=== PATIENT | female | born 1950 | race Caucasian/White ===

== ENCOUNTER → 2017-12-21 | Outpatient (CLI) | payer MEDICARE ==
[2017-12-21 08:34] LABS: Basophils % (A) 1 %; Eosinophils # (A) 0.1 k/uL (0-0.7); Eosinophils % (A) 2 %; HCT 47.1 % (34.0-46.0); HGB 15.1 gm/dL (11.4-16.0); Lymphocytes # (A) 1.7 k/uL (1.0-4.8); Lymphocytes % (A) 29 %; MCH 30.7 pg (25.0-35.0); MCHC 32.1 g/dL (31.0-37.0); MCV 95.8 fL (80.0-100.0); Monocytes # (A) 0.5 k/uL (0-1.0); Monocytes % (A) 8 %; Neutrophils # (A) 3.3 k/uL (1.3-7.7); Neutrophils % (A) 58 %; Platelet Count 245 k/uL (150-450); RBC 4.91 m/uL (3.80-5.40); RDW 12.8 % (11.5-15.5); WBC 5.7 k/uL (3.8-10.6)
[2017-12-21 08:53] LABS: ALT 50 U/L (9-52); AST 36 U/L (14-36); Albumin 4.6 g/dL (3.5-5.0); Alkaline Phosphatase 64 U/L (38-126); Anion Gap 11 mmol/L; Blood Urea Nitrogen 15 mg/dL (7-17); Calcium 10.5 mg/dL (8.4-10.2); Carbon Dioxide 29 mmol/L (22-30); Chloride 100 mmol/L (98-107); Cholesterol 174 mg/dL (<200); Glucose 126 mg/dL (74-99); HDL Cholesterol 58 mg/dL (40-60); LDL Cholesterol,Calculated 78 mg/dL (0-99); Potassium 5.3 mmol/L (3.5-5.1); Sodium 140 mmol/L (137-145); Total Bilirubin 0.6 mg/dL (0.2-1.3); Total Protein 7.1 g/dL (6.3-8.2); Triglycerides 192 mg/dL (<150)
[2017-12-21 17:41] LABS: Hepatitis A Antibody IgM Non-Reactive (Non-Reactive); Hepatitis B Core IgM Non-Reactive (Non-Reactive)
--- NOTE | 2017-12-24 09:11 | MM ---
Reason for exam: screening (asymptomatic). Last mammogram was performed 1 year and 3 months ago. History: Patient is postmenopausal. Physical Findings: A clinical breast exam by your physician is recommended on an annual basis and results should be correlated with mammographic findings. MG 3D Screening Mammo W/Cad Bilateral CC and MLO view(s) were taken. Prior study comparison: September 09, 2016, mammogram, performed at [facility]. February 20, 2015, mammogram, performed at [facility]. There are scattered fibroglandular densities. There is chronic nodularity in the right breast. There is no discrete abnormality. ASSESSMENT: Benign, BI-RAD 2 RECOMMENDATION: Routine screening mammogram of both breasts in 1 year.
== END | disposition home or self-care (01) ==
LOC: RADMAMWWP 07:43
PROVIDERS: ATTEND Family Medicine
DX: Z12.31 Encounter for screening mammogram for malignant neoplasm of breast (principal); Z11.59 Encounter for screening for other viral diseases; Z00.00 Encounter for general adult medical examination without abnormal findings
CPT/HCPCS: 36415; 77063; 77067; 80053; 80061; 80074; 84443; 85025

== ENCOUNTER → 2018-08-11 | Outpatient (CLI) | payer MEDICARE ==
--- NOTE | 2018-08-11 09:42 | CT ---
EXAMINATION TYPE: CT chest wo con DATE OF EXAM: 08/11/2018 COMPARISON: NONE HISTORY: Multiple nodules of lung CT DLP: 250.6 mGycm. Automated Exposure Control for Dose Reduction was Utilized. TECHNIQUE: CT scan of the thorax is performed without IV contrast. FINDINGS: LUNGS: Incidental note is made of an azygos fissure and azygos lobe. Mild centrilobular and parasepta l emphysematous changes are seen. There is a masslike consolidation in the right lower lobe appearing soft tissue density measuring 7.8 x 7.1 x 5.3 cm. There is right hemithorax volume loss with elevation of the right hemidiaphragm. The re is an adjacent small right pleural effusion and diffuse groundglass opacity with interseptal lobul ar thickening involving the right lower lobe and inferior aspect of the right upper lobe as well as t he right middle lobe. There is a 3 mm groundglass left upper lobe pulmonary nodule on series 4 image 23. Lingular atelectas is is incidentally noted. 2 mm subpleural posterior superior segment left lower lobe pulmonary nodule is present on image 27. MEDIASTINUM: Lack of IV contrast is noted to limit evaluation for mediastinal and especially hilar ad enopathy. However there is a mildly enlarged 1.1 cm short axis left paratracheal lymph node and 1.0 c m right paratracheal lymph node approaching the viktoriya. Subcarinal lymph node measures 1.2 cm. Peribr onchial cuffing surrounding the right hilum is appreciated such as series 3 image 32. No cardiomega ly or pericardial effusion is seen. OTHER: Solitary hepatic cyst measures 1.6 cm. Very small hiatal hernia is incidentally noted. IMPRESSION: Masslike consolidation in the right lower lobe measuring up to 7.8 cm with adjacent right pleural effusion, interstitial pneumonitis involving the right lower lobe, right upper lobe and righ t middle lobe, abnormal peribronchial cuffing, and mediastinal adenopathy with volume loss of the rig ht lung. Findings are suspicious for neoplasm although infectious etiology remains a less likely cons ideration. Further evaluation with PET CT or bronchoscopy could be performed. Additional 2 and 3 mm l eft pulmonary nodules are of low suspicion for malignancy.
== END | disposition home or self-care (01) ==
LOC: RADCTMAIN 07:18
PROVIDERS: ATTEND Family Medicine
DX: J90 Pleural effusion, not elsewhere classified (principal); J84.89 Other specified interstitial pulmonary diseases; R59.0 Localized enlarged lymph nodes
CPT/HCPCS: 71250

== ENCOUNTER 2018-08-25 08:28 | Day surgery (SDC) | payer MEDICARE ==
[2018-08-24 08:31] VITALS: BMI 25.1
[~2018-08-25 08:28] MED LIST: LACTATED RINGERS 1,000 ML IV SCH; LIDOCAINE 1% 20 ML VIAL (10MG/ML) FOR IV START INTRADERMA PRN
[2018-08-25 09:16] VITALS: TEMP 97.6
[2018-08-25 09:24] LABS: Glucose,Whole Blood 109 mg/dL (75-99)
[2018-08-25] MEDS ORDERED: LIDOCAINE VISCOUS 300 MG/15 ML CUP MUCOUS MEM ONE (09:49)
[2018-08-25] MEDS ORDERED: PROPOFOL 10 MG/ML 20 ML VIAL IV ONE (10:10)
[2018-08-25] MEDS ORDERED: LIDOCAINE 1% INJ 10MG/ML (20 ML MDV) ONE (10:10)
[2018-08-25] MEDS ORDERED: LIDOCAINE 2% (PF) 20 MG/ML 10 ML AMP INHALATION ONE ×2 (10:15)
[2018-08-25] MEDS ORDERED: ALBUTEROL NEBULIZED 2.5 MG/3 ML INHALATION ONE (10:15)
[2018-08-25 11:01] VITALS: BP 103/58; PULSE 103; RESP 18
--- NOTE | 2018-08-25 11:08 | PCN ---
PROCEDURE NOTE PROCEDURE: Bronchoscopy, transbronchial biopsy of the right lower lobe, endobronchial biopsies of the right lower lobe, brushings of the right lower lobe bronchus, washings, and lavage of the right lower lobe. PREOPERATIVE DIAGNOSIS: right lower lobe mass-like consolidation. POSTOPERATIVE DIAGNOSIS: Right lung mass and subtotal occlusion of the right lower lobe and right middle lobe. ANESTHESIA USED: This patient was given IV conscious sedation. PROCEDURE DESCRIPTION: Patient was prepared according to the bronchoscopy protocol. O2 was applied via nasal cannula. Patient was placed in the supine position, we monitored her O2 saturation continuously, blood pressure was intermittently monitored, cardiac rhythm was continuously monitored. After adequate IV conscious sedation, a few mL of lidocaine were instilled into the left naris, and the bronchoscope was advanced through the left naris down to the area of the vocal cords, which were noted to be patent. More lidocaine was applied over the vocal cords, and the bronchoscope was advanced through the vocal cords down to the trachea. A thorough examination was done of the trachea, viktoriya, right upper lobe, right middle lobe, right lower lobe, left upper lobe, lingula, and left lower lobe. There was significant findings involving the right middle lobe and the right lower lobe. The right lower lobe was noted to be narrowed, multiple thickened area of the mucosa noted in the right lower lobe bronchus, and was almost subtotally occluded with extrinsic compression noted in the right middle lobe bronchus. Multiple pictures were taken of the right middle lobe and right lower lobe, and multiple brushings, transbronchial biopsies, and bronchial biopsies were done from the right lower lobe, washings were also done, and the biopsies were done under fluoroscopy guidance. There was also some slight extrinsic compression even on the right upper lobe, but no endobronchial tumors noted in the right upper lobe, and no endobronchial tumors noted in the right middle lobe. The significant findings were noted to be in the right lower lobe, strongly suspicious for malignancy. The procedure was well tolerated, no evidence of any immediate complications. The specimen removed from the right lower lobe, including brushings, washings, cultures, and biopsies were all sent for different diagnostic studies. MMODL / IJN: [id number] /
--- NOTE | 2018-08-25 11:11 | FL ---
EXAMINATION TYPE: FL bronchoscopy DATE OF EXAM: 08/25/2018 CLINICAL HISTORY: Abnormal chest x-ray and CT. TECHNIQUE: Fluoroscopy. COMPARISON: None. FINDINGS: Fluoroscopic guidance was provided during bronchoscopy procedure performed by Dr. Meier. A total of 46 seconds of fluoroscopic time was utilized during the procedure and 0 spot images are s aved. IMPRESSION: As Above.
--- NOTE | 2018-08-25 13:12 | XR ---
EXAMINATION TYPE: XR chest 1V DATE OF EXAM: 08/25/2018 COMPARISON: None INDICATION: Right lower lobe bronchoscopy TECHNIQUE: Single frontal view of the chest is obtained. FINDINGS: The heart size is normal. The pulmonary vasculature is normal. There is a right lower lobe infiltrate. Note is made of an azygos fissure. No pneumothorax is evident . IMPRESSION: 1. Right lower lobe infiltrate. 2. No pneumothorax post bronchoscopy.
== END 2018-08-25 11:39 | disposition home or self-care (01) ==
LOC: ORWHC2ENDO 08:28
PROVIDERS: ATTEND Internal Medicine
DX: C34.31 Malignant neoplasm of lower lobe, right bronchus or lung (principal); E78.00 Pure hypercholesterolemia, unspecified; K21.9 Gastro-esophageal reflux disease without esophagitis; J44.9 Chronic obstructive pulmonary disease, unspecified; Z79.84 Long term (current) use of oral hypoglycemic drugs; Z79.51 Long term (current) use of inhaled steroids; Z79.899 Other long term (current) drug therapy; Z87.891 Personal history of nicotine dependence; E11.9 Type 2 diabetes mellitus without complications
CPT/HCPCS: 88104; 88108; 88305; 88342; 88341; 71045; 31628; 31623; 31624; J2001 ×2; J2704

== ENCOUNTER → 2018-08-25 | Outpatient (CLI) | payer MEDICARE ==
--- NOTE | 2018-08-25 09:10 | US ---
EXAMINATION TYPE: US chest DATE OF EXAM: 08/25/2018 COMPARISON: CXR from 1 week. CLINICAL HISTORY: J90 PLEURAL EFFUSION. TECHNIQUE: Targeted ultrasound of the posterior lower EXAM MEASUREMENTS: Right Pleural Effusion pocket size: 8.0 cm Right skin surface to fluid distance: 3.5 cm mid fluid Right side marked for possible thoracentesis outside the dept. Pulmonologists are able to review the images in the patient?s EMR. IMPRESSIONS: Small right pleural effusion is seen which correlates with CXR.
== END | disposition home or self-care (01) ==
LOC: RADUSWWP 08:36
PROVIDERS: ATTEND Internal Medicine
DX: J90 Pleural effusion, not elsewhere classified (principal)
CPT/HCPCS: 76604; 87070; 87102; 87116; 87205; 87206

== ENCOUNTER → 2018-09-03 | Outpatient (CLI) | payer MEDICARE ==
--- NOTE | 2018-09-04 08:10 | PE ---
EXAMINATION TYPE: PET CT fusion skull to thigh DATE OF EXAM: 09/03/2018 CLINICAL HISTORY: Lung cancer diagnosed on bronchoscopy August 25, 2018 TECHNIQUE: Following the intravenous administration of 12.5 to mCi of F-18 FDG, whole body images a re performed from the skull base to the midthigh. Images are reviewed on the computer in the coronal , axial, and sagittal planes. Reconstructed rotating images are created on independent workstation a nd reviewed on the computer. A non-contrast CT is performed in conjunction with the PET scan. COMPARISON: Chest CT August 11, 2018 Initial scan FINDINGS: SKULL BASE AND NECK: No suspicious hypermetabolic uptake is seen. CHEST, MEDIASTINUM, AND HILAR REGION: Mild underlying emphysematous change is redemonstrated. There i s redemonstration of azygos lobe/fissure. There is small to moderate-sized right pleural effusion inc reased in size from prior CT. There is persistent right lower lobe mass that is hypermetabolic measur ing approximately 7.2 x 6.5 cm axial image 84 with surrounding groundglass opacity extending superior ly. Mass abuts the mediastinum near level of the left atrium. Max SUV is 7.74. There is right hilar adenopathy near axial image 69 through 72, max SUV at this level is 3.2. There i s suspicious subcarinal lymph node measuring 1.4 x 0.8 cm axial image 73, max SUV is 3.07. There are nonspecific lymph nodes in the anterior superior mediastinum including paratracheal region near axial image 58, max SUV is 2.07. There is suspicious right supraclavicular hypermetabolic lymph node measuring 1.2 x 1.1 cm on axial i mage 37, max SUV is 2.99. ABDOMEN AND PELVIS: No adrenal masses are seen. No suspicious hypermetabolic uptake is present. Eliana l excretion is seen. Slightly more prominent bowel uptake incidentally noted without significant wall thickening. Diverticula throughout the colon identified most prominent in the sigmoid colon. OSSEOUS STRUCTURES: No suspicious hypermetabolic uptake is present. OTHER CT: There is moderate calcified plaque of the thoracic aorta. There is coronary artery calcific ation which is noted marker for coronary artery disease. Liver is diffusely low dense consistent with fatty infiltration. There is 1.3 cm low dense lesion altaf trally axial image 98 consistent with thin-walled cyst. Dependent density in gallbladder could reflec t all bladder sludge and/or small stones. Moderate to severe calcified plaque of the infrarenal abdominal aorta extends into iliac branch vesse ls. Uterus is surgically absent or markedly atrophic. There is facet arthropathy in the lower lumbar spine. IMPRESSION: Right lower lobe mass or neoplasm redemonstrated. There is adenopathy right hilar and sub carinal region as well as in the supraclavicular region noted. Small to moderate-sized right pleural effusion is increased from prior without definitive hypermetabolic uptake. No distant metastatic dise ase is seen. TNM STAGING T4, N3, M0 AJCC STAGING IIIC
== END ==
LOC: RADPETMAIN 09:55
PROVIDERS: ATTEND Internal Medicine
DX: C34.90 Malignant neoplasm of unspecified part of unspecified bronchus or lung (principal); C34.31 Malignant neoplasm of lower lobe, right bronchus or lung; J90 Pleural effusion, not elsewhere classified
CPT/HCPCS: 78815; A9552

== ENCOUNTER → 2018-09-07 | Outpatient (CLI) | payer MEDICARE ==
--- NOTE | 2018-09-07 22:42 | MR ---
EXAMINATION TYPE: MR brain wo/w con DATE OF EXAM: 09/07/2018 COMPARISON: NONE HISTORY: HX of newly diagnosed lung cancer TECHNIQUE: Multiplanar, multisequence images of the brain and brainstem is performed without and with IV contras t, utilizing 7.5 mL intravenous Gadavist . FINDINGS: Diffusion weighted images demonstrate no evidence of a recent infarct or other diffusion ab normality. There is no worrisome extra-axial fluid collection. There is ventricular and sulcal promi nence consistent with diffuse cerebral atrophy. Ventricular size is out of proportion to degree of lawrence lcal effacement in the normal pressure hydrocephalus is not excluded. Fourth ventricle is noted promi nent. There are focal confluent areas of T2 hyperintensity seen throughout the superficial, deep, per iventricular white matter. Lesions are nonspecific in appearance and distribution. Midline structures demonstrate normal morphology. The craniocervical junction appears within normal limits. Post contrast images demonstrate no abnormal enhancement. The dural venous sinuses appear pa tent. The visualized sinuses are clear and the globes are intact. IMPRESSION: 1. No suspicious enhancing intraparenchymal masses to suggest metastatic disease. 2. Mild to moderate diffuse cerebral atrophy with moderate to advanced chronic small vessel ischemic change. Cannot exclude a underlying normal pressure hydrocephalus, correlate clinically. Comparison w ith old outside CT or MRI would be beneficial.
== END | disposition home or self-care (01) ==
LOC: RADMRIMAIN 13:57
PROVIDERS: ATTEND Internal Medicine Hematology & Oncology
DX: G31.9 Degenerative disease of nervous system, unspecified (principal); I67.82 Cerebral ischemia; C34.31 Malignant neoplasm of lower lobe, right bronchus or lung
CPT/HCPCS: 82565; 70553; 36415; A9585

== ENCOUNTER 2018-09-26 10:23 | Inpatient (IN) | payer MEDICARE ==
--- NOTE | 2018-09-26 10:56 | ED ---
General Adult HPI - General Chief complaint: Shortness of Breath Stated complaint: Dyspnea Time Seen by Provider: 09/26/18 10:35 Source: patient, family, RN notes reviewed Mode of arrival: ambulatory Limitations: no limitations - History of Present Illness Initial comments: Patient is a pleasant 59-year-old female presenting to the emergency department with dyspnea. Patient has known recent diagnosis of lung cancer, adenocarcinoma. Patient has been increasingly short of breath over the past 4 days. Patient has rare cough. Cough is nonproductive. No hemoptysis. Dyspnea increases with exertion. Patient is able to walk up to 20 feet before becoming extremely short of breath. Patient did have previous bronchoscopy done for diagnosis. Patient did see a surgeon who stated cancer was nonoperative. Patient has scheduled appointment to see also follow-up with oncology. No leg pain or leg swelling. Patient did see her primary care physician Dr. Ricks today. He did call me requesting further workup. He stated patient did have an effusion, moderate to large on the right side and will likely need drainage with pulmonary. - Related Data Home Medications Medication Instructions Recorded Confirmed Atorvastatin [Lipitor] 10 mg PO DAILY 08/24/18 09/26/18 Budesonide/Formoterol Fumarate 1 puff INHALATION RT-BID 08/24/18 09/26/18 [Symbicort 80-4.5 Mcg Inhaler] Cholecalciferol [Vitamin D3] 1,000 unit PO DAILY 08/24/18 09/26/18 Omeprazole 20 mg PO QAM 08/24/18 09/26/18 Potassium 99 mg PO DAILY 08/24/18 09/26/18 Tiotropium 18 Mcg/Puff [Spiriva] 1 puff INHALATION RT-DAILY 08/24/18 09/26/18 metFORMIN HCL [Glucophage] 1,000 mg PO BID 08/24/18 09/26/18 Albuterol Nebulized [Ventolin 2.5 mg INHALATION RT-Q6H PRN 09/26/18 09/26/18 Nebulized] HYDROcodone/APAP 7.5-325MG [Ellery 1 tab PO Q6H PRN 09/26/18 09/26/18 7.5-325] Allergies Allergy/AdvReac Type Severity Reaction Status Date / Time No Known Allergies Allergy Verified 09/26/18 10:54 Review of Systems ROS Statement: Those systems with pertinent positive or pertinent negative responses have been documented in the HPI. ROS Other: All systems not noted in ROS Statement are negative. Constitutional: Denies: fever, chills Eyes: Denies: eye pain ENT: Denies: ear pain Respiratory: Reports: dyspnea Cardiovascular: Denies: chest pain Endocrine: Reports: fatigue Gastrointestinal: Denies: abdominal pain Genitourinary: Denies: dysuria, frequency Musculoskeletal: Denies: back pain Skin: Denies: rash Neurological: Denies: headache Past Medical History Past Medical History: Diabetes Mellitus, GERD/Reflux, Hyperlipidemia Additional Past Medical History / Comment(s): pt states "fluid rt lower lung per CT scan",cough,"borderline diabetes", steroids Jul 2018 History of Any Multi-Drug Resistant Organisms: None Reported Past Surgical History: Appendectomy, Hysterectomy Past Anesthesia/Blood Transfusion Reactions: No Reported Reaction Additional Past Anesthesia/Blood Transfusion Reaction / Comment(s): no hx blood transfusion Past Psychological History: No Psychological Hx Reported Smoking Status: Former smoker - Past Family History Mother Family Medical History: No Reported History General Exam Limitations: no limitations General appearance: alert, in no apparent distress Head exam: Present: atraumatic Eye exam: Present: normal appearance, PERRL ENT exam: Present: normal oropharynx Neck exam: Present: normal inspection Respiratory exam: Present: decreased breath sounds (Right mid and lower lung lopez) Cardiovascular Exam: Present: tachycardia GI/Abdominal exam: Present: soft. Absent: tenderness Extremities exam: Present: normal inspection. Absent: pedal edema, calf tenderness Back exam: Present: normal inspection Neurological exam: Present: alert Psychiatric exam: Present: normal affect, normal mood Skin exam: Present: normal color Course Vital Signs 09/26/18 10:24 Temperature 97.9 F Pulse Rate 107 H Respiratory 25 H Rate Blood Pressure 130/81 O2 Sat by Pulse 92 L Oximetry EKG Findings - EKG Comments: EKG Findings:: Sinus tachycardia 102. AL 134. QRS 82. QT 338. QTC 440. Normal axis. Normal QRS. No acute ST change. Medical Decision Making - Medical Decision Making Patient reevaluated and does feel better with oxygen. Patient and family updated. Case discussed in detail with Dr. logan, who will admit covering for Dr. Ricks. Patient does have evidence of urinary tract infection and will be covered with antibiotics. Tachycardia and tachypnea are felt to be related to large effusion and therefore patient does not meet sepsis criteria. - Lab Data Result diagrams: 09/26/18 11:16 09/26/18 11:16 Lab Results 09/26/18 09/26/18 09/26/18 Range/Units 11:16 11:16 11:16 WBC 8.4 (3.8-10.6) k/uL RBC 4.05 (3.80-5.40) m/uL Hgb 11.2 L (11.4-16.0) gm/dL Hct 35.8 (34.0-46.0) % MCV 88.3 (80.0-100.0) fL MCH 27.7 (25.0-35.0) pg MCHC 31.4 (31.0-37.0) g/dL RDW 13.5 (11.5-15.5) % Plt Count 602 H (150-450) k/uL PT 12.4 H (9.0-12.0) sec INR 1.2 H (<1.2) APTT 25.6 (22.0-30.0) sec Sodium 133 L (137-145) mmol/L Potassium 4.6 (3.5-5.1) mmol/L Chloride 95 L (98-107) mmol/L Carbon Dioxide 27 (22-30) mmol/L Anion Gap 11 mmol/L BUN 12 (7-17) mg/dL Creatinine 0.49 L (0.52-1.04) mg/dL Est GFR (CKD-EPI)AfAm >90 (>60 ml/min/1.73 sqM) Est GFR (CKD-EPI)NonAf >90 (>60 ml/min/1.73 sqM) Glucose 123 H (74-99) mg/dL Calcium 9.2 (8.4-10.2) mg/dL Total Bilirubin 0.5 (0.2-1.3) mg/dL AST 71 H (14-36) U/L ALT 52 (9-52) U/L Alkaline Phosphatase 87 (38-126) U/L Total Protein 5.8 L (6.3-8.2) g/dL Albumin 2.7 L (3.5-5.0) g/dL Urine Color Urine Appearance (Clear) Urine pH (5.0-8.0) Ur Specific [place] (1.001-1.035) Urine Protein (Negative) Urine Glucose (UA) (Negative) Urine Ketones (Negative) Urine Blood (Negative) Urine Nitrite (Negative) Urine Bilirubin (Negative) Urine Urobilinogen (<2.0) mg/dL Ur Leukocyte Esterase (Negative) Urine WBC (0-5) /hpf Urine WBC Clumps (None) /hpf Urine Bacteria (None) /hpf 09/26/18 Range/Units 11:35 WBC (3.8-10.6) k/uL RBC (3.80-5.40) m/uL Hgb (11.4-16.0) gm/dL Hct (34.0-46.0) % MCV (80.0-100.0) fL MCH (25.0-35.0) pg MCHC (31.0-37.0) g/dL RDW (11.5-15.5) % Plt Count (150-450) k/uL PT (9.0-12.0) sec INR (<1.2) APTT (22.0-30.0) sec Sodium (137-145) mmol/L Potassium (3.5-5.1) mmol/L Chloride (98-107) mmol/L Carbon Dioxide (22-30) mmol/L Anion Gap mmol/L BUN (7-17) mg/dL Creatinine (0.52-1.04) mg/dL Est GFR (CKD-EPI)AfAm (>60 ml/min/1.73 sqM) Est GFR (CKD-EPI)NonAf (>60 ml/min/1.73 sqM) Glucose (74-99) mg/dL Calcium (8.4-10.2) mg/dL Total Bilirubin (0.2-1.3) mg/dL AST (14-36) U/L ALT (9-52) U/L Alkaline Phosphatase (38-126) U/L Total Protein (6.3-8.2) g/dL Albumin (3.5-5.0) g/dL Urine Color Yellow Urine Appearance Cloudy H (Clear) Urine pH 6.0 (5.0-8.0) Ur Specific [place] 1.018 (1.001-1.035) Urine Protein 1+ H (Negative) Urine Glucose (UA) Negative (Negative) Urine Ketones Trace H (Negative) Urine Blood Negative (Negative) Urine Nitrite Positive H (Negative) Urine Bilirubin Negative (Negative) Urine Urobilinogen 2.0 (<2.0) mg/dL Ur Leukocyte Esterase Moderate H (Negative) Urine WBC 30 H (0-5) /hpf Urine WBC Clumps Occasional H (None) /hpf Urine Bacteria Many H (None) /hpf - Radiology Data Interpreted by me: Outpatient chest x-ray shows large right pleural effusion. There is also appearance of air-fluid level in the right upper lung. Disposition Clinical Impression: Pleural effusion, Urinary tract infection Disposition: ADMITTED IP TO THIS HOSP Condition: Serious Is patient prescribed a controlled substance at d/c from ED?: No Referrals: Mitch Ricks MD [Primary Care Provider] - 1-2 days Decision Time: 12:30
[2018-09-26 11:57] LABS: HCT 35.8 % (34.0-46.0); HGB 11.2 gm/dL (11.4-16.0); INR 1.2 (<1.2); MCH 27.7 pg (25.0-35.0); MCHC 31.4 g/dL (31.0-37.0); MCV 88.3 fL (80.0-100.0); Mean Platelet Volume 6.2; Partial Thromboplastin Time 25.6 sec (22.0-30.0); Platelet Count 602 k/uL (150-450); Prothrombin Time 12.4 sec (9.0-12.0); RBC 4.05 m/uL (3.80-5.40); RDW 13.5 % (11.5-15.5); WBC 8.4 k/uL (3.8-10.6)
[2018-09-26 12:03] LABS: ALT 52 U/L (9-52); AST 71 U/L (14-36); Albumin 2.7 g/dL (3.5-5.0); Alkaline Phosphatase 87 U/L (38-126); Anion Gap 11 mmol/L; Blood Urea Nitrogen 12 mg/dL (7-17); Calcium 9.2 mg/dL (8.4-10.2); Carbon Dioxide 27 mmol/L (22-30); Chloride 95 mmol/L (98-107); Glucose 123 mg/dL (74-99); Potassium 4.6 mmol/L (3.5-5.1); Sodium 133 mmol/L (137-145); Total Bilirubin 0.5 mg/dL (0.2-1.3); Total Protein 5.8 g/dL (6.3-8.2)
[2018-09-26 12:16] LABS: Appearance,Urine Cloudy (Clear); Bacteria,Urine Many /hpf; Bilirubin,Urine Negative (Negative); Blood,Urine Negative (Negative); Color,Urine Yellow; Glucose,Urine (UA) Negative (Negative); Ketones,Urine Trace (Negative); Leukocyte Esterase,Urine Moderate (Negative); Nitrite,Urine Positive (Negative); Protein,Urine 1+ (Negative); Specific Gravity,Urine 1.018 (1.001-1.035); WBC,Urine 30 /hpf (0-5)
[2018-09-26] MEDS ORDERED: NALOXONE 0.4 MG/ML 1 ML VIAL IV PRN (12:31)
[2018-09-26 12:44] LABS: Band Neutrophils % 8 %; Lymphocytes # (M) 1.18 k/uL (1.0-4.8); Monocytes # (M) 1.51 k/uL (0-1.0); Myelocytes # (M) 0.08 k/uL (0); Myelocytes % 1 %; Neutrophils % (M) 60 %; Nucleated Red Blood Cells 0 /100 WBC (0-0); Total Cells Counted 200
[2018-09-26] MEDS: SODIUM CHLORIDE 0.9% 1,000 ML IV SCH (13:10)
[2018-09-26] MEDS ORDERED: RX INFO: IV CONTRAST WAS GIVEN 1 EACH MISC MISCELLANE PRN (15:33)
--- NOTE | 2018-09-26 16:55 | CT ---
EXAMINATION TYPE: CT chest w con DATE OF EXAM: 09/26/2018 COMPARISON: 08/11/2018 HISTORY: SOB, hx of lung ca CT DLP: 548 mGycm Automated exposure control for dose reduction was used. CONTRAST: CT scan of the chest is performed with IV Contrast, patient injected with 100 mL of Isovue 300. FINDINGS: There is significant opacification of the right hemithorax. There is a large right pleural effusion. There is mass at the right pulmonary hilum. There is a cavity at the anterior aspect of the right pul monary hilum that measures 4 cm with fluid level. There is very little aeration of the right upper lo be. There is almost complete occlusion of the right mainstem bronchus. The left lung shows some minim al atelectasis at the lingula left upper lobe. There is small pericardial effusion. Thoracic aorta is atheromatous. I see no bony destructive process. IMPRESSION: There is progression of disease with increased pleural fluid and opacification right hem ithorax. There is almost complete occlusion right mainstem bronchus. There is development of a 4 cm c avity at the anterior aspect right pulmonary hilum with fluid level. There is some new lingula reticu lar nodular infiltrate compared to old exam. There is some degree of tension with shift of the heart and mediastinum slightly to the left side.
[2018-09-26] MEDS ORDERED: ALBUTEROL NEBULIZED 2.5 MG/3 ML INHALATION PRN (17:17)
[2018-09-26] MEDS ORDERED: VANCOMYCIN IV PER PHARMACY 1 EACH MISC MISCELLANE PRN (17:39)
--- NOTE | 2018-09-26 17:45 | P.CNPUL ---
History of Present Illness Consult date: 09/26/18 Reason for consult: dyspnea History of present illness: This is a 67-year-old female patient was referred to us from the primary care physician's office because of worsening shortness of breath and worsening of the x-ray findings based on and off his chest x-ray that was done for shortness of breath. This patient has a recent diagnosis of a non-small cell lung cancer of the lung. The patient was diagnosed having adenocarcinoma, T4 N3 M0 lesion, based on the PET scan findings. Her diagnosis established by a bronchoscopy that was done here in the hospital on 08/25/2018 and it showed thickening of the right lower lobe bronchus and it was found to be subtotally occluded with extrinsic compression and similar findings were also seen in the right middle lobe bronchus. In the bronchial biopsies from the right lower lobe confirmed the diagnosis. The patient had a PET scan that showed a mass in the right lower lobe consistent with a nail present. There was also adenopathy in the right hilar and subcarinal region as well as the supraclavicular area. There was a small to moderate-sized right-sided pleural effusion and a staging that was given was T4 and 3 M0, stage IIIc. Patient was referred to [facility] and since then the patient has not received any treatment. I've asked that she is not a surgical candidate. Today while being seen at the primary care physician's office was having increased shortness of breath and a chest x- ray shows further volume loss and significant opacification of the right lung in his lower two thirds and there may be an air-fluid level in the top one third of the right lung. Left lung remains clear. She was sent over as a direct admit. She is afebrile. She is hemodynamically stable. She is slightly tachycardic with a heart rate in the low 100s rate. She is on 2 L of oxygen nasal cannula and his saturations around 91-92%. She is been having increased shortness of breath over the past 4 days. She has a rather cough. The cough is nonproductive. No hemoptysis. She is unable to walk more than 20 feet because of worsening shortness of breath. MRI of the brain did not show any metastatic involvement of the [employer]. Review of Systems Constitutional: Reports fatigue Eyes: denies as per HPI, denies blurred vision, denies bulging eye, denies decreased vision, denies diplopia, denies discharge, denies dry eye, denies irritation, denies itching, denies pain, denies photophobia, denies loss of peripheral vision, denies loss of vision, denies tunnel vision/blind spots Ears: deny: decreased hearing, ear discharge, earache, tinnitus Ears, nose, mouth and throat: Denies headache, Denies sore throat Cardiovascular: Reports decreased exercise tolerance, Reports dyspnea on exertion Respiratory: Reports dyspnea Gastrointestinal: Denies abdominal pain, Denies diarrhea, Denies nausea, Denies vomiting Genitourinary: Reports as per HPI Menstruation: Reports as per HPI Musculoskeletal: Reports as per HPI Musculoskeletal: absent: ankle pain, ankle stiffness, ankle swelling Integumentary: Reports as per HPI Neurological: Reports as per HPI Psychiatric: Reports as per HPI Endocrine: Reports as per HPI Hematologic/Lymphatic: Reports as per HPI Allergic/Immunologic: Reports as per HPI Past Medical History Past Medical History: COPD, Diabetes Mellitus, GERD/Reflux, Hyperlipidemia, Pneumonia Additional Past Medical History / Comment(s): Adenocarcinoma of the lung, stage IIIc, COPD, [id number] diabetes mellitus, previous history of fall with subsequent left orbital, facial and wrist fracture in addition to a pelvic fracture. She also has hyperlipidemia, acid reflux and COPD History of Any Multi-Drug Resistant Organisms: None Reported Past Surgical History: Appendectomy, Hysterectomy Additional Past Surgical History / Comment(s): 08/25/18 bronchoscopy with bx, BAL/brushings, colonoscopies, L wrist fracture with 3 pins and 1 pin has been removed. Past Anesthesia/Blood Transfusion Reactions: No Reported Reaction Additional Past Anesthesia/Blood Transfusion Reaction / Comment(s): no hx blood transfusion Smoking Status: Former smoker - Past Family History Mother Family Medical History: Myocardial Infarction ([place]) Father Family Medical History: Asthma, Cancer, COPD Additional Family Medical History / Comment(s): Father had lung cancer. Medications and Allergies Home Medications Medication Instructions Recorded Confirmed Type Atorvastatin [Lipitor] 10 mg PO DAILY 08/24/18 09/26/18 History Budesonide/Formoterol Fumarate 1 puff INHALATION RT-BID 08/24/18 09/26/18 History [Symbicort 80-4.5 Mcg Inhaler] Cholecalciferol [Vitamin D3] 1,000 unit PO DAILY 08/24/18 09/26/18 History Omeprazole 20 mg PO QAM 08/24/18 09/26/18 History Potassium 99 mg PO DAILY 08/24/18 09/26/18 History Tiotropium 18 Mcg/Puff [Spiriva] 1 puff INHALATION RT-DAILY 08/24/18 09/26/18 History metFORMIN HCL [Glucophage] 1,000 mg PO BID 08/24/18 09/26/18 History Albuterol Nebulized [Ventolin 2.5 mg INHALATION RT-Q6H PRN 09/26/18 09/26/18 History Nebulized] HYDROcodone/APAP 7.5-325MG [[place] 1 tab PO Q6H PRN 09/26/18 09/26/18 History 7.5-325] Allergies Allergy/AdvReac Type Severity Reaction Status Date / Time No Known Allergies Allergy Verified 09/26/18 10:54 Physical Exam Vitals: Vital Signs Temp Pulse Pulse Resp BP BP Pulse Ox 09/26/18 13:55 97.7 F 111 H 22 138/80 91 L 09/26/18 13:28 106 H 22 133/66 99 09/26/18 10:24 97.9 F 107 H 25 H 130/81 92 L Intake and Output 09/26/18 09/26/18 09/26/18 06:59 14:59 22:59 Other: Weight 61.235 kg Gen. appearance the patient is a mild degree of respiratory distress. She is not using excessive muscle breathing. Head exam was generally normal. There was no scleral icterus or corneal arcus. Mucous membranes were moist. Neck was supple and without jugular venous distension, thyromegaly, or carotid bruits. Carotids were easily palpable bilaterally. There was no adenopathy. Lungs sounds are markedly diminished on the right compared to left. No wheezes or rhonchi.Cardiac exam revealed the PMI to be normally situated and sized. The rhythm was regular and no extrasystoles were noted during several minutes of auscultation. The first and second heart sounds were normal and physiologic splitting of the second heart sound was noted. There were no murmurs, rubs, clicks, or gallops. Abdominal exam revealed normal bowel sounds. The abdomen was soft, non-tender, and without masses, organomegaly, or appreciable enlargement of the abdominal aorta. Examination of the extremities revealed easily palpable radial, femoral and pedal pulses. There was no cyanosis, clubbing or edema. Examination of the skin revealed no evidence of significant rashes, suspicious appearing nevi or other concerning lesions. Neurologically the patient is awake and alert and there is no focal neurological deficit. Results - Laboratory Findings CBC and BMP: 09/26/18 11:16 09/26/18 11:16 PT/INR, D-dimer PT 12.4 sec (9.0-12.0) H 09/26/18 11:16 INR 1.2 (<1.2) H 09/26/18 11:16 Abnormal lab findings: Abnormal Labs 09/26/18 09/26/18 09/26/18 11:16 11:16 11:16 Hgb 11.2 L Plt Count 602 H Monocytes # (Manual) 1.51 H Myelocytes # (Manual) 0.08 H PT 12.4 H INR 1.2 H Sodium 133 L Chloride 95 L Creatinine 0.49 L Glucose 123 H AST 71 H Total Protein 5.8 L Albumin 2.7 L Urine Appearance Urine Protein Urine Ketones Urine Nitrite Ur Leukocyte Esterase Urine WBC Urine WBC Clumps Urine Bacteria 09/26/18 11:35 Hgb Plt Count Monocytes # (Manual) Myelocytes # (Manual) PT INR Sodium Chloride Creatinine Glucose AST Total Protein Albumin Urine Appearance Cloudy H Urine Protein 1+ H Urine Ketones Trace H Urine Nitrite Positive H Ur Leukocyte Esterase Moderate H Urine WBC 30 H Urine WBC Clumps Occasional H Urine Bacteria Many H - Diagnostic Findings Chest x-ray: image reviewed Assessment and Plan Plan: Assessment 1 locally advanced non-small cell lung cancer. The patient was found to have adenocarcinoma of the right lung with a large right lower lobe mass causing mass effect on the right lower lobe bronchus and the right upper lobe bronchus. The patient also developed a right-sided pleural effusion. PET scan was done on outpatient basis and the patient was clinically given stage IIIc disease , T4 N3 M0 lesion. Patient obviously is not a surgical candidate. She has not received any treatment regarding her non-small cell lung cancer 2 acute shortness of breath and acute hypoxic respiratory failure related addition to significant opacification of the right lung and the chest exit was provided from the primary care physician's office shows significant opacification of the lower two thirds of the right lung in addition to a air- fluid level and volume loss. This is obviously a combination of atelectasis, volume loss, tumor in addition to enlarging right-sided pleural effusion. Not sure she would benefit from thoracentesis. Would like to obtain a follow-up CAT scan of the chest prior to committing for any procedure that may give this patient some symptomatic relief. In any rate, the pleural fluid needs to be sampled to make sure it's not a malignant pleural effusion which she will obviously changes patient's staging. 3 COPD 4 hyperlipidemia 5 acid reflux 6 borderline diabetes mellitus PLAN We'll obtain a CAT scan of the chest with contrast to further characterize the right lung abnormality further above-mentioned reasons. Based on the findings will make further recommendations regarding thoracentesis or the exact drainage procedure placed to be done on this patient. For now there is significant volume loss and development of further opacification of the right lung addition to an air-fluid level on the chest x-ray which raises the suspicion for hydropneumothorax. We'll review the CAT scan was completed and will make further recommendations. Prognosis is poor baseline above-mentioned comorbidities. Consult oncology.
--- NOTE | 2018-09-26 17:48 | XR ---
EXAMINATION TYPE: XR chest 1V portable DATE OF EXAM: 09/26/2018 COMPARISON: Today HISTORY: Short of breath TECHNIQUE: Single frontal view of the chest is obtained. FINDINGS: There is large right pleural effusion. There is mild pulmonary vascular congestion. Heart is probably enlarged. There are chest leads. IMPRESSION: Large right pleural effusion is improved compared to the exam earlier today at 9:30 AM. No pneumothorax.
[2018-09-26 17:53] LABS: Glucose,Whole Blood 122 mg/dL (75-99)
[2018-09-26] MEDS: ALPRAZolam 0.5 MG TAB PO PRN (17:55)
[2018-09-26] MEDS ORDERED: MELATONIN 5 MG TABLET PO PRN (18:03)
--- NOTE | 2018-09-26 18:49 | PCN ---
PROCEDURE NOTE Indication Pleural effusion. PREOP DIAGNOSES: Right lung opacity/effusion/empyema. POSTOP DIAGNOSIS: Right lung empyema. A time-out was completed verifying correct patient, procedure, site, positioning , and implant (s) or special equipment if applicable. Ultrasound guidance was/was not used and appropriate fluid pocket was identified and marked. Patient was positioned, prepped and draped in usual sterile fashion. Lidocaine was used to anesthetize the area. A Thoracentesis catheter was introduced into the pleural space and fluid was removed. Blood loss was none. A chest x-ray was ordered to evaluate for pneumothorax. Total Fluid Removed: 1.6 L Color of Fluid @@ Fluid @@was/was not sent for appropriate laboratory tests. Patient tolerated the procedure well and there were no complications. This was done on the right side. The fluid that was aspirated was consistent with empyema and total amount of fluid aspirated was 1.6 L. No bedside complications. No pneumothorax post procedure. MMODL / IJN: [id number] /
[2018-09-26] MEDS: VANCOMYCIN 1,250 MG in SODIUM CHLORIDE 0.9% 250 ML IVPB SCH (19:42)
[2018-09-26 20:24] LABS: Glucose,Whole Blood 250 mg/dL (75-99)
[2018-09-26 21:23] LABS: Color,BF Brown
[2018-09-26 21:24] LABS: Appearance,BF Cloudy; Nucleated Cells, Body Fluid 1966000 /uL; RBC, Body Fluid 461000 /uL
[2018-09-26] MEDS: SYMBICORT 80-4.5 MCG INHALER INHALATION SCH (21:41)
[2018-09-26] MEDS: PIPERACILLIN-TAZOBACTAM 3.375 GM in SODIUM CHLORIDE 0.9% 100 ML IVPB SCH (21:56)
[2018-09-26] MEDS: INSULIN ASPART 100 UNIT/ML 1 ML 10 ML VIAL SQ SCH (21:56)
[2018-09-26] MEDS: HEPARIN SODIUM,PORCINE 5,000 UNIT/ML 1 ML VIAL SQ SCH (21:57)
[2018-09-26] MEDS: metFORMIN 500 MG TAB PO SCH (21:57)
--- NOTE | 2018-09-26 22:59 | HP ---
HISTORY AND PHYSICAL DATE OF ADMISSION: 09/26/2018 DATE OF SERVICE: 09/26/2018 PRESENTING COMPLAINT: Short of breath. HISTORY OF PRESENTING COMPLAINT: This is a pleasant 67-year-old patient of Dr. Ricks. The patient about 5 weeks ago was diagnosed with adenocarcinoma stage IIIC. Being followed by Dr. Fish. The patient just had an opinion at [facility] to see if she was a surgical candidate. It was not felt for the same. The patient for last few days becoming increasingly short of breath, tired, delirious, confused, decreased oral intake. Just prior to that, she was being treated for UTI. The patient was sent in today to get further admitted. The patient has adenocarcinoma stage IIIC. The patient's others stable medical conditions include diabetes, GERD, hyperlipidemia. Several family members are present in the room including patient's who provided most of the history. The patient does feel rather weak, tired, run down. She did eat a small amount of food today. Earlier Dr. Dunbar saw the patient and did carry out right thoracentesis and 1.6 cm of what he describes with empyema was obtained. There was no obvious reported fever and chills. The patient has been sleeping on 5 pillows at home. Feels a little bit better after the fluid has been tapped. REVIEW OF SYSTEMS: CONSTITUTIONAL: Weak, tired, rundown, loss of weight and loss of appetite. HEENT None. RESPIRATORY as above. CARDIOVASCULAR: None. GASTROINTESTINAL : Heartburn. GENITOURINARY: None. MUSCULOSKELETAL: None. DERMATOLOGICAL: None. LYMPHATIC: None. PSYCHIATRY: Had been confused at home. NEUROLOGICAL: Generalized weakness. PAST MEDICAL HISTORY: COPD, diabetes, GERD, hyperlipidemia, adenocarcinoma of the lung, stage IIIC, COPD. PAST SURGICAL HISTORY: Appendectomy, hysterectomy, bronchoscopy in August, left wrist fracture 3 pins, also injury to the left orbit, facial wrist fracture in a fall. SOCIAL HISTORY: . Smoked a pack a day for about 33 years. Stopped in 2002. 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 FAMILY HISTORY: Myocardial infarction. Father had lung cancer. HOME MEDICATIONS: 1. Spiriva 1 puff daily. 2. Symbicort 1 puff b.i.d. 3. Ventolin 2.5 q.6 p.r.n. 4. Glucophage 1000 mg p.o. b.i.d. 5. Potassium 99 mg p.o. daily. 6. Omeprazole 20 mg p.o. daily. 7. [place] 7.5 one tab p.o. q.6h p.r.n. 8. Vitamin D3 1000 units p.o. daily. 9. Lipitor 10 mg p.o. daily. ALLERGIES: None. PHYSICAL EXAMINATION: VITAL SIGNS: Vital signs on presentation, temperature 97.9. Pulse 107. Respiration 25. Blood pressure 130/81, pulse ox 92 percent on room air. GENERAL APPEARANCE: Average build, sitting up. Rather tired-appearing. EYES: Pupils equal. Conjunctivae pale. HEENT: External appearance of nose and ears normal. Oral cavity normal. NECK: JVD not raised. Mass not palpable. RESPIRATORY: Effort increased. LUNGS: Diminished breath sounds on the right side. CARDIOVASCULAR: First and second sounds normal. No edema. ABDOMEN: Soft, nontender. Liver and spleen not palpable. LYMPHATIC: No lymph nodes palpable in the axilla. PSYCHIATRY: Patient is able to answer simple questions though rather tired appearing. NEUROLOGICAL: Pupils equal. No facial asymmetry. Power and sensation grossly intact. INVESTIGATIONS: White count 8.4, hemoglobin 11.2, platelets 602, potassium 4.6, BUN 12, creatinine 0.49, albumin 2.7. UA positive for leukocyte esterase. WBC. EKG tracing personally reviewed by me shows sinus tachycardia. CT scan of the chest done earlier today shows progression of disease with increased pleural fluid and opacification of the right hemithorax, almost complete occlusion of the right mainstem bronchus, a 4 cm cavity at the anterior aspect of the right hilum with fluid level. Chest x-ray film personally reviewed by me shows large right pleural effusion. ASSESSMENT: 1. Large right pleural effusion, likely malignant in nature and could be secondarily infected. 2. Chronic obstructive pulmonary disease in an ex-smoker. 3. Diabetes mellitus type 2 on oral hypoglycemic. 4. Gastroesophageal reflux disease. 5. Hyperlipidemia. 6. Adenocarcinoma of the lung, stage IIIC. 7. Possible empyema of the right side 1.6 L thoracentesis. 8. Acute metabolic encephalopathy from underlying infection/malignancy. 9. Mild protein calorie malnutrition with decreased albumin, decreased oral intake from underlying malignancy. 10.Reactive thrombocytosis. PLAN: Patient was earlier seen by Dr. Dunbar who did thoracentesis. The patient now on antibiotics to include IV Zosyn and vancomycin. Other home medications are resumed. Overall prognosis is guarded. Consultation also made to Dr. Fish. Copy to Dr. Ricks. MMODL / IJN: [id number] /
[2018-09-26] MEDS: BENZOCAINE/MENTHOL LOZENG 1 EACH LOZENGE MUCOUS MEM PRN (23:50)
[2018-09-27] MEDS: ALPRAZolam 0.5 MG TAB PO PRN ×3 (02:48→18:04)
[2018-09-27] MEDS: VANCOMYCIN 1,250 MG in SODIUM CHLORIDE 0.9% 250 ML IVPB SCH ×3 (02:48→18:01)
[2018-09-27 04:58] LABS: Total Protein, Body Fluid 429 mg/dL
[2018-09-27] MEDS: PIPERACILLIN-TAZOBACTAM 3.375 GM in SODIUM CHLORIDE 0.9% 100 ML IVPB SCH ×3 (05:22→20:23)
[2018-09-27] MEDS: BENZOCAINE/MENTHOL LOZENG 1 EACH LOZENGE MUCOUS MEM PRN ×2 (05:34→17:33)
[2018-09-27 06:14] LABS: Hemoglobin A1C 7.3 % (4.0-6.0)
[2018-09-27 07:03] LABS: Glucose,Whole Blood 154 mg/dL (75-99)
[2018-09-27] MEDS: IPRATROPIUM 0.5 MG/2.5 ML NEBU INHALATION SCH ×4 (07:15→21:40)
[2018-09-27] MEDS: SYMBICORT 80-4.5 MCG INHALER INHALATION SCH ×2 (07:15→21:40)
[2018-09-27 08:13] LABS: Anion Gap 7 mmol/L; Blood Urea Nitrogen 8 mg/dL (7-17); Calcium 8.7 mg/dL (8.4-10.2); Carbon Dioxide 29 mmol/L (22-30); Chloride 99 mmol/L (98-107); Glucose 134 mg/dL (74-99); Potassium 4.4 mmol/L (3.5-5.1); Sodium 135 mmol/L (137-145)
[2018-09-27 08:14] LABS: Basophils % (A) 0 %; Eosinophils # (A) 0.1 k/uL (0-0.7); Eosinophils % (A) 1 %; HCT 32.4 % (34.0-46.0); HGB 10.8 gm/dL (11.4-16.0); Lymphocytes % (A) 15 %; MCH 29.6 pg (25.0-35.0); MCHC 33.2 g/dL (31.0-37.0); Mean Platelet Volume 6.6; Monocytes # (A) 0.6 k/uL (0-1.0); Monocytes % (A) 9 %; Neutrophils # (A) 5.2 k/uL (1.3-7.7); Neutrophils % (A) 74 %; Platelet Count 462 k/uL (150-450); RBC 3.64 m/uL (3.80-5.40); RDW 13.7 % (11.5-15.5); WBC 7.1 k/uL (3.8-10.6)
[2018-09-27] MEDS: PANTOPRAZOLE 40 MG TABLET PO SCH (08:49)
[2018-09-27] MEDS: metFORMIN 500 MG TAB PO SCH ×2 (08:49→20:25)
[2018-09-27] MEDS: HEPARIN SODIUM,PORCINE 5,000 UNIT/ML 1 ML VIAL SQ SCH ×2 (08:49→20:24)
[2018-09-27] MEDS: POTASSIUM CHLORIDE ER 10 MEQ TAB.ER.PRT PO SCH (08:49)
[2018-09-27] MEDS: ATORVASTATIN 10 MG TAB PO SCH (08:49)
[2018-09-27] MEDS: CHOLECALCIFEROL 1,000 UNIT TAB PO SCH (08:49)
[2018-09-27] MEDS: INSULIN ASPART 100 UNIT/ML 1 ML 10 ML VIAL SQ SCH ×4 (08:50→20:50)
[2018-09-27] MEDS ORDERED: NON-FORMULARY DRUG (Potassium [Potassium] 99 MG) PO SCH (09:00)
--- NOTE | 2018-09-27 11:16 | XR ---
EXAMINATION TYPE: XR chest 1V portable DATE OF EXAM: 09/27/2018 CLINICAL HISTORY: Right-sided chest tube placement.. TECHNIQUE: Single AP portable upright view of the chest is obtained. COMPARISON: Chest x-ray and CT chest from one day earlier. FINDINGS: There is new pigtail catheter overlying right lung base. There is persistent moderate to l arge size right-sided pleural fluid collection with associated compressive atelectasis. There is rede monstration of right-sided azygos lobe/fissure There is background chronic emphysematous change. Impr ovement in mediastinal shift is seen. Left lung remains clear. Cardiac silhouette size is stable and within normal limits without reflect thoracic aorta. Osseous structures are intact. IMPRESSION: New pigtail catheter overlying right lung base likely within pleural space. Persistent mo derate to large size right pleural fluid collection with associated compressive atelectasis. Improvem ent in mediastinal shift to the right noted after pigtail catheter placement. No pneumothorax is evid ent.
[2018-09-27 11:31] LABS: Glucose,Whole Blood 133 mg/dL (75-99)
[2018-09-27] MEDS: SODIUM CHLORIDE 0.9% 1,000 ML IV SCH (11:46)
--- NOTE | 2018-09-27 11:50 | P.PN ---
Subjective Progress Note Date: 09/27/18 On today's evaluation of 09/27/2018 I'm seeing this patient for a follow-up. She is still anxious. She did not have a good night sleep yesterday. She is having issues with insomnia. Her shortness of breath is still present although less compared to yesterday. Note that I performed a thoracentesis on him yesterday and evacuated approximately 1.6 L of purulent material that was felt to be empyema. The white cell count in the fluid is considerably elevated. Cultures still pending for now. The patient on a combination of Zosyn and vancomycin. The plan for today was to insert the pigtail catheter through interventional radiology. For that reason the patient was taken downstairs for the same procedure. The WBC count is at 7.1. No other new complaints otherwise for now. The patient on 4l to oxygen nasal cannula and the pulse ox is around 99%. No pleurisy. No hemoptysis. Objective - Vital Signs Vital signs: Vital Signs Temp 97.8 F 09/26/18 21:00 Pulse 93 09/27/18 10:52 Resp 14 09/27/18 10:52 BP 115/57 09/27/18 10:52 Pulse Ox 99 09/27/18 10:52 Intake & Output 09/26/18 09/27/18 09/27/18 18:59 06:59 18:59 Intake Total 1405 Balance 1405 Weight 61.235 kg 61.235 kg Intake: Intake, IV Titration 565 Amount Piperacillin-Tazobactam 3 200 .375 gm In Sodium Chloride 0.9% 100 ml @ 25 mls/hr IVPB Q8H [facility] Rx#: [id number] Sodium Chloride 0.9% 1, 240 000 ml @ 20 mls/hr IV . Q24H [facility] Rx#:[id number] Vancomycin 1,250 mg In 125 Sodium Chloride 0.9% 250 ml @ 125 mls/hr IVPB Q8H [facility] Rx#:[id number] Oral 840 Other: Voiding Method Bedside Commode Bedside Commode # Voids 1 - Exam Gen. appearance the patient is a mild degree of respiratory distress. She is not using excessive muscle breathing. Head exam was generally normal. There was no scleral icterus or corneal arcus. Mucous membranes were moist. Neck was supple and without jugular venous distension, thyromegaly, or carotid bruits. Carotids were easily palpable bilaterally. There was no adenopathy. Lungs sounds are markedly diminished on the right compared to left. No wheezes or rhonchi.Cardiac exam revealed the PMI to be normally situated and sized. The rhythm was regular and no extrasystoles were noted during several minutes of auscultation. The first and second heart sounds were normal and physiologic splitting of the second heart sound was noted. There were no murmurs, rubs, clicks, or gallops. Abdominal exam revealed normal bowel sounds. The abdomen was soft, non-tender, and without masses, organomegaly, or appreciable enlargement of the abdominal aorta. Examination of the extremities revealed easily palpable radial, femoral and pedal pulses. There was no cyanosis, clubbing or edema. Examination of the skin revealed no evidence of significant rashes, suspicious appearing nevi or other concerning lesions. Neurologically the patient is awake and alert and there is no focal neurological deficit. - Labs CBC & Chem 7: 09/27/18 07:09 09/27/18 07:09 Labs: Abnormal Lab Results - Last 24 Hours (Table) 09/26/18 09/26/18 09/26/18 Range/Units 11:16 11:16 11:16 RBC (3.80-5.40) m/uL Hgb 11.2 L (11.4-16.0) gm/dL Hct (34.0-46.0) % Plt Count 602 H (150-450) k/uL Monocytes # (Manual) 1.51 H (0-1.0) k/uL Myelocytes # (Manual) 0.08 H (0) k/uL PT 12.4 H (9.0-12.0) sec INR 1.2 H (<1.2) Sodium 133 L (137-145) mmol/L Chloride 95 L (98-107) mmol/L Creatinine 0.49 L (0.52-1.04) mg/dL Glucose 123 H (74-99) mg/dL POC Glucose (mg/dL) (75-99) mg/dL Hemoglobin A1c (4.0-6.0) % AST 71 H (14-36) U/L Total Protein 5.8 L (6.3-8.2) g/dL Albumin 2.7 L (3.5-5.0) g/dL Urine Appearance (Clear) Urine Protein (Negative) Urine Ketones (Negative) Urine Nitrite (Negative) Ur Leukocyte Esterase (Negative) Urine WBC (0-5) /hpf Urine WBC Clumps (None) /hpf Urine Bacteria (None) /hpf 09/26/18 09/26/18 09/26/18 Range/Units 11:16 11:35 17:51 RBC (3.80-5.40) m/uL Hgb (11.4-16.0) gm/dL Hct (34.0-46.0) % Plt Count (150-450) k/uL Monocytes # (Manual) (0-1.0) k/uL Myelocytes # (Manual) (0) k/uL PT (9.0-12.0) sec INR (<1.2) Sodium (137-145) mmol/L Chloride (98-107) mmol/L Creatinine (0.52-1.04) mg/dL Glucose (74-99) mg/dL POC Glucose (mg/dL) 122 H (75-99) mg/dL Hemoglobin A1c 7.3 H (4.0-6.0) % AST (14-36) U/L Total Protein (6.3-8.2) g/dL Albumin (3.5-5.0) g/dL Urine Appearance Cloudy H (Clear) Urine Protein 1+ H (Negative) Urine Ketones Trace H (Negative) Urine Nitrite Positive H (Negative) Ur Leukocyte Esterase Moderate H (Negative) Urine WBC 30 H (0-5) /hpf Urine WBC Clumps Occasional H (None) /hpf Urine Bacteria Many H (None) /hpf 09/26/18 09/27/18 09/27/18 Range/Units 20:03 07:02 07:09 RBC 3.64 L (3.80-5.40) m/uL Hgb 10.8 L (11.4-16.0) gm/dL Hct 32.4 L (34.0-46.0) % Plt Count 462 H (150-450) k/uL Monocytes # (Manual) (0-1.0) k/uL Myelocytes # (Manual) (0) k/uL PT (9.0-12.0) sec INR (<1.2) Sodium (137-145) mmol/L Chloride (98-107) mmol/L Creatinine (0.52-1.04) mg/dL Glucose (74-99) mg/dL POC Glucose (mg/dL) 250 H 154 H (75-99) mg/dL Hemoglobin A1c (4.0-6.0) % AST (14-36) U/L Total Protein (6.3-8.2) g/dL Albumin (3.5-5.0) g/dL Urine Appearance (Clear) Urine Protein (Negative) Urine Ketones (Negative) Urine Nitrite (Negative) Ur Leukocyte Esterase (Negative) Urine WBC (0-5) /hpf Urine WBC Clumps (None) /hpf Urine Bacteria (None) /hpf 09/27/18 09/27/18 Range/Units 07:09 11:30 RBC (3.80-5.40) m/uL Hgb (11.4-16.0) gm/dL Hct (34.0-46.0) % Plt Count (150-450) k/uL Monocytes # (Manual) (0-1.0) k/uL Myelocytes # (Manual) (0) k/uL PT (9.0-12.0) sec INR (<1.2) Sodium 135 L (137-145) mmol/L Chloride (98-107) mmol/L Creatinine (0.52-1.04) mg/dL Glucose 134 H (74-99) mg/dL POC Glucose (mg/dL) 133 H (75-99) mg/dL Hemoglobin A1c (4.0-6.0) % AST (14-36) U/L Total Protein (6.3-8.2) g/dL Albumin (3.5-5.0) g/dL Urine Appearance (Clear) Urine Protein (Negative) Urine Ketones (Negative) Urine Nitrite (Negative) Ur Leukocyte Esterase (Negative) Urine WBC (0-5) /hpf Urine WBC Clumps (None) /hpf Urine Bacteria (None) /hpf Microbiology - Last 24 Hours (Table) 09/26/18 17:20 Gram Stain - Preliminary Pleural Fluid Body Fluid Culture - Preliminary 09/26/18 17:20 Acid Fast Bacilli Culture - Preliminary Pleural Fluid 09/26/18 17:20 Anaerobic Culture - Preliminary Pleural Fluid 09/26/18 17:20 Fungal Culture - Preliminary Pleural Fluid 09/26/18 11:35 Urine Culture - Preliminary Urine,Voided Assessment and Plan Plan: Assessment 1 locally advanced non-small cell lung cancer. The patient was found to have adenocarcinoma of the right lung with a large right lower lobe mass causing mass effect on the right lower lobe bronchus and the right upper lobe bronchus. The patient also developed a right-sided pleural effusion. PET scan was done on outpatient basis and the patient was clinically given stage IIIc disease , T4 N3 M0 lesion. Patient obviously is not a surgical candidate. She has not received any treatment regarding her non-small cell lung cancer 2 acute shortness of breath 3 COPD 4 empyema involving the right lung. This is post likely related to a postobstructive pneumonia. Thoracentesis was done. 1.6 L of purulent material was aspirated. The patient will be undergoing a pigtail catheter insertion today. 5 acid reflux 6 borderline diabetes mellitus 7 insomnia/anxiety PLAN Proceed with insertion of a pigtail catheter via interventional radiology. Awaiting the fluid Gram stain and culture. Keep the same antibiotic coverage. Consult with infectious disease. Consult with oncology. We'll continue to follow. Prognosis poor based on the above-mentioned complications and comorbidities.
[2018-09-27 13:08] VITALS: BMI 23.9
--- NOTE | 2018-09-27 13:24 | US ---
EXAMINATION TYPE: US guided chest tube insertion DATE OF EXAM: 09/27/2018 COMPARISON: Chest x-ray same date HISTORY: Pleural effusion. FINDINGS: Maximal barrier technique was utilized. The skin overlying a suitable pocket of fluid was localized and the overlying skin prepped and draped in the posterior right chest. Lidocaine was used for local anesthesia. Ultrasound was used with sterile technique. A 21-gauge needle was advanced in to the pleural fluid collection using ultrasound guidance and the 0.018 inch wire advanced, needle re moved, the access site was upsized with a transitional dilator and the wire was upsized, access site was dilated, 8.5 Vietnamese catheter advanced into the collection and fixed in place. A sterile dressing was placed. Patient remained in stable condition. There is no immediate complication. The patient di scharged in stable condition without complication back to her room. IMPRESSION: STATUS POST ULTRASOUND GUIDED PLEURAL DRAINAGE CATHETER PLACEMENT, POST PROCEDURE CHEST X -RAY PENDING. THIS PROCEDURE WAS PERFORMED BY THE UNDERSIGNED.
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
[2018-09-27] MEDS: HYDROcodone/APAP 7.5-325MG 1 EACH TAB PO PRN ×2 (15:48→22:41)
[2018-09-27 17:26] LABS: Glucose,Whole Blood 140 mg/dL (75-99)
[2018-09-27] MEDS: ZOLPIDEM 5 MG TAB PO PRN (20:23)
[2018-09-27 20:35] LABS: Glucose,Whole Blood 158 mg/dL (75-99)
--- NOTE | 2018-09-27 23:06 | PN ---
PROGRESS NOTE DATE OF SERVICE: 09/27/2018 PRESENTING COMPLAINT: Short of breath. INTERVAL HISTORY: This is a patient who presented with a probably malignant effusion with possible infection, had thoracentesis carried out yesterday of 1.6 liters. Today has a chest tube placed. Post chest tube, patient is lethargic, sleepy. Family is at the bedside. Tired. REVIEW OF SYSTEMS: Attempted for constitutional, cardiovascular, GI, pulmonary; relevant findings as above. CURRENT MEDICATIONS: Reviewed. They include IV Zosyn, vancomycin. PHYSICAL EXAMINATION: Temperature 97.5, pulse 92, respiration 16, blood pressure 113/62, pulse ox 97% on 3 L. GENERAL APPEARANCE: Lying in bed, lethargic, tired. EYES: Unable to assess. NECK: JVD unable to assess. Mass not palpable. RESPIRATORY: Effort increased. LUNGS: Decreased breath sounds, especially on the right side. CHEST WALL: Right-sided chest tube. CARDIOVASCULAR: First and second sounds normal. No edema. ABDOMEN: Soft, non-tender. Liver and spleen not palpable. PSYCHIATRY: Unable to assess, as patient is rather lethargic. INVESTIGATIONS: White count 7.1, hemoglobin 10.8, potassium 4.4. BUN and creatinine are normal. ASSESSMENT: 1. Right pleural effusion, likely malignant; could be infected; status post right thoracentesis with 1.6 liters removed and a chest tube now in place. 2. Chronic obstructive pulmonary disease in an ex-smoker. 3. Diabetes mellitus, type 2, on oral hypoglycemic. 4. Gastroesophageal reflux disease. 5. Hyperlipidemia. 6. Adenocarcinoma of the lung, stage IIIC. 7. Possible empyema of the right side. 8. Acute metabolic encephalopathy from underlying infection and malignancy. 9. Mild protein-calorie malnutrition from decreased oral intake. 10.Reactive thrombocytosis. PLAN: Continue with antibiotics. Continue medication and treatment plan. Will await the workup on the pleural fluid. Follow closely. Prognosis guarded. MMODL / IJN: [id number] /
--- NOTE | 2018-09-27 23:44 | P.CONS ---
History of Present Illness - Reason for Consult Consult date: 09/27/18 - Chief Complaint Altered mental status - History of Present Illness 67-year-old woman who has a very significant recent history associated with her progressive shortness of breath. She recently has had changes of her status with increasing shortness of breath and underwent evaluations both at [facility] and [facility]. Endoscopy biopsies and PET scan confirmed her stage IIIB lung carcinoma. She has now presenting to Hospital from the physician's office with significant worsening of her shortness of breath, dyspnea on exertion with very little activity and some orthopnea. Further imaging revealed evidence of extensive effusion to the right chest and consequently a thoracentesis was performed which allowed some improvement of her shortness of breath. There was also concern because she had rapid decline of her mental status issue became more short of breath. Since the thoracentesis she's been having some improvement. At the time of thoracentesis fluid was purposely left in the pleural space and now the interventional radiologist has placed the pigtail catheter and it's been attached to suction. The patient's mental status is improving further per the family. Sitting upright in the chair, has eaten some of her dinner, pain is under good control and she has conversational with some clarity. She has pain at the tube insertion site but denies other acute discomfort at this time. The having high-grade fevers, chills or rigors but again had a significant rapid change of her status before admission. Review of Systems 67-year-old woman sitting upright seems mostly comfortable HEENT:Denies headache or acute visual change. Denies sinus or mouth discomforts. Denies neck stiffness or pain. Denies significant oral cavity pain. Denies difficulty on swallowing. Lungs: Significant shortness of breath now improving minimal cough no hemoptysis Cardiovascular: Had severe shortness of breath, dyspnea on exertion, orthopnea discomfort to her chest at this point in time is related to the thoracentesis in tube was not having much pain before admission. Gastrointestinal:Denies nausea, vomiting, diarrhea, constipation, hematemesis, melena, hematochezia. No no significant change of bowel habit noticed. Musculoskeletal: denies significant myalgias or arthralgias. No new joint swelling. Denies new back pain. Skin: Denies new rash or lesions. No new ulcers or wounds are related.. Neuro: Mentation is been poor over the last several days and is starting to improve status post procedures and antibiotic therapy Psychiatric: Patient has been having a very poor mood Endocrine: Fatigue and some weight loss of started to occur Past Medical History Past Medical History: COPD, Diabetes Mellitus, GERD/Reflux, Hyperlipidemia, Pneumonia Additional Past Medical History / Comment(s): Adenocarcinoma of the lung, stage IIIc, COPD, [id number] diabetes mellitus, previous history of fall with subsequent left orbital, facial and wrist fracture in addition to a pelvic fracture. She also has hyperlipidemia, acid reflux and COPD History of Any Multi-Drug Resistant Organisms: None Reported Past Surgical History: Appendectomy, Hysterectomy Additional Past Surgical History / Comment(s): 08/25/18 bronchoscopy with bx, BAL/brushings, colonoscopies, L wrist fracture with 3 pins and 1 pin has been removed. Past Anesthesia/Blood Transfusion Reactions: No Reported Reaction Additional Past Anesthesia/Blood Transfusion Reaction / Comm: no hx blood transfusion Additional Psychological History / Comment(s): and lives with the and the family home. Has multiple caring family members. Performed smoker. No alcohol use. 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 No experience. No animals in the home Smoking Status: Former smoker - Past Family History Mother Family Medical History: Myocardial Infarction ([place]) Father Family Medical History: Asthma, Cancer, COPD Additional Family Medical History / Comment(s): Father had lung cancer. Medications and Allergies Home Medications and Allergies Comment(s): Current Medications Hydrocodone Bitart/Acetaminophen (Whitney 7.5-325) 1 each PO Q6H PRN PRN Reason: Pain Last Admin: 09/27/18 22:41 Dose: 1 each Albuterol Sulfate (Ventolin Nebulized) 2.5 mg INHALATION RT-Q6H PRN PRN Reason: Shortness Of Breath Alprazolam (Xanax) 0.5 mg PO TID PRN PRN Reason: Anxiety Last Admin: 09/27/18 18:04 Dose: 0.5 mg Atorvastatin Calcium (Lipitor) 10 mg PO DAILY [facility] Last Admin: 09/27/18 08:49 Dose: 10 mg Benzocaine/Menthol (Cepacol Lozenge) 1 each MUCOUS MEM Q4HR PRN PRN Reason: Cough Last Admin: 09/27/18 17:33 Dose: 1 each Budesonide/Formoterol Fumarate (Symbicort 80-4.5 Mcg Inhaler) 1 puff INHALATION RT-BID [facility] Last Admin: 09/27/18 21:40 Dose: Not Given Cholecalciferol (Vitamin D3) 1,000 unit PO DAILY [facility] Last Admin: 09/27/18 08:49 Dose: 1,000 unit Heparin Sodium (Porcine) (Heparin) 5,000 unit SQ Q12HR [facility] Last Admin: 09/27/18 20:24 Dose: Not Given Sodium Chloride (Saline 0.9%) 1,000 mls @ 20 mls/hr IV .Q24H [facility] Last Admin: 09/27/18 11:46 Dose: Not Given Piperacillin Sod/Tazobactam (Sod 3.375 gm/ Sodium Chloride) 100 mls @ 25 mls/ hr IVPB Q8H [facility] Last Admin: 09/27/18 20:23 Dose: 25 mls/hr Vancomycin HCl 1,250 mg/ (Sodium Chloride) 250 mls @ 125 mls/hr IVPB Q8H [facility] Last Admin: 09/27/18 18:01 Dose: 125 mls/hr Insulin Aspart (Novolog) 0 unit SQ ACHS [facility]; Protocol Last Admin: 09/27/18 20:50 Dose: Not Given Ipratropium [place] (Atrovent Nebulized) 0.5 mg INHALATION RT-QID [facility] Last Admin: 09/27/18 21:40 Dose: Not Given Melatonin (Melatonin) 10 mg PO HS PRN PRN Reason: Insomnia Last Admin: 09/26/18 22:08 Dose: 10 mg Metformin HCl (Glucophage) 1,000 mg PO BID [facility] Last Admin: 09/27/18 20:25 Dose: 1,000 mg Miscellaneous Information (Rx Info: Iv Contrast Was Given) 1 each MISCELLANE DAILY PRN PRN Reason: Per Protocol Stop: 09/28/18 15:34 Miscellaneous Information (Vancomycin Trough Due) 0 each MISCELLANE DIRECTED ONE Stop: 09/28/18 10:01 Naloxone HCl (Narcan) 0.2 mg IV Q2M PRN PRN Reason: Opioid Reversal Pantoprazole Sodium (Protonix) 40 mg PO QAM [facility] Last Admin: 09/27/18 08:49 Dose: 40 mg Potassium Chloride (K-Dur 10) 10 meq PO DAILY [facility] Last Admin: 09/27/18 08:49 Dose: 10 meq Zolpidem Tartrate (Ambien) 2.5 mg PO HS PRN PRN Reason: Drowsiness Last Admin: 09/27/18 20:23 Dose: 2.5 mg Home Medications Medication Instructions Recorded Confirmed Type Atorvastatin [Lipitor] 10 mg PO DAILY 08/24/18 09/26/18 History Budesonide/Formoterol Fumarate 1 puff INHALATION RT-BID 08/24/18 09/26/18 History [Symbicort 80-4.5 Mcg Inhaler] Cholecalciferol [Vitamin D3] 1,000 unit PO DAILY 08/24/18 09/26/18 History Omeprazole 20 mg PO QAM 08/24/18 09/26/18 History Potassium 99 mg PO DAILY 08/24/18 09/26/18 History Tiotropium 18 Mcg/Puff [Spiriva] 1 puff INHALATION RT-DAILY 08/24/18 09/26/18 History metFORMIN HCL [Glucophage] 1,000 mg PO BID 08/24/18 09/26/18 History Albuterol Nebulized [Ventolin 2.5 mg INHALATION RT-Q6H PRN 09/26/18 09/26/18 History Nebulized] HYDROcodone/APAP 7.5-325MG [Whitney 1 tab PO Q6H PRN 09/26/18 09/26/18 History 7.5-325] Allergies Allergy/AdvReac Type Severity Reaction Status Date / Time No Known Allergies Allergy Verified 09/26/18 10:54 Physical Exam Vitals: Vital Signs Temp Pulse Resp BP Pulse Ox 09/27/18 21:00 97.4 F L 105 H 16 131/54 98 09/27/18 16:37 97 09/27/18 14:43 97.5 F L 92 16 113/62 97 09/27/18 13:37 88 22 105/64 95 09/27/18 12:37 88 20 105/63 97 09/27/18 12:07 87 20 103/65 96 09/27/18 11:37 89 24 101/64 97 09/27/18 11:22 90 101/64 97 09/27/18 11:07 88 24 106/66 97 09/27/18 10:52 93 14 115/57 99 09/27/18 10:50 98 12 112/56 99 09/27/18 10:40 100 12 108/56 100 09/27/18 10:31 90 14 140/64 100 09/27/18 09:44 89 16 119/72 98 09/27/18 08:00 124 H 09/27/18 00:00 124 H 19 Intake and Output 09/27/18 09/27/18 09/28/18 14:59 22:59 06:59 Intake Total 420 Balance 420 Intake: Intake, IV Titration 420 Amount Piperacillin-Tazobactam 3 50 .375 gm In Sodium Chloride 0.9% 100 ml @ 25 mls/hr IVPB Q8H [facility] Rx#: [id number] Sodium Chloride 0.9% 1, 120 000 ml @ 20 mls/hr IV . Q24H [facility] Rx#:[id number] Vancomycin 1,250 mg In 250 Sodium Chloride 0.9% 250 ml @ 125 mls/hr IVPB Q8H [facility] Rx#:[id number] Other: Weight 61.235 kg 67-year-old female, sitting up in the chair, mostly comfortable HEENT: Anicteric conjunctiva are pink and moist nasal mucosa grossly intact without significant lesions, there is no thrush. Neck: The neck is supple without significant lymphadenopathy or thyromegaly. Lungs: There is symmetrical air entry there is still markedly diminished breath sounds at the right base but there is induration at least through the upper two thirds of the chest, dullness to the base tenderness to the catheter insertion site no drainage at the site itself Heart: Regular rate and rhythm with an audible S1-S2, no S3 no S4. There is no significant murmur click or rub, PMI was nondisplaced. Abdomen: Positive bowel sounds soft and nontender without palpable masses or organomegaly. There was no guarding or rebound. Extremities: The upper extremities have excellent pulses they are symmetric, no significant petechiae or telangiectasia. No splinter hemorrhages were noted. The lower extremities are free from significant edema. The peripheral pulses were 2+ and symmetric. Neuro: Patient apparently is much more awake alert and interactive. She is conversational but there is still significant vagueness to content Results CBC & Chem 7: 09/27/18 07:09 09/27/18 07:09 Labs: Abnormal Lab Results - Last 24 Hours (Table) 09/26/18 09/27/18 09/27/18 Range/Units 11:16 07:02 07:09 RBC 3.64 L (3.80-5.40) m/uL Hgb 10.8 L (11.4-16.0) gm/dL Hct 32.4 L (34.0-46.0) % Plt Count 462 H (150-450) k/uL Sodium (137-145) mmol/L Glucose (74-99) mg/dL POC Glucose (mg/dL) 154 H (75-99) mg/dL Hemoglobin A1c 7.3 H (4.0-6.0) % 09/27/18 09/27/18 09/27/18 Range/Units 07:09 11:30 17:25 RBC (3.80-5.40) m/uL Hgb (11.4-16.0) gm/dL Hct (34.0-46.0) % Plt Count (150-450) k/uL Sodium 135 L (137-145) mmol/L Glucose 134 H (74-99) mg/dL POC Glucose (mg/dL) 133 H 140 H (75-99) mg/dL Hemoglobin A1c (4.0-6.0) % 09/27/18 Range/Units 20:35 RBC (3.80-5.40) m/uL Hgb (11.4-16.0) gm/dL Hct (34.0-46.0) % Plt Count (150-450) k/uL Sodium (137-145) mmol/L Glucose (74-99) mg/dL POC Glucose (mg/dL) 158 H (75-99) mg/dL Hemoglobin A1c (4.0-6.0) % Microbiology - Last 24 Hours (Table) 09/26/18 17:20 Acid Fast Bacilli Smear - Final Pleural Fluid Acid Fast Bacilli Culture - Preliminary 09/26/18 17:20 Gram Stain - Preliminary Pleural Fluid Body Fluid Culture - Preliminary 09/26/18 11:35 Urine Culture - Preliminary Urine,Voided Gram Neg Bacilli 09/26/18 17:20 Anaerobic Culture - Preliminary Pleural Fluid 09/26/18 17:20 Fungal Culture - Preliminary Pleural Fluid Laboratory Results WBC 7.1 k/uL (3.8-10.6) 09/27/18 07:09 RBC 3.64 m/uL (3.80-5.40) L 09/27/18 07:09 Hgb 10.8 gm/dL (11.4-16.0) L 09/27/18 07:09 Hct 32.4 % (34.0-46.0) L 09/27/18 07:09 MCV 89.0 fL (80.0-100.0) 09/27/18 07:09 MCH 29.6 pg (25.0-35.0) 09/27/18 07:09 MCHC 33.2 g/dL (31.0-37.0) 09/27/18 07:09 RDW 13.7 % (11.5-15.5) 09/27/18 07:09 Plt Count 462 k/uL (150-450) H 09/27/18 07:09 Neutrophils % 74 % 09/27/18 07:09 Neutrophils % (Manual) 60 % 09/26/18 11:16 Band Neutrophils % 8 % 09/26/18 11:16 Lymphocytes % 15 % 09/27/18 07:09 Lymphocytes % (Manual) 14 % 09/26/18 11:16 Monocytes % 9 % 09/27/18 07:09 Monocytes % (Manual) 18 % 09/26/18 11:16 Eosinophils % 1 % 09/27/18 07:09 Basophils % 0 % 09/27/18 07:09 Myelocytes % 1 % 09/26/18 11:16 Neutrophils # 5.2 k/uL (1.3-7.7) 09/27/18 07:09 Neutrophils # (Manual) 5.70 k/uL (1.3-7.7) 09/26/18 11:16 Lymphocytes # 1.0 k/uL (1.0-4.8) 09/27/18 07:09 Lymphocytes # (Manual) 1.18 k/uL (1.0-4.8) 09/26/18 11:16 Monocytes # 0.6 k/uL (0-1.0) 09/27/18 07:09 Monocytes # (Manual) 1.51 k/uL (0-1.0) H 09/26/18 11:16 Eosinophils # 0.1 k/uL (0-0.7) 09/27/18 07:09 Basophils # 0.0 k/uL (0-0.2) 09/27/18 07:09 Myelocytes # (Manual) 0.08 k/uL (0) H 09/26/18 11:16 Nucleated RBCs 0 /100 WBC (0-0) 09/26/18 11:16 Manual Slide Review Performed 09/26/18 11:16 PT 12.4 sec (9.0-12.0) H 09/26/18 11:16 INR 1.2 (<1.2) H 09/26/18 11:16 APTT 25.6 sec (22.0-30.0) 09/26/18 11:16 Sodium 135 mmol/L (137-145) L 09/27/18 07:09 Potassium 4.4 mmol/L (3.5-5.1) 09/27/18 07:09 Chloride 99 mmol/L (98-107) 09/27/18 07:09 Carbon Dioxide 29 mmol/L (22-30) 09/27/18 07:09 Anion Gap 7 mmol/L 09/27/18 07:09 BUN 8 mg/dL (7-17) 09/27/18 07:09 Creatinine 0.55 mg/dL (0.52-1.04) 09/27/18 07:09 Est GFR (CKD-EPI)AfAm >90 (>60 ml/min/1.73 sqM) 09/27/18 07:09 Est GFR (CKD-EPI)NonAf >90 (>60 ml/min/1.73 sqM) 09/27/18 07:09 Glucose 134 mg/dL (74-99) H 09/27/18 07:09 POC Glucose (mg/dL) 158 mg/dL (75-99) H 09/27/18 20:35 POC Glu Np KRISTOFER Karmen Agustin 09/27/18 20:[address] Glu mg/dL 163 09/26/18 11:16 Hemoglobin A1c 7.3 % (4.0-6.0) H 09/26/18 11:16 Calcium 8.7 mg/dL (8.4-10.2) 09/27/18 07:09 Total Bilirubin 0.5 mg/dL (0.2-1.3) 09/26/18 11:16 AST 71 U/L (14-36) H 09/26/18 11:16 ALT 52 U/L (9-52) 09/26/18 11:16 Alkaline Phosphatase 87 U/L (38-126) 09/26/18 11:16 Total Protein 5.8 g/dL (6.3-8.2) L 09/26/18 11:16 Albumin 2.7 g/dL (3.5-5.0) L 09/26/18 11:16 Urine Color Yellow 09/26/18 11:35 Urine Appearance Cloudy (Clear) H 09/26/18 11:35 Urine pH 6.0 (5.0-8.0) 09/26/18 11:35 Ur Specific [place] 1.018 (1.001-1.035) 09/26/18 11:35 Urine Protein 1+ (Negative) H 09/26/18 11:35 Urine Glucose (UA) Negative (Negative) 09/26/18 11:35 Urine Ketones Trace (Negative) H 09/26/18 11:35 Urine Blood Negative (Negative) 09/26/18 11:35 Urine Nitrite Positive (Negative) H 09/26/18 11:35 Urine Bilirubin Negative (Negative) 09/26/18 11:35 Urine Urobilinogen 2.0 mg/dL (<2.0) 09/26/18 11:35 Ur Leukocyte Esterase Moderate (Negative) H 09/26/18 11:35 Urine WBC 30 /hpf (0-5) H 09/26/18 11:35 Urine WBC Clumps Occasional /hpf (None) H 09/26/18 11:35 Urine Bacteria Many /hpf (None) H 09/26/18 11:35 Fluid Source Pleural 09/26/18 17:20 Fluid Color Brown 09/26/18 17:20 Fluid Appearance Cloudy 09/26/18 17:20 Fluid RBC [id number] /[id number] 09/26/18 17:20 Fluid Nucleated Cells [id number] /uL 09/26/18 17:20 Body Fluid Glucose Source Pleural Fluid 09/26/18 17:20 Fluid Glucose 25 mg/dL 09/26/18 17:20 Body Fluid Protein Source Pleural Fluid 09/26/18 17:20 Fluid Total Protein 429 mg/dL 09/26/18 17:20 Body Fluid LDH Source Pleural Fluid 09/26/18 17:20 Fluid LDH 480 U/L 09/26/18 17:20 Fluid Comment 01/14/19 17:20 Microbiology 09/26/18 17:20 Pleural Fluid Acid Fast Bacilli Smear - Final 09/26/18 17:20 Pleural Fluid Acid Fast Bacilli Culture - Preliminary 09/26/18 17:20 Pleural Fluid Gram Stain - Preliminary 09/26/18 17:20 Pleural Fluid Body Fluid Culture - Preliminary 09/26/18 11:35 Urine,Voided Urine Culture - Preliminary Gram Neg Bacilli 09/26/18 17:20 Pleural Fluid Anaerobic Culture - Preliminary 09/26/18 17:20 Pleural Fluid Fungal Culture - Preliminary Assessment and Plan (1) Urinary tract infection Current Visit: Yes Status: Acute Code(s): N39.0 - URINARY TRACT INFECTION, SITE NOT SPECIFIED SNOMED Code(s): 01065385 (2) Empyema lung Narrative/Plan: 67-year-old woman presents to hospital with her family with the worsening mental status increasing shortness of breath decreasing exercise tolerance and no history of recent diagnosis of stage IIIB lung carcinoma. Imaging studies reveal evidence of the progressive effusion to the right chest and consequently thoracentesis was performed. A thick bloody material was originally obtained and the more purulent looking material by the end of the thoracentesis of yesterday. Similar thick material at the time of the pigtail catheter placement today. Concerns to empyema and ask the laboratory to also check for chylothorax given the underlying malignancy. Cytology is pending to determine if it is a malignant pleural effusion. If the effusion is malignant. We'll change her status to stage IV. If this time await further oncology input as to their next set of plans. There is some difficulties with some obstruction of the bronchitis noted by the endoscopy, she was seen at [facility] but bronchial stents were not placed. Unclear if she'll be a candidate for radiation therapy or other interventions in the near future. The original Gram stains are available and piperacillin tazobactam and vancomycin are being utilized for now until we have further data available. Of note the statue carver did not believe that the material was putrid, consequently staphylococcal or malignant effusion become more likely. Her septic encephalopathy appears to be improving with the drainage of the empyema and the antibiotic therapy. There is also evidence the gram-negative urinary tract infection await the final culture. Family relates that she's had UTI in the past. Of concern is a lack of high- grade fevers chills or leukocytosis, which are all usually present with an extensive empyema. The details are discussed with pulmonology. Current Visit: Yes Status: Acute Code(s): J86.9 - PYOTHORAX WITHOUT FISTULA SNOMED Code(s): 996124119 (3) Altered mental status Current Visit: Yes Status: Acute Code(s): R41.82 - ALTERED MENTAL STATUS, UNSPECIFIED SNOMED Code(s): 221858181
[2018-09-28] MEDS: VANCOMYCIN 1,250 MG in SODIUM CHLORIDE 0.9% 250 ML IVPB SCH ×2 (02:32→18:02)
[2018-09-28] MEDS: PIPERACILLIN-TAZOBACTAM 3.375 GM in SODIUM CHLORIDE 0.9% 100 ML IVPB SCH ×3 (04:18→20:39)
[2018-09-28] MEDS: BENZOCAINE/MENTHOL LOZENG 1 EACH LOZENGE MUCOUS MEM PRN (04:52)
[2018-09-28] MEDS: ALPRAZolam 0.5 MG TAB PO PRN ×2 (04:52→19:10)
[2018-09-28] MEDS: HYDROcodone/APAP 7.5-325MG 1 EACH TAB PO PRN (04:55)
[2018-09-28 07:08] LABS: Glucose,Whole Blood 127 mg/dL (75-99)
[2018-09-28] MEDS: SYMBICORT 80-4.5 MCG INHALER INHALATION SCH ×2 (07:16→20:11)
[2018-09-28] MEDS: IPRATROPIUM 0.5 MG/2.5 ML NEBU INHALATION SCH ×4 (07:16→20:11)
[2018-09-28] MEDS: INSULIN ASPART 100 UNIT/ML 1 ML 10 ML VIAL SQ SCH ×4 (07:19→21:54)
[2018-09-28] MEDS: metFORMIN 500 MG TAB PO SCH ×2 (08:00→21:52)
[2018-09-28] MEDS: ATORVASTATIN 10 MG TAB PO SCH (08:00)
[2018-09-28] MEDS: CHOLECALCIFEROL 1,000 UNIT TAB PO SCH (08:00)
[2018-09-28] MEDS: POTASSIUM CHLORIDE ER 10 MEQ TAB.ER.PRT PO SCH (08:00)
[2018-09-28] MEDS: PANTOPRAZOLE 40 MG TABLET PO SCH (08:00)
[2018-09-28] MEDS: HEPARIN SODIUM,PORCINE 5,000 UNIT/ML 1 ML VIAL SQ SCH ×2 (08:01→21:56)
[2018-09-28] MEDS ORDERED: VANCOMYCIN TROUGH DUE 1 EACH MISC MISCELLANE ONE (10:00)
[2018-09-28] MEDS ORDERED: HYDROcodone/APAP 5-325MG 1 EACH TAB PO PRN (11:18)
[2018-09-28 11:35] LABS: Glucose,Whole Blood 193 mg/dL (75-99)
[2018-09-28] MEDS: HYDROcodone/APAP 5-325MG 1 EACH TAB PO PRN (12:47)
[2018-09-28] MEDS: SODIUM CHLORIDE 0.9% 1,000 ML IV SCH (12:48)
--- NOTE | 2018-09-28 14:16 | XR ---
EXAMINATION TYPE: XR chest 1V portable DATE OF EXAM: 09/28/2018 COMPARISON: 09/27/2018 INDICATION: Pleural effusion TECHNIQUE: Single frontal view of the chest is obtained. FINDINGS: The heart size is normal. The pulmonary vasculature is at the upper limits of normal. There is a moderate right pleural effusion. Some fluid is within the azygos fissure. Minimal left bas ilar infiltrate is present. Pleural drainage catheter is present on the right base. IMPRESSION: 1. Moderate right pleural effusion.
--- NOTE | 2018-09-28 16:20 | P.PN ---
Subjective Progress Note Date: 09/28/18 Principal diagnosis: Locally advanced non-small cell lung cancer, adenocarcinoma of the right lung, right-sided empyema On today's evaluation of 09/27/2018 I'm seeing this patient for a follow-up. She is still anxious. She did not have a good night sleep yesterday. She is having issues with insomnia. Her shortness of breath is still present although less compared to yesterday. Note that I performed a thoracentesis on him yesterday and evacuated approximately 1.6 L of purulent material that was felt to be empyema. The white cell count in the fluid is considerably elevated. Cultures still pending for now. The patient on a combination of Zosyn and vancomycin. The plan for today was to insert the pigtail catheter through interventional radiology. For that reason the patient was taken downstairs for the same procedure. The WBC count is at 7.1. No other new complaints otherwise for now. The patient on 4l to oxygen nasal cannula and the pulse ox is around 99%. No pleurisy. No hemoptysis. On 09/28/2017 patient seen in follow-up. She is resting comfortably in bed, currently on room air, with a pulse ox of 97%, hemodynamically stable, afebrile , respirations are even and nonlabored, lung sounds reveal diminished breath sounds over right lower lobe, some basilar crackles. Patient has a right posterior pigtail catheter in place, connected to a Pleur-evac, and there has been a total of 400 mL of purulent material in the Pleur-evac since the insertion of the pigtail catheter on 09/27/2018. There has been 60 mL of purulent drainage in the last 24 hours, the Pleur-evac is just to water seal, continues to freely drained, we'll connected to wall suction. Today's chest x- ray has been reviewed with Dr. Dunbar, shows moderate right pleural effusion. No new labs, microbiology results showed E. coli in the urine culture, pleural fluid Gram stain showed many gram-positive cocci in pairs and chains, final cultures pending. AFB culture was negative, fungal culture is in progress. She remains on Zosyn and vancomycin, ID service is following, clinically patient is breathing easier, no fever or chills. Objective - Vital Signs Vital signs: Vital Signs Temp 97.9 F 09/28/18 12:27 Pulse 113 H 09/28/18 12:27 Resp 22 09/28/18 12:27 BP 115/70 09/28/18 12:27 Pulse Ox 97 09/28/18 12:27 Intake & Output 09/27/18 09/28/18 09/28/18 18:59 06:59 18:59 Intake Total 420 840 Output Total 60 Balance 420 780 Weight 61.235 kg 61.235 kg Intake: Intake, IV Titration 420 360 Amount Piperacillin-Tazobactam 3 50 200 .375 gm In Sodium Chloride 0.9% 100 ml @ 25 mls/hr IVPB Q8H [facility] Rx#: [id number] Sodium Chloride 0.9% 1, 120 160 000 ml @ 20 mls/hr IV . Q24H [facility] Rx#:[id number] Vancomycin 1,250 mg In 250 Sodium Chloride 0.9% 250 ml @ 125 mls/hr IVPB Q8H [facility] Rx#:[id number] Oral 480 Output: Chest Tube Drainage 60 right posterior chest 60 Other: Voiding Method Bedside Commode Toilet Bedside Commode # Voids 2 3 # Bowel Movements 1 - Exam GENERAL EXAM: Alert, pleasant, 67-year-old white female currently on 3 L per nasal cannula, comfortable in no apparent distress. HEAD: Normocephalic/atraumatic. EYES: Normal reaction of pupils, equal size. Conjunctiva pink, sclera white. NOSE: Clear with pink turbinates. THROAT: No erythema or exudates. NECK: No masses, no JVD, no thyroid enlargement, no adenopathy. CHEST: No chest wall deformity. Symmetrical expansion. Right posterior pigtail chest tube is in place, connected to a Pleur-evac to [facility], and there is full 100 mL of purulent drainage material in the Pleur-evac LUNGS: Equal air entry with no crackles, wheeze, rhonchi or dullness. Diminished breath sounds over right lower lobe, with the few scattered crackles CVS: Regular rate and rhythm, normal S1 and S2, no gallops, no murmurs, no rubs ABDOMEN: Soft, nontender. No hepatosplenomegaly, normal bowel sounds, no guarding or rigidity. EXTREMITIES: No clubbing, no edema, no cyanosis, 2+ pulses and upper and lower extremities. MUSCULOSKELETAL: Muscle strength and tone normal. SPINE: No scoliosis or deformity SKIN: No rashes CENTRAL NERVOUS SYSTEM: Alert and oriented -3. No focal deficits, tone is normal in all 4 extremities. PSYCHIATRIC: Alert and oriented -3. Appropriate affect. Intact judgment and insight. - Labs CBC & Chem 7: 09/27/18 07:09 09/27/18 07:09 Labs: Abnormal Lab Results - Last 24 Hours (Table) 09/27/18 09/27/18 09/28/18 Range/Units 17:25 20:35 07:07 POC Glucose (mg/dL) 140 H 158 H 127 H (75-99) mg/dL 09/28/18 Range/Units 11:34 POC Glucose (mg/dL) 193 H (75-99) mg/dL Microbiology - Last 24 Hours (Table) 09/26/18 11:35 Urine Culture - Final Urine,Voided Escherichia coli 09/26/18 17:20 Acid Fast Bacilli Smear - Final Pleural Fluid Acid Fast Bacilli Culture - Preliminary 09/26/18 17:20 Gram Stain - Preliminary Pleural Fluid Body Fluid Culture - Preliminary Assessment and Plan Plan: 1 locally advanced non-small cell lung cancer. The patient was found to have adenocarcinoma of the right lung with a large right lower lobe mass causing mass effect on the right lower lobe bronchus and the right upper lobe bronchus. The patient also developed a right-sided pleural effusion. PET scan was done on outpatient basis and the patient was clinically given stage IIIc disease , T4 N3 M0 lesion. Patient obviously is not a surgical candidate. She has not received any treatment regarding her non-small cell lung cancer 2 acute shortness of breath 3 COPD 4 empyema involving the right lung. This is post likely related to a postobstructive pneumonia. Thoracentesis was done. 1.6 L of purulent material was aspirated. The patient will be undergoing a pigtail catheter insertion today. 5 acid reflux 6 borderline diabetes mellitus 7 insomnia/anxiety Plan: Please place the Pleur-evac to suction, right pigtail catheter is in place, and continues to drain purulent material, pleural fluid cultures are pending, continue current antibiotic coverage, ID service is on consult, no fever or chills. We'll continue current medical treatment. I performed a history & physical examination of the patient and discussed their management with my nurse practitioner, Geeta Lamonte. I reviewed the nurse practitioner's note and agree with the documented findings and plan of care. Lung sounds are positive for diminished breath sounds over right lower lobe, and bibasilar crackles, no acute distress. The findings and the impression was discussed with the patient. I attest to the documentation by the nurse practitioner. Time with Patient: Less than 30
--- NOTE | 2018-09-28 16:44 | P.PN ---
Subjective Progress Note Date: 09/28/18 Principal diagnosis: Adenocarcinoma lung with Emphyema and pleural effusion Rona is still very weak, fatigued and lethargic today, responds to stimuli but does not acknowledge without. She is status post pulmonary intervention, pig tail. Preliminary cultures of pleural Fluids show Gram positive Cocci, UA Positive Echoli. Infectious disease is following, patient is receiving antibiotics. Objective - Vital Signs Vital signs: Vital Signs Temp 99 F 09/28/18 16:15 Pulse 109 H 09/28/18 16:15 Resp 20 09/28/18 16:15 BP 142/66 09/28/18 16:15 Pulse Ox 92 L 09/28/18 16:15 Intake & Output 09/27/18 09/28/18 09/28/18 18:59 06:59 18:59 Intake Total 420 840 Output Total 60 Balance 420 780 Weight 61.235 kg 61.235 kg Intake: Intake, IV Titration 420 360 Amount Piperacillin-Tazobactam 3 50 200 .375 gm In Sodium Chloride 0.9% 100 ml @ 25 mls/hr IVPB Q8H [facility] Rx#: [id number] Sodium Chloride 0.9% 1, 120 160 000 ml @ 20 mls/hr IV . Q24H [facility] Rx#:[id number] Vancomycin 1,250 mg In 250 Sodium Chloride 0.9% 250 ml @ 125 mls/hr IVPB Q8H [facility] Rx#:[id number] Oral 480 Output: Chest Tube Drainage 60 right posterior chest 60 Other: Voiding Method Bedside Commode Toilet Bedside Commode # Voids 2 3 # Bowel Movements 1 - Exam GEN: NAD, Flat Affect, Answers but short Head: NC, NT Neck: Supple, No Lymphadenopathy cervical LUNG: Diminished R>L, bibasilar, mild increased effort HEART: Tachy, reg rhythm, npo murmur Abd: Soft, Non distended Ext: No edema pedal pulses intact Psych: flat affect was following commands EOM and strength. - Labs CBC & Chem 7: 09/27/18 07:09 09/27/18 07:09 Labs: Abnormal Lab Results - Last 24 Hours (Table) 09/27/18 09/27/18 09/28/18 Range/Units 17:25 20:35 07:07 POC Glucose (mg/dL) 140 H 158 H 127 H (75-99) mg/dL 09/28/18 Range/Units 11:34 POC Glucose (mg/dL) 193 H (75-99) mg/dL Microbiology - Last 24 Hours (Table) 09/26/18 11:35 Urine Culture - Final Urine,Voided Escherichia coli 09/26/18 17:20 Acid Fast Bacilli Smear - Final Pleural Fluid Acid Fast Bacilli Culture - Preliminary 09/26/18 17:20 Gram Stain - Preliminary Pleural Fluid Body Fluid Culture - Preliminary Assessment and Plan Plan: Assessment and Recommendations: 1. Recent DIagnosis Adenocarcinoma of the Lung: BRAF POsitive - Recently had Referral for potential surgical Candidacy, she is not a candidate for surgery - She will follow-up with Dr. Turcios this week or next to discuss further options for treatment, 2. Recurrent effusion: Concern for infectious with underlying empyema on aspirated fluid - Cytology and cultures sent - Await results and in interim Antibiotics per Pulmonary and/or ID - Preliminary Culture reviewed - Await final and Fungal 3. Mental Status Changes - Family very concerned for underlying depression, presenting with flat affect , lethargy and insomnia, this may be a secondary effect of infectious process. - May benefot from psychiatry consultation, will defer to medicine - Explained to family treatment of underlying infection may improve this 4. Ecoli UTI: ID Managmeent Physician Attestation: I have completed the full history and physical of this patient ans agree with above doctation by Gia Celestin NP. Dictated as a scribe.
[2018-09-28 17:13] LABS: Glucose,Whole Blood 134 mg/dL (75-99)
[2018-09-28 20:03] LABS: Glucose,Whole Blood 207 mg/dL (75-99)
--- NOTE | 2018-09-29 01:45 | PN ---
PROGRESS NOTE DATE OF SERVICE: 09/28/2018. PRESENTING COMPLAINT: Tired. INTERVAL HISTORY: This is a patient with known lung cancer. Currently, now started treatment. Presented with right-sided empyema with a pigtail in place. Was put to intermittent suction today. The patient did eat small amounts of food. Had 2 or 3 loose stools today. Tired. Looks more awake compared to yesterday. at the bedside. I saw the patient this evening. REVIEW OF SYSTEMS: Done for constitutional, cardiovascular, GI, pulmonary; relevant findings as above. CURRENT MEDICATIONS: Reviewed that include IV Zosyn and vancomycin. PHYSICAL EXAMINATION: Temperature 99, pulse 109, respiratory rate 20, blood pressure 122/66, pulse ox 92 percent on 3 L. GENERAL: Sitting on the edge of the bed, tired, but more awake. EYES: Pupils equal. Conjunctivae pale. NECK: JVD unable to assess. Mass not palpable. Respiratory effort increased. LUNGS: Decreased breath sounds. CARDIOVASCULAR: 1st and 2nd sounds normal. No edema. Right chest wall pigtail in place. ABDOMEN: Soft, nontender. Liver and spleen not palpable. PSYCHIATRY: Alert and oriented x3. Mood and affect slightly low. INVESTIGATIONS: Accu-Cheks are noted. The patient's Gram stain is currently growing alpha hemolytic strep. ASSESSMENT: 1. Right pleural effusion with empyema with a pigtail catheter in place following thoracentesis 1.6 L. 2. Chronic obstructive pulmonary disease in an ex-smoker. 3. Diabetes mellitus type 2 on oral hypoglycemic. 4. Gastroesophageal reflux disease. 5. Hyperlipidemia. 6. Adenocarcinoma of the lung, stage IIIC, had not started treatment, not a surgical candidate. 7. Acute metabolic encephalopathy from underlying infection and malignancy with some improvement. 8. Mild protein-calorie malnutrition from decreased oral intake. 9. Reactive thrombocytosis. PLAN: Continue with vancomycin, Zosyn. Pigtail was put to intermittent suction, putting out of empyema. I spoke to the patient's at the bedside. The patient again had about 3 loose stools. Highly doubt C diff. Has no abdominal pain. The patient is actually looking better with the current treatment plan. We will keep a close eye and follow. MMODL / IJN: [id number] /
[2018-09-29] MEDS: ALPRAZolam 0.5 MG TAB PO PRN ×2 (02:42→09:44)
[2018-09-29] MEDS: PIPERACILLIN-TAZOBACTAM 3.375 GM in SODIUM CHLORIDE 0.9% 100 ML IVPB SCH ×3 (03:48→20:32)
[2018-09-29] MEDS: VANCOMYCIN 1,250 MG in SODIUM CHLORIDE 0.9% 250 ML IVPB SCH (05:59)
[2018-09-29] MEDS: HYDROcodone/APAP 5-325MG 1 EACH TAB PO PRN ×3 (06:05→20:05)
[2018-09-29 07:16] LABS: Glucose,Whole Blood 126 mg/dL (75-99)
[2018-09-29 07:20] LABS: HCT 33.4 % (34.0-46.0); HGB 10.3 gm/dL (11.4-16.0); Hypochromasia Slight; MCH 28.2 pg (25.0-35.0); MCHC 30.9 g/dL (31.0-37.0); MCV 91.4 fL (80.0-100.0); Mean Platelet Volume 6.1; Platelet Count 437 k/uL (150-450); RBC 3.66 m/uL (3.80-5.40); RDW 13.6 % (11.5-15.5); WBC 6.1 k/uL (3.8-10.6)
[2018-09-29 07:31] LABS: Calcium 8.8 mg/dL (8.4-10.2); Potassium 3.7 mmol/L (3.5-5.1)
[2018-09-29] MEDS: INSULIN ASPART 100 UNIT/ML 1 ML 10 ML VIAL SQ SCH ×4 (07:33→22:01)
[2018-09-29 08:14] LABS: Band Neutrophils % 3 %; Eosinophils # (M) 0.12 k/uL (0-0.7); Metamyelocytes # (M) 0.06 k/uL (0); Metamyelocytes % 1 %; Monocytes # (M) 0.61 k/uL (0-1.0); Myelocytes # (M) 0.06 k/uL (0); Myelocytes % 1 %; Neutrophils % (M) 62 %; Nucleated Red Blood Cells 0 /100 WBC (0-0); Total Cells Counted 200
[2018-09-29] MEDS: IPRATROPIUM 0.5 MG/2.5 ML NEBU INHALATION SCH ×4 (08:56→21:22)
[2018-09-29] MEDS: SYMBICORT 80-4.5 MCG INHALER INHALATION SCH ×2 (08:56→21:22)
[2018-09-29] MEDS: CHOLECALCIFEROL 1,000 UNIT TAB PO SCH (09:40)
[2018-09-29] MEDS: ATORVASTATIN 10 MG TAB PO SCH (09:40)
[2018-09-29] MEDS: HEPARIN SODIUM,PORCINE 5,000 UNIT/ML 1 ML VIAL SQ SCH ×2 (09:41→22:00)
[2018-09-29] MEDS: metFORMIN 500 MG TAB PO SCH ×2 (09:41→22:00)
[2018-09-29] MEDS: POTASSIUM CHLORIDE ER 10 MEQ TAB.ER.PRT PO SCH (09:42)
[2018-09-29] MEDS: PANTOPRAZOLE 40 MG TABLET PO SCH (09:42)
--- NOTE | 2018-09-29 10:41 | XR ---
EXAMINATION TYPE: XR chest 1V portable DATE OF EXAM: 09/29/2018 COMPARISON: 09/28/2018 HISTORY: Right pleural effusion. Follow-up exam. TECHNIQUE: Single frontal view of the chest is obtained. FINDINGS: Pigtail catheter has been retracted in the interim. There is a new small degree of air wit hin the right pleural space. There is slight improvement of the moderate right pleural effusion with persistent multifocal right-sided airspace disease predominantly right basilar and right perihilar. E levation of the right minor fissure versus more likely azygos fissure is redemonstrated. Blunting of the left costophrenic angle relates to a trace left pleural effusion. Remainder the left lung is re r. Cardia mediastinal silhouette is obscured but prominent in size. IMPRESSION: New air within the right pleural space compatible with a moderate hydropneumothorax alth ough degree of air is minimal after retraction of the right pigtail catheter. Similar trace left pleu ral effusion.
[2018-09-29 11:10] LABS: Glucose,Whole Blood 156 mg/dL (75-99)
--- NOTE | 2018-09-29 12:23 | CT ---
EXAMINATION TYPE: CT chest wo con DATE OF EXAM: 09/29/2018 COMPARISON: 09/26/2018 HISTORY: 67 year-old female right empyema, f/u chest tube TECHNIQUE: Contiguous axial scanning of the chest without IV contrast. Coronal and sagittal reconstru ctions performed. CT DLP: 261.10 mGycm Automated exposure control for dose reduction was used. FINDINGS: Heart upper limits of normal in size with small pericardial effusion/thickening, similar to prior. Mi ld coronary vessel calcifications. Aorta normal caliber with moderate atherosclerotic arch calcifications. Conventional arch vessel bran debi anatomy. Scattered prominent but nonenlarged mediastinal lymph nodes measure up to 6 mm right peritracheal reg ion. Lack of IV contrast limits assessment of the hilar structures. Normal variant azygous fissure. There is mild centrilobular emphysema. Overall size of the patient's right-sided empyema show significant interval decrease in size. There i s a prominent nondependent collection of air in the evacuated pleural space measuring 9.6 cm AP by 1. 4 cm thick by 7.4 cm craniocaudal located at the peripheral right base. Pigtail pleural catheter curtis ins in place at the right base. There is improved aeration in the right upper lobe with extensive nonconfluent consolidation. Extensi ve consolidation involves the right middle lobe and there is complete opacification and volume loss o f the right lower lobe. New small left pleural effusion. There is some groundglass infiltrate seen anteromedial left mid lung and within the anterior left midlung. Nonspecific 1.4 cm hypodense lesion in the left liver lobe redemonstrated, likely a cyst. Bones: No osseous destructive process. IMPRESSION: 1. PIGTAIL PLEURAL DRAIN REMAINS AT THE RIGHT BASE. SIGNIFICANT INTERVAL DECREASE IN SIZE OF THE CRIS ENT'S RIGHT-SIDED EMPYEMA. HOWEVER, MODERATE RESIDUAL EMPYEMA REMAINS NOW WITH NEW SMALL TO MODERATE AIR WITHIN THE PARTIALLY EVACUATED PLEURAL SPACE. THE AIR POCKET MEASURES 9.6 X 1.4 X 7.4 CM AND JOANN INS A CURVILINEAR, PERIPHERAL LOCATION. 2. PARTIAL CONSOLIDATION OF THE RIGHT UPPER LOBE, ADDITIONAL CONSOLIDATION THROUGHOUT THE RIGHT MIDDL E LOBE AND COMPLETE CONSOLIDATION OR COLLAPSE OF THE RIGHT LOWER LOBE. AERATION SHOWS IMPROVEMENT IN THE RIGHT UPPER LOBE. 3. NEW SMALL LEFT PLEURAL EFFUSION WITH A COUPLE NEW AREAS OF GROUNDGLASS INFILTRATE IN THE LEFT LUNG . 4. SMALL PERICARDIAL EFFUSION OR PERICARDIAL THICKENING IS UNCHANGED.
[2018-09-29] MEDS: SODIUM CHLORIDE 0.9% 1,000 ML IV SCH (12:38)
--- NOTE | 2018-09-29 16:43 | P.PN ---
Subjective Progress Note Date: 09/29/18 Principal diagnosis: Locally advanced non-small cell lung cancer, adenocarcinoma of the right lung, right-sided empyema On today's evaluation of 09/27/2018 I'm seeing this patient for a follow-up. She is still anxious. She did not have a good night sleep yesterday. She is having issues with insomnia. Her shortness of breath is still present although less compared to yesterday. Note that I performed a thoracentesis on him yesterday and evacuated approximately 1.6 L of purulent material that was felt to be empyema. The white cell count in the fluid is considerably elevated. Cultures still pending for now. The patient on a combination of Zosyn and vancomycin. The plan for today was to insert the pigtail catheter through interventional radiology. For that reason the patient was taken downstairs for the same procedure. The WBC count is at 7.1. No other new complaints otherwise for now. The patient on 4l to oxygen nasal cannula and the pulse ox is around 99%. No pleurisy. No hemoptysis. On 09/28/2018 patient seen in follow-up. She is resting comfortably in bed, currently on room air, with a pulse ox of 97%, hemodynamically stable, afebrile , respirations are even and nonlabored, lung sounds reveal diminished breath sounds over right lower lobe, some basilar crackles. Patient has a right posterior pigtail catheter in place, connected to a Pleur-evac, and there has been a total of 400 mL of purulent material in the Pleur-evac since the insertion of the pigtail catheter on 09/27/2018. There has been 60 mL of purulent drainage in the last 24 hours, the Pleur-evac is just to water seal, continues to freely drained, we'll connected to wall suction. Today's chest x- ray has been reviewed with Dr. Dunbar, shows moderate right pleural effusion. No new labs, microbiology results showed E. coli in the urine culture, pleural fluid Gram stain showed many gram-positive cocci in pairs and chains, final cultures pending. AFB culture was negative, fungal culture is in progress. She remains on Zosyn and vancomycin, ID service is following, clinically patient is breathing easier, no fever or chills. On 09/29/2018 patient seen in follow-up on medical oncology floor, she is resting comfortably in bed, habit lethargic, but easily arousable, in no acute distress, thin and additional 370 mL of purulent drainage in the Pleur-evac from the right pigtail chest tube. Pleural fluid cultures revealed alpha hemolytic strep, and patient had E. coli in the urine culture, patient is on combination of Zosyn and vancomycin, ID service is following. No fever or chills, 600% on 3 L per nasal cannula, hemodynamically stable, afebrile, lung sounds reveal diminished breath sounds over right lower lobe, bibasilar rales, today's chest x-ray showed new air within the right pleural space compatible with a moderate hydropneumothorax although the degree of areas minimal after retraction of the right pigtail catheter, and a similar trace left pleural effusion. Objective - Vital Signs Vital signs: Vital Signs Temp 97.6 F 09/29/18 12:37 Pulse 97 09/29/18 12:37 Resp 19 09/29/18 12:37 BP 155/79 09/29/18 12:37 Pulse Ox 100 09/29/18 12:37 Intake & Output 09/28/18 09/29/18 09/29/18 18:59 06:59 18:59 Intake Total 275 Balance 275 Intake: Intake, IV Titration 125 Amount Vancomycin 1,250 mg In 125 Sodium Chloride 0.9% 250 ml @ 125 mls/hr IVPB Q12H [facility] Rx#:[id number] Oral 150 Other: Voiding Method Toilet Toilet Toilet Bedside Commode Bedside Commode Bedside Commode Diaper # Voids 3 2 2 # Bowel Movements 1 - Exam GENERAL EXAM: Alert, pleasant, 67-year-old white female currently on 3 L per nasal cannula, comfortable in no apparent distress. HEAD: Normocephalic/atraumatic. EYES: Normal reaction of pupils, equal size. Conjunctiva pink, sclera white. NOSE: Clear with pink turbinates. THROAT: No erythema or exudates. NECK: No masses, no JVD, no thyroid enlargement, no adenopathy. CHEST: No chest wall deformity. Symmetrical expansion. Right posterior pigtail chest tube is in place, connected to a Pleur-evac to [facility], and there is full 770 mL of purulent drainage material in the Pleur-evac LUNGS: Equal air entry with no crackles, wheeze, rhonchi or dullness. Diminished breath sounds over right lower lobe, with the few scattered crackles CVS: Regular rate and rhythm, normal S1 and S2, no gallops, no murmurs, no rubs ABDOMEN: Soft, nontender. No hepatosplenomegaly, normal bowel sounds, no guarding or rigidity. EXTREMITIES: No clubbing, no edema, no cyanosis, 2+ pulses and upper and lower extremities. MUSCULOSKELETAL: Muscle strength and tone normal. SPINE: No scoliosis or deformity SKIN: No rashes CENTRAL NERVOUS SYSTEM: Alert and oriented -3. No focal deficits, tone is normal in all 4 extremities. PSYCHIATRIC: Alert and oriented -3. Appropriate affect. Intact judgment and insight. - Labs CBC & Chem 7: 09/29/18 06:52 09/29/18 06:52 Labs: Abnormal Lab Results - Last 24 Hours (Table) 09/28/18 09/28/18 09/29/18 Range/Units 17:12 20:01 06:52 RBC 3.66 L (3.80-5.40) m/uL Hgb 10.3 L (11.4-16.0) gm/dL Hct 33.4 L (34.0-46.0) % MCHC 30.9 L (31.0-37.0) g/dL Metamyelocytes # (Man) 0.06 H (0) k/uL Myelocytes # (Manual) 0.06 H (0) k/uL Glucose (74-99) mg/dL POC Glucose (mg/dL) 134 H 207 H (75-99) mg/dL 09/29/18 09/29/18 09/29/18 Range/Units 06:52 07:15 11:09 RBC (3.80-5.40) m/uL Hgb (11.4-16.0) gm/dL Hct (34.0-46.0) % MCHC (31.0-37.0) g/dL Metamyelocytes # (Man) (0) k/uL Myelocytes # (Manual) (0) k/uL Glucose 128 H (74-99) mg/dL POC Glucose (mg/dL) 126 H 156 H (75-99) mg/dL Microbiology - Last 24 Hours (Table) 09/26/18 17:20 Anaerobic Culture - Preliminary Pleural Fluid 09/26/18 17:20 Gram Stain - Preliminary Pleural Fluid Body Fluid Culture - Preliminary Alpha Hemolytic Streptococcus 09/26/18 11:35 Urine Culture - Final Urine,Voided Escherichia coli Assessment and Plan Plan: 1 locally advanced non-small cell lung cancer. The patient was found to have adenocarcinoma of the right lung with a large right lower lobe mass causing mass effect on the right lower lobe bronchus and the right upper lobe bronchus. The patient also developed a right-sided pleural effusion. PET scan was done on outpatient basis and the patient was clinically given stage IIIc disease , T4 N3 M0 lesion. Patient obviously is not a surgical candidate. She has not received any treatment regarding her non-small cell lung cancer 2 acute shortness of breath 3 COPD 4 empyema involving the right lung. This is post likely related to a postobstructive pneumonia. Thoracentesis was done. 1.6 L of purulent material was aspirated. The patient will be undergoing a pigtail catheter insertion today. 5 acid reflux 6 borderline diabetes mellitus 7 insomnia/anxiety Plan: CT of the chest was obtained, and reviewed by Dr. Dunbar, and showed pigtail pleural drain at the right base, significant interval decrease in size of the patient's right-sided empyema with residual moderate size empyema with his small -to-moderate air within the partially evacuated pleural space. The pigtail catheter is still draining, and there has been additional 100 150 ML of purulent material today. Continue the wall suction, continue current antibiotic coverage, service is following, I performed a history & physical examination of the patient and discussed their management with my nurse practitioner, Geeta Aburto. I reviewed the nurse practitioner's note and agree with the documented findings and plan of care. Lung sounds are positive for diminished breath sounds over right lower lobe, and bibasilar crackles, no acute distress. The findings and the impression was discussed with the patient. I attest to the documentation by the nurse practitioner. Time with Patient: Less than 30
--- NOTE | 2018-09-29 17:03 | P.PN ---
Subjective Progress Note Date: 09/29/18 Principal diagnosis: Adenocarcinoma lung with Emphyema and pleural effusion Daughter at bedside, she is much more awake today. Objective - Vital Signs Vital signs: Vital Signs Temp 97.6 F 09/29/18 12:37 Pulse 97 09/29/18 12:37 Resp 19 09/29/18 12:37 BP 155/79 09/29/18 12:37 Pulse Ox 100 09/29/18 12:37 Intake & Output 09/28/18 09/29/18 09/29/18 18:59 06:59 18:59 Intake Total 275 Output Total 100 Balance 275 -100 Intake: Intake, IV Titration 125 Amount Vancomycin 1,250 mg In 125 Sodium Chloride 0.9% 250 ml @ 125 mls/hr IVPB Q12H [facility] Rx#:[id number] Oral 150 Output: Chest Tube Drainage 100 right posterior chest 100 Other: Voiding Method Toilet Toilet Toilet Bedside Commode Bedside Commode Bedside Commode Diaper # Voids 3 2 2 # Bowel Movements 1 - Exam GEN: NAD, Flat Affect, Answers but short Head: NC, NT Neck: Supple, No Lymphadenopathy cervical LUNG: Diminished R>L, bibasilar, mild increased effort HEART: Tachy, reg rhythm, npo murmur Abd: Soft, Non distended Ext: No edema pedal pulses intact Psych: flat affect was following commands EOM and strength. - Labs CBC & Chem 7: 09/29/18 06:52 09/29/18 06:52 Labs: Abnormal Lab Results - Last 24 Hours (Table) 09/28/18 09/28/18 09/29/18 Range/Units 17:12 20:01 06:52 RBC 3.66 L (3.80-5.40) m/uL Hgb 10.3 L (11.4-16.0) gm/dL Hct 33.4 L (34.0-46.0) % MCHC 30.9 L (31.0-37.0) g/dL Metamyelocytes # (Man) 0.06 H (0) k/uL Myelocytes # (Manual) 0.06 H (0) k/uL Glucose (74-99) mg/dL POC Glucose (mg/dL) 134 H 207 H (75-99) mg/dL 09/29/18 09/29/18 09/29/18 Range/Units 06:52 07:15 11:09 RBC (3.80-5.40) m/uL Hgb (11.4-16.0) gm/dL Hct (34.0-46.0) % MCHC (31.0-37.0) g/dL Metamyelocytes # (Man) (0) k/uL Myelocytes # (Manual) (0) k/uL Glucose 128 H (74-99) mg/dL POC Glucose (mg/dL) 126 H 156 H (75-99) mg/dL Microbiology - Last 24 Hours (Table) 09/26/18 17:20 Anaerobic Culture - Preliminary Pleural Fluid 09/26/18 17:20 Gram Stain - Preliminary Pleural Fluid Body Fluid Culture - Preliminary Alpha Hemolytic Streptococcus 09/26/18 11:35 Urine Culture - Final Urine,Voided Escherichia coli Assessment and Plan Plan: Assessment and Recommendations: 1. Recent DIagnosis Adenocarcinoma of the Lung: BRAF POsitive - Recently had Referral for potential surgical Candidacy, she is not a candidate for surgery - She will follow-up with Dr. Turcios this week or next to discuss further options for treatment, 2. Recurrent effusion: Concern for infectious with underlying empyema on aspirated fluid - Cytology and cultures sent - Await results and in interim Antibiotics per Pulmonary and/or ID - Preliminary Culture reviewed - Await final and Fungal 3. Mental Status Changes - Family very concerned for underlying depression, presenting with flat affect , lethargy and insomnia, this may be a secondary effect of infectious process. - May benefot from psychiatry consultation, will defer to medicine - Explained to family treatment of underlying infection may improve this 4. Ecoli UTI: ID Managmeent Encourage increase activity I have discussed the molecular tests with patient and daughter, will discuss further with in am, BRAF positive will not change first line therapy but does provide additional bullets for future
[2018-09-29 17:38] LABS: Glucose,Whole Blood 135 mg/dL (75-99)
[2018-09-29 21:06] LABS: Glucose,Whole Blood 154 mg/dL (75-99)
--- NOTE | 2018-09-30 00:20 | PN ---
PROGRESS NOTE DATE OF SERVICE: 09/29/2018. PRESENT COMPLAINT: Tired. INTERVAL HISTORY: This patient with known adenocarcinoma stage IIIA, presented with empyema on the right side, has a pigtail catheter in place, now on intermittent suction. Feeling bit better. Sitting up on a chair. Did tolerate some diet. Some shortness of breath. REVIEW OF SYSTEMS: Done for constitutional, cardiovascular, GI, pulmonary; relevant findings as above. CURRENT MEDICATIONS: Reviewed that include IV Zosyn and vancomycin. PHYSICAL EXAMINATION: Temperature 97.6, pulse 92, respirations 19, blood pressure 155/79, pulse ox 100 percent on 3 L. GENERAL APPEARANCE: Sitting up in a chair, awake. EYES: Pupils equal. Conjunctivae pale. NECK: JVD not raised. Mass not palpable. RESPIRATORY: Effort increased. LUNGS: Decreased breath sounds. CARDIOVASCULAR: 1st and 2nd sounds. No edema. Right chest wall pigtail in place. PSYCHIATRY: Alert and oriented x3. Mood and affect normal. ABDOMEN: Soft, nontender. Liver and spleen not palpable. INVESTIGATIONS: White count 6.1, hemoglobin 10.3, potassium 3.7. Body fluid is growing alpha hemolytic strep. ASSESSMENT: 1. Right empyema with cultures positive for alpha hemolytic strep with a pigtail catheter in place. 2. Chronic obstructive pulmonary disease in an ex-smoker. 3. Diabetes mellitus type 2 on oral hypoglycemic. 4. Gastroesophageal reflux disease. 5. Hyperlipidemia. 6. Adenocarcinoma of the lung, stage III, has not started treatment, not a surgical candidate. 7. Acute metabolic encephalopathy from underlying infection and malignancy with significant improvement. 8. Mild protein-calorie malnutrition from decreased oral intake. 9. Reactive thrombocytosis. PLAN: The patient is responding slowly. Continue with current antibiotics. Care was discussed with Dr. Dunbar from Pulmonary. Overall looking better. Will follow. MMODL / IJN: [id number] /
[2018-09-30] MEDS: PIPERACILLIN-TAZOBACTAM 3.375 GM in SODIUM CHLORIDE 0.9% 100 ML IVPB SCH ×2 (03:28→14:34)
[2018-09-30] MEDS: HYDROcodone/APAP 5-325MG 1 EACH TAB PO PRN ×4 (03:33→21:01)
[2018-09-30] MEDS ORDERED: VANCOMYCIN 1,250 MG in SODIUM CHLORIDE 0.9% 250 ML IVPB SCH (06:00)
[2018-09-30 07:08] LABS: Glucose,Whole Blood 93 mg/dL (75-99)
[2018-09-30] MEDS: INSULIN ASPART 100 UNIT/ML 1 ML 10 ML VIAL SQ SCH ×4 (07:33→21:01)
[2018-09-30] MEDS: SYMBICORT 80-4.5 MCG INHALER INHALATION SCH ×2 (07:48→19:56)
[2018-09-30] MEDS: IPRATROPIUM 0.5 MG/2.5 ML NEBU INHALATION SCH ×4 (07:48→19:56)
[2018-09-30] MEDS: CHOLECALCIFEROL 1,000 UNIT TAB PO SCH (09:26)
[2018-09-30] MEDS: ATORVASTATIN 10 MG TAB PO SCH (09:26)
[2018-09-30] MEDS: HEPARIN SODIUM,PORCINE 5,000 UNIT/ML 1 ML VIAL SQ SCH ×2 (09:26→21:02)
[2018-09-30] MEDS: metFORMIN 500 MG TAB PO SCH ×2 (09:26→21:02)
[2018-09-30] MEDS: POTASSIUM CHLORIDE ER 10 MEQ TAB.ER.PRT PO SCH (09:27)
[2018-09-30] MEDS: PANTOPRAZOLE 40 MG TABLET PO SCH (09:27)
[2018-09-30 10:16] LABS: Calcium 9.4 mg/dL (8.4-10.2); Potassium 4.5 mmol/L (3.5-5.1)
[2018-09-30] MEDS ORDERED: ALTEPLASE 10 MG in SODIUM CHLORIDE 0.9% 100 ML IRRIGATION ONE (11:07)
[2018-09-30 11:29] LABS: Glucose,Whole Blood 111 mg/dL (75-99)
[2018-09-30] MEDS ORDERED: LIDOCAINE 1% (PF) 10MG/ML VIAL SQ ONE (13:30)
--- NOTE | 2018-09-30 14:09 | P.PN ---
Subjective Progress Note Date: 09/30/18 Principal diagnosis: Locally advanced non-small cell lung cancer, adenocarcinoma of the right lung, right-sided empyema On today's evaluation of 09/27/2018 I'm seeing this patient for a follow-up. She is still anxious. She did not have a good night sleep yesterday. She is having issues with insomnia. Her shortness of breath is still present although less compared to yesterday. Note that I performed a thoracentesis on him yesterday and evacuated approximately 1.6 L of purulent material that was felt to be empyema. The white cell count in the fluid is considerably elevated. Cultures still pending for now. The patient on a combination of Zosyn and vancomycin. The plan for today was to insert the pigtail catheter through interventional radiology. For that reason the patient was taken downstairs for the same procedure. The WBC count is at 7.1. No other new complaints otherwise for now. The patient on 4l to oxygen nasal cannula and the pulse ox is around 99%. No pleurisy. No hemoptysis. On 09/28/2018 patient seen in follow-up. She is resting comfortably in bed, currently on room air, with a pulse ox of 97%, hemodynamically stable, afebrile , respirations are even and nonlabored, lung sounds reveal diminished breath sounds over right lower lobe, some basilar crackles. Patient has a right posterior pigtail catheter in place, connected to a Pleur-evac, and there has been a total of 400 mL of purulent material in the Pleur-evac since the insertion of the pigtail catheter on 09/27/2018. There has been 60 mL of purulent drainage in the last 24 hours, the Pleur-evac is just to water seal, continues to freely drained, we'll connected to wall suction. Today's chest x- ray has been reviewed with Dr. Dunbar, shows moderate right pleural effusion. No new labs, microbiology results showed E. coli in the urine culture, pleural fluid Gram stain showed many gram-positive cocci in pairs and chains, final cultures pending. AFB culture was negative, fungal culture is in progress. She remains on Zosyn and vancomycin, ID service is following, clinically patient is breathing easier, no fever or chills. On 09/29/2018 patient seen in follow-up on medical oncology floor, she is resting comfortably in bed, habit lethargic, but easily arousable, in no acute distress, thin and additional 370 mL of purulent drainage in the Pleur-evac from the right pigtail chest tube. Pleural fluid cultures revealed alpha hemolytic strep, and patient had E. coli in the urine culture, patient is on combination of Zosyn and vancomycin, ID service is following. No fever or chills, 600% on 3 L per nasal cannula, hemodynamically stable, afebrile, lung sounds reveal diminished breath sounds over right lower lobe, bibasilar rales, today's chest x-ray showed new air within the right pleural space compatible with a moderate hydropneumothorax although the degree of areas minimal after retraction of the right pigtail catheter, and a similar trace left pleural effusion. On 09/30/2018 patient seein in follow-up on medical oncology floor. on room air , in no acute distress, there has been 100 mL of purulent drainage out of the right pleural chestbe in the last 24 hour Patient's Zosyn and vancomycin were discontinued and patient was placed on IV Rocephin per ID service. Pleural fluid culture showed alpha hemolytic Streptococcus, and E. coli in the urine. Objective - Vital Signs Vital signs: Vital Signs Temp 97.7 F 09/30/18 09:11 Pulse 99 09/30/18 09:11 Resp 20 09/30/18 09:11 BP 147/72 09/30/18 09:11 Pulse Ox 93 L 09/30/18 09:11 Intake & Output 09/29/18 09/30/18 09/30/18 18:59 06:59 18:59 Intake Total 220 Output Total 100 Balance -100 220 Weight 61.235 kg Intake: Intake, IV Titration 220 Amount Sodium Chloride 0.9% 1, 220 000 ml @ 20 mls/hr IV . Q24H [facility] Rx#:[id number] Output: Chest Tube Drainage 100 right posterior chest 100 Other: Voiding Method Toilet Toilet Bedside Commode Bedside Commode Diaper Diaper # Voids 2 2 - Exam GENERAL EXAM: Alert, pleasant, 67-year-old white female currently on 3 L per nasal cannula, comfortable in no apparent distress. HEAD: Normocephalic/atraumatic. EYES: Normal reaction of pupils, equal size. Conjunctiva pink, sclera white. NOSE: Clear with pink turbinates. THROAT: No erythema or exudates. NECK: No masses, no JVD, no thyroid enlargement, no adenopathy. CHEST: No chest wall deformity. Symmetrical expansion. Right posterior pigtail chest tube is in place, connected to a Pleur-evac to waterseal, and there is full 870 mL of purulent drainage material in the Pleur-evac LUNGS: Equal air entry with no crackles, wheeze, rhonchi or dullness. Diminished breath sounds over right lower lobe, with the few scattered crackles CVS: Regular rate and rhythm, normal S1 and S2, no gallops, no murmurs, no rubs ABDOMEN: Soft, nontender. No hepatosplenomegaly, normal bowel sounds, no guarding or rigidity. EXTREMITIES: No clubbing, no edema, no cyanosis, 2+ pulses and upper and lower extremities. MUSCULOSKELETAL: Muscle strength and tone normal. SPINE: No scoliosis or deformity SKIN: No rashes CENTRAL NERVOUS SYSTEM: Alert and oriented -3. No focal deficits, tone is normal in all 4 extremities. PSYCHIATRIC: Alert and oriented -3. Appropriate affect. Intact judgment and insight. - Labs CBC & Chem 7: 09/29/18 06:52 09/30/18 08:42 Labs: Abnormal Lab Results - Last 24 Hours (Table) 09/29/18 09/29/18 09/30/18 Range/Units 17:36 21:04 08:42 Chloride 109 H (98-107) mmol/L Carbon Dioxide 21 L (22-30) mmol/L Glucose 117 H (74-99) mg/dL POC Glucose (mg/dL) 135 H 154 H (75-99) mg/dL 09/30/18 Range/Units 11:28 Chloride (98-107) mmol/L Carbon Dioxide (22-30) mmol/L Glucose (74-99) mg/dL POC Glucose (mg/dL) 111 H (75-99) mg/dL Assessment and Plan Plan: 1 locally advanced non-small cell lung cancer. The patient was found to have adenocarcinoma of the right lung with a large right lower lobe mass causing mass effect on the right lower lobe bronchus and the right upper lobe bronchus. The patient also developed a right-sided pleural effusion. PET scan was done on outpatient basis and the patient was clinically given stage IIIc disease , T4 N3 M0 lesion. Patient obviously is not a surgical candidate. She has not received any treatment regarding her non-small cell lung cancer 2 acute shortness of breath 3 COPD 4 empyema involving the right lung. This is post likely related to a postobstructive pneumonia. Thoracentesis was done. 1.6 L of purulent material was aspirated. pigtail catheter has been inserted on the right, and there has been a total of 870 mL of additional purulent drainage material in the Pleur- evac after the initial aspiration of 1.6 L of purulent material. Pleural fluid cultures are positive for alpha hemolytic streptococcus 5 acid reflux 6 borderline diabetes mellitus 7 insomnia/anxiety Plan: We will instill a dose of alteplase in the right sided pigtail catheter today. We will request a PICC line insertion, ID service has switched antibiotics to Rocephin, clinially patient is improving, no fever or chills, no worsening shortness of breath I performed a history & physical examination of the patient and discussed their management with my nurse practitioner, Geeta Aburto. I reviewed the nurse practitioner's note and agree with the documented findings and plan of care. Lung sounds are positive for diminished breath sounds over right lower lobe, and bibasilar crackles, no acute distress. The findings and the impression was discussed with the patient. I attest to the documentation by the nurse practitioner. Time with Patient: Less than 30
[2018-09-30] MEDS: cefTRIAXone 2,000 MG in SODIUM CHLORIDE 0.9% 100 ML IVPB SCH (14:22)
[2018-09-30] MEDS: SODIUM CHLORIDE 0.9% 1,000 ML IV SCH (14:22)
--- NOTE | 2018-09-30 15:01 | IR ---
PICC LINE PLACEMENT: HISTORY: Infection requiring long-term antibiotic therapy PROCEDURE: Ultrasound and fluoroscopic guidance of PICC line placement. COMPLICATIONS: None ANESTHESIA: 1. 1% Lidocaine locally. FINDINGS/TECHNIQUE: The procedure was explained to the patient. The risks, complications, benefits and alternatives were discussed and any questions were answered. Informed consent was obtained. The patient was placed supine on the fluoroscopic table and prepped and draped in the usual sterile fash ion. Utilizing a 21 gauge needle and sonographic and fluoroscopic guidance, access in the left ceph alic vein was achieved and there is placement of a 0.018 guidewire. The vein is patent. A 4-F sheat h was placed over the guidewire. The guidewire and dilator were removed and a 4-F. PICC line was tevin virginie through the sheath with the tip at the level of the SVC. The sheath was removed, the catheter wa s flushed and sutured into position. The patient was stable throughout the procedure and remained st able upon discharge from the Department of Radiology. The vein puncture was patent under ultrasound. A warren scale image was obtained to document patency of the vein punctured. All elements of the maximal barrier technique were utilized. FLUOROSCOPY TIME: 0.2 minutes and one image submitted IMPRESSION: Successful PICC line placement under ultrasound and fluoroscopic guidance.
--- NOTE | 2018-09-30 16:38 | P.PN ---
Subjective Progress Note Date: 09/30/18 67-year-old woman who has a very significant recent history associated with her progressive shortness of breath. She recently has had changes of her status with increasing shortness of breath and underwent evaluations both at [facility] and [facility]. Endoscopy biopsies and PET scan confirmed her stage IIIB lung carcinoma. She has now presenting to Hospital from the physician's office with significant worsening of her shortness of breath, dyspnea on exertion with very little activity and some orthopnea. Further imaging revealed evidence of extensive effusion to the right chest and consequently a thoracentesis was performed which allowed some improvement of her shortness of breath. There was also concern because she had rapid decline of her mental status issue became more short of breath. Since the thoracentesis she's been having some improvement. At the time of thoracentesis fluid was purposely left in the pleural space and now the interventional radiologist has placed the pigtail catheter and it's been attached to suction. The patient's mental status is improving further per the family. Sitting upright in the chair, has eaten some of her dinner, pain is under good control and she has conversational with some clarity. She has pain at the tube insertion site but denies other acute discomfort at this time. The having high-grade fevers, chills or rigors but again had a significant rapid change of her status before admission. 09/30/2018 patient has had improvement. Still has a chest tube in place. She' ll having some discomfort. There was originally potential plan for discharge home soon but is now not until Wednesday. Working with the infusion company to have her antibiotic set up when she is discharged. Rocephin will be utilized. Objective - Vital Signs Vital signs: Vital Signs Temp 97.6 F 09/30/18 14:10 Pulse 102 H 09/30/18 14:10 Resp 16 09/30/18 14:10 BP 172/76 09/30/18 14:10 Pulse Ox 98 09/30/18 14:10 Intake & Output 09/29/18 09/30/18 09/30/18 18:59 06:59 18:59 Intake Total 220 470 Output Total 100 30 Balance -100 220 440 Weight 61.235 kg Intake: Intake, IV Titration 220 470 Amount Piperacillin-Tazobactam 3 100 .375 gm In Sodium Chloride 0.9% 100 ml @ 25 mls/hr IVPB Q8H [facility] Rx#: [id number] Sodium Chloride 0.9% 1, 220 120 000 ml @ 20 mls/hr IV . Q24H [facility] Rx#:[id number] Vancomycin 1,250 mg In 250 Sodium Chloride 0.9% 250 ml @ 125 mls/hr IVPB Q24H [facility] Rx#:[id number] Output: Chest Tube Drainage 100 30 right posterior chest 100 30 Other: Voiding Method Toilet Toilet Bedside Commode Bedside Commode Diaper Diaper # Voids 2 2 - Exam 67-year-old female, sitting up in the chair, mostly comfortable HEENT: Anicteric conjunctiva are pink and moist nasal mucosa grossly intact without significant lesions, there is no thrush. Neck: The neck is supple without significant lymphadenopathy or thyromegaly. Lungs: There is symmetrical air entry there is still markedly diminished breath sounds at the right base but there is induration at least through the upper two thirds of the chest, dullness to the base tenderness to the catheter insertion site no drainage at the site itself Heart: Regular rate and rhythm with an audible S1-S2, no S3 no S4. There is no significant murmur click or rub, PMI was nondisplaced. Abdomen: Positive bowel sounds soft and nontender without palpable masses or organomegaly. There was no guarding or rebound. Extremities: The upper extremities have excellent pulses they are symmetric, no significant petechiae or telangiectasia. No splinter hemorrhages were noted. The lower extremities are free from significant edema. The peripheral pulses were 2+ and symmetric. Neuro: Patient apparently is much more awake alert and interactive. She is conversational but there is still significant vagueness to content - Labs CBC & Chem 7: 09/29/18 06:52 09/30/18 08:42 Labs: Abnormal Lab Results - Last 24 Hours (Table) 09/29/18 09/29/18 09/30/18 Range/Units 17:36 21:04 08:42 Chloride 109 H (98-107) mmol/L Carbon Dioxide 21 L (22-30) mmol/L Glucose 117 H (74-99) mg/dL POC Glucose (mg/dL) 135 H 154 H (75-99) mg/dL 09/30/18 Range/Units 11:28 Chloride (98-107) mmol/L Carbon Dioxide (22-30) mmol/L Glucose (74-99) mg/dL POC Glucose (mg/dL) 111 H (75-99) mg/dL Laboratory Results WBC 6.1 k/uL (3.8-10.6) 09/29/18 06:52 RBC 3.66 m/uL (3.80-5.40) L 09/29/18 06:52 Hgb 10.3 gm/dL (11.4-16.0) L 09/29/18 06:52 Hct 33.4 % (34.0-46.0) L 09/29/18 06:52 MCV 91.4 fL (80.0-100.0) 09/29/18 06:52 MCH 28.2 pg (25.0-35.0) 09/29/18 06:52 MCHC 30.9 g/dL (31.0-37.0) L 09/29/18 06:52 RDW 13.6 % (11.5-15.5) 09/29/18 06:52 Plt Count 437 k/uL (150-450) 09/29/18 06:52 Neutrophils % 74 % 09/27/18 07:09 Neutrophils % (Manual) 62 % 09/29/18 06:52 Band Neutrophils % 3 % 09/29/18 06:52 Lymphocytes % 15 % 09/27/18 07:09 Lymphocytes % (Manual) 23 % 09/29/18 06:52 Monocytes % 9 % 09/27/18 07:09 Monocytes % (Manual) 10 % 09/29/18 06:52 Eosinophils % 1 % 09/27/18 07:09 Eosinophils % (Manual) 2 % 09/29/18 06:52 Basophils % 0 % 09/27/18 07:09 Metamyelocytes % 1 % 09/29/18 06:52 Myelocytes % 1 % 09/29/18 06:52 Neutrophils # 5.2 k/uL (1.3-7.7) 09/27/18 07:09 Neutrophils # (Manual) 3.90 k/uL (1.3-7.7) 09/29/18 06:52 Lymphocytes # 1.0 k/uL (1.0-4.8) 09/27/18 07:09 Lymphocytes # (Manual) 1.40 k/uL (1.0-4.8) 09/29/18 06:52 Monocytes # 0.6 k/uL (0-1.0) 09/27/18 07:09 Monocytes # (Manual) 0.61 k/uL (0-1.0) 09/29/18 06:52 Eosinophils # 0.1 k/uL (0-0.7) 09/27/18 07:09 Eosinophils # (Manual) 0.12 k/uL (0-0.7) 09/29/18 06:52 Basophils # 0.0 k/uL (0-0.2) 09/27/18 07:09 Metamyelocytes # (Man) 0.06 k/uL (0) H 09/29/18 06:52 Myelocytes # (Manual) 0.06 k/uL (0) H 09/29/18 06:52 Nucleated RBCs 0 /100 WBC (0-0) 09/29/18 06:52 Manual Slide Review Performed 09/29/18 06:52 Hypochromasia Slight 09/29/18 06:52 PT 12.4 sec (9.0-12.0) H 09/26/18 11:16 INR 1.2 (<1.2) H 09/26/18 11:16 APTT 25.6 sec (22.0-30.0) 09/26/18 11:16 Sodium 141 mmol/L (137-145) 09/30/18 08:42 Potassium 4.5 mmol/L (3.5-5.1) 09/30/18 08:42 Chloride 109 mmol/L (98-107) H 09/30/18 08:42 Carbon Dioxide 21 mmol/L (22-30) L 09/30/18 08:42 Anion Gap 11 mmol/L 09/30/18 08:42 BUN 10 mg/dL (7-17) 09/30/18 08:42 Creatinine 1.01 mg/dL (0.52-1.04) 09/30/18 08:42 Est GFR (CKD-EPI)AfAm 66 (>60 ml/min/1.73 sqM) 09/30/18 08:42 Est GFR (CKD-EPI)NonAf 57 (>60 ml/min/1.73 sqM) 09/30/18 08:42 Glucose 117 mg/dL (74-99) H 09/30/18 08:42 POC Glucose (mg/dL) 111 mg/dL (75-99) H 09/30/18 11:28 POC Glu Senior Proc[employer]ment Manager ID Matt Ramirez 09/30/18 11:[address] Glu mg/dL 163 09/26/18 11:16 Hemoglobin A1c 7.3 % (4.0-6.0) H 09/26/18 11:16 Calcium 9.4 mg/dL (8.4-10.2) 09/30/18 08:42 Total Bilirubin 0.5 mg/dL (0.2-1.3) 09/26/18 11:16 AST 71 U/L (14-36) H 09/26/18 11:16 ALT 52 U/L (9-52) 09/26/18 11:16 Alkaline Phosphatase 87 U/L (38-126) 09/26/18 11:16 Total Protein 5.8 g/dL (6.3-8.2) L 09/26/18 11:16 Albumin 2.7 g/dL (3.5-5.0) L 09/26/18 11:16 Urine Color Yellow 09/26/18 11:35 Urine Appearance Cloudy (Clear) H 09/26/18 11:35 Urine pH 6.0 (5.0-8.0) 09/26/18 11:35 Ur Specific [place] 1.018 (1.001-1.035) 09/26/18 11:35 Urine Protein 1+ (Negative) H 09/26/18 11:35 Urine Glucose (UA) Negative (Negative) 09/26/18 11:35 Urine Ketones Trace (Negative) H 09/26/18 11:35 Urine Blood Negative (Negative) 09/26/18 11:35 Urine Nitrite Positive (Negative) H 09/26/18 11:35 Urine Bilirubin Negative (Negative) 09/26/18 11:35 Urine Urobilinogen 2.0 mg/dL (<2.0) 09/26/18 11:35 Ur Leukocyte Esterase Moderate (Negative) H 09/26/18 11:35 Urine WBC 30 /hpf (0-5) H 09/26/18 11:35 Urine WBC Clumps Occasional /hpf (None) H 09/26/18 11:35 Urine Bacteria Many /hpf (None) H 09/26/18 11:35 Fluid Source Pleural 09/26/18 17:20 Fluid Color Brown 09/26/18 17:20 Fluid Appearance Cloudy 09/26/18 17:20 Fluid RBC [id number] /uL 09/26/18 17:20 Fluid Nucleated Cells [id number] /uL 09/26/18 17:20 Body Fluid Glucose Source Pleural Fluid 09/26/18 17:20 Fluid Glucose 25 mg/dL 09/26/18 17:20 Body Fluid Protein Source Pleural Fluid 09/26/18 17:20 Fluid Total Protein 429 mg/dL 09/26/18 17:20 Body Fluid LDH Source Pleural Fluid 09/26/18 17:20 Fluid LDH 480 U/L 09/26/18 17:20 Fluid Comment 09/26/18 17:20 Vancomycin Trough 28.8 ug/mL 09/28/18 09:27 Virus Source See Below 09/26/18 17:20 Viral Test See Below 09/26/18 17:20 Virus Analysis Interp See Below 09/26/18 17:20 Microbiology 09/26/18 17:20 Pleural Fluid Anaerobic Culture - Preliminary 09/26/18 17:20 Pleural Fluid Gram Stain - Preliminary 09/26/18 17:20 Pleural Fluid Body Fluid Culture - Preliminary Alpha Hemolytic Streptococcus 09/26/18 11:35 Urine,Voided Urine Culture - Final Escherichia coli 09/26/18 17:20 Pleural Fluid Acid Fast Bacilli Smear - Final 09/26/18 17:20 Pleural Fluid Acid Fast Bacilli Culture - Preliminary 09/26/18 17:20 Pleural Fluid Fungal Culture - Preliminary Assessment and Plan (1) Urinary tract infection Current Visit: Yes Status: Acute Code(s): N39.0 - URINARY TRACT INFECTION, SITE NOT SPECIFIED SNOMED Code(s): 01330379 (2) Empyema lung Narrative/Plan: 67-year-old woman presents to hospital with her family with the worsening mental status increasing shortness of breath decreasing exercise tolerance and no history of recent diagnosis of stage IIIB lung carcinoma. Imaging studies reveal evidence of the progressive effusion to the right chest and consequently thoracentesis was performed. A thick bloody material was originally obtained and the more purulent looking material by the end of the thoracentesis of yesterday. Similar thick material at the time of the pigtail catheter placement today. Concerns to empyema and ask the laboratory to also check for chylothorax given the underlying malignancy. Cytology is pending to determine if it is a malignant pleural effusion. If the effusion is malignant. We'll change her status to stage IV. If this time await further oncology input as to their next set of plans. There is some difficulties with some obstruction of the bronchitis noted by the endoscopy, she was seen at [facility] but bronchial stents were not placed. Unclear if she'll be a candidate for radiation therapy or other interventions in the near future. The original Gram stains are available and piperacillin tazobactam and vancomycin are being utilized for now until we have further data available. Of note the endband sizer did not believe that the material was putrid, consequently staphylococcal or malignant effusion become more likely. Her septic encephalopathy appears to be improving with the drainage of the empyema and the antibiotic therapy. There is also evidence the gram-negative urinary tract infection await the final culture. Family relates that she's had UTI in the past. Of concern is a lack of high- grade fevers chills or leukocytosis, which are all usually present with an extensive empyema. The details are discussed with pulmonology. 09/30/2018 for streptococci is not been isolated from the empyema fluid. Antibiotic therapy has been transitioned to Rocephin and will plan at least 28 days of this in the outpatient setting given the complexity of her situation especially underlying lung carcinoma. Regimens have been made for the outpatient antibiotic therapy. Current Visit: Yes Status: Acute Code(s): J86.9 - PYOTHORAX WITHOUT FISTULA SNOMED Code(s): 587636481 (3) Altered mental status Current Visit: Yes Status: Acute Code(s): R41.82 - ALTERED MENTAL STATUS, UNSPECIFIED SNOMED Code(s): 132464218
--- NOTE | 2018-09-30 17:02 | P.PN ---
Subjective Progress Note Date: 09/30/18 Principal diagnosis: Adenocarcinoma lung with Emphyema and pleural effusion at bedside with two brothers and friend. Patient is much more alert during follow-up today. We discussed results of molecular testing. We discussed the plan for chemotherapy per Dr. Polina pressley after complete treatment and resolution of infection. Objective - Vital Signs Vital signs: Vital Signs Temp 97.6 F 09/30/18 14:10 Pulse 102 H 09/30/18 14:10 Resp 16 09/30/18 14:10 BP 172/76 09/30/18 14:10 Pulse Ox 98 09/30/18 14:10 Intake & Output 09/29/18 09/30/18 09/30/18 18:59 06:59 18:59 Intake Total 220 470 Output Total 100 30 Balance -100 220 440 Weight 61.235 kg Intake: Intake, IV Titration 220 470 Amount Piperacillin-Tazobactam 3 100 .375 gm In Sodium Chloride 0.9% 100 ml @ 25 mls/hr IVPB Q8H [facility] Rx#: [id number] Sodium Chloride 0.9% 1, 220 120 000 ml @ 20 mls/hr IV . Q24H [facility] Rx#:[id number] Vancomycin 1,250 mg In 250 Sodium Chloride 0.9% 250 ml @ 125 mls/hr IVPB Q24H [facility] Rx#:[id number] Output: Chest Tube Drainage 100 30 right posterior chest 100 30 Other: Voiding Method Toilet Toilet Bedside Commode Bedside Commode Diaper Diaper # Voids 2 2 - Exam GEN: NAD, smiling today, interacting and up walking in halls Head: NC, NT Neck: Supple, No Lymphadenopathy cervical LUNG: Diminished R>L, bibasilar, mild increased effort HEART: Tachy, reg rhythm, npo murmur Abd: Soft, Non distended Ext: No edema pedal pulses intact Psych: flat affect was following commands EOM and strength. - Labs CBC & Chem 7: 09/29/18 06:52 09/30/18 08:42 Labs: Abnormal Lab Results - Last 24 Hours (Table) 09/29/18 09/29/18 09/30/18 Range/Units 17:36 21:04 08:42 Chloride 109 H (98-107) mmol/L Carbon Dioxide 21 L (22-30) mmol/L Glucose 117 H (74-99) mg/dL POC Glucose (mg/dL) 135 H 154 H (75-99) mg/dL 09/30/18 Range/Units 11:28 Chloride (98-107) mmol/L Carbon Dioxide (22-30) mmol/L Glucose (74-99) mg/dL POC Glucose (mg/dL) 111 H (75-99) mg/dL Assessment and Plan Plan: Assessment and Recommendations: 1. Recent DIagnosis Adenocarcinoma of the Lung: BRAF POsitive - Recently had Referral for potential surgical Candidacy, she is not a candidate for surgery - She will follow-up with Dr. Turcios this week or next to discuss further options for treatment, 2. Recurrent effusion: Concern for infectious with underlying empyema on aspirated fluid - Cytology and cultures sent - Await results and in interim Antibiotics per Pulmonary and/or ID - Preliminary Culture reviewed - Await final and Fungal 3. Mental Status Changes - Improving - Family very concerned for underlying depression, presenting with flat affect , lethargy and insomnia, this may be a secondary effect of infectious process. - May benefot from psychiatry consultation, will defer to medicine - Explained to family treatment of underlying infection may improve this 4. Ecoli UTI: ID Managmeent Encourage increase activity I have discussed the molecular tests with patient and daughter, I have discussed further with in am, BRAF positive will not change first line therapy but does provide additional bullets for future Chemotherapy at the recommendations of primary oncologist Dr. Fish will be made after complete resolution of active infection and IV antibiotics per ID
[2018-09-30 17:20] LABS: Glucose,Whole Blood 127 mg/dL (75-99)
--- NOTE | 2018-09-30 18:42 | PN ---
PROGRESS NOTE DATE OF SERVICE: 09/30/2018 PRESENTING COMPLAINT: Tired. INTERVAL HISTORY: Patient with adenocarcinoma, stage IIIA, of the lung, presented with empyema on the right side with a pigtail catheter now in place, on intermittent suction. Doing better. Appetite is getting better. is present. Patient did have a PICC line placed today. Did have a bowel movement. REVIEW OF SYSTEMS: Done for constitutional, cardiovascular, GI, pulmonary; relevant findings as above. CURRENT MEDICATIONS: Reviewed. They include IV ceftriaxone. PHYSICAL EXAMINATION: Temperature 97.6, pulse 102, respiration 16, blood pressure 172/76, pulse ox 98% on 3 L. GENERAL APPEARANCE: Propped up in bed. Awake. EYES: Pupils equal. Conjunctivae pale. NECK: JVD not raised. Mass not palpable. RESPIRATORY: Effort increased. LUNGS: Decreased breath sounds. CARDIOVASCULAR: First and second sounds normal. No edema. Right chest wall pigtail in place. PSYCHIATRY: Alert and oriented x3. Mood and affect normal. ABDOMEN: Soft, nontender. Liver and spleen not palpable. INVESTIGATIONS: Potassium 4.5. BUN and creatinine are normal. Accu-Cheks are noted. ASSESSMENT: 1. Right empyema. Cultures positive for alpha hemolytic strep. Pigtail catheter in place. 2. Chronic obstructive pulmonary disease in an ex-smoker. 3. Diabetes mellitus, type 2, on oral hypoglycemic. 4. Gastroesophageal reflux disease. 5. Hyperlipidemia. 6. Adenocarcinoma of lung, stage IIIA, has not started any chemo treatment. 7. Acute metabolic encephalopathy with underlying infection with improvement. 8. Mild protein-calorie malnutrition from decreased oral intake. 9. Reactive thrombocytosis. PLAN: Care was discussed with the patient and . Antibiotics are to continue. I am looking at home antibiotics as coordinated by Dr. Marte in the form of ceftriaxone. Chest tube in the last shift put out about 100 mL. MMODL / IJN: [id number] /
[2018-09-30 19:22] LABS: Glucose,Whole Blood 162 mg/dL (75-99)
[2018-09-30] MEDS: ZOLPIDEM 5 MG TAB PO PRN (21:02)
[2018-10-01] MEDS: HYDROcodone/APAP 5-325MG 1 EACH TAB PO PRN ×3 (04:30→18:06)
[2018-10-01 07:32] LABS: Calcium 9.1 mg/dL (8.4-10.2)
[2018-10-01] MEDS: INSULIN ASPART 100 UNIT/ML 1 ML 10 ML VIAL SQ SCH ×4 (07:34→21:12)
[2018-10-01] MEDS: ATORVASTATIN 10 MG TAB PO SCH (08:37)
[2018-10-01] MEDS: metFORMIN 500 MG TAB PO SCH ×2 (08:37→21:13)
[2018-10-01] MEDS: PANTOPRAZOLE 40 MG TABLET PO SCH (08:37)
[2018-10-01] MEDS: CHOLECALCIFEROL 1,000 UNIT TAB PO SCH (08:37)
[2018-10-01] MEDS: HEPARIN SODIUM,PORCINE 5,000 UNIT/ML 1 ML VIAL SQ SCH ×2 (08:37→21:13)
[2018-10-01] MEDS: POTASSIUM CHLORIDE ER 10 MEQ TAB.ER.PRT PO SCH (08:37)
[2018-10-01] MEDS: cefTRIAXone 2,000 MG in SODIUM CHLORIDE 0.9% 100 ML IVPB SCH (08:38)
[2018-10-01] MEDS: ALPRAZolam 0.5 MG TAB PO PRN ×2 (08:41→16:54)
[2018-10-01] MEDS: SYMBICORT 80-4.5 MCG INHALER INHALATION SCH ×2 (09:01→19:00)
[2018-10-01] MEDS: IPRATROPIUM 0.5 MG/2.5 ML NEBU INHALATION SCH ×4 (09:01→19:00)
[2018-10-01 11:58] LABS: Glucose,Whole Blood 91 mg/dL (75-99)
[2018-10-01] MEDS: SODIUM CHLORIDE 0.9% 1,000 ML IV SCH (15:58)
[2018-10-01 17:02] LABS: Glucose,Whole Blood 102 mg/dL (75-99)
--- NOTE | 2018-10-01 17:12 | P.PN ---
Subjective Progress Note Date: 10/01/18 Principal diagnosis: Locally advanced non-small cell lung cancer, adenocarcinoma of the right lung, right-sided empyema On today's evaluation of 09/27/2018 I'm seeing this patient for a follow-up. She is still anxious. She did not have a good night sleep yesterday. She is having issues with insomnia. Her shortness of breath is still present although less compared to yesterday. Note that I performed a thoracentesis on him yesterday and evacuated approximately 1.6 L of purulent material that was felt to be empyema. The white cell count in the fluid is considerably elevated. Cultures still pending for now. The patient on a combination of Zosyn and vancomycin. The plan for today was to insert the pigtail catheter through interventional radiology. For that reason the patient was taken downstairs for the same procedure. The WBC count is at 7.1. No other new complaints otherwise for now. The patient on 4l to oxygen nasal cannula and the pulse ox is around 99%. No pleurisy. No hemoptysis. On 09/28/2018 patient seen in follow-up. She is resting comfortably in bed, currently on room air, with a pulse ox of 97%, hemodynamically stable, afebrile , respirations are even and nonlabored, lung sounds reveal diminished breath sounds over right lower lobe, some basilar crackles. Patient has a right posterior pigtail catheter in place, connected to a Pleur-evac, and there has been a total of 400 mL of purulent material in the Pleur-evac since the insertion of the pigtail catheter on 09/27/2018. There has been 60 mL of purulent drainage in the last 24 hours, the Pleur-evac is just to water seal, continues to freely drained, we'll connected to wall suction. Today's chest x- ray has been reviewed with Dr. Dunbar, shows moderate right pleural effusion. No new labs, microbiology results showed E. coli in the urine culture, pleural fluid Gram stain showed many gram-positive cocci in pairs and chains, final cultures pending. AFB culture was negative, fungal culture is in progress. She remains on Zosyn and vancomycin, ID service is following, clinically patient is breathing easier, no fever or chills. On 09/29/2018 patient seen in follow-up on medical oncology floor, she is resting comfortably in bed, habit lethargic, but easily arousable, in no acute distress, thin and additional 370 mL of purulent drainage in the Pleur-evac from the right pigtail chest tube. Pleural fluid cultures revealed alpha hemolytic strep, and patient had E. coli in the urine culture, patient is on combination of Zosyn and vancomycin, ID service is following. No fever or chills, 600% on 3 L per nasal cannula, hemodynamically stable, afebrile, lung sounds reveal diminished breath sounds over right lower lobe, bibasilar rales, today's chest x-ray showed new air within the right pleural space compatible with a moderate hydropneumothorax although the degree of areas minimal after retraction of the right pigtail catheter, and a similar trace left pleural effusion. On 09/30/2018 patient seein in follow-up on medical oncology floor. on room air , in no acute distress, there has been 100 mL of purulent drainage out of the right pleural chestbe in the last 24 hour Patient's Zosyn and vancomycin were discontinued and patient was placed on IV Rocephin per ID service. Pleural fluid culture showed alpha hemolytic Streptococcus, and E. coli in the urine. The patient is seen today 10/01/2017 in follow-up on the medical oncology floor. She is currently sitting up at the bedside. Having lunch and tolerating it well. She denies any worsening shortness of breath, cough or congestion. Maintaining good O2 saturations in the mid 90s on room air. She's been afebrile. Hemodynamically stable. The drainage from the chest tube has been minimal the past 12 hours. The plan is for alteplase injection today. Objective - Vital Signs Vital signs: Vital Signs Temp 97.5 F L 10/01/18 12:56 Pulse 105 H 10/01/18 12:56 Resp 16 10/01/18 12:56 BP 161/74 10/01/18 12:56 Pulse Ox 95 10/01/18 12:56 Intake & Output 09/30/18 10/01/18 10/01/18 18:59 06:59 18:59 Intake Total 470 260 Output Total 30 Balance 440 260 Weight 61.235 kg 61.235 kg Intake: Intake, IV Titration 470 260 Amount Piperacillin-Tazobactam 3 100 .375 gm In Sodium Chloride 0.9% 100 ml @ 25 mls/hr IVPB Q8H [facility] Rx#: [id number] Sodium Chloride 0.9% 1, 120 160 000 ml @ 20 mls/hr IV . Q24H [facility] Rx#:[id number] Vancomycin 1,250 mg In 250 Sodium Chloride 0.9% 250 ml @ 125 mls/hr IVPB Q24H [facility] Rx#:[id number] cefTRIAXone 2,000 mg In 100 Sodium Chloride 0.9% 100 ml @ 100 mls/hr IVPB Q24HR [facility] Rx#:[id number] Output: Chest Tube Drainage 30 right posterior chest 30 Other: Voiding Method Toilet Toilet Bedside Commode Bedside Commode Diaper Diaper # Voids 2 3 - Exam GENERAL EXAM: Alert, pleasant, 67-year-old white female currently on room air. HEAD: Normocephalic/atraumatic. EYES: Normal reaction of pupils, equal size. Conjunctiva pink, sclera white. NOSE: Clear with pink turbinates. THROAT: No erythema or exudates. NECK: No masses, no JVD, no thyroid enlargement, no adenopathy. CHEST: No chest wall deformity. Symmetrical expansion. Right posterior pigtail chest tube is in place, connected to a Pleur-evac to suction. Alteplase was injected today. LUNGS: Equal air entry with no crackles, wheeze, rhonchi or dullness. Diminished breath sounds over right lower lobe, with the few scattered crackles CVS: Regular rate and rhythm, normal S1 and S2, no gallops, no murmurs, no rubs ABDOMEN: Soft, nontender. No hepatosplenomegaly, normal bowel sounds, no guarding or rigidity. EXTREMITIES: No clubbing, no edema, no cyanosis, 2+ pulses and upper and lower extremities. MUSCULOSKELETAL: Muscle strength and tone normal. SPINE: No scoliosis or deformity SKIN: No rashes CENTRAL NERVOUS SYSTEM: Alert and oriented -3. No focal deficits, tone is normal in all 4 extremities. PSYCHIATRIC: Alert and oriented -3. Appropriate affect. Intact judgment and insight. - Labs CBC & Chem 7: 09/29/18 06:52 10/01/18 06:44 Labs: Abnormal Lab Results - Last 24 Hours (Table) 09/30/18 09/30/18 10/01/18 Range/Units 17:19 19:15 06:44 Chloride 109 H (98-107) mmol/L Glucose 109 H (74-99) mg/dL POC Glucose (mg/dL) 127 H 162 H (75-99) mg/dL 10/01/18 Range/Units 17:00 Chloride (98-107) mmol/L Glucose (74-99) mg/dL POC Glucose (mg/dL) 102 H (75-99) mg/dL Microbiology - Last 24 Hours (Table) 09/26/18 17:20 Gram Stain - Final Pleural Fluid Body Fluid Culture - Final Alpha Hemolytic Streptococcus 09/26/18 17:20 Anaerobic Culture - Final Pleural Fluid Assessment and Plan Assessment: Impression: 1 locally advanced non-small cell lung cancer. The patient was found to have adenocarcinoma of the right lung with a large right lower lobe mass causing mass effect on the right lower lobe bronchus and the right upper lobe bronchus. The patient also developed a right-sided pleural effusion. PET scan was done on outpatient basis and the patient was clinically given stage IIIc disease , T4 N3 M0 lesion. Patient obviously is not a surgical candidate. She has not received any treatment regarding her non-small cell lung cancer 2 acute shortness of breath 3 COPD 4 empyema involving the right lung. This is post likely related to a postobstructive pneumonia. Thoracentesis was done. 1.6 L of purulent material was aspirated. pigtail catheter has been inserted on the right, and there has been a total of 870 mL of additional purulent drainage material in the Pleur- evac after the initial aspiration of 1.6 L of purulent material. Pleural fluid cultures are positive for alpha hemolytic streptococcus 5 acid reflux 6 borderline diabetes mellitus 7 insomnia/anxiety Plan: The patient was seen and evaluated by Dr. Dunbar. Alteplase was injected into the catheter today. Is starting to drain more. We'll keep it to suction for now. PICC line is in place. Early on ceftriaxone. We will continue with her current medications. Plan for a repeat computed tomography scan on Wednesday. We'll continue to follow and make further recommendations based on her clinical status. I, the cosigning physician, performed a history & physical examination of the patient. Lungs sounds with crackles scattered rhonchi in the right lung base. Maintaining good O2 saturations in the 90s on room air. I discussed the assessment and plan of care with my nurse practitioner, Andreina Mendoza. I attest to the above note as dictated by her.
[2018-10-01] MEDS: ZOLPIDEM 5 MG TAB PO PRN (21:12)
[2018-10-01 21:14] LABS: Glucose,Whole Blood 177 mg/dL (75-99)
[2018-10-02] MEDS: HYDROcodone/APAP 5-325MG 1 EACH TAB PO PRN ×4 (00:11→19:55)
[2018-10-02] MEDS: ALPRAZolam 0.5 MG TAB PO PRN ×3 (00:11→19:55)
--- NOTE | 2018-10-02 07:26 | PN ---
PROGRESS NOTE DATE OF SERVICE: 10/01/2018 PRESENTING COMPLAINT: Tired. INTERVAL HISTORY: This patient had adenocarcinoma stage III of the lung, not a candidate for surgery, presented with empyema on the right side. There is a pigtail catheter in place. Overnight the output was minimal. Hence, alteplase was injected. Otherwise, patient tolerating a diet. Breathing is getting better. PICC line in place . REVIEW OF SYSTEMS: Done for constitutional, cardiovascular, GI, pulmonary; relevant findings as above. CURRENT MEDICATIONS: Reviewed that include IV ceftriaxone. PHYSICAL EXAMINATION: Temperature 97.5 pulse 105, respirations 18, blood pressure 116/74, pulse ox 95% on room air. GENERAL APPEARANCE: Sitting at the edge of bed, awake. EYES: Pupils equal. Conjunctivae pale. NECK: JVD not raised. Mass not palpable. Respiratory effort normal. LUNGS: Decreased breath sounds. Right chest has a pigtail catheter in place to suction. CARDIOVASCULAR: 1st and 2nd sounds normal. No edema. ABDOMEN: Soft, nontender. PSYCHIATRY: Alert and oriented x3. Mood and affect is normal. INVESTIGATIONS: Potassium 4. Accu-Cheks are noted. ASSESSMENT: 1. Right-sided empyema. Cultures positive for alpha hemolytic strep. Pigtail catheter in place. Received alteplase today. 2. Chronic obstructive pulmonary disease in an ex-smoker. 3. Diabetes mellitus type 2 on oral hypoglycemic. 4. Gastroesophageal reflux disease. 5. Hyperlipidemia. 6. Adenocarcinoma of the lung, stage III, not a surgical candidate, pending chemo treatment down the road. 7. Acute metabolic encephalopathy from underlying infection with improvement from presentation. 8. Mild protein-calorie malnutrition, decreased oral intake. 9. Reactive thrombocytosis. PLAN: Continue current medication and treatment plan. The patient is ( ) the pigtail catheter hopefully after the alteplase. Follow. MMODL / IJN: [id number] /
[2018-10-02 07:27] LABS: Glucose,Whole Blood 113 mg/dL (75-99)
[2018-10-02 08:11] LABS: Calcium 9.3 mg/dL (8.4-10.2); Potassium 3.9 mmol/L (3.5-5.1)
[2018-10-02] MEDS: INSULIN ASPART 100 UNIT/ML 1 ML 10 ML VIAL SQ SCH ×4 (08:18→20:00)
[2018-10-02] MEDS: IPRATROPIUM 0.5 MG/2.5 ML NEBU INHALATION SCH ×4 (08:34→20:29)
[2018-10-02] MEDS: SYMBICORT 80-4.5 MCG INHALER INHALATION SCH ×2 (08:34→20:30)
[2018-10-02] MEDS: cefTRIAXone 2,000 MG in SODIUM CHLORIDE 0.9% 100 ML IVPB SCH (08:58)
[2018-10-02] MEDS: POTASSIUM CHLORIDE ER 10 MEQ TAB.ER.PRT PO SCH (08:59)
[2018-10-02] MEDS: PANTOPRAZOLE 40 MG TABLET PO SCH (08:59)
[2018-10-02] MEDS: CHOLECALCIFEROL 1,000 UNIT TAB PO SCH (08:59)
[2018-10-02] MEDS: HEPARIN SODIUM,PORCINE 5,000 UNIT/ML 1 ML VIAL SQ SCH ×2 (08:59→19:55)
[2018-10-02] MEDS: metFORMIN 500 MG TAB PO SCH ×2 (08:59→19:55)
[2018-10-02] MEDS: ATORVASTATIN 10 MG TAB PO SCH (08:59)
--- NOTE | 2018-10-02 11:18 | P.PN ---
Subjective Progress Note Date: 10/02/18 Principal diagnosis: Locally advanced non-small cell lung cancer, adenocarcinoma of the right lung, right-sided empyema On today's evaluation of 09/27/2018 I'm seeing this patient for a follow-up. She is still anxious. She did not have a good night sleep yesterday. She is having issues with insomnia. Her shortness of breath is still present although less compared to yesterday. Note that I performed a thoracentesis on him yesterday and evacuated approximately 1.6 L of purulent material that was felt to be empyema. The white cell count in the fluid is considerably elevated. Cultures still pending for now. The patient on a combination of Zosyn and vancomycin. The plan for today was to insert the pigtail catheter through interventional radiology. For that reason the patient was taken downstairs for the same procedure. The WBC count is at 7.1. No other new complaints otherwise for now. The patient on 4l to oxygen nasal cannula and the pulse ox is around 99%. No pleurisy. No hemoptysis. On 09/28/2018 patient seen in follow-up. She is resting comfortably in bed, currently on room air, with a pulse ox of 97%, hemodynamically stable, afebrile , respirations are even and nonlabored, lung sounds reveal diminished breath sounds over right lower lobe, some basilar crackles. Patient has a right posterior pigtail catheter in place, connected to a Pleur-evac, and there has been a total of 400 mL of purulent material in the Pleur-evac since the insertion of the pigtail catheter on 09/27/2018. There has been 60 mL of purulent drainage in the last 24 hours, the Pleur-evac is just to water seal, continues to freely drained, we'll connected to wall suction. Today's chest x- ray has been reviewed with Dr. Dunbar, shows moderate right pleural effusion. No new labs, microbiology results showed E. coli in the urine culture, pleural fluid Gram stain showed many gram-positive cocci in pairs and chains, final cultures pending. AFB culture was negative, fungal culture is in progress. She remains on Zosyn and vancomycin, ID service is following, clinically patient is breathing easier, no fever or chills. On 09/29/2018 patient seen in follow-up on medical oncology floor, she is resting comfortably in bed, habit lethargic, but easily arousable, in no acute distress, thin and additional 370 mL of purulent drainage in the Pleur-evac from the right pigtail chest tube. Pleural fluid cultures revealed alpha hemolytic strep, and patient had E. coli in the urine culture, patient is on combination of Zosyn and vancomycin, ID service is following. No fever or chills, 600% on 3 L per nasal cannula, hemodynamically stable, afebrile, lung sounds reveal diminished breath sounds over right lower lobe, bibasilar rales, today's chest x-ray showed new air within the right pleural space compatible with a moderate hydropneumothorax although the degree of areas minimal after retraction of the right pigtail catheter, and a similar trace left pleural effusion. On 09/30/2018 patient seein in follow-up on medical oncology floor. on room air , in no acute distress, there has been 100 mL of purulent drainage out of the right pleural chestbe in the last 24 hour Patient's Zosyn and vancomycin were discontinued and patient was placed on IV Rocephin per ID service. Pleural fluid culture showed alpha hemolytic Streptococcus, and E. coli in the urine. On 10/02/2018 patient seen in follow-up. There has been an additional 150 mL of purulent drainage material out of the right-sided pigtail chest tube catheter. She received a dose of TPA yesterday. She is on IV Rocephin per ID service, no fever or chills, she states her breathing is easier, she is ambulating to the bathroom and back and so far there has been the extent of her activity. She is sitting up in the chair, in no acute distress, she is on room air, pulse ox is 92%, incentive spirometry effort is 750 today. Lung sounds are diminished breath sounds over right lower lobe, with some coarse crackles over left lower lobe. Patient's and the patient both stated that she is extremely depressed she is not sleeping well at night she is crying. But appetite is good, patient is participating with all activities. She has been receiving Xanax on as-needed basis, we will add Celexa at 20 mg daily. Objective - Vital Signs Vital signs: Vital Signs Temp 98 F 01/20/19 08:20 Pulse 113 H 10/02/18 08:20 Resp 16 10/02/18 08:20 BP 148/73 10/02/18 08:20 Pulse Ox 92 L 10/02/18 08:20 Intake & Output 10/01/18 10/02/18 10/02/18 18:59 06:59 18:59 Intake Total 260 Output Total 75 Balance 185 Weight 61.235 kg Intake: Intake, IV Titration 260 Amount Sodium Chloride 0.9% 1, 160 000 ml @ 20 mls/hr IV . Q24H [facility] Rx#:[id number] cefTRIAXone 2,000 mg In 100 Sodium Chloride 0.9% 100 ml @ 100 mls/hr IVPB Q24HR [facility] Rx#:[id number] Output: Drainage 75 Right Posterior Chest 75 Other: Voiding Method Toilet Toilet Toilet Bedside Commode Bedside Commode Bedside Commode Diaper Diaper Diaper # Voids 3 2 - Exam GENERAL EXAM: Alert, pleasant, 67-year-old white female currently on room air, comfortable in no apparent distress. HEAD: Normocephalic/atraumatic. EYES: Normal reaction of pupils, equal size. Conjunctiva pink, sclera white. NOSE: Clear with pink turbinates. THROAT: No erythema or exudates. NECK: No masses, no JVD, no thyroid enlargement, no adenopathy. CHEST: No chest wall deformity. Symmetrical expansion. Right posterior pigtail chest tube is in place, connected to a Pleur-evac to waterseal, and there is purulent drainage material in the Pleur-evac LUNGS: Equal air entry with no crackles, wheeze, rhonchi or dullness. Diminished breath sounds over right lower lobe, with the few scattered crackles CVS: Regular rate and rhythm, normal S1 and S2, no gallops, no murmurs, no rubs ABDOMEN: Soft, nontender. No hepatosplenomegaly, normal bowel sounds, no guarding or rigidity. EXTREMITIES: No clubbing, no edema, no cyanosis, 2+ pulses and upper and lower extremities. MUSCULOSKELETAL: Muscle strength and tone normal. SPINE: No scoliosis or deformity SKIN: No rashes CENTRAL NERVOUS SYSTEM: Alert and oriented -3. No focal deficits, tone is normal in all 4 extremities. PSYCHIATRIC: Alert and oriented -3. Appropriate affect. Intact judgment and insight. - Labs CBC & Chem 7: 09/29/18 06:52 10/02/18 07:40 Labs: Abnormal Lab Results - Last 24 Hours (Table) 10/01/18 10/01/18 10/02/18 Range/Units 17:00 21:06 07:25 Chloride (98-107) mmol/L Glucose (74-99) mg/dL POC Glucose (mg/dL) 102 H 177 H 113 H (75-99) mg/dL 10/02/18 Range/Units 07:40 Chloride 108 H (98-107) mmol/L Glucose 118 H (74-99) mg/dL POC Glucose (mg/dL) (75-99) mg/dL Assessment and Plan Plan: 1 locally advanced non-small cell lung cancer. The patient was found to have adenocarcinoma of the right lung with a large right lower lobe mass causing mass effect on the right lower lobe bronchus and the right upper lobe bronchus. The patient also developed a right-sided pleural effusion. PET scan was done on outpatient basis and the patient was clinically given stage IIIc disease , T4 N3 M0 lesion. Patient obviously is not a surgical candidate. She has not received any treatment regarding her non-small cell lung cancer 2 acute shortness of breath 3 COPD 4 empyema involving the right lung. This is post likely related to a postobstructive pneumonia. Thoracentesis was done. 1.6 L of purulent material was aspirated. pigtail catheter has been inserted on the right, and there has been a total of 870 mL of additional purulent drainage material in the Pleur- evac after the initial aspiration of 1.6 L of purulent material. Pleural fluid cultures are positive for alpha hemolytic streptococcus 5 acid reflux 6 borderline diabetes mellitus 7 insomnia/anxiety Plan: Continue antibiotics per ID service, vital signs are stable, increase activity as tolerated, and bili the patient in the garcia, we will add Celexa 20 mg daily, patient is complaining of crying episodes, not sleeping well at night, she is depressed. However denies any dyspnea, she is on room air, maintaining good O2 saturations. Repeat CT of the chest without contrast in the morning to evaluate the appearance of the right-sided empyema. I performed a history & physical examination of the patient and discussed their management with my nurse practitioner, Geeta Aburto. I reviewed the nurse practitioner's note and agree with the documented findings and plan of care. Lung sounds are positive for diminished breath sounds over right lower lobe, and bibasilar crackles, no acute distress. The findings and the impression was discussed with the patient. I attest to the documentation by the nurse practitioner. Time with Patient: Less than 30
[2018-10-02 11:43] LABS: Glucose,Whole Blood 126 mg/dL (75-99)
--- NOTE | 2018-10-02 12:47 | CT ---
EXAMINATION TYPE: CT chest wo con DATE OF EXAM: 10/02/2018 COMPARISON: Previous study dated 09/29/2018. HISTORY: Follow up right empyema with chest tube CT DLP: 220.0 mGycm. Automated Exposure Control for Dose Reduction was Utilized. TECHNIQUE: CT scan of the thorax is performed without IV contrast. FINDINGS: There is a pigtail catheter at the right lung base. There continues to be pleural fluid. Th is may have increased from the previous study. There continues to be air within the pleural cavity bu t this has decreased slightly. There is extensive consolidation of the right lower lobe. This is similar to the previous study. Ther e is developing groundglass opacity in the left lingula. This was also present previously. There is some minimal mediastinal adenopathy which May BE reactive. There is approximately 2 mm of pe ricardial thickening or fluid. This was also present previously. There is a small left-sided pleural effusion which was present previously. There is a stable, 1.4 cm area of low-attenuation within the lateral segment of the left lobe of the liver, unchanged from previous. There is a small hiatal hernia. Visualized portions of the upper abdo men are otherwise unremarkable. No bony lesion is seen. IMPRESSION: 1. THE PATIENT'S EMPYEMA MAY HAVE INCREASED VERY SLIGHTLY FROM THE PREVIOUS STUDY. 2. PERSISTENT PERICARDIAL THICKENING. 3. CONSOLIDATION IN THE LEFT LINGULA WELL THE RIGHT LOWER LOBE..
[2018-10-02] MEDS: CITALOPRAM HYDROBROMIDE 20 MG TAB PO SCH (14:58)
[2018-10-02 17:32] LABS: Glucose,Whole Blood 122 mg/dL (75-99)
[2018-10-02] MEDS: SODIUM CHLORIDE 0.9% 1,000 ML IV SCH (17:39)
[2018-10-02] MEDS: ZOLPIDEM 5 MG TAB PO PRN (19:55)
[2018-10-02 20:09] LABS: Glucose,Whole Blood 143 mg/dL (75-99)
--- NOTE | 2018-10-02 22:11 | PN ---
PROGRESS NOTE DATE OF SERVICE: October 02, 2018. PRESENTING COMPLAINT: Tired. INTERVAL HISTORY: This patient has adenocarcinoma stage III of the lung, presented with empyema on the right side. A pigtail catheter in place. Overnight, put out about 75 mL. Good output since was injected. Tolerating a diet. Has been walking about. Does feel a bit low. REVIEW OF SYSTEMS: Done for constitutional, cardiovascular, GI, pulmonary, psychiatric; relevant findings as above. CURRENT MEDICATIONS: Include IV ceftriaxone. PHYSICAL EXAMINATION: VITAL SIGNS: Temperature 97.8, pulse 95, respiration 16, blood pressure 124/80, pulse ox 94 percent on room air. GENERAL APPEARANCE: Sitting at the edge of bed, awake. EYES: Pupils equal. Conjunctivae pale. NECK: JVD not raised. Mass not palpable. RESPIRATORY: Effort normal. LUNGS: Decreased breath sounds. Right chest wall pigtail catheter in place. PSYCHIATRY: Alert and oriented x3. Mood and affect low. ABDOMEN: Soft, nontender. Liver and spleen not palpable. INVESTIGATIONS: Potassium 3.9. BUN and creatinine normal. Accu-Cheks are noted. ASSESSMENT: 1. Right-sided empyema. Cultures positive for alpha hemolytic strep, still draining adequately. 2. Chronic obstructive pulmonary disease in an ex-smoker. 3. Diabetes mellitus type 2 on oral hypoglycemics. 4. Gastroesophageal reflux disease. 5. Hyperlipidemia. 6. Adenocarcinoma of the lung, stage III, not a surgical candidate, pending chemo treatment down the road. 7. Acute metabolic encephalopathy from underlying infection, on presentation, now resolved. 8. Mild protein-calorie malnutrition from decreased oral intake. 9. Reactive thrombocytosis. PLAN: Continue current medication and treatment plan. Dr. Dunbar earlier today added Celexa for depression. I did speak to the patient and daughter in room at length. Also spoke to the , who I met in the hallway. Given an update. The patient is responding well to the current antibiotic and the treatment plan. MMODL / IJN: [id number] /
[2018-10-03] MEDS: ALPRAZolam 0.5 MG TAB PO PRN ×2 (05:08→13:53)
[2018-10-03] MEDS: HYDROcodone/APAP 5-325MG 1 EACH TAB PO PRN ×2 (05:08→16:26)
[2018-10-03 07:26] LABS: Glucose,Whole Blood 120 mg/dL (75-99)
[2018-10-03] MEDS: INSULIN ASPART 100 UNIT/ML 1 ML 10 ML VIAL SQ SCH ×4 (08:26→20:20)
[2018-10-03] MEDS: CHOLECALCIFEROL 1,000 UNIT TAB PO SCH (08:29)
[2018-10-03] MEDS: ATORVASTATIN 10 MG TAB PO SCH (08:29)
[2018-10-03] MEDS: POTASSIUM CHLORIDE ER 10 MEQ TAB.ER.PRT PO SCH (08:29)
[2018-10-03] MEDS: metFORMIN 500 MG TAB PO SCH ×2 (08:29→20:12)
[2018-10-03] MEDS: cefTRIAXone 2,000 MG in SODIUM CHLORIDE 0.9% 100 ML IVPB SCH (08:29)
[2018-10-03] MEDS: CITALOPRAM HYDROBROMIDE 20 MG TAB PO SCH (08:29)
[2018-10-03] MEDS: HEPARIN SODIUM,PORCINE 5,000 UNIT/ML 1 ML VIAL SQ SCH ×2 (08:29→20:12)
[2018-10-03] MEDS: PANTOPRAZOLE 40 MG TABLET PO SCH (08:29)
[2018-10-03] MEDS: IPRATROPIUM 0.5 MG/2.5 ML NEBU INHALATION SCH ×4 (09:15→21:07)
[2018-10-03] MEDS: SYMBICORT 80-4.5 MCG INHALER INHALATION SCH ×2 (09:15→21:07)
[2018-10-03 11:19] LABS: Glucose,Whole Blood 118 mg/dL (75-99)
[2018-10-03] MEDS: SODIUM CHLORIDE 0.9% 1,000 ML IV SCH (13:04)
--- NOTE | 2018-10-03 13:10 | P.PN ---
Subjective Progress Note Date: 10/03/18 Principal diagnosis: Locally advanced non-small cell lung cancer, adenocarcinoma of the right lung, right-sided empyema On today's evaluation of 09/27/2018 I'm seeing this patient for a follow-up. She is still anxious. She did not have a good night sleep yesterday. She is having issues with insomnia. Her shortness of breath is still present although less compared to yesterday. Note that I performed a thoracentesis on him yesterday and evacuated approximately 1.6 L of purulent material that was felt to be empyema. The white cell count in the fluid is considerably elevated. Cultures still pending for now. The patient on a combination of Zosyn and vancomycin. The plan for today was to insert the pigtail catheter through interventional radiology. For that reason the patient was taken downstairs for the same procedure. The WBC count is at 7.1. No other new complaints otherwise for now. The patient on 4l to oxygen nasal cannula and the pulse ox is around 99%. No pleurisy. No hemoptysis. On 09/28/2018 patient seen in follow-up. She is resting comfortably in bed, currently on room air, with a pulse ox of 97%, hemodynamically stable, afebrile , respirations are even and nonlabored, lung sounds reveal diminished breath sounds over right lower lobe, some basilar crackles. Patient has a right posterior pigtail catheter in place, connected to a Pleur-evac, and there has been a total of 400 mL of purulent material in the Pleur-evac since the insertion of the pigtail catheter on 09/27/2018. There has been 60 mL of purulent drainage in the last 24 hours, the Pleur-evac is just to water seal, continues to freely drained, we'll connected to wall suction. Today's chest x- ray has been reviewed with Dr. Dunbar, shows moderate right pleural effusion. No new labs, microbiology results showed E. coli in the urine culture, pleural fluid Gram stain showed many gram-positive cocci in pairs and chains, final cultures pending. AFB culture was negative, fungal culture is in progress. She remains on Zosyn and vancomycin, ID service is following, clinically patient is breathing easier, no fever or chills. On 09/29/2018 patient seen in follow-up on medical oncology floor, she is resting comfortably in bed, habit lethargic, but easily arousable, in no acute distress, thin and additional 370 mL of purulent drainage in the Pleur-evac from the right pigtail chest tube. Pleural fluid cultures revealed alpha hemolytic strep, and patient had E. coli in the urine culture, patient is on combination of Zosyn and vancomycin, ID service is following. No fever or chills, 600% on 3 L per nasal cannula, hemodynamically stable, afebrile, lung sounds reveal diminished breath sounds over right lower lobe, bibasilar rales, today's chest x-ray showed new air within the right pleural space compatible with a moderate hydropneumothorax although the degree of areas minimal after retraction of the right pigtail catheter, and a similar trace left pleural effusion. On 09/30/2018 patient seein in follow-up on medical oncology floor. on room air , in no acute distress, there has been 100 mL of purulent drainage out of the right pleural chestbe in the last 24 hour Patient's Zosyn and vancomycin were discontinued and patient was placed on IV Rocephin per ID service. Pleural fluid culture showed alpha hemolytic Streptococcus, and E. coli in the urine. On 10/02/2018 patient seen in follow-up. There has been an additional 150 mL of purulent drainage material out of the right-sided pigtail chest tube catheter. She received a dose of TPA yesterday. She is on IV Rocephin per ID service, no fever or chills, she states her breathing is easier, she is ambulating to the bathroom and back and so far there has been the extent of her activity. She is sitting up in the chair, in no acute distress, she is on room air, pulse ox is 92%, incentive spirometry effort is 750 today. Lung sounds are diminished breath sounds over right lower lobe, with some coarse crackles over left lower lobe. Patient's and the patient both stated that she is extremely depressed she is not sleeping well at night she is crying. But appetite is good, patient is participating with all activities. She has been receiving Xanax on as-needed basis, we will add Celexa at 20 mg daily. On 10/03/2018 patient seen in follow-up on medical surgical floor. Patient had accidentally pulled out her right chest pigtail catheter last night. Yesterday the right-sided chest tube was still draining purulent drainage, and her nursing staff there had been 40 mL of purulent material for the day shift. Today's CT chest was reviewed with Dr. Gentile, and shows increasing empyema lightly was from the previous study, was elevation in the left lingula was right lower lobe. Antibiotic coverage in the form of Rocephin, for evidence of alpha hemolytic strep in the pleural fluid and E. coli in the urine. No fever or chills, hemodynamically patient is stable, she is on room air. Pulse ox is 94%, denies any difficulty breathing, lung sounds reveal diminished air entry over right lower lobe, dullness to percussion, and coarse rales over left lower lobe Objective - Vital Signs Vital signs: Vital Signs Temp 97.8 F 10/03/18 11:21 Pulse 86 10/03/18 11:21 Resp 20 10/03/18 11:21 BP 161/77 10/03/18 11:21 Pulse Ox 94 L 10/03/18 11:21 Intake & Output 10/02/18 10/03/18 10/03/18 18:59 06:59 18:59 Intake Total 280 1900 Output Total 125 80 Balance 155 1820 Weight 61.235 kg Intake: Intake, IV Titration 280 Amount Sodium Chloride 0.9% 1, 180 000 ml @ 20 mls/hr IV . Q24H [facility] Rx#:[id number] cefTRIAXone 2,000 mg In 100 Sodium Chloride 0.9% 100 ml @ 100 mls/hr IVPB Q24HR REILLY Rx#:[id number] Oral 1900 Output: Chest Tube Drainage 40 right posterior chest 40 Drainage 125 40 Right Posterior Chest 125 40 Other: Voiding Method Toilet Toilet Bedside Commode Bedside Commode Diaper Diaper # Voids 2 - Exam GENERAL EXAM: Alert, pleasant, 67-year-old white female currently on room air, comfortable in no apparent distress. HEAD: Normocephalic/atraumatic. EYES: Normal reaction of pupils, equal size. Conjunctiva pink, sclera white. NOSE: Clear with pink turbinates. THROAT: No erythema or exudates. NECK: No masses, no JVD, no thyroid enlargement, no adenopathy. CHEST: No chest wall deformity. Symmetrical expansion. Right posterior pigtail chest tube was accidentally dislodged by the patient LUNGS: Equal air entry with no crackles, wheeze, rhonchi or dullness. Diminished breath sounds over right lower lobe with dullness to percussion, with the few scattered crackles CVS: Regular rate and rhythm, normal S1 and S2, no gallops, no murmurs, no rubs ABDOMEN: Soft, nontender. No hepatosplenomegaly, normal bowel sounds, no guarding or rigidity. EXTREMITIES: No clubbing, no edema, no cyanosis, 2+ pulses and upper and lower extremities. MUSCULOSKELETAL: Muscle strength and tone normal. SPINE: No scoliosis or deformity SKIN: No rashes CENTRAL NERVOUS SYSTEM: Alert and oriented -3. No focal deficits, tone is normal in all 4 extremities. PSYCHIATRIC: Alert and oriented -3. Appropriate affect. Intact judgment and insight. - Labs CBC & Chem 7: 09/29/18 06:52 10/02/18 07:40 Labs: Abnormal Lab Results - Last 24 Hours (Table) 10/02/18 10/02/18 10/03/18 Range/Units 17:30 20:07 07:25 POC Glucose (mg/dL) 122 H 143 H 120 H (75-99) mg/dL 10/03/18 Range/Units 11:18 POC Glucose (mg/dL) 118 H (75-99) mg/dL Assessment and Plan Plan: 1 locally advanced non-small cell lung cancer. The patient was found to have adenocarcinoma of the right lung with a large right lower lobe mass causing mass effect on the right lower lobe bronchus and the right upper lobe bronchus. The patient also developed a right-sided pleural effusion. PET scan was done on outpatient basis and the patient was clinically given stage IIIc disease , T4 N3 M0 lesion. Patient obviously is not a surgical candidate. She has not received any treatment regarding her non-small cell lung cancer 2 acute shortness of breath 3 COPD 4 empyema involving the right lung. This is post likely related to a postobstructive pneumonia. Thoracentesis was done. 1.6 L of purulent material was aspirated. pigtail catheter has been inserted on the right, and there has been a total of 870 mL of additional purulent drainage material in the Pleur- evac after the initial aspiration of 1.6 L of purulent material. Pleural fluid cultures are positive for alpha hemolytic streptococcus On 10/03/2018 patient had accidentally dislodged her right-sided pigtail chest tube, a large CT chest shows slightly increased empyema with loculation 5 acid reflux 6 borderline diabetes mellitus 7 insomnia/anxiety Plan: We'll consult CT surgery for possibility of decortication of the right lung. Consult interventional radiology for placement of a new right-sided pigtail chest tube, the patient had accidentally dislodged her chest tube last night. Antibiotics per ID service. I performed a history & physical examination of the patient and discussed their management with my nurse practitioner, Geeta Aburto. I reviewed the nurse practitioner's note and agree with the documented findings and plan of care. Lung sounds are positive for diminished breath sounds over right lower lobe, and bibasilar crackles, no acute distress. The findings and the impression was discussed with the patient. I attest to the documentation by the nurse practitioner. Time with Patient: Less than 30
[2018-10-03 13:49] LABS: Prothrombin Time 10.7 sec (9.0-12.0)
--- NOTE | 2018-10-03 15:07 | P.GSCN ---
<Artem Manzo - Last Filed: 10/03/18 14:27> History of Present Illness Consult date: 10/03/18 Reason for Consult: Empyema evaluate for possible decortication. Requesting physician: Marily Meier History of present illness: This is a 67-year-old female patient who is followed by Dr. Mitch Ricks on an outpatient basis. Patient has a past medical history significant for hyperlipidemia, diabetes mellitus type 2, gastroesophageal reflux disease, remote history of smoking but 15 years ago, recent diagnosis of adenocarcinoma of the lung stage IIIC, T4 N3 M0 and recent urinary tract infection treated with antibiotics. Recently, the patient has had complaints of worsening shortness of breath. The patient was at her primary care office where she underwent a chest x-ray which showed some volume loss and significant opacification of the right lung. The patient's reports that her shortness of breath has been increasing over a a few days prior to presentation to the emergency department. She also had complaints of fever, confusion, pain to her right chest and right flank. She denies any complaints of nausea, vomiting, fever, or chills. On 08/11/2018 the patient underwent a computed tomography scan of her chest which demonstrated a masslike consolidation in the right lower lobe measuring 7.8 cm with an adjacent right pleural effusion, interstitial pneumonitis involving the right lower lobe, right upper lobe and right middle lobe, abnormal peribronchial cuffing and mediastinal adenopathy with volume loss of the right lung. These findings were suspicious for neoplasm. For further evaluation on 08/25/2018 the patient underwent a bronchoscopy with transbronchial biopsy of the right lower lobe, endobronchial biopsies of the right lower lobe, brushings of the right lower lobe bronchus, washings and lavage of the right lower lobe performed by Dr. Alexandr Meier from pulmonary medicine. Subsequently, the right lower lobe bronchial alveolar lavage was positive for malignancy, right lower lobe brush tip showed atypical epithelioid cells suspicious for carcinoma and the right lower lobe brushings showed atypical epithelioid cells suspicious for carcinoma. For further evaluation on 09/03/2018 patient underwent a PET scant which demonstrated right lower lobe mass or neoplasm hypermetabolic measuring approximately 7.2 x 6.5 cm with a max SUV of 7.74 and adenopathy right hilar and subcarinal region as well as in the subclavicular region noted. It also demonstrated a small to moderate sized right pleural effusion, and no distant metastatic disease was seen. She was subsequently referred and seen by a thoracic surgeon at [facility] and was deemed not a surgical candidate. Upon admission to the hospital here at [facility], she was seen by Dr. Dunbar from pulmonary medicine who reviewed her chest x-ray and computed tomography scan of her chest. Dr. Dunbar reviewed the results of the computed tomography scan of her chest and chest x-ray with the patient and her and after obtaining consent and right thoracentesis was completed. 1.6 L of empyema was drained. Subsequently , the patient underwent an insertion of a right chest pigtail catheter placement for further treatment of the empyema. Pleural fluid Gram stain showed alpha hemolytic streptococcus which is being treated accordingly and followed by infectious disease and pulmonary medicine. A repeat computed tomography scan of her chest was completed yesterday 10/02/2018 which shows a slight increase in her right chest empyema from her previous study. Due to the computed tomography scan results a consult was placed to Dr. Claire from cardiothoracic surgery for recommendations on possible decortication surgery. Review of Systems A 14 point review of systems was completed was negative except as mentioned in the HPI. Past Medical History Past Medical History: Cancer (Advanced non-small cell lung cancer stage IIIc.), COPD, Diabetes Mellitus, GERD/Reflux, Hyperlipidemia, Pneumonia Additional Past Medical History / Comment(s): Adenocarcinoma of the lung, stage IIIc, COPD, [id number] diabetes mellitus, previous history of fall with subsequent left orbital, facial and wrist fracture in addition to a pelvic fracture. She also has hyperlipidemia, acid reflux and COPD History of Any Multi-Drug Resistant Organisms: None Reported Past Surgical History: Appendectomy, Hysterectomy, Orthopedic Surgery Additional Past Surgical History / Comment(s): 08/25/18 bronchoscopy with bx, BAL/brushings, colonoscopies, L wrist fracture with 3 pins and 1 pin has been removed. Past Anesthesia/Blood Transfusion Reactions: No Reported Reaction Additional Past Anesthesia/Blood Transfusion Reaction / Comm: no hx blood transfusion Past Psychological History: Anxiety Additional Psychological History / Comment(s): and lives with the and the family home. Has multiple caring family members. Performed smoker. 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 No experience. No animals in the home Smoking Status: Former smoker (Quit 15 years ago.) Past Alcohol Use History: Occasional (1-2 glasses of wine per week.) Past Drug Use History: None Reported - Past Family History Mother Family Medical History: Myocardial Infarction (NE) Father Family Medical History: Asthma, Cancer, COPD Additional Family Medical History / Comment(s): Father had lung cancer. Medications and Allergies Home Medications Medication Instructions Recorded Confirmed Type Atorvastatin [Lipitor] 10 mg PO DAILY 08/24/18 09/26/18 History Budesonide/Formoterol Fumarate 1 puff INHALATION RT-BID 08/24/18 09/26/18 History [Symbicort 80-4.5 Mcg Inhaler] Cholecalciferol [Vitamin D3] 1,000 unit PO DAILY 08/24/18 09/26/18 History Omeprazole 20 mg PO QAM 08/24/18 09/26/18 History Potassium 99 mg PO DAILY 08/24/18 09/26/18 History Tiotropium 18 Mcg/Puff [Spiriva] 1 puff INHALATION RT-DAILY 08/24/18 09/26/18 History metFORMIN HCL [Glucophage] 1,000 mg PO BID 08/24/18 09/26/18 History Albuterol Nebulized [Ventolin 2.5 mg INHALATION RT-Q6H PRN 09/26/18 09/26/18 History Nebulized] HYDROcodone/APAP 7.5-325MG [[place] 1 tab PO Q6H PRN 09/26/18 09/26/18 History 7.5-325] cefTRIAXone [Rocephin] 2,000 mg IVPB Q24HR #28 vial 09/30/18 Rx Allergies Allergy/AdvReac Type Severity Reaction Status Date / Time No Known Allergies Allergy Verified 09/26/18 10:54 Surgical - Exam Vital Signs Temp Pulse Resp BP Pulse Ox 97.9 F 107 H 25 H 130/81 92 L 09/26/18 10:24 09/26/18 10:24 09/26/18 10:24 09/26/18 10:24 09/26/18 10:24 - General well developed, well nourished, no distress, no pain - Eyes PERRL, normal ocular movement - ENT normal pinna, normal nares, normal mucosa, no hearing loss, no congestion, dentures (Upper and lower implants) - Neck No adenopathy. Neck is supple. no masses, no bruits, trachea midline, no venous distension - Respiratory Lungs sounds are essentially clear throughout, diminished her right lower lobe. Oxygen saturation on room air are 94%. She is achieving 500-750 mL on her incentive spirometry. - Cardiovascular Regular rhythm and rate. S1 and S2 present, negative for S3, gallop or murmur. No edema present. Remote telemetry showing normal sinus rhythm heart rate 83. Knee-high sequential compression devices in place to bilateral lower extremities. - Abdomen Abdomen is soft, nontender and nondistended. Active bowel sounds all 4 abdominal quadrants. No hepatomegaly.No guarding or rigidity. - Genitourinary Deferred - Rectum Deferred - Integumentary Gauze dressing clean, dry and intact to her right mid back. no rash, no growths, no abnormal pigmentation - Neurologic normal coordination, normal sensation - Musculoskeletal Generalized weakness. normal gait, normal posture - Psychiatric oriented to time, oriented to person, oriented to place, speech is normal, memory intact Results - Labs 09/29/18 06:52 10/02/18 07:40 Abnormal Lab Results - Last 24 Hours (Table) 10/02/18 10/02/18 10/03/18 Range/Units 17:30 20:07 07:25 POC Glucose (mg/dL) 122 H 143 H 120 H (75-99) mg/dL 10/03/18 Range/Units 11:18 POC Glucose (mg/dL) 118 H (75-99) mg/dL - Imaging Chest x-ray: report reviewed, image reviewed CT scan - chest: report reviewed, image reviewed Assessment and Plan (1) Hyperlipidemia Status: Acute Code(s): E78.5 - HYPERLIPIDEMIA, UNSPECIFIED SNOMED Code(s): 45991351 (2) Depression Status: Acute Code(s): F32.9 - MAJOR DEPRESSIVE DISORDER, SINGLE EPISODE, UNSPECIFIED SNOMED Code(s): 86145247 (3) COPD (chronic obstructive pulmonary disease) Status: Acute Code(s): J44.9 - CHRONIC OBSTRUCTIVE PULMONARY DISEASE, UNSPECIFIED SNOMED Code(s): 71657944 (4) Adenocarcinoma of lung, stage 3 Status: Acute Code(s): C34.90 - MALIGNANT NEOPLASM OF UNSP PART OF UNSP BRONCHUS OR LUNG SNOMED Code(s): 694149300 (5) Diabetes mellitus Status: Acute Code(s): E11.9 - TYPE 2 DIABETES MELLITUS WITHOUT COMPLICATIONS SNOMED Code(s): 93475775 (6) GERD (gastroesophageal reflux disease) Status: Acute Code(s): K21.9 - GASTRO-ESOPHAGEAL REFLUX DISEASE WITHOUT ESOPHAGITIS SNOMED Code(s): 929248285 (7) Empyema lung Status: Acute Code(s): J86.9 - PYOTHORAX WITHOUT FISTULA SNOMED Code(s): 785760538 (8) Pleural effusion Status: Acute Code(s): J90 - PLEURAL EFFUSION, NOT ELSEWHERE CLASSIFIED SNOMED Code(s): 33191529 (9) Urinary tract infection Status: Acute Code(s): N39.0 - URINARY TRACT INFECTION, SITE NOT SPECIFIED SNOMED Code(s): 82311111 Plan: The patient was seen and examined. Her chart and diagnostics were reviewed. The patient was seen and examined by Dr. Claire from cardiothoracic surgery. He spoke in length with the patient, her and daughter present at her bedside. The patient's right pleural pigtail catheter today was accidentally pulled out by the patient. Interventional radiology has been consulted by pulmonary medicine to insert a right chest pigtail catheter. We will continue to monitor the drainage from the pigtail catheter and follow her chest x-ray's and results of her CT scans of her chest. No plan for surgical intervention at this time. This has been discussed with the patient and her . Dr. Claire has also discussed the plan with Dr. Meier. Continue to manage the empyema with antibiotic treatments managed by infectious disease. Continue to encourage use of her incentive spirometry every hour while awake. Pulmonary management recommendations per Dr. Meier. Thank you Dr. Meier for this consult and we look forward to working with you in the care of your patient. Time with Patient: Greater than 30 <Charles Claire - Last Filed: 10/10/18 16:59> Surgical - Exam Vital Signs Temp Pulse Resp BP Pulse Ox 97.9 F 107 H 25 H 130/81 92 L 09/26/18 10:24 09/26/18 10:24 09/26/18 10:24 09/26/18 10:24 09/26/18 10:24 Results - Labs 10/04/18 06:38 10/04/18 06:38 Microbiology - Last 24 Hours (Table) 09/26/18 17:20 Fungal Culture - Preliminary Pleural Fluid Assessment and Plan Plan: The patient was seen and examined. I agree with the above assessment and plan. The patient is a 67-year-old female who was recently diagnosed with stage IIIc lung cancer. She was seen by a surgeon at [facility] who felt that she was inoperable. She has had recurrent right sided pleural effusions with cytology thus far negative. Apparently she has been evaluated by oncology who plans on treating her with chemotherapy although this has not started yet. She presented to the hospital on this admission with a right-sided effusion. Her thoracentesis was performed by the pulmonary service with fluid concerning for empyema. Looking back at her previous imaging studies, she likely has an element of trapped lung, which is probably due to her obstructing neoplasm. I' m afraid that performing a decortication would be unsuccessful as she will have a persistent space. A drain was placed by the interventional radiology service. Apparently it was pulled out but is in the process of being replaced. I would attempt alteplase through this drain in order to remove as much fluid as possible. There is no plan for surgical intervention on my part at this time. I would recommend continued medical management for now. If all else fails, then an Eloesser flap could be considered.
--- NOTE | 2018-10-03 16:00 | CT ---
EXAMINATION TYPE: CT chest tube insertion DATE OF EXAM: 10/03/2018 COMPARISON: 10/02/2018 HISTORY: Chest tube has been accidentally removed CT DLP: 441 mGycm The procedure is discussed with the patient, the risks, complications, benefits and alternatives, wer e discussed and any questions were answered. Informed consent was obtained. The patient is placed p ayla on the CT table, prepped and draped in the usual sterile fashion. Utilizing a 22-gauge Chiba needle access into the right pleural space was achieved and there is place ment of a guidewire. There is conversion to an O.035 system and serial dilation 8 [place] with placeme nt of an 8 [place] drainage catheter. Repeat imaging demonstrated ideal placement catheter. Sample was obtained and sent department of pathology. All elements of maximal barrier technique were utilized. The patient remained stable throughout the procedure with no immediate postprocedural com plication. IMPRESSION: 1. Successful CT guided right-sided chest tube insertion.
[2018-10-03 17:24] LABS: Glucose,Whole Blood 132 mg/dL (75-99)
[2018-10-03 20:15] LABS: Glucose,Whole Blood 138 mg/dL (75-99)
--- NOTE | 2018-10-03 21:06 | P.PN ---
Subjective Progress Note Date: 10/03/18 Principal diagnosis: Adenocarcinoma lung with Emphyema and pleural effusion Late entry patient seen this am Friend at bedside, Julisa right pigtail cather had accidently been pulled out overnight, her lungs are more coarse today and xray was reviewed showing increasing empyema from prior study. Pathology from pleural fluid did not show or identify malignant cells Objective - Vital Signs Vital signs: Vital Signs Temp 97.8 F 10/03/18 11:21 Pulse 100 10/03/18 16:00 Resp 16 10/03/18 16:00 BP 144/78 10/03/18 15:15 Pulse Ox 95 10/03/18 15:15 Intake & Output 10/03/18 10/03/18 10/04/18 06:59 18:59 06:59 Intake Total 1900 1880 240 Output Total 80 162 Balance 1820 1718 240 Weight 61.235 kg Intake: Intake, IV Titration 100 Amount cefTRIAXone 2,000 mg In 100 Sodium Chloride 0.9% 100 ml @ 100 mls/hr IVPB Q24HR [facility] Rx#:[id number] Oral 1900 1780 240 Output: Chest Tube Drainage 40 162 right posterior chest 40 162 Drainage 40 Right Posterior Chest 40 Other: Voiding Method Toilet Bedside Commode Bedside Commode Diaper Diaper # Voids 2 3 - Exam GEN: NAD, smiling today, interacting and up walking in halls Head: NC, NT Neck: Supple, No Lymphadenopathy cervical LUNG: Diminished R>L, bibasilar, mild increased effort HEART: Tachy, reg rhythm, npo murmur Abd: Soft, Non distended Ext: No edema pedal pulses intact Psych: flat affect was following commands EOM and strength. - Labs CBC & Chem 7: 09/29/18 06:52 10/02/18 07:40 Labs: Abnormal Lab Results - Last 24 Hours (Table) 10/03/18 10/03/18 10/03/18 Range/Units 07:25 11:18 17:23 POC Glucose (mg/dL) 120 H 118 H 132 H (75-99) mg/dL 10/03/18 Range/Units 20:14 POC Glucose (mg/dL) 138 H (75-99) mg/dL Assessment and Plan Plan: Assessment and Recommendations: 1. Recent DIagnosis Adenocarcinoma of the Lung: BRAF POsitive - Recently had Referral for potential surgical Candidacy, she is not a candidate for surgery - She will follow-up with Dr. Turcios this week or next to discuss further options for treatment, 2. Recurrent effusion: Concern for infectious with underlying empyema on aspirated fluid - Cytology and cultures sent - Await results and in interim Antibiotics per Pulmonary and/or ID - Preliminary Culture reviewed - Await final and Fungal 3. Mental Status Changes - Improving - Family very concerned for underlying depression, presenting with flat affect , lethargy and insomnia, this may be a secondary effect of infectious process. - May benefot from psychiatry consultation, will defer to medicine - Explained to family treatment of underlying infection may improve this 4. Ecoli UTI: ID Managmeent Encourage increase activity I have discussed the molecular tests with patient and daughter, I have discussed further with in am, BRAF positive will not change first line therapy but does provide additional bullets for future Chemotherapy at the recommendations of primary oncologist Dr. Fish will be made after complete resolution of active infection and IV antibiotics per ID - Normocytic anemia and mild elevation in LFTs, will recheck CBC and CMP in am
[2018-10-04] MEDS: HYDROcodone/APAP 5-325MG 1 EACH TAB PO PRN ×3 (00:37→20:32)
[2018-10-04] MEDS: ALPRAZolam 0.5 MG TAB PO PRN ×2 (04:01→17:12)
[2018-10-04 07:04] LABS: Glucose,Whole Blood 106 mg/dL (75-99)
[2018-10-04 07:05] LABS: Basophils % (A) 1 %; Eosinophils # (A) 0.2 k/uL (0-0.7); Eosinophils % (A) 2 %; HCT 32.1 % (34.0-46.0); HGB 10.3 gm/dL (11.4-16.0); Lymphocytes # (A) 1.1 k/uL (1.0-4.8); Lymphocytes % (A) 12 %; MCH 28.4 pg (25.0-35.0); MCHC 32.1 g/dL (31.0-37.0); MCV 88.5 fL (80.0-100.0); Mean Platelet Volume 6.5; Monocytes # (A) 0.4 k/uL (0-1.0); Monocytes % (A) 5 %; Neutrophils # (A) 7.4 k/uL (1.3-7.7); Neutrophils % (A) 79 %; Platelet Count 504 k/uL (150-450); RBC 3.63 m/uL (3.80-5.40); RDW 14.6 % (11.5-15.5); WBC 9.4 k/uL (3.8-10.6)
[2018-10-04 07:24] LABS: Albumin 2.6 g/dL (3.5-5.0); Calcium 9.2 mg/dL (8.4-10.2); Potassium 3.9 mmol/L (3.5-5.1); Total Bilirubin 0.3 mg/dL (0.2-1.3); Total Protein 5.4 g/dL (6.3-8.2)
--- NOTE | 2018-10-04 08:03 | PN ---
PROGRESS NOTE DATE OF SERVICE: 10/03/2018 PRESENTING COMPLAINT: Chest tube pulled out. INTERVAL HISTORY: This patient was seen by me yesterday. Has adenocarcinoma, stage III of the lung with empyema on the right side. Patient's pigtail catheter accidentally got put out and patient had a new 1 placed by Interventional Radiology. Patient otherwise tolerating a diet. Pain is controlled, draining well. REVIEW OF SYSTEMS: Done for constitutional, cardiovascular, GI, pulmonary; relevant findings as above. CURRENT MEDICATIONS: Include IV ceftriaxone. PHYSICAL EXAMINATION: Temperature 97.8. pulse 86, respiration 30, blood pressure 160/77, pulse ox 94% on room air. GENERAL: Sitting on the edge of the bed, comfortable. EYES: Pupils equal, conjunctivae are pale. NECK: JVD not raised. Mass not palpable. RESPIRATORY: Effort normal. LUNGS: Decreased breath sounds. Right-sided chest wall pigtail catheter was present. PSYCHIATRY: Alert and oriented x3. Mood and affect normal. ABDOMEN: Soft,. nontender. Liver and spleen not palpable. INVESTIGATIONS: No blood work from today. Accu-Cheks are noted. ASSESSMENT: 1. Right-sided empyema. Cultures positive for alpha hemolytic strep. Getting IV ceftriaxone. 2. Chronic obstructive pulmonary disease in an ex-smoker. 3. Diabetes mellitus type 2, on oral hypoglycemic. 4. Gastroesophageal reflux disease. 5. Hyperlipidemia. 6. Adenocarcinoma of the lung, stage III, not a surgical candidate pending chemo treatment down the road. 7. Acute metabolic encephalopathy from underlying infection, on presentation, now resolved. 8. Mild protein-calorie malnutrition from decreased oral intake. 9. Reactive thrombocytosis. PLAN: Continue medication and treatment plan, follow with Pulmonary. Antibiotics are to continue. Care was discussed the patient and family at the bedside including . MMODL / IJN: [id number] /
[2018-10-04] MEDS: SYMBICORT 80-4.5 MCG INHALER INHALATION SCH ×2 (08:59→21:20)
[2018-10-04] MEDS: IPRATROPIUM 0.5 MG/2.5 ML NEBU INHALATION SCH ×4 (08:59→21:20)
[2018-10-04] MEDS: INSULIN ASPART 100 UNIT/ML 1 ML 10 ML VIAL SQ SCH ×4 (09:12→21:08)
[2018-10-04] MEDS: ATORVASTATIN 10 MG TAB PO SCH (09:20)
[2018-10-04] MEDS: metFORMIN 500 MG TAB PO SCH ×2 (09:20→21:10)
[2018-10-04] MEDS: PANTOPRAZOLE 40 MG TABLET PO SCH (09:20)
[2018-10-04] MEDS: CHOLECALCIFEROL 1,000 UNIT TAB PO SCH (09:20)
[2018-10-04] MEDS: HEPARIN SODIUM,PORCINE 5,000 UNIT/ML 1 ML VIAL SQ SCH ×2 (09:20→21:07)
[2018-10-04] MEDS: POTASSIUM CHLORIDE ER 10 MEQ TAB.ER.PRT PO SCH (09:20)
[2018-10-04] MEDS: CITALOPRAM HYDROBROMIDE 20 MG TAB PO SCH (09:20)
[2018-10-04] MEDS: cefTRIAXone 2,000 MG in SODIUM CHLORIDE 0.9% 100 ML IVPB SCH (10:05)
[2018-10-04] MEDS ORDERED: ALTEPLASE 10 MG in SODIUM CHLORIDE 0.9% 100 ML IRRIGATION ONE (10:23)
[2018-10-04 11:03] LABS: Glucose,Whole Blood 99 mg/dL (75-99)
[2018-10-04] MEDS: SODIUM CHLORIDE 0.9% 1,000 ML IV SCH (11:25)
--- NOTE | 2018-10-04 11:48 | P.PN ---
Subjective Progress Note Date: 10/04/18 Principal diagnosis: Locally advanced non-small cell lung cancer, adenocarcinoma of the right lung, right-sided empyema On today's evaluation of 09/27/2018 I'm seeing this patient for a follow-up. She is still anxious. She did not have a good night sleep yesterday. She is having issues with insomnia. Her shortness of breath is still present although less compared to yesterday. Note that I performed a thoracentesis on him yesterday and evacuated approximately 1.6 L of purulent material that was felt to be empyema. The white cell count in the fluid is considerably elevated. Cultures still pending for now. The patient on a combination of Zosyn and vancomycin. The plan for today was to insert the pigtail catheter through interventional radiology. For that reason the patient was taken downstairs for the same procedure. The WBC count is at 7.1. No other new complaints otherwise for now. The patient on 4l to oxygen nasal cannula and the pulse ox is around 99%. No pleurisy. No hemoptysis. On 09/28/2018 patient seen in follow-up. She is resting comfortably in bed, currently on room air, with a pulse ox of 97%, hemodynamically stable, afebrile , respirations are even and nonlabored, lung sounds reveal diminished breath sounds over right lower lobe, some basilar crackles. Patient has a right posterior pigtail catheter in place, connected to a Pleur-evac, and there has been a total of 400 mL of purulent material in the Pleur-evac since the insertion of the pigtail catheter on 09/27/2018. There has been 60 mL of purulent drainage in the last 24 hours, the Pleur-evac is just to water seal, continues to freely drained, we'll connected to wall suction. Today's chest x- ray has been reviewed with Dr. Dunbar, shows moderate right pleural effusion. No new labs, microbiology results showed E. coli in the urine culture, pleural fluid Gram stain showed many gram-positive cocci in pairs and chains, final cultures pending. AFB culture was negative, fungal culture is in progress. She remains on Zosyn and vancomycin, ID service is following, clinically patient is breathing easier, no fever or chills. On 09/29/2018 patient seen in follow-up on medical oncology floor, she is resting comfortably in bed, habit lethargic, but easily arousable, in no acute distress, thin and additional 370 mL of purulent drainage in the Pleur-evac from the right pigtail chest tube. Pleural fluid cultures revealed alpha hemolytic strep, and patient had E. coli in the urine culture, patient is on combination of Zosyn and vancomycin, ID service is following. No fever or chills, 600% on 3 L per nasal cannula, hemodynamically stable, afebrile, lung sounds reveal diminished breath sounds over right lower lobe, bibasilar rales, today's chest x-ray showed new air within the right pleural space compatible with a moderate hydropneumothorax although the degree of areas minimal after retraction of the right pigtail catheter, and a similar trace left pleural effusion. On 09/30/2018 patient seein in follow-up on medical oncology floor. on room air , in no acute distress, there has been 100 mL of purulent drainage out of the right pleural chestbe in the last 24 hour Patient's Zosyn and vancomycin were discontinued and patient was placed on IV Rocephin per ID service. Pleural fluid culture showed alpha hemolytic Streptococcus, and E. coli in the urine. The patient is seen today 10/01/2017 in follow-up on the medical oncology floor. She is currently sitting up at the bedside. Having lunch and tolerating it well. She denies any worsening shortness of breath, cough or congestion. Maintaining good O2 saturations in the mid 90s on room air. She's been afebrile. Hemodynamically stable. The drainage from the chest tube has been minimal the past 12 hours. The plan is for alteplase injection today. On 10/02/2018 patient seen in follow-up. There has been an additional 150 mL of purulent drainage material out of the right-sided pigtail chest tube catheter. She received a dose of TPA yesterday. She is on IV Rocephin per ID service, no fever or chills, she states her breathing is easier, she is ambulating to the bathroom and back and so far there has been the extent of her activity. She is sitting up in the chair, in no acute distress, she is on room air, pulse ox is 92%, incentive spirometry effort is 750 today. Lung sounds are diminished breath sounds over right lower lobe, with some coarse crackles over left lower lobe. Patient's and the patient both stated that she is extremely depressed she is not sleeping well at night she is crying. But appetite is good, patient is participating with all activities. She has been receiving Xanax on as-needed basis, we will add Celexa at 20 mg daily. On 10/03/2018 patient seen in follow-up on medical surgical floor. Patient had accidentally pulled out her right chest pigtail catheter last night. Yesterday the right-sided chest tube was still draining purulent drainage, and her nursing staff there had been 40 mL of purulent material for the day shift. Today's CT chest was reviewed with Dr. Gentile, and shows increasing empyema lightly was from the previous study, was elevation in the left lingula was right lower lobe. Antibiotic coverage in the form of Rocephin, for evidence of alpha hemolytic strep in the pleural fluid and E. coli in the urine. No fever or chills, hemodynamically patient is stable, she is on room air. Pulse ox is 94%, denies any difficulty breathing, lung sounds reveal diminished air entry over right lower lobe, dullness to percussion, and coarse rales over left lower lobe. The patient is seen today 10/04/2017 in follow-up on the oncology floor. She is currently resting fairly comfortably in bed. She is awake and alert in no acute distress. Maintaining O2 saturations in the 90s on room air. She's been afebrile. She did have a pigtail reinserted to the right chest per IR after was accidentally pulled out the day before. She has had a total of 300 ML's out of milky cloudy fluid returned in the past [address] services have been consulted. No plans for intervention at this time. She remains on ceftriaxone. ID had been consulted. Objective - Vital Signs Vital signs: Vital Signs Temp 97.5 F L 10/04/18 11:18 Pulse 89 10/04/18 11:18 Resp 14 10/04/18 11:18 BP 166/89 10/04/18 11:18 Pulse Ox 92 L 10/04/18 11:18 Intake & Output 10/03/18 10/04/18 10/04/18 18:59 06:59 18:59 Intake Total 1880 840 Output Total 162 32 Balance 1718 808 Intake: Intake, IV Titration 100 Amount cefTRIAXone 2,000 mg In 100 Sodium Chloride 0.9% 100 ml @ 100 mls/hr IVPB Q24HR [facility] Rx#:[id number] Oral 1780 840 Output: Chest Tube Drainage 162 right posterior chest 162 Drainage 32 Right Posterior Chest 32 Other: Voiding Method Bedside Commode Bedside Commode Toilet Diaper Diaper # Voids 3 1 - Exam GENERAL EXAM: Alert, pleasant, 67-year-old white female currently on room air. HEAD: Normocephalic/atraumatic. EYES: Normal reaction of pupils, equal size. Conjunctiva pink, sclera white. NOSE: Clear with pink turbinates. THROAT: No erythema or exudates. NECK: No masses, no JVD, no thyroid enlargement, no adenopathy. CHEST: No chest wall deformity. Symmetrical expansion. Right posterior pigtail chest tube is in place. LUNGS: Equal air entry with no crackles, wheeze, rhonchi or dullness. Diminished breath sounds over right lower lobe, with the few scattered crackles CVS: Regular rate and rhythm, normal S1 and S2, no gallops, no murmurs, no rubs ABDOMEN: Soft, nontender. No hepatosplenomegaly, normal bowel sounds, no guarding or rigidity. EXTREMITIES: No clubbing, no edema, no cyanosis, 2+ pulses and upper and lower extremities. MUSCULOSKELETAL: Muscle strength and tone normal. SPINE: No scoliosis or deformity SKIN: No rashes CENTRAL NERVOUS SYSTEM: Alert and oriented -3. No focal deficits, tone is normal in all 4 extremities. PSYCHIATRIC: Alert and oriented -3. Appropriate affect. Intact judgment and insight. - Labs CBC & Chem 7: 10/04/18 06:38 10/04/18 06:38 Labs: Abnormal Lab Results - Last 24 Hours (Table) 10/03/18 10/03/18 10/04/18 Range/Units 17:23 20:14 06:38 RBC 3.63 L (3.80-5.40) m/uL Hgb 10.3 L (11.4-16.0) gm/dL Hct 32.1 L (34.0-46.0) % Plt Count 504 H (150-450) k/uL Glucose (74-99) mg/dL POC Glucose (mg/dL) 132 H 138 H (75-99) mg/dL Total Protein (6.3-8.2) g/dL Albumin (3.5-5.0) g/dL 10/04/18 10/04/18 Range/Units 06:38 07:03 RBC (3.80-5.40) m/uL Hgb (11.4-16.0) gm/dL Hct (34.0-46.0) % Plt Count (150-450) k/uL Glucose 120 H (74-99) mg/dL POC Glucose (mg/dL) 106 H (75-99) mg/dL Total Protein 5.4 L (6.3-8.2) g/dL Albumin 2.6 L (3.5-5.0) g/dL Assessment and Plan Assessment: Impression: 1 locally advanced non-small cell lung cancer. The patient was found to have adenocarcinoma of the right lung with a large right lower lobe mass causing mass effect on the right lower lobe bronchus and the right upper lobe bronchus. The patient also developed a right-sided pleural effusion. PET scan was done on outpatient basis and the patient was clinically given stage IIIc disease , T4 N3 M0 lesion. Patient obviously is not a surgical candidate. She has not received any treatment regarding her non-small cell lung cancer 2 acute shortness of breath secondary to above. Recovered. On room air. 3 COPD 4 empyema involving the right lung. This is post likely related to a postobstructive pneumonia. Currently on ceftriaxone. 5 acid reflux 6 borderline diabetes mellitus 7 insomnia/anxiety Plan: The patient was seen and evaluated by Dr. Meier. A second pigtail catheter placed to the right chest. Continues to drain cloudy creamy fluid. CT services have been consulted. No plans for surgical intervention at this time. PICC line is in place. Remains on ceftriaxone. We will continue with her current medications. We'll continue to follow and make further recommendations based on her clinical status. I, the cosigning physician, performed a history & physical examination of the patient. Lungs sounds with crackles scattered rhonchi in the right lung base. Maintaining good O2 saturations in the 90s on room air. I discussed the assessment and plan of care with my nurse practitioner, Andreina Mendoza. I attest to the above note as dictated by her.
--- NOTE | 2018-10-04 12:19 | P.PN ---
Subjective Progress Note Date: 10/04/18 Principal diagnosis: Empyema. Previous medical history of hyperlipidemia, type 2 diabetes mellitus, GERD, previous tobacco dependence, recent diagnosis of adenocarcinoma of the lung stage IIIc, recent urinary tract infection. The patient is currently laying in bed in no acute distress. Appears quite sleepy, denies pain, shortness of breath. No new complaints at this time. New pigtail catheter placed yesterday by interventional radiology. Objective - Vital Signs Vital signs: Vital Signs Temp 97.5 F L 10/04/18 11:18 Pulse 89 10/04/18 11:18 Resp 14 10/04/18 11:18 BP 166/89 10/04/18 11:18 Pulse Ox 92 L 10/04/18 11:18 Intake & Output 10/03/18 10/04/18 10/04/18 18:59 06:59 18:59 Intake Total 1880 840 Output Total 162 32 Balance 1718 808 Intake: Intake, IV Titration 100 Amount cefTRIAXone 2,000 mg In 100 Sodium Chloride 0.9% 100 ml @ 100 mls/hr IVPB Q24HR [facility] Rx#:[id number] Oral 1780 840 Output: Chest Tube Drainage 162 right posterior chest 162 Drainage 32 Right Posterior Chest 32 Other: Voiding Method Bedside Commode Bedside Commode Toilet Diaper Diaper # Voids 3 1 - Constitutional General appearance: Present: cooperative, no acute distress - Respiratory Details: Lungs sounds diminished bilaterally, right greater than left. Respirations even , nonlabored. Currently on room air with oxygen saturation 92%. Right-sided pigtail catheter present, connected to atrium to continuous wall suction, 32 mL infected-looking fluid drained overnight. - Cardiovascular Details: S1, S2 present. Regular rhythm. Palpable peripheral pulses bilaterally. No edema present. No calf pain or tenderness noted. SCDs present. - Gastrointestinal Gastrointestinal Comment(s): Abdomen soft, nontender, nondistended. Active bowel sounds 4 quadrants. Tolerating diet. - Genitourinary Genitourinary Comment(s): Voiding clear, yellow urine. - Integumentary Integumentary Comment(s): Skin is warm and dry with evidence of good perfusion. Right-sided pigtail catheter covered with dry intact dressing. - Neurologic Neurologic: Present: CNII-XII intact - Musculoskeletal Musculoskeletal: Present: strength equal bilaterally - Psychiatric Psychiatric: Present: A&O x's 3, appropriate affect, intact judgment & insight - Allied health notes Allied health notes reviewed: nursing - Labs CBC & Chem 7: 10/04/18 06:38 10/04/18 06:38 Labs: Abnormal Lab Results - Last 24 Hours (Table) 10/03/18 10/03/18 10/04/18 Range/Units 17:23 20:14 06:38 RBC 3.63 L (3.80-5.40) m/uL Hgb 10.3 L (11.4-16.0) gm/dL Hct 32.1 L (34.0-46.0) % Plt Count 504 H (150-450) k/uL Glucose (74-99) mg/dL POC Glucose (mg/dL) 132 H 138 H (75-99) mg/dL Total Protein (6.3-8.2) g/dL Albumin (3.5-5.0) g/dL 10/04/18 10/04/18 Range/Units 06:38 07:03 RBC (3.80-5.40) m/uL Hgb (11.4-16.0) gm/dL Hct (34.0-46.0) % Plt Count (150-450) k/uL Glucose 120 H (74-99) mg/dL POC Glucose (mg/dL) 106 H (75-99) mg/dL Total Protein 5.4 L (6.3-8.2) g/dL Albumin 2.6 L (3.5-5.0) g/dL Assessment and Plan (1) Adenocarcinoma of lung, stage 3 Current Visit: Yes Status: Chronic Code(s): C34.90 - MALIGNANT NEOPLASM OF UNSP PART OF UNSP BRONCHUS OR LUNG SNOMED Code(s): 028837740 (2) COPD (chronic obstructive pulmonary disease) Current Visit: Yes Status: Chronic Code(s): J44.9 - CHRONIC OBSTRUCTIVE PULMONARY DISEASE, UNSPECIFIED SNOMED Code(s): 53414085 (3) Depression Current Visit: Yes Status: Chronic Code(s): F32.9 - MAJOR DEPRESSIVE DISORDER, SINGLE EPISODE, UNSPECIFIED SNOMED Code(s): 34570490 (4) Diabetes mellitus Current Visit: Yes Status: Chronic Code(s): E11.9 - TYPE 2 DIABETES MELLITUS WITHOUT COMPLICATIONS SNOMED Code(s): 05216951 (5) Empyema lung Current Visit: Yes Status: Acute Code(s): J86.9 - PYOTHORAX WITHOUT FISTULA SNOMED Code(s): 695534425 (6) GERD (gastroesophageal reflux disease) Current Visit: Yes Status: Chronic Code(s): K21.9 - GASTRO-ESOPHAGEAL REFLUX DISEASE WITHOUT ESOPHAGITIS SNOMED Code(s): 357044636 (7) Hyperlipidemia Current Visit: Yes Status: Chronic Code(s): E78.5 - HYPERLIPIDEMIA, UNSPECIFIED SNOMED Code(s): 34097825 (8) Pleural effusion Current Visit: Yes Status: Acute Code(s): J90 - PLEURAL EFFUSION, NOT ELSEWHERE CLASSIFIED SNOMED Code(s): 59545503 (9) Urinary tract infection Current Visit: Yes Status: Acute Code(s): N39.0 - URINARY TRACT INFECTION, SITE NOT SPECIFIED SNOMED Code(s): 37344310 Plan: 1. No surgical intervention at this time. We will instill alteplase, clamped tube for 1 hour. Will continue to monitor her drainage. 2. Encourage incentive spirometry 10 imes every hour while awake. 3. Continue antibiotic management per infectious disease. 4. Bronchodilators per pulmonology. 5. Pain control with current medication regimen. 6. Cancer management per oncology. 7. More recommendations to follow. Time with Patient: Greater than 30
--- NOTE | 2018-10-04 12:25 | P.PN ---
Subjective Progress Note Date: 10/04/18 Principal diagnosis: Adenocarcinoma lung with Emphyema and pleural effusion Oxygen saturations remain in 90s, she is alert. Re-insertion of pigtail yesterday after accidental removal. No family at bedside patient resting comfortably Objective - Vital Signs Vital signs: Vital Signs Temp 97.5 F L 10/04/18 11:18 Pulse 89 10/04/18 11:18 Resp 14 10/04/18 11:18 BP 166/89 10/04/18 11:18 Pulse Ox 92 L 10/04/18 11:18 Intake & Output 10/03/18 10/04/18 10/04/18 18:59 06:59 18:59 Intake Total 1880 840 Output Total 162 32 Balance 1718 808 Intake: Intake, IV Titration 100 Amount cefTRIAXone 2,000 mg In 100 Sodium Chloride 0.9% 100 ml @ 100 mls/hr IVPB Q24HR [facility] Rx#:[id number] Oral 1780 840 Output: Chest Tube Drainage 162 right posterior chest 162 Drainage 32 Right Posterior Chest 32 Other: Voiding Method Bedside Commode Bedside Commode Toilet Diaper Diaper # Voids 3 1 - Exam GEN: NAD, smiling today, interacting and up walking in halls Head: NC, NT Neck: Supple, No Lymphadenopathy cervical LUNG: Diminished R>L, bibasilar, mild increased effort HEART: Tachy, reg rhythm, npo murmur Abd: Soft, Non distended Ext: No edema pedal pulses intact Psych: flat affect was following commands EOM and strength. - Labs CBC & Chem 7: 10/04/18 06:38 10/04/18 06:38 Labs: Abnormal Lab Results - Last 24 Hours (Table) 10/03/18 10/03/18 10/04/18 Range/Units 17:23 20:14 06:38 RBC 3.63 L (3.80-5.40) m/uL Hgb 10.3 L (11.4-16.0) gm/dL Hct 32.1 L (34.0-46.0) % Plt Count 504 H (150-450) k/uL Glucose (74-99) mg/dL POC Glucose (mg/dL) 132 H 138 H (75-99) mg/dL Total Protein (6.3-8.2) g/dL Albumin (3.5-5.0) g/dL 10/04/18 10/04/18 Range/Units 06:38 07:03 RBC (3.80-5.40) m/uL Hgb (11.4-16.0) gm/dL Hct (34.0-46.0) % Plt Count (150-450) k/uL Glucose 120 H (74-99) mg/dL POC Glucose (mg/dL) 106 H (75-99) mg/dL Total Protein 5.4 L (6.3-8.2) g/dL Albumin 2.6 L (3.5-5.0) g/dL Assessment and Plan Plan: Assessment and Recommendations: 1. Recent DIagnosis Adenocarcinoma of the Lung: BRAF POsitive - Recently had Referral for potential surgical Candidacy, she is not a candidate for surgery - She will follow-up with Dr. Turcios this week or next to discuss further options for treatment, 2. Recurrent effusion: Concern for infectious with underlying empyema on aspirated fluid - Cytology and cultures sent - Await results and in interim Antibiotics per Pulmonary and/or ID - Preliminary Culture reviewed - Await final and Fungal 3. Mental Status Changes - Improving - Family very concerned for underlying depression, presenting with flat affect , lethargy and insomnia, this may be a secondary effect of infectious process. - May benefot from psychiatry consultation, will defer to medicine - Explained to family treatment of underlying infection may improve this 4. Ecoli UTI: ID Managmeent Encourage increase activity I have discussed the molecular tests with patient and daughter, I have discussed further with in am, BRAF positive will not change first line therapy but does provide additional treatment options for future Chemotherapy at the recommendations of primary oncologist Dr. Fish will be made after complete resolution of active infection and IV antibiotics per ID - Reviewed CBC and CMP today, all stable. - Likely will require ECF at discharge, will hold treatment start until patient increases overall performance and resolution of infection. - Continue to encourage increased protein intake and encourage increased activity.
[2018-10-04 17:09] LABS: Glucose,Whole Blood 124 mg/dL (75-99)
[2018-10-04 20:04] LABS: Glucose,Whole Blood 160 mg/dL (75-99)
--- NOTE | 2018-10-04 22:37 | P.PN ---
Subjective Progress Note Date: 10/04/18 67-year-old woman who has a very significant recent history associated with her progressive shortness of breath. She recently has had changes of her status with increasing shortness of breath and underwent evaluations both at [facility] and [facility]. Endoscopy biopsies and PET scan confirmed her stage IIIB lung carcinoma. She has now presenting to Hospital from the physician's office with significant worsening of her shortness of breath, dyspnea on exertion with very little activity and some orthopnea. Further imaging revealed evidence of extensive effusion to the right chest and consequently a thoracentesis was performed which allowed some improvement of her shortness of breath. There was also concern because she had rapid decline of her mental status issue became more short of breath. Since the thoracentesis she's been having some improvement. At the time of thoracentesis fluid was purposely left in the pleural space and now the interventional radiologist has placed the pigtail catheter and it's been attached to suction. The patient's mental status is improving further per the family. Sitting upright in the chair, has eaten some of her dinner, pain is under good control and she has conversational with some clarity. She has pain at the tube insertion site but denies other acute discomfort at this time. The having high-grade fevers, chills or rigors but again had a significant rapid change of her status before admission. 09/30/2018 patient has had improvement. Still has a chest tube in place. She' ll having some discomfort. There was originally potential plan for discharge home soon but is now not until Wednesday. Working with the infusion company to have her antibiotic set up when she is discharged. Rocephin will be utilized. Patient has had alteplase placed into the chest tube to free up the empyema. Apparently will be reapplied tomorrow. She is 69 feeling better. More awake and alert and they're working with infusion to receive her outpatient intravenous antibiotic therapy. Objective - Vital Signs Vital signs: Vital Signs Temp 98 F 10/04/18 20:11 Pulse 104 H 10/04/18 20:11 Resp 18 10/04/18 20:11 BP 157/77 10/04/18 20:11 Pulse Ox 91 L 10/04/18 20:11 Intake & Output 01/22/19 01/22/19 01/23/19 06:59 18:59 06:59 Intake Total 840 360 Output Total 32 240 Balance 808 120 Intake: Oral 840 360 Output: Chest Tube Drainage 240 right posterior chest 240 Drainage 32 Right Posterior Chest 32 Other: Voiding Method Bedside Commode Toilet Diaper # Voids 1 2 1 - Exam 67-year-old female, sitting up in the chair, mostly comfortable HEENT: Anicteric conjunctiva are pink and moist nasal mucosa grossly intact without significant lesions, there is no thrush. Neck: The neck is supple without significant lymphadenopathy or thyromegaly. Lungs: There is symmetrical air entry there is still markedly diminished breath sounds at the right base but there is induration at least through the upper two thirds of the chest, dullness to the base tenderness to the catheter insertion site no drainage at the site itself Heart: Regular rate and rhythm with an audible S1-S2, no S3 no S4. There is no significant murmur click or rub, PMI was nondisplaced. Abdomen: Positive bowel sounds soft and nontender without palpable masses or organomegaly. There was no guarding or rebound. Extremities: The upper extremities have excellent pulses they are symmetric, no significant petechiae or telangiectasia. No splinter hemorrhages were noted. The lower extremities are free from significant edema. The peripheral pulses were 2+ and symmetric. Neuro: Patient apparently is much more awake alert and interactive. She is conversational but there is still significant vagueness to content - Labs CBC & Chem 7: 10/04/18 06:38 10/04/18 06:38 Labs: Abnormal Lab Results - Last 24 Hours (Table) 10/04/18 10/04/18 10/04/18 Range/Units 06:38 06:38 07:03 RBC 3.63 L (3.80-5.40) m/uL Hgb 10.3 L (11.4-16.0) gm/dL Hct 32.1 L (34.0-46.0) % Plt Count 504 H (150-450) k/uL Glucose 120 H (74-99) mg/dL POC Glucose (mg/dL) 106 H (75-99) mg/dL Total Protein 5.4 L (6.3-8.2) g/dL Albumin 2.6 L (3.5-5.0) g/dL 10/04/18 10/04/18 Range/Units 17:08 20:03 RBC (3.80-5.40) m/uL Hgb (11.4-16.0) gm/dL Hct (34.0-46.0) % Plt Count (150-450) k/uL Glucose (74-99) mg/dL POC Glucose (mg/dL) 124 H 160 H (75-99) mg/dL Total Protein (6.3-8.2) g/dL Albumin (3.5-5.0) g/dL Microbiology - Last 24 Hours (Table) 09/26/18 17:20 Acid Fast Bacilli Smear - Final Pleural Fluid Acid Fast Bacilli Culture - Preliminary Laboratory Results WBC 9.4 k/uL (3.8-10.6) 10/04/18 06:38 RBC 3.63 m/uL (3.80-5.40) L 10/04/18 06:38 Hgb 10.3 gm/dL (11.4-16.0) L 10/04/18 06:38 Hct 32.1 % (34.0-46.0) L 10/04/18 06:38 MCV 88.5 fL (80.0-100.0) 10/04/18 06:38 MCH 28.4 pg (25.0-35.0) 10/04/18 06:38 MCHC 32.1 g/dL (31.0-37.0) 10/04/18 06:38 RDW 14.6 % (11.5-15.5) 10/04/18 06:38 Plt Count 504 k/uL (150-450) H 10/04/18 06:38 Neutrophils % 79 % 10/04/18 06:38 Neutrophils % (Manual) 62 % 09/29/18 06:52 Band Neutrophils % 3 % 09/29/18 06:52 Lymphocytes % 12 % 10/04/18 06:38 Lymphocytes % (Manual) 23 % 09/29/18 06:52 Monocytes % 5 % 10/04/18 06:38 Monocytes % (Manual) 10 % 09/29/18 06:52 Eosinophils % 2 % 10/04/18 06:38 Eosinophils % (Manual) 2 % 09/29/18 06:52 Basophils % 1 % 10/04/18 06:38 Metamyelocytes % 1 % 09/29/18 06:52 Myelocytes % 1 % 09/29/18 06:52 Neutrophils # 7.4 k/uL (1.3-7.7) 10/04/18 06:38 Neutrophils # (Manual) 3.90 k/uL (1.3-7.7) 09/29/18 06:52 Lymphocytes # 1.1 k/uL (1.0-4.8) 10/04/18 06:38 Lymphocytes # (Manual) 1.40 k/uL (1.0-4.8) 09/29/18 06:52 Monocytes # 0.4 k/uL (0-1.0) 10/04/18 06:38 Monocytes # (Manual) 0.61 k/uL (0-1.0) 09/29/18 06:52 Eosinophils # 0.2 k/uL (0-0.7) 10/04/18 06:38 Eosinophils # (Manual) 0.12 k/uL (0-0.7) 09/29/18 06:52 Basophils # 0.0 k/uL (0-0.2) 10/04/18 06:38 Metamyelocytes # (Man) 0.06 k/uL (0) H 09/29/18 06:52 Myelocytes # (Manual) 0.06 k/uL (0) H 09/29/18 06:52 Nucleated RBCs 0 /100 WBC (0-0) 09/29/18 06:52 Manual Slide Review Performed 09/29/18 06:52 Hypochromasia Slight 09/29/18 06:52 PT 10.7 sec (9.0-12.0) 10/03/18 13:32 INR 1.0 (<1.2) 10/03/18 13:32 APTT 25.6 sec (22.0-30.0) 09/26/18 11:16 Sodium 140 mmol/L (137-145) 10/04/18 06:38 Potassium 3.9 mmol/L (3.5-5.1) 10/04/18 06:38 Chloride 105 mmol/L (98-107) 10/04/18 06:38 Carbon Dioxide 30 mmol/L (22-30) 10/04/18 06:38 Anion Gap 5 mmol/L 10/04/18 06:38 BUN 10 mg/dL (7-17) 10/04/18 06:38 Creatinine 0.98 mg/dL (0.52-1.04) 10/04/18 06:38 Est GFR (CKD-EPI)AfAm 69 (>60 ml/min/1.73 sqM) 10/04/18 06:38 Est GFR (CKD-EPI)NonAf 59 (>60 ml/min/1.73 sqM) 10/04/18 06:38 Glucose 120 mg/dL (74-99) H 10/04/18 06:38 POC Glucose (mg/dL) 160 mg/dL (75-99) H 10/04/18 20:03 POC Glu Wrapper Cashier ID Cherrie Mccarthy 10/04/18 20:[address] Glu mg/dL 163 09/26/18 11:16 Hemoglobin A1c 7.3 % (4.0-6.0) H 09/26/18 11:16 Calcium 9.2 mg/dL (8.4-10.2) 10/04/18 06:38 Total Bilirubin 0.3 mg/dL (0.2-1.3) 10/04/18 06:38 AST 16 U/L (14-36) 10/04/18 06:38 ALT 30 U/L (9-52) 10/04/18 06:38 Alkaline Phosphatase 64 U/L (38-126) 10/04/18 06:38 Total Protein 5.4 g/dL (6.3-8.2) L 10/04/18 06:38 Albumin 2.6 g/dL (3.5-5.0) L 10/04/18 06:38 Urine Color Yellow 09/26/18 11:35 Urine Appearance Cloudy (Clear) H 09/26/18 11:35 Urine pH 6.0 (5.0-8.0) 09/26/18 11:35 Ur Specific [place] 1.018 (1.001-1.035) 09/26/18 11:35 Urine Protein 1+ (Negative) H 09/26/18 11:35 Urine Glucose (UA) Negative (Negative) 09/26/18 11:35 Urine Ketones Trace (Negative) H 09/26/18 11:35 Urine Blood Negative (Negative) 09/26/18 11:35 Urine Nitrite Positive (Negative) H 09/26/18 11:35 Urine Bilirubin Negative (Negative) 09/26/18 11:35 Urine Urobilinogen 2.0 mg/dL (<2.0) 09/26/18 11:35 Ur Leukocyte Esterase Moderate (Negative) H 09/26/18 11:35 Urine WBC 30 /hpf (0-5) H 09/26/18 11:35 Urine WBC Clumps Occasional /hpf (None) H 09/26/18 11:35 Urine Bacteria Many /hpf (None) H 09/26/18 11:35 Fluid Source Pleural 09/26/18 17:20 Fluid Color Brown 09/26/18 17:20 Fluid Appearance Cloudy 09/26/18 17:20 Fluid RBC [id number] /uL 09/26/18 17:20 Fluid Nucleated Cells [id number] /uL 09/26/18 17:20 Body Fluid Glucose Source Pleural Fluid 09/26/18 17:20 Fluid Glucose 25 mg/dL 09/26/18 17:20 Body Fluid Protein Source Pleural Fluid 09/26/18 17:20 Fluid Total Protein 429 mg/dL 09/26/18 17:20 Body Fluid LDH Source Pleural Fluid 09/26/18 17:20 Fluid LDH 480 U/L 09/26/18 17:20 Fluid Comment 09/26/18 17:20 Vancomycin Trough 28.8 ug/mL 09/28/18 09:27 Virus Source See Below 09/26/18 17:20 Viral Test See Below 09/26/18 17:20 Virus Analysis Interp See Below 09/26/18 17:20 Microbiology 09/26/18 17:20 Pleural Fluid Acid Fast Bacilli Smear - Final 09/26/18 17:20 Pleural Fluid Acid Fast Bacilli Culture - Preliminary 09/26/18 17:20 Pleural Fluid Gram Stain - Final 09/26/18 17:20 Pleural Fluid Body Fluid Culture - Final Alpha Hemolytic Streptococcus 09/26/18 17:20 Pleural Fluid Anaerobic Culture - Final 09/26/18 11:35 Urine,Voided Urine Culture - Final Escherichia coli 09/26/18 17:20 Pleural Fluid Fungal Culture - Preliminary Assessment and Plan (1) Urinary tract infection Current Visit: Yes Status: Acute Code(s): N39.0 - URINARY TRACT INFECTION, SITE NOT SPECIFIED SNOMED Code(s): 27604281 (2) Empyema lung Narrative/Plan: 67-year-old woman presents to hospital with her family with the worsening mental status increasing shortness of breath decreasing exercise tolerance and no history of recent diagnosis of stage IIIB lung carcinoma. Imaging studies reveal evidence of the progressive effusion to the right chest and consequently thoracentesis was performed. A thick bloody material was originally obtained and the more purulent looking material by the end of the thoracentesis of yesterday. Similar thick material at the time of the pigtail catheter placement today. Concerns to empyema and ask the laboratory to also check for chylothorax given the underlying malignancy. Cytology is pending to determine if it is a malignant pleural effusion. If the effusion is malignant. We'll change her status to stage IV. If this time await further oncology input as to their next set of plans. There is some difficulties with some obstruction of the bronchitis noted by the endoscopy, she was seen at [facility] but bronchial stents were not placed. Unclear if she'll be a candidate for radiation therapy or other interventions in the near future. The original Gram stains are available and piperacillin tazobactam and vancomycin are being utilized for now until we have further data available. Of note the flat sorting machine clerk did not believe that the material was putrid, consequently staphylococcal or malignant effusion become more likely. Her septic encephalopathy appears to be improving with the drainage of the empyema and the antibiotic therapy. There is also evidence the gram-negative urinary tract infection await the final culture. Family relates that she's had UTI in the past. Of concern is a lack of high- grade fevers chills or leukocytosis, which are all usually present with an extensive empyema. The details are discussed with pulmonology. 09/30/2018 for streptococci is not been isolated from the empyema fluid. Antibiotic therapy has been transitioned to Rocephin and will plan at least 28 days of this in the outpatient setting given the complexity of her situation especially underlying lung carcinoma. Regimens have been made for the outpatient antibiotic therapy. Patient has had alteplase placed into the chest tube to free up the empyema. Apparently will be reapplied tomorrow. She is now feeling better. More awake and alert and they're working with infusion to receive her outpatient intravenous antibiotic therapy. Current Visit: Yes Status: Acute Code(s): J86.9 - PYOTHORAX WITHOUT FISTULA SNOMED Code(s): 467826400 (3) Altered mental status Current Visit: Yes Status: Acute Code(s): R41.82 - ALTERED MENTAL STATUS, UNSPECIFIED SNOMED Code(s): 972977404
--- NOTE | 2018-10-05 01:28 | PN ---
PROGRESS NOTE DATE OF SERVICE: 10/04/2018. PRESENTING COMPLAINT: Chest tube. INTERVAL HISTORY: The patient has adenocarcinoma stage III of the lung with empyema on the right side. The patient had a pigtail catheter placed. Did get alteplase placed today, draining. Tolerating a diet. Did walk in the hallway. Feels a bit tired. REVIEW OF SYSTEMS: Done for constitutional, cardiovascular, GI, pulmonary; relevant findings as above. CURRENT MEDICATIONS: Reviewed, that include IV ceftriaxone. PHYSICAL EXAMINATION: VITAL SIGNS: Temperature 97.5, pulse 56, respiration 14, blood pressure 166/89, pulse ox 92 percent room air. GENERAL APPEARANCE: Lying in bed, tired. EYES: Pupils equal. Conjunctivae pale. NECK: JVD not raised. Mass not palpable. LUNGS: Decreased breath sounds. Chest wall right-sided chest pigtail catheter present. PSYCHIATRY: Alert and oriented x3. Mood and affect slightly low appearing. INVESTIGATIONS: White count 9.4, hemoglobin 10.3. Accu-Cheks are noted. Albumin 2.6. ASSESSMENT: 1. Right-sided empyema. Cultures positive for alpha hemolytic strep with pigtail catheter in place. 2. Chronic obstructive pulmonary disease in an ex-smoker. 3. Diabetes mellitus type 2 on oral hypoglycemics. 4. Gastroesophageal reflux disease. 5. Hyperlipidemia. 6. Adenocarcinoma of the lung, stage III, not a surgical candidate, pending treatment down the road. 7. Acute metabolic encephalopathy upon presentation from infection, improved. 8. Mild protein-calorie malnutrition from decreased oral intake. 9. Reactive thrombocytosis. 10.Normocytic anemia of malignancy. PLAN: Continue current medication and treatment plan including IV antibiotics. Care was discussed with the patient and . Will follow. MMODL / IJN: [id number] /
[2018-10-05 07:00] LABS: Glucose,Whole Blood 120 mg/dL (75-99)
[2018-10-05] MEDS ORDERED: ALTEPLASE 10 MG in SODIUM CHLORIDE 0.9% 100 ML IRRIGATION ONE (08:00)
[2018-10-05] MEDS: INSULIN ASPART 100 UNIT/ML 1 ML 10 ML VIAL SQ SCH ×4 (08:36→22:27)
[2018-10-05] MEDS: HEPARIN SODIUM,PORCINE 5,000 UNIT/ML 1 ML VIAL SQ SCH ×2 (08:41→22:26)
[2018-10-05] MEDS: CITALOPRAM HYDROBROMIDE 20 MG TAB PO SCH (08:42)
[2018-10-05] MEDS: ATORVASTATIN 10 MG TAB PO SCH (08:42)
[2018-10-05] MEDS: ALPRAZolam 0.5 MG TAB PO PRN (08:42)
[2018-10-05] MEDS: CHOLECALCIFEROL 1,000 UNIT TAB PO SCH (08:43)
[2018-10-05] MEDS: metFORMIN 500 MG TAB PO SCH ×2 (08:43→22:24)
[2018-10-05] MEDS: PANTOPRAZOLE 40 MG TABLET PO SCH (08:43)
[2018-10-05] MEDS: POTASSIUM CHLORIDE ER 10 MEQ TAB.ER.PRT PO SCH (08:44)
[2018-10-05] MEDS: cefTRIAXone 2,000 MG in SODIUM CHLORIDE 0.9% 100 ML IVPB SCH (08:45)
--- NOTE | 2018-10-05 08:57 | P.PN ---
Subjective Progress Note Date: 10/05/18 Principal diagnosis: Empyema, status post pigtail catheter insertion. Previous medical history of hyperlipidemia, type 2 diabetes mellitus, GERD, previous tobacco dependence, recent diagnosis of adenocarcinoma of the lung stage IIIc, recent urinary tract infection. The patient is currently sitting up in a chair in no acute distress. Denies pain, shortness of breath. No new complaints at this time. States her breathing does feel better than when she came in. Alteplase instilled into pigtail catheter yesterday. Objective - Vital Signs Vital signs: Vital Signs Temp 96.7 F L 10/05/18 05:00 Pulse 104 H 10/05/18 05:00 Resp 18 10/05/18 05:00 BP 166/75 10/05/18 05:00 Pulse Ox 92 L 10/05/18 05:00 Intake & Output 10/04/18 10/05/18 10/05/18 18:59 06:59 18:59 Intake Total 360 Output Total 240 150 Balance 120 -150 Intake: Oral 360 Output: Chest Tube Drainage 240 right posterior chest 240 Drainage 150 Right Posterior Chest 150 Other: Voiding Method Toilet Toilet # Voids 2 3 - Constitutional General appearance: Present: cooperative, no acute distress - Respiratory Details: Lungs sounds diminished bilaterally, right greater than left. Respirations even , nonlabored. Currently on room air with oxygen saturation 92%. Only achieving 500 mL on her incentive spirometry. Right-sided pigtail catheter present, connected to atrium to continuous wall suction, 150 mL infected- looking fluid drained overnight, 390 mL in the last 24 hours, 100 of which was the alteplase instilled yesterday. - Cardiovascular Details: S1, S2 present. Tachycardia but regular rhythm. Sinus tach on telemetry. Palpable peripheral pulses bilaterally. No edema present. No calf pain or tenderness noted. SCDs present. - Gastrointestinal Gastrointestinal Comment(s): bdomen soft, nontender, nondistended. Active bowel sounds 4 quadrants. Tolerating diet. - Genitourinary Genitourinary Comment(s): Voiding clear, yellow urine. - Integumentary Integumentary Comment(s): Skin is warm and dry with evidence of good perfusion. Right-sided pigtail catheter covered with dry intact dressing. - Neurologic Neurologic: Present: CNII-XII intact - Musculoskeletal Musculoskeletal: Present: gait normal, strength equal bilaterally - Psychiatric Psychiatric Comment(s): Flat affect Psychiatric: Present: A&O x's 3, intact judgment & insight - Allied health notes Allied health notes reviewed: nursing - Labs CBC & Chem 7: 10/04/18 06:38 10/04/18 06:38 Labs: Abnormal Lab Results - Last 24 Hours (Table) 10/04/18 10/04/18 10/05/18 Range/Units 17:08 20:03 06:58 POC Glucose (mg/dL) 124 H 160 H 120 H (75-99) mg/dL Microbiology - Last 24 Hours (Table) 09/26/18 17:20 Acid Fast Bacilli Smear - Final Pleural Fluid Acid Fast Bacilli Culture - Preliminary - Imaging and Cardiology Chest x-ray: image reviewed Assessment and Plan (1) Adenocarcinoma of lung, stage 3 Current Visit: Yes Status: Chronic Code(s): C34.90 - MALIGNANT NEOPLASM OF UNSP PART OF UNSP BRONCHUS OR LUNG SNOMED Code(s): 300478280 (2) COPD (chronic obstructive pulmonary disease) Current Visit: Yes Status: Chronic Code(s): J44.9 - CHRONIC OBSTRUCTIVE PULMONARY DISEASE, UNSPECIFIED SNOMED Code(s): 65848873 (3) Depression Current Visit: Yes Status: Chronic Code(s): F32.9 - MAJOR DEPRESSIVE DISORDER, SINGLE EPISODE, UNSPECIFIED SNOMED Code(s): 26395842 (4) Diabetes mellitus Current Visit: Yes Status: Chronic Code(s): E11.9 - TYPE 2 DIABETES MELLITUS WITHOUT COMPLICATIONS SNOMED Code(s): 91712160 (5) Empyema lung Current Visit: Yes Status: Acute Code(s): J86.9 - PYOTHORAX WITHOUT FISTULA SNOMED Code(s): 487978572 (6) GERD (gastroesophageal reflux disease) Current Visit: Yes Status: Chronic Code(s): K21.9 - GASTRO-ESOPHAGEAL REFLUX DISEASE WITHOUT ESOPHAGITIS SNOMED Code(s): 881264087 (7) Hyperlipidemia Current Visit: Yes Status: Chronic Code(s): E78.5 - HYPERLIPIDEMIA, UNSPECIFIED SNOMED Code(s): 78275860 (8) Pleural effusion Current Visit: Yes Status: Acute Code(s): J90 - PLEURAL EFFUSION, NOT ELSEWHERE CLASSIFIED SNOMED Code(s): 76534727 (9) Urinary tract infection Current Visit: Yes Status: Acute Code(s): N39.0 - URINARY TRACT INFECTION, SITE NOT SPECIFIED SNOMED Code(s): 42790508 Plan: 1. No surgical intervention at this time. We will instill alteplase daily as long as draining, clamp tube for 1 hour. Will continue to monitor her drainage. 2. Encourage incentive spirometry 10 imes every hour while awake. 3. Continue antibiotic management per infectious disease. 4. Bronchodilators per pulmonology. 5. Pain control with current medication regimen. 6. Cancer management per oncology. 7. Increase activity, ambulate as tolerated. Extension tubing added to chest tube suction so patient has more mobility. 8. More recommendations to follow. Time with Patient: Greater than 30
[2018-10-05] MEDS: SYMBICORT 80-4.5 MCG INHALER INHALATION SCH ×2 (09:20→19:55)
[2018-10-05] MEDS: IPRATROPIUM 0.5 MG/2.5 ML NEBU INHALATION SCH ×4 (09:20→19:55)
--- NOTE | 2018-10-05 10:09 | XR ---
EXAMINATION TYPE: XR chest 1V portable DATE OF EXAM: 10/05/2018 HISTORY: Shortness of breath. COMPARISON: 09/29/2018 TECHNIQUE: Single view of the chest is submitted. FINDINGS: Redemonstrated is a right basilar pleural catheter. Small right-sided pneumothorax is noted. Persiste nt hydropneumothorax component as well as underlying infiltrate and/or atelectasis. Elevation right h emidiaphragm is unchanged. The heart is stable. Hilar and mediastinal structures are within normal limits. Degenerative changes are seen of the dorsal spine. IMPRESSION: 1. Essentially stable chest with small right basilar hydropneumothorax. Pleural catheter remains in place. Underlying atelectasis and/or infiltrate.
[2018-10-05 11:37] LABS: Glucose,Whole Blood 93 mg/dL (75-99)
--- NOTE | 2018-10-05 12:02 | P.PN ---
Subjective Progress Note Date: 10/05/18 Principal diagnosis: Locally advanced non-small cell lung cancer, adenocarcinoma of the right lung, right-sided empyema On today's evaluation of 09/27/2018 I'm seeing this patient for a follow-up. She is still anxious. She did not have a good night sleep yesterday. She is having issues with insomnia. Her shortness of breath is still present although less compared to yesterday. Note that I performed a thoracentesis on him yesterday and evacuated approximately 1.6 L of purulent material that was felt to be empyema. The white cell count in the fluid is considerably elevated. Cultures still pending for now. The patient on a combination of Zosyn and vancomycin. The plan for today was to insert the pigtail catheter through interventional radiology. For that reason the patient was taken downstairs for the same procedure. The WBC count is at 7.1. No other new complaints otherwise for now. The patient on 4l to oxygen nasal cannula and the pulse ox is around 99%. No pleurisy. No hemoptysis. On 09/28/2018 patient seen in follow-up. She is resting comfortably in bed, currently on room air, with a pulse ox of 97%, hemodynamically stable, afebrile , respirations are even and nonlabored, lung sounds reveal diminished breath sounds over right lower lobe, some basilar crackles. Patient has a right posterior pigtail catheter in place, connected to a Pleur-evac, and there has been a total of 400 mL of purulent material in the Pleur-evac since the insertion of the pigtail catheter on 09/27/2018. There has been 60 mL of purulent drainage in the last 24 hours, the Pleur-evac is just to water seal, continues to freely drained, we'll connected to wall suction. Today's chest x- ray has been reviewed with Dr. Dunbar, shows moderate right pleural effusion. No new labs, microbiology results showed E. coli in the urine culture, pleural fluid Gram stain showed many gram-positive cocci in pairs and chains, final cultures pending. AFB culture was negative, fungal culture is in progress. She remains on Zosyn and vancomycin, ID service is following, clinically patient is breathing easier, no fever or chills. On 09/29/2018 patient seen in follow-up on medical oncology floor, she is resting comfortably in bed, habit lethargic, but easily arousable, in no acute distress, thin and additional 370 mL of purulent drainage in the Pleur-evac from the right pigtail chest tube. Pleural fluid cultures revealed alpha hemolytic strep, and patient had E. coli in the urine culture, patient is on combination of Zosyn and vancomycin, ID service is following. No fever or chills, 600% on 3 L per nasal cannula, hemodynamically stable, afebrile, lung sounds reveal diminished breath sounds over right lower lobe, bibasilar rales, today's chest x-ray showed new air within the right pleural space compatible with a moderate hydropneumothorax although the degree of areas minimal after retraction of the right pigtail catheter, and a similar trace left pleural effusion. On 09/30/2018 patient seein in follow-up on medical oncology floor. on room air , in no acute distress, there has been 100 mL of purulent drainage out of the right pleural chestbe in the last 24 hour Patient's Zosyn and vancomycin were discontinued and patient was placed on IV Rocephin per ID service. Pleural fluid culture showed alpha hemolytic Streptococcus, and E. coli in the urine. On 10/02/2018 patient seen in follow-up. There has been an additional 150 mL of purulent drainage material out of the right-sided pigtail chest tube catheter. She received a dose of TPA yesterday. She is on IV Rocephin per ID service, no fever or chills, she states her breathing is easier, she is ambulating to the bathroom and back and so far there has been the extent of her activity. She is sitting up in the chair, in no acute distress, she is on room air, pulse ox is 92%, incentive spirometry effort is 750 today. Lung sounds are diminished breath sounds over right lower lobe, with some coarse crackles over left lower lobe. Patient's and the patient both stated that she is extremely depressed she is not sleeping well at night she is crying. But appetite is good, patient is participating with all activities. She has been receiving Xanax on as-needed basis, we will add Celexa at 20 mg daily. On 10/03/2018 patient seen in follow-up on medical surgical floor. Patient had accidentally pulled out her right chest pigtail catheter last night. Yesterday the right-sided chest tube was still draining purulent drainage, and her nursing staff there had been 40 mL of purulent material for the day shift. Today's CT chest was reviewed with Dr. Gentile, and shows increasing empyema lightly was from the previous study, was elevation in the left lingula was right lower lobe. Antibiotic coverage in the form of Rocephin, for evidence of alpha hemolytic strep in the pleural fluid and E. coli in the urine. No fever or chills, hemodynamically patient is stable, she is on room air. Pulse ox is 94%, denies any difficulty breathing, lung sounds reveal diminished air entry over right lower lobe, dullness to percussion, and coarse rales over left lower lobe On 10/04/2018 patient seen in follow-up on medical oncology floor. Resting in bed, there is a bit fatigued, but in no acute distress, room air pulse ox is 92% , patient is afebrile, hemodynamically stable, lung sounds are positive for diminished breath sounds over right lower lobe, motor crackles over left lower base. Right-sided pigtail chest tube catheter is in place, patient did receive a dose of TPA yesterday, and there has been on additional 150 mL of purulent pleural drainage material in the Pleur-evac. Chest tube remains to suction, today's chest x-ray has been reviewed with Dr. Gentile and showed essentially stable chest with small right basilar hydropneumothorax, underlying atelectasis and/or infiltrate. ID service is managing the antibiotics, and patient is on IV Rocephin. CT surgery is following, and patient will receive an additional dose of alteplase. No fever or chills, mentation is clear, no difficulty breathing, no chest pain. She has been up ambulating to the bathroom, and her gait is stable, appears weak, he is working on her incentive spirometry, she states her appetite is good. Medical oncology is following, pleural fluid cytology from the initial placement of the right-sided pigtail chest tube has been nondiagnostic, cytology from the placement of the second chest tube is pending at this time. Objective - Vital Signs Vital signs: Vital Signs Temp 96.7 F L 10/05/18 05:00 Pulse 104 H 10/05/18 05:00 Resp 18 10/05/18 05:00 BP 166/75 10/05/18 05:00 Pulse Ox 92 L 10/05/18 05:00 Intake & Output 10/04/18 10/05/18 10/05/18 18:59 06:59 18:59 Intake Total 360 Output Total 240 150 Balance 120 -150 Weight 61.235 kg Intake: Oral 360 Output: Chest Tube Drainage 240 right posterior chest 240 Drainage 150 Right Posterior Chest 150 Other: Voiding Method Toilet Toilet # Voids 2 3 - Exam GENERAL EXAM: Alert, pleasant, 67-year-old white female currently on room air, comfortable in no apparent distress. HEAD: Normocephalic/atraumatic. EYES: Normal reaction of pupils, equal size. Conjunctiva pink, sclera white. NOSE: Clear with pink turbinates. THROAT: No erythema or exudates. NECK: No masses, no JVD, no thyroid enlargement, no adenopathy. CHEST: No chest wall deformity. Symmetrical expansion. Right posterior chest pigtail catheter connected to the Pleur-evac and wall suction, with purulent drainage in the chamber LUNGS: Equal air entry with no crackles, wheeze, rhonchi or dullness. Diminished breath sounds over right lower lobe with dullness to percussion, with the few scattered crackles CVS: Regular rate and rhythm, normal S1 and S2, no gallops, no murmurs, no rubs ABDOMEN: Soft, nontender. No hepatosplenomegaly, normal bowel sounds, no guarding or rigidity. EXTREMITIES: No clubbing, no edema, no cyanosis, 2+ pulses and upper and lower extremities. MUSCULOSKELETAL: Muscle strength and tone normal. SPINE: No scoliosis or deformity SKIN: No rashes CENTRAL NERVOUS SYSTEM: Alert and oriented -3. No focal deficits, tone is normal in all 4 extremities. PSYCHIATRIC: Alert and oriented -3. Appropriate affect. Intact judgment and insight. - Labs CBC & Chem 7: 10/04/18 06:38 10/04/18 06:38 Labs: Abnormal Lab Results - Last 24 Hours (Table) 10/04/18 10/04/18 10/05/18 Range/Units 17:08 20:03 06:58 POC Glucose (mg/dL) 124 H 160 H 120 H (75-99) mg/dL Microbiology - Last 24 Hours (Table) 09/26/18 17:20 Acid Fast Bacilli Smear - Final Pleural Fluid Acid Fast Bacilli Culture - Preliminary Assessment and Plan Plan: 1 locally advanced non-small cell lung cancer. The patient was found to have adenocarcinoma of the right lung with a large right lower lobe mass causing mass effect on the right lower lobe bronchus and the right upper lobe bronchus. The patient also developed a right-sided pleural effusion. PET scan was done on outpatient basis and the patient was clinically given stage IIIc disease , T4 N3 M0 lesion. Patient obviously is not a surgical candidate. She has not received any treatment regarding her non-small cell lung cancer 2 acute shortness of breath 3 COPD 4 empyema involving the right lung. This is post likely related to a postobstructive pneumonia. Thoracentesis was done. 1.6 L of purulent material was aspirated. pigtail catheter has been inserted on the right, and there has been a total of 870 mL of additional purulent drainage material in the Pleur- evac after the initial aspiration of 1.6 L of purulent material. Pleural fluid cultures are positive for alpha hemolytic streptococcus On 10/03/2018 patient had accidentally dislodged her right-sided pigtail chest tube, a large CT chest shows slightly increased empyema with loculation 5 acid reflux 6 borderline diabetes mellitus 7 insomnia/anxiety Plan: This chest x-ray has been reviewed with Dr. Gentile, and showed stable findings with residual right lower hilar pneumothorax, atelectasis. Patient will receive another dose of alteplase per CT surgery. Clinically patient Is without any specific complaints, no dyspnea, no fever or chills, vitals are stable, she is on IV Rocephin for antibiotic coverage for alpha hemolytic strep and the pleural fluid and E. coli urinary tract infection. Pleural fluid cytology from the second placement of the chest tube is still pending. Medical oncology is following. Deep breathing and coughing, ambulation. I performed a history & physical examination of the patient and discussed their management with my nurse practitioner, Geeta Aburto. I reviewed the nurse practitioner's note and agree with the documented findings and plan of care. Lung sounds are positive for diminished breath sounds over right lower lobe, and bibasilar crackles, no acute distress. The findings and the impression was discussed with the patient. I attest to the documentation by the nurse practitioner. Time with Patient: Less than 30
[2018-10-05] MEDS: SODIUM CHLORIDE 0.9% 1,000 ML IV SCH (12:55)
[2018-10-05 17:02] LABS: Glucose,Whole Blood 139 mg/dL (75-99)
--- NOTE | 2018-10-05 18:24 | P.PN ---
Subjective Progress Note Date: 10/05/18 Principal diagnosis: Adenocarcinoma lung with Emphyema and pleural effusion No acute events overnight Objective - Vital Signs Vital signs: Vital Signs Temp 98.4 F 10/05/18 12:26 Pulse 102 H 10/05/18 16:31 Resp 18 10/05/18 16:31 BP 136/65 10/05/18 16:31 Pulse Ox 92 L 10/05/18 16:31 Intake & Output 10/04/18 10/05/18 10/05/18 18:59 06:59 18:59 Intake Total 360 Output Total 240 150 430 Balance 120 -150 -430 Weight 61.235 kg Intake: Oral 360 Output: Chest Tube Drainage 240 right posterior chest 240 Drainage 150 430 Right Posterior Chest 150 430 Other: Voiding Method Toilet Toilet Toilet # Voids 2 3 - Exam GEN: NAD, smiling today, interacting and up walking in halls Head: NC, NT Neck: Supple, No Lymphadenopathy cervical LUNG: Diminished R>L, bibasilar, mild increased effort HEART: Tachy, reg rhythm, npo murmur Abd: Soft, Non distended Ext: No edema pedal pulses intact Psych: flat affect was following commands EOM and strength. - Labs CBC & Chem 7: 10/04/18 06:38 10/04/18 06:38 Labs: Abnormal Lab Results - Last 24 Hours (Table) 10/04/18 10/05/18 10/05/18 Range/Units 20:03 06:58 17:01 POC Glucose (mg/dL) 160 H 120 H 139 H (75-99) mg/dL Microbiology - Last 24 Hours (Table) 09/26/18 17:20 Acid Fast Bacilli Smear - Final Pleural Fluid Acid Fast Bacilli Culture - Preliminary Assessment and Plan Plan: Assessment and Recommendations: 1. Recent DIagnosis Adenocarcinoma of the Lung: BRAF POsitive - Recently had Referral for potential surgical Candidacy, she is not a candidate for surgery - She will follow-up with Dr. Turcios this week or next to discuss further options for treatment, 2. Recurrent effusion: Concern for infectious with underlying empyema on aspirated fluid - Cytology and cultures sent - Await results and in interim Antibiotics per Pulmonary and/or ID - Preliminary Culture reviewed - Await final and Fungal 3. Mental Status Changes - Improving - Family very concerned for underlying depression, presenting with flat affect , lethargy and insomnia, this may be a secondary effect of infectious process. - May benefot from psychiatry consultation, will defer to medicine - Explained to family treatment of underlying infection may improve this 4. Ecoli UTI: ID Managmeent Encourage increase activity I have discussed the molecular tests with patient and daughter, I have discussed further with in am, BRAF positive will not change first line therapy but does provide additional treatment options for future Chemotherapy at the recommendations of primary oncologist Dr. Fish will be made after complete resolution of active infection and IV antibiotics per ID - Reviewed CBC and CMP today, all stable. - Likely will require ECF at discharge, will hold treatment start until patient increases overall performance and resolution of infection. - Continue to encourage increased protein intake and encourage increased activity. Discussed with patient and today
[2018-10-05] MEDS: HYDROcodone/APAP 5-325MG 1 EACH TAB PO PRN (19:44)
[2018-10-05 20:14] LABS: Glucose,Whole Blood 163 mg/dL (75-99)
[2018-10-05] MEDS: ZOLPIDEM 5 MG TAB PO PRN (22:24)
--- NOTE | 2018-10-06 02:50 | PN ---
PROGRESS NOTE DATE OF SERVICE: 10/05/2018 PRESENTING COMPLAINT: Chest tube in place. INTERVAL HISTORY: Patient with adenocarcinoma stage III of the lung with empyema on the right side. Has a pigtail catheter in place. Continues to drain a bit. Tolerating a diet. Has been up and about, responding slowly. REVIEW OF SYSTEMS: Done for constitutional, cardiovascular, GI, pulmonary and relevant findings as above. CURRENT MEDICATIONS: Reviewed that include IV ceftriaxone. PHYSICAL EXAMINATION: VITAL SIGNS: Temperature 98.4, pulse 97, respiratory rate 16, blood pressure 174/79, pulse ox 94% on 2 L. GENERAL APPEARANCE: Lying in bed. Tired-appearing. EYES: Pupils equal. Conjunctivae pale. NECK: JVD not raised. Mass not palpable. RESPIRATORY: Effort increased LUNGS: Decreased breath sounds. Right-sided pigtail catheter present. PSYCHIATRY: Alert and oriented x3. Mood and affect normal. INVESTIGATIONS: Accu-Cheks are noted. ASSESSMENT: 1. Right-sided empyema with cultures positive for alpha hemolytic strep with a pigtail catheter in place draining. 2. Chronic obstructive pulmonary disease in an ex-smoker. 3. Diabetes mellitus type 2 on oral hypoglycemic. 4. Gastroesophageal reflux disease. 5. Hyperlipidemia. 6. Adenocarcinoma of the lung, stage III, not a surgical candidate. Pending treatment down the road. 7. Acute metabolic encephalopathy upon presentation from infection improved. 8. Mild protein-calorie malnutrition decreased oral intake. 9. Reactive thrombocytopenia. 10.Normocytic anemia of malignancy. 11.Depression. PLAN: Continue current medication and treatment including antibiotics. The patient's chest tube is still draining. Prognosis guarded. MMODL / IJN: [id number] /
[2018-10-06] MEDS ORDERED: ALTEPLASE 10 MG in SODIUM CHLORIDE 0.9% 100 ML IRRIGATION ONE (07:10)
[2018-10-06 07:20] LABS: Glucose,Whole Blood 123 mg/dL (75-99)
--- NOTE | 2018-10-06 08:36 | P.PN ---
Subjective Progress Note Date: 10/06/18 Principal diagnosis: Empyema, status post pigtail catheter insertion. Previous medical history of hyperlipidemia, type 2 diabetes mellitus, GERD, previous tobacco dependence, recent diagnosis of adenocarcinoma of the lung stage IIIc, recent urinary tract infection. The patient is currently sitting up in bed in no acute distress. Denies pain, shortness of breath. No new complaints at this time. States her breathing does feel better than when she came in. Alteplase instilled into pigtail catheter yesterday. Objective - Vital Signs Vital signs: Vital Signs Temp 98.6 F 10/06/18 05:00 Pulse 104 H 10/06/18 05:00 Resp 16 10/06/18 05:00 BP 152/78 10/06/18 05:00 Pulse Ox 94 L 10/06/18 05:00 Intake & Output 10/05/18 10/06/18 10/06/18 18:59 06:59 18:59 Intake Total 600 Output Total 430 150 Balance -430 450 Weight 61.235 kg Intake: IV 10 saline flush 10 Oral 590 Output: Drainage 430 150 Right Posterior Chest 430 150 Other: Voiding Method Toilet Toilet # Voids 2 - Constitutional General appearance: Present: cooperative, no acute distress - Respiratory Details: Lungs sounds diminished bilaterally, right greater than left. Respirations even , nonlabored. Currently on room air with oxygen saturation 94%. Only achieving 500-750 mL on her incentive spirometry. Right-sided pigtail catheter present, connected to atrium to continuous wall suction, 150 mL infected- looking fluid drained overnight, 300 mL in the last 24 hours, 100 of which was the alteplase instilled yesterday. - Cardiovascular Details: S1, S2 present. Tachycardia but regular rhythm. Sinus tach on telemetry. Palpable peripheral pulses bilaterally. No edema present. No calf pain or tenderness noted. SCDs present. - Gastrointestinal Gastrointestinal Comment(s): Abdomen soft, nontender, nondistended. Active bowel sounds 4 quadrants. Tolerating diet. - Genitourinary Genitourinary Comment(s): Voiding clear, yellow urine. - Integumentary Integumentary Comment(s): Skin is warm and dry with evidence of good perfusion. Right-sided pigtail catheter covered with dry intact dressing. - Neurologic Neurologic: Present: CNII-XII intact - Musculoskeletal Musculoskeletal: Present: gait normal, strength equal bilaterally - Psychiatric Psychiatric Comment(s): Flat affect Psychiatric: Present: A&O x's 3, intact judgment & insight - Allied health notes Allied health notes reviewed: nursing - Labs CBC & Chem 7: 10/04/18 06:38 10/04/18 06:38 Labs: Abnormal Lab Results - Last 24 Hours (Table) 10/05/18 10/05/18 10/06/18 Range/Units 17:01 20:12 07:19 POC Glucose (mg/dL) 139 H 163 H 123 H (75-99) mg/dL Assessment and Plan (1) Adenocarcinoma of lung, stage 3 Current Visit: Yes Status: Chronic Code(s): C34.90 - MALIGNANT NEOPLASM OF UNSP PART OF UNSP BRONCHUS OR LUNG SNOMED Code(s): 360791870 (2) COPD (chronic obstructive pulmonary disease) Current Visit: Yes Status: Chronic Code(s): J44.9 - CHRONIC OBSTRUCTIVE PULMONARY DISEASE, UNSPECIFIED SNOMED Code(s): 26368653 (3) Depression Current Visit: Yes Status: Chronic Code(s): F32.9 - MAJOR DEPRESSIVE DISORDER, SINGLE EPISODE, UNSPECIFIED SNOMED Code(s): 71718870 (4) Diabetes mellitus Current Visit: Yes Status: Chronic Code(s): E11.9 - TYPE 2 DIABETES MELLITUS WITHOUT COMPLICATIONS SNOMED Code(s): 93057338 (5) Empyema lung Current Visit: Yes Status: Acute Code(s): J86.9 - PYOTHORAX WITHOUT FISTULA SNOMED Code(s): 379436085 (6) GERD (gastroesophageal reflux disease) Current Visit: Yes Status: Chronic Code(s): K21.9 - GASTRO-ESOPHAGEAL REFLUX DISEASE WITHOUT ESOPHAGITIS SNOMED Code(s): 674035539 (7) Hyperlipidemia Current Visit: Yes Status: Chronic Code(s): E78.5 - HYPERLIPIDEMIA, UNSPECIFIED SNOMED Code(s): 00686134 (8) Pleural effusion Current Visit: Yes Status: Acute Code(s): J90 - PLEURAL EFFUSION, NOT ELSEWHERE CLASSIFIED SNOMED Code(s): 96913197 (9) Urinary tract infection Current Visit: Yes Status: Acute Code(s): N39.0 - URINARY TRACT INFECTION, SITE NOT SPECIFIED SNOMED Code(s): 11915337 Plan: 1. No surgical intervention at this time. We will instill alteplase daily as long as draining, clamp tube for 1 hour. Will continue to monitor her drainage. 2. Encourage incentive spirometry 10 imes every hour while awake. 3. Continue antibiotic management per infectious disease. 4. Bronchodilators per pulmonology. 5. Pain control with current medication regimen. 6. Cancer management per oncology. 7. Increase activity, ambulate as tolerated. 8. More recommendations to follow. Time with Patient: Greater than 30
[2018-10-06] MEDS: INSULIN ASPART 100 UNIT/ML 1 ML 10 ML VIAL SQ SCH ×4 (08:53→21:07)
[2018-10-06] MEDS: cefTRIAXone 2,000 MG in SODIUM CHLORIDE 0.9% 100 ML IVPB SCH (08:59)
[2018-10-06] MEDS: ALPRAZolam 0.5 MG TAB PO PRN ×2 (08:59→21:36)
[2018-10-06] MEDS: PANTOPRAZOLE 40 MG TABLET PO SCH (09:00)
[2018-10-06] MEDS: CITALOPRAM HYDROBROMIDE 20 MG TAB PO SCH (09:00)
[2018-10-06] MEDS: HEPARIN SODIUM,PORCINE 5,000 UNIT/ML 1 ML VIAL SQ SCH ×2 (09:00→21:06)
[2018-10-06] MEDS: metFORMIN 500 MG TAB PO SCH ×2 (09:00→21:07)
[2018-10-06] MEDS: CHOLECALCIFEROL 1,000 UNIT TAB PO SCH (09:00)
[2018-10-06] MEDS: POTASSIUM CHLORIDE ER 10 MEQ TAB.ER.PRT PO SCH (09:00)
[2018-10-06] MEDS: ATORVASTATIN 10 MG TAB PO SCH (09:01)
[2018-10-06] MEDS: SYMBICORT 80-4.5 MCG INHALER INHALATION SCH ×2 (09:06→19:32)
[2018-10-06] MEDS: IPRATROPIUM 0.5 MG/2.5 ML NEBU INHALATION SCH ×4 (09:06→19:32)
--- NOTE | 2018-10-06 11:27 | P.PN ---
Subjective Progress Note Date: 10/06/18 Principal diagnosis: Adenocarcinoma lung with Emphyema and pleural effusion No acute events overnight Objective - Vital Signs Vital signs: Vital Signs Temp 98.6 F 10/06/18 05:00 Pulse 104 H 10/06/18 05:00 Resp 16 10/06/18 05:00 BP 152/78 10/06/18 05:00 Pulse Ox 94 L 10/06/18 05:00 Intake & Output 10/05/18 10/06/18 10/06/18 18:59 06:59 18:59 Intake Total 600 Output Total 430 150 Balance -430 450 Weight 61.235 kg Intake: IV 10 saline flush 10 Oral 590 Output: Drainage 430 150 Right Posterior Chest 430 150 Other: Voiding Method Toilet Toilet Toilet # Voids 2 - Exam GEN: NAD, smiling today, interacting and up walking in halls Head: NC, NT Neck: Supple, No Lymphadenopathy cervical LUNG: Diminished R>L, bibasilar, mild increased effort HEART: Tachy, reg rhythm, npo murmur Abd: Soft, Non distended Ext: No edema pedal pulses intact Psych: flat affect was following commands EOM and strength. - Labs CBC & Chem 7: 10/04/18 06:38 10/04/18 06:38 Labs: Abnormal Lab Results - Last 24 Hours (Table) 10/05/18 10/05/18 10/06/18 Range/Units 17:01 20:12 07:19 POC Glucose (mg/dL) 139 H 163 H 123 H (75-99) mg/dL Assessment and Plan Plan: Assessment and Recommendations: 1. Recent DIagnosis Adenocarcinoma of the Lung: BRAF POsitive - Recently had Referral for potential surgical Candidacy, she is not a candidate for surgery - She will follow-up with Dr. Turcios this week or next to discuss further options for treatment, 2. Recurrent effusion: Concern for infectious with underlying empyema on aspirated fluid - Cytology and cultures sent - Await results and in interim Antibiotics per Pulmonary and/or ID - Preliminary Culture reviewed - Await final and Fungal 3. Mental Status Changes - Improving - Family very concerned for underlying depression, presenting with flat affect , lethargy and insomnia, this may be a secondary effect of infectious process. - May benefit from psychiatry consultation, will defer to medicine - Explained to family treatment of underlying infection may improve this 4. Ecoli UTI: ID Managmeent Encourage increase activity I have discussed the molecular tests with patient and daughter, BRAF positive will not change first line therapy but does provide additional treatment options for future Chemotherapy at the recommendations of primary oncologist Dr. Fish will be made after complete resolution of active infection and IV antibiotics per ID - Reviewed CBC and CMP today, all stable. - Likely will require ECF at discharge, will hold treatment start until patient increases overall performance and resolution of infection. - Continue to encourage increased protein intake and encourage increased activity. Discussed with patient and today - Will need resolution of empyema, Surgical intervention needed for resolution? - Discussed with pulmonary today and some improvements in thinning of empyema although slow recovery.
[2018-10-06 12:20] LABS: Glucose,Whole Blood 120 mg/dL (75-99)
[2018-10-06] MEDS: SODIUM CHLORIDE 0.9% 1,000 ML IV SCH (13:04)
--- NOTE | 2018-10-06 13:48 | P.PN ---
Subjective Progress Note Date: 10/06/18 Principal diagnosis: Locally advanced non-small cell lung cancer, adenocarcinoma of the right lung, right-sided empyema On today's evaluation of 09/27/2018 I'm seeing this patient for a follow-up. She is still anxious. She did not have a good night sleep yesterday. She is having issues with insomnia. Her shortness of breath is still present although less compared to yesterday. Note that I performed a thoracentesis on him yesterday and evacuated approximately 1.6 L of purulent material that was felt to be empyema. The white cell count in the fluid is considerably elevated. Cultures still pending for now. The patient on a combination of Zosyn and vancomycin. The plan for today was to insert the pigtail catheter through interventional radiology. For that reason the patient was taken downstairs for the same procedure. The WBC count is at 7.1. No other new complaints otherwise for now. The patient on 4l to oxygen nasal cannula and the pulse ox is around 99%. No pleurisy. No hemoptysis. On 09/28/2018 patient seen in follow-up. She is resting comfortably in bed, currently on room air, with a pulse ox of 97%, hemodynamically stable, afebrile , respirations are even and nonlabored, lung sounds reveal diminished breath sounds over right lower lobe, some basilar crackles. Patient has a right posterior pigtail catheter in place, connected to a Pleur-evac, and there has been a total of 400 mL of purulent material in the Pleur-evac since the insertion of the pigtail catheter on 09/27/2018. There has been 60 mL of purulent drainage in the last 24 hours, the Pleur-evac is just to water seal, continues to freely drained, we'll connected to wall suction. Today's chest x- ray has been reviewed with Dr. Dunbar, shows moderate right pleural effusion. No new labs, microbiology results showed E. coli in the urine culture, pleural fluid Gram stain showed many gram-positive cocci in pairs and chains, final cultures pending. AFB culture was negative, fungal culture is in progress. She remains on Zosyn and vancomycin, ID service is following, clinically patient is breathing easier, no fever or chills. The patient is seen today 10/06/2018 in follow-up on the oncology unit. She is awake and alert in no acute distress. She is maintaining good O2 saturations in the 90s on room air. Right-sided chest tube remains in place and continues to drain. She did receive alteplase again today. Output continues to be monitored. Fluid cytology revealed inflammatory cells consistent with empyema. No cytologically malignant cells were identified. She remains on ceftriaxone. ID is on the case. Objective - Vital Signs Vital signs: Vital Signs Temp 98.7 F 10/06/18 12:43 Pulse 107 H 10/06/18 12:43 Resp 17 10/06/18 12:43 BP 134/75 10/06/18 12:43 Pulse Ox 99 10/06/18 12:43 Intake & Output 10/05/18 10/06/18 10/06/18 18:59 06:59 18:59 Intake Total 600 100 Output Total 430 150 170 Balance -430 450 -70 Weight 61.235 kg Intake: IV 10 saline flush 10 Intake, IV Titration 100 Amount cefTRIAXone 2,000 mg In 100 Sodium Chloride 0.9% 100 ml @ 100 mls/hr IVPB Q24HR [facility] Rx#:[id number] Oral 590 Output: Chest Tube Drainage 170 right posterior chest 170 Drainage 430 150 Right Posterior Chest 430 150 Other: Voiding Method Toilet Toilet Toilet # Voids 2 - Exam GENERAL EXAM: Alert, pleasant, 67-year-old white female currently on room air. HEAD: Normocephalic/atraumatic. EYES: Normal reaction of pupils, equal size. Conjunctiva pink, sclera white. NOSE: Clear with pink turbinates. THROAT: No erythema or exudates. NECK: No masses, no JVD, no thyroid enlargement, no adenopathy. CHEST: No chest wall deformity. Symmetrical expansion. Right posterior pigtail chest tube is in place. Continues to drain. LUNGS: Equal air entry with diminished breath sounds over right lower lobe, with the few scattered crackles CVS: Regular rate and rhythm, normal S1 and S2, no gallops, no murmurs, no rubs ABDOMEN: Soft, nontender. No hepatosplenomegaly, normal bowel sounds, no guarding or rigidity. EXTREMITIES: No clubbing, no edema, no cyanosis, 2+ pulses and upper and lower extremities. MUSCULOSKELETAL: Muscle strength and tone normal. SPINE: No scoliosis or deformity SKIN: No rashes CENTRAL NERVOUS SYSTEM: Alert and oriented -3. No focal deficits, tone is normal in all 4 extremities. PSYCHIATRIC: Alert and oriented -3. Appropriate affect. Intact judgment and insight. - Labs CBC & Chem 7: 10/04/18 06:38 10/04/18 06:38 Labs: Abnormal Lab Results - Last 24 Hours (Table) 10/05/18 10/05/18 10/06/18 Range/Units 17:01 20:12 07:19 POC Glucose (mg/dL) 139 H 163 H 123 H (75-99) mg/dL 10/06/18 Range/Units 12:19 POC Glucose (mg/dL) 120 H (75-99) mg/dL Assessment and Plan Assessment: Impression: 1 locally advanced non-small cell lung cancer. The patient was found to have adenocarcinoma of the right lung with a large right lower lobe mass causing mass effect on the right lower lobe bronchus and the right upper lobe bronchus. The patient also developed a right-sided pleural effusion. PET scan was done on outpatient basis and the patient was clinically given stage IIIc disease , T4 N3 M0 lesion. Patient obviously is not a surgical candidate. She has not received any treatment regarding her non-small cell lung cancer 2 acute shortness of breath secondary to above. Recovered. On room air. 3 COPD 4 empyema involving the right lung. This is post likely related to a postobstructive pneumonia. Currently on ceftriaxone. Right-sided chest tube remains in place. 5 acid reflux 6 borderline diabetes mellitus 7 insomnia/anxiety Plan: The patient was seen and evaluated by Dr. Meier. Right-sided chest tube remains in place. She did receive alteplase this morning. Continues to drain fluid. Cytology of the fluid was negative for malignancy. CT services have been consulted. No plans for surgical intervention at this time. PICC line is in place. Remains on ceftriaxone. She continues to work well with the incentive spirometer. Increase her activity as tolerated. We'll continue to follow and make further recommendations based on her clinical status. I, the cosigning physician, performed a history & physical examination of the patient. Lungs sounds with crackles scattered rhonchi in the right lung base. Maintaining good O2 saturations in the 90s on room air. I discussed the assessment and plan of care with my nurse practitioner, Andreina Mendoza. I attest to the above note as dictated by her.
[2018-10-06 17:06] LABS: Glucose,Whole Blood 111 mg/dL (75-99)
[2018-10-06] MEDS: HYDROcodone/APAP 5-325MG 1 EACH TAB PO PRN (19:10)
[2018-10-06 21:15] LABS: Glucose,Whole Blood 121 mg/dL (75-99)
[2018-10-06] MEDS: ZOLPIDEM 5 MG TAB PO PRN (21:34)
[2018-10-07 07:03] LABS: Glucose,Whole Blood 114 mg/dL (75-99)
[2018-10-07] MEDS: IPRATROPIUM 0.5 MG/2.5 ML NEBU INHALATION SCH ×4 (08:39→20:13)
[2018-10-07] MEDS: SYMBICORT 80-4.5 MCG INHALER INHALATION SCH ×2 (08:39→20:13)
[2018-10-07] MEDS: INSULIN ASPART 100 UNIT/ML 1 ML 10 ML VIAL SQ SCH ×4 (08:41→20:39)
[2018-10-07] MEDS: PANTOPRAZOLE 40 MG TABLET PO SCH (08:43)
[2018-10-07] MEDS: cefTRIAXone 2,000 MG in SODIUM CHLORIDE 0.9% 100 ML IVPB SCH (08:43)
[2018-10-07] MEDS: HEPARIN SODIUM,PORCINE 5,000 UNIT/ML 1 ML VIAL SQ SCH ×2 (08:43→20:39)
[2018-10-07] MEDS: POTASSIUM CHLORIDE ER 10 MEQ TAB.ER.PRT PO SCH (08:43)
[2018-10-07] MEDS: ATORVASTATIN 10 MG TAB PO SCH (08:43)
[2018-10-07] MEDS: CITALOPRAM HYDROBROMIDE 20 MG TAB PO SCH (08:43)
[2018-10-07] MEDS: metFORMIN 500 MG TAB PO SCH ×2 (08:43→20:39)
[2018-10-07] MEDS: CHOLECALCIFEROL 1,000 UNIT TAB PO SCH (08:43)
[2018-10-07] MEDS ORDERED: ALTEPLASE 10 MG in SODIUM CHLORIDE 0.9% 100 ML IRRIGATION ONE (09:00)
--- NOTE | 2018-10-07 10:06 | XR ---
EXAMINATION TYPE: XR chest 1V portable DATE OF EXAM: 10/07/2018 HISTORY: Empyema follow-up COMPARISON: 10/05/2018 TECHNIQUE: Single view of the chest is submitted. FINDINGS: Right basilar pleural catheter redemonstrated unchanged in position. Right basilar pleural-parenchyma l opacity persists compatible with underlying empyema with small pneumothorax. The heart is stable. Hilar and mediastinal structures are within normal limits. Degenerative changes are seen of the dorsal spine. IMPRESSION: 1. Overall stable chest.
[2018-10-07 11:37] LABS: Glucose,Whole Blood 107 mg/dL (75-99)
[2018-10-07] MEDS: ALPRAZolam 0.5 MG TAB PO PRN ×2 (12:41→20:39)
[2018-10-07] MEDS: SODIUM CHLORIDE 0.9% 1,000 ML IV SCH (12:43)
--- NOTE | 2018-10-07 13:41 | P.PN ---
Subjective Progress Note Date: 10/06/18 67-year-old woman who has a very significant recent history associated with her progressive shortness of breath. She recently has had changes of her status with increasing shortness of breath and underwent evaluations both at [facility] and [facility]. Endoscopy biopsies and PET scan confirmed her stage IIIB lung carcinoma. She has now presenting to Hospital from the physician's office with significant worsening of her shortness of breath, dyspnea on exertion with very little activity and some orthopnea. Further imaging revealed evidence of extensive effusion to the right chest and consequently a thoracentesis was performed which allowed some improvement of her shortness of breath. There was also concern because she had rapid decline of her mental status issue became more short of breath. Since the thoracentesis she's been having some improvement. At the time of thoracentesis fluid was purposely left in the pleural space and now the interventional radiologist has placed the pigtail catheter and it's been attached to suction. The patient's mental status is improving further per the family. Sitting upright in the chair, has eaten some of her dinner, pain is under good control and she has conversational with some clarity. She has pain at the tube insertion site but denies other acute discomfort at this time. The having high-grade fevers, chills or rigors but again had a significant rapid change of her status before admission. 09/30/2018 patient has had improvement. Still has a chest tube in place. She' ll having some discomfort. There was originally potential plan for discharge home soon but is now not until Wednesday. Working with the infusion company to have her antibiotic set up when she is discharged. Rocephin will be utilized. Patient has had alteplase placed into the chest tube to free up the empyema. Apparently will be reapplied tomorrow. She is 69 feeling better. More awake and alert and they're working with infusion to receive her outpatient intravenous antibiotic therapy. October 06 2018 patient continues to have some improvement. Still having some drainage from the chest tube site and alteplase is being utilized. We are planning the long-term course of antibiotic therapy with Rocephin for the empyema, fortunately the pleural fluid did not have malignant cells. is working diligently to try to have her go to the home setting and outpatient intravenous antibiotic therapy is arranged. Objective - Vital Signs Vital signs: Vital Signs Temp 97.9 F 10/07/18 12:45 Pulse 99 10/07/18 12:45 Resp 16 10/07/18 12:45 BP 131/74 10/07/18 12:45 Pulse Ox 93 L 10/07/18 12:45 Intake & Output 10/06/18 10/07/18 10/07/18 18:59 06:59 18:59 Intake Total 100 560 Output Total 170 100 Balance -70 460 Intake: Intake, IV Titration 100 80 Amount Sodium Chloride 0.9% 1, 80 000 ml @ 20 mls/hr IV . Q24H [facility] Rx#:[id number] cefTRIAXone 2,000 mg In 100 Sodium Chloride 0.9% 100 ml @ 100 mls/hr IVPB Q24HR [facility] Rx#:[id number] Oral 480 Output: Chest Tube Drainage 170 right posterior chest 170 Drainage 100 Right Posterior Chest 100 Other: Voiding Method Toilet Toilet Toilet # Voids 2 - Labs CBC & Chem 7: 10/04/18 06:38 10/04/18 06:38 Labs: Abnormal Lab Results - Last 24 Hours (Table) 10/06/18 10/06/18 10/07/18 Range/Units 17:05 21:06 07:01 POC Glucose (mg/dL) 111 H 121 H 114 H (75-99) mg/dL 10/07/18 Range/Units 11:36 POC Glucose (mg/dL) 107 H (75-99) mg/dL Assessment and Plan (1) Urinary tract infection Current Visit: Yes Status: Acute Code(s): N39.0 - URINARY TRACT INFECTION, SITE NOT SPECIFIED SNOMED Code(s): 63948501 (2) Empyema lung Current Visit: Yes Status: Acute Code(s): J86.9 - PYOTHORAX WITHOUT FISTULA SNOMED Code(s): 493711706 (3) Altered mental status Current Visit: Yes Status: Acute Code(s): R41.82 - ALTERED MENTAL STATUS, UNSPECIFIED SNOMED Code(s): 859186602
--- NOTE | 2018-10-07 13:45 | P.PN ---
Subjective Progress Note Date: 10/07/18 Principal diagnosis: Adenocarcinoma lung with Emphyema and pleural effusion Patient is sitting up eating burger, alert and oriented. Patient and are interested in plan after she goes home, With the active empyema not resolved (ing) will need to await resolution of current situation. Discussed with cardiothoracic [employer] in and [facility] team. Cardiothoracic do not feel surgical decortication is option. Patient's inquiring about the cardiothoracic surgeon they seen on 09/21/18 for potential surgical resection ( Dr. Vu). I discussed with Dr. Fish and resonable to transfer patient to [facility] for second surgical opinion on decortication of lung, patient and understand surgical discision may be same. I have assisted in contacting [facility] to review if transfer is possible. Objective - Vital Signs Vital signs: Vital Signs Temp 97.9 F 10/07/18 12:45 Pulse 99 10/07/18 12:45 Resp 16 10/07/18 12:45 BP 131/74 10/07/18 12:45 Pulse Ox 93 L 10/07/18 12:45 Intake & Output 10/06/18 10/07/18 10/07/18 18:59 06:59 18:59 Intake Total 100 560 Output Total 170 100 Balance -70 460 Intake: Intake, IV Titration 100 80 Amount Sodium Chloride 0.9% 1, 80 000 ml @ 20 mls/hr IV . Q24H [facility] Rx#:[id number] cefTRIAXone 2,000 mg In 100 Sodium Chloride 0.9% 100 ml @ 100 mls/hr IVPB Q24HR [facility] Rx#:[id number] Oral 480 Output: Chest Tube Drainage 170 right posterior chest 170 Drainage 100 Right Posterior Chest 100 Other: Voiding Method Toilet Toilet Toilet # Voids 2 - Exam GEN: NAD, smiling today, interacting and up walking in halls Head: NC, NT Neck: Supple, No Lymphadenopathy cervical LUNG: Diminished R>L, bibasilar, mild increased effort HEART: Tachy, reg rhythm, npo murmur Abd: Soft, Non distended Ext: No edema pedal pulses intact Psych: flat affect was following commands EOM and strength. - Labs CBC & Chem 7: 10/04/18 06:38 10/04/18 06:38 Labs: Abnormal Lab Results - Last 24 Hours (Table) 10/06/18 10/06/18 10/07/18 Range/Units 17:05 21:06 07:01 POC Glucose (mg/dL) 111 H 121 H 114 H (75-99) mg/dL 10/07/18 Range/Units 11:36 POC Glucose (mg/dL) 107 H (75-99) mg/dL Assessment and Plan Plan: Assessment and Recommendations: 1. Recent DIagnosis Adenocarcinoma of the Lung: BRAF POsitive - Recently had Referral for potential surgical Candidacy, she is not a candidate for surgery - She will follow-up with Dr. Turcios this week or next to discuss further options for treatment, 2. Recurrent effusion: Concern for infectious with underlying empyema on aspirated fluid - Cytology and cultures sent - Await results and in interim Antibiotics per Pulmonary and/or ID - Preliminary Culture reviewed - Await final and Fungal 3. Mental Status Changes - Improving - Family very concerned for underlying depression, presenting with flat affect , lethargy and insomnia, this may be a secondary effect of infectious process. - May benefit from psychiatry consultation, will defer to medicine - Explained to family treatment of underlying infection may improve this 4. Ecoli UTI: ID Managmeent Encourage increase activity I have discussed the molecular tests with patient and daughter, BRAF positive will not change first line therapy but does provide additional treatment options for future Greater than 35 minutes spent with patient and , Discussed options with Dr. Neumann and Patient and as well as answered further questions with and patient. Discussed in detail with Dr. Fish and [employer] with Cardiothoracic and PUlm. PLan: - Await [facility] decision of transferring care for potential decortication - Await resolution of Empyema prior to initiation of treatment. - Spoke to Dr. Vu and they will accept transfer to [facility] for further evaluation Time with Patient: Greater than 30
--- NOTE | 2018-10-07 13:49 | P.PN ---
Subjective Progress Note Date: 10/07/18 Principal diagnosis: Locally advanced non-small cell lung cancer, adenocarcinoma of the right lung, right-sided empyema On today's evaluation of 09/27/2018 I'm seeing this patient for a follow-up. She is still anxious. She did not have a good night sleep yesterday. She is having issues with insomnia. Her shortness of breath is still present although less compared to yesterday. Note that I performed a thoracentesis on him yesterday and evacuated approximately 1.6 L of purulent material that was felt to be empyema. The white cell count in the fluid is considerably elevated. Cultures still pending for now. The patient on a combination of Zosyn and vancomycin. The plan for today was to insert the pigtail catheter through interventional radiology. For that reason the patient was taken downstairs for the same procedure. The WBC count is at 7.1. No other new complaints otherwise for now. The patient on 4l to oxygen nasal cannula and the pulse ox is around 99%. No pleurisy. No hemoptysis. On 09/28/2018 patient seen in follow-up. She is resting comfortably in bed, currently on room air, with a pulse ox of 97%, hemodynamically stable, afebrile , respirations are even and nonlabored, lung sounds reveal diminished breath sounds over right lower lobe, some basilar crackles. Patient has a right posterior pigtail catheter in place, connected to a Pleur-evac, and there has been a total of 400 mL of purulent material in the Pleur-evac since the insertion of the pigtail catheter on 09/27/2018. There has been 60 mL of purulent drainage in the last 24 hours, the Pleur-evac is just to water seal, continues to freely drained, we'll connected to wall suction. Today's chest x- ray has been reviewed with Dr. Dunbar, shows moderate right pleural effusion. No new labs, microbiology results showed E. coli in the urine culture, pleural fluid Gram stain showed many gram-positive cocci in pairs and chains, final cultures pending. AFB culture was negative, fungal culture is in progress. She remains on Zosyn and vancomycin, ID service is following, clinically patient is breathing easier, no fever or chills. The patient is seen today 10/06/2018 in follow-up on the oncology unit. She is awake and alert in no acute distress. She is maintaining good O2 saturations in the 90s on room air. Right-sided chest tube remains in place and continues to drain. She did receive alteplase again today. Output continues to be monitored. Fluid cytology revealed inflammatory cells consistent with empyema. No cytologically malignant cells were identified. She remains on ceftriaxone. ID is on the case. The patient is seen today 03/07/2019 in follow-up on the oncology unit. She's been up ambulating in the room. She continues to maintain good O2 saturations in the 90s on room air. She remains afebrile. She is continued on ceftriaxone and the recommendations is for a total of 28 days per ID. Chest tube continues to drain with 20 of 50 ML's return in the past 24 hours. Alteplase given again today per CT services. Objective - Vital Signs Vital signs: Vital Signs Temp 97.9 F 10/07/18 12:45 Pulse 99 10/07/18 12:45 Resp 16 10/07/18 12:45 BP 131/74 10/07/18 12:45 Pulse Ox 93 L 10/07/18 12:45 Intake & Output 10/06/18 10/07/18 10/07/18 18:59 06:59 18:59 Intake Total 100 560 Output Total 170 100 Balance -70 460 Intake: Intake, IV Titration 100 80 Amount Sodium Chloride 0.9% 1, 80 000 ml @ 20 mls/hr IV . Q24H [facility] Rx#:[id number] cefTRIAXone 2,000 mg In 100 Sodium Chloride 0.9% 100 ml @ 100 mls/hr IVPB Q24HR [facility] Rx#:[id number] Oral 480 Output: Chest Tube Drainage 170 right posterior chest 170 Drainage 100 Right Posterior Chest 100 Other: Voiding Method Toilet Toilet Toilet # Voids 2 - Exam GENERAL EXAM: Alert, pleasant, 67-year-old white female currently on room air. Bleeding in the room. HEAD: Normocephalic/atraumatic. EYES: Normal reaction of pupils, equal size. Conjunctiva pink, sclera white. NOSE: Clear with pink turbinates. THROAT: No erythema or exudates. NECK: No masses, no JVD, no thyroid enlargement, no adenopathy. CHEST: No chest wall deformity. Symmetrical expansion. Right posterior pigtail chest tube is in place. Continues to drain. LUNGS: Equal air entry with diminished breath sounds over right lower lobe, with the few scattered crackles CVS: Regular rate and rhythm, normal S1 and S2, no gallops, no murmurs, no rubs ABDOMEN: Soft, nontender. No hepatosplenomegaly, normal bowel sounds, no guarding or rigidity. EXTREMITIES: No clubbing, no edema, no cyanosis, 2+ pulses and upper and lower extremities. MUSCULOSKELETAL: Muscle strength and tone normal. SPINE: No scoliosis or deformity SKIN: No rashes CENTRAL NERVOUS SYSTEM: Alert and oriented -3. No focal deficits, tone is normal in all 4 extremities. PSYCHIATRIC: Alert and oriented -3. Appropriate affect. Intact judgment and insight. - Labs CBC & Chem 7: 10/04/18 06:38 10/04/18 06:38 Labs: Abnormal Lab Results - Last 24 Hours (Table) 10/06/18 10/06/18 10/07/18 Range/Units 17:05 21:06 07:01 POC Glucose (mg/dL) 111 H 121 H 114 H (75-99) mg/dL 10/07/18 Range/Units 11:36 POC Glucose (mg/dL) 107 H (75-99) mg/dL Assessment and Plan Assessment: Impression: 1 locally advanced non-small cell lung cancer. The patient was found to have adenocarcinoma of the right lung with a large right lower lobe mass causing mass effect on the right lower lobe bronchus and the right upper lobe bronchus. The patient also developed a right-sided pleural effusion. PET scan was done on outpatient basis and the patient was clinically given stage IIIc disease , T4 N3 M0 lesion. Patient obviously is not a surgical candidate. She has not received any treatment regarding her non-small cell lung cancer 2 acute shortness of breath secondary to above. Recovered. On room air. 3 COPD 4 empyema involving the right lung. This is most likely related to a postobstructive pneumonia. Currently on ceftriaxone. Right-sided chest tube remains in place. Alteplase being injected daily. 5 acid reflux 6 borderline diabetes mellitus 7 insomnia/anxiety Plan: The patient was seen and evaluated by Dr. Meier. Chest x-ray reviewed. Chest tube remains in place. Continues to drain. Continues to receive alteplase daily. PICC line is in place. To be on ceftriaxone a total of 28 days. She continues to work well with the incentive spirometer. Increase her activity as tolerated. We'll continue to follow and make further recommendations based on her clinical status. I, the cosigning physician, performed a history & physical examination of the patient. Lungs sounds with crackles scattered rhonchi in the right lung base. Maintaining good O2 saturations in the 90s on room air. I discussed the assessment and plan of care with my nurse practitioner, Andreina Mendoza. I attest to the above note as dictated by her.
--- NOTE | 2018-10-07 14:55 | P.PN ---
Subjective Progress Note Date: 10/07/18 Principal diagnosis: Empyema, status post pigtail catheter insertion. Previous medical history of hyperlipidemia, type 2 diabetes mellitus, GERD, previous tobacco dependence, recent diagnosis of adenocarcinoma of the lung stage IIIc, recent urinary tract infection. The patient is currently laying in bed in no acute distress. Denies pain, shortness of breath. No new complaints at this time. States her breathing does feel better than when she came in. Alteplase instilled into pigtail catheter yesterday for the last couple of days with continued output. Objective - Vital Signs Vital signs: Vital Signs Temp 97.9 F 10/07/18 12:45 Pulse 99 10/07/18 12:45 Resp 16 10/07/18 12:45 BP 131/74 10/07/18 12:45 Pulse Ox 93 L 10/07/18 12:45 Intake & Output 10/06/18 10/07/18 10/07/18 18:59 06:59 18:59 Intake Total 100 560 Output Total 170 100 Balance -70 460 Intake: Intake, IV Titration 100 80 Amount Sodium Chloride 0.9% 1, 80 000 ml @ 20 mls/hr IV . Q24H REILLY Rx#:[id number] cefTRIAXone 2,000 mg In 100 Sodium Chloride 0.9% 100 ml @ 100 mls/hr IVPB Q24HR REILLY Rx#:[id number] Oral 480 Output: Chest Tube Drainage 170 right posterior chest 170 Drainage 100 Right Posterior Chest 100 Other: Voiding Method Toilet Toilet Toilet # Voids 2 - Constitutional General appearance: Present: cooperative, no acute distress - Respiratory Details: Lungs sounds diminished bilaterally, right greater than left. Respirations even , nonlabored. Currently on room air with oxygen saturation 92%. Only achieving 500-750 mL on her incentive spirometry. Right-sided pigtail catheter present, connected to atrium to continuous wall suction, 100 mL infected- looking fluid drained overnight, 350 mL in the last 24 hours, 100 of which was the alteplase instilled yesterday. - Cardiovascular Details: S1, S2 present. Regular rate and rhythm. Sinus rhythm on telemetry. Palpable peripheral pulses bilaterally. No edema present. No calf pain or tenderness noted. SCDs present. - Gastrointestinal Gastrointestinal Comment(s): Abdomen soft, nontender, nondistended. Active bowel sounds 4 quadrants. Tolerating diet. - Genitourinary Genitourinary Comment(s): Voiding clear, yellow urine. - Integumentary Integumentary Comment(s): Skin is warm and dry with evidence of good perfusion. Right-sided pigtail catheter covered with dry intact dressing. - Neurologic Neurologic: Present: CNII-XII intact - Musculoskeletal Musculoskeletal: Present: strength equal bilaterally - Psychiatric Psychiatric Comment(s): Flat affect Psychiatric: Present: A&O x's 3, intact judgment & insight - Allied health notes Allied health notes reviewed: nursing - Labs CBC & Chem 7: 10/04/18 06:38 10/04/18 06:38 Labs: Abnormal Lab Results - Last 24 Hours (Table) 10/06/18 10/06/18 10/07/18 Range/Units 17:05 21:06 07:01 POC Glucose (mg/dL) 111 H 121 H 114 H (75-99) mg/dL 10/07/18 Range/Units 11:36 POC Glucose (mg/dL) 107 H (75-99) mg/dL - Imaging and Cardiology Chest x-ray: report reviewed, image reviewed Assessment and Plan (1) Adenocarcinoma of lung, stage 3 Current Visit: Yes Status: Chronic Code(s): C34.90 - MALIGNANT NEOPLASM OF UNSP PART OF UNSP BRONCHUS OR LUNG SNOMED Code(s): 541295671 (2) COPD (chronic obstructive pulmonary disease) Current Visit: Yes Status: Chronic Code(s): J44.9 - CHRONIC OBSTRUCTIVE PULMONARY DISEASE, UNSPECIFIED SNOMED Code(s): 00613266 (3) Depression Current Visit: Yes Status: Chronic Code(s): F32.9 - MAJOR DEPRESSIVE DISORDER, SINGLE EPISODE, UNSPECIFIED SNOMED Code(s): 16158405 (4) Diabetes mellitus Current Visit: Yes Status: Chronic Code(s): E11.9 - TYPE 2 DIABETES MELLITUS WITHOUT COMPLICATIONS SNOMED Code(s): 28551593 (5) Empyema lung Current Visit: Yes Status: Acute Code(s): J86.9 - PYOTHORAX WITHOUT FISTULA SNOMED Code(s): 443500864 (6) GERD (gastroesophageal reflux disease) Current Visit: Yes Status: Chronic Code(s): K21.9 - GASTRO-ESOPHAGEAL REFLUX DISEASE WITHOUT ESOPHAGITIS SNOMED Code(s): 370310084 (7) Hyperlipidemia Current Visit: Yes Status: Chronic Code(s): E78.5 - HYPERLIPIDEMIA, UNSPECIFIED SNOMED Code(s): 45595685 (8) Pleural effusion Current Visit: Yes Status: Acute Code(s): J90 - PLEURAL EFFUSION, NOT ELSEWHERE CLASSIFIED SNOMED Code(s): 09771407 (9) Urinary tract infection Current Visit: Yes Status: Acute Code(s): N39.0 - URINARY TRACT INFECTION, SITE NOT SPECIFIED SNOMED Code(s): 49680289 Plan: 1. No surgical intervention at this time. We will instill alteplase daily as long as draining, clamp tube for 1 hour. Will continue to monitor her drainage. 2. Encourage incentive spirometry 10 imes every hour while awake. 3. Continue antibiotic management per infectious disease. 4. Bronchodilators per pulmonology. 5. Pain control with current medication regimen. 6. Cancer management per oncology. 7. Increase activity, ambulate as tolerated. 8. Per oncology patient may be transferred to [facility] for second opinion regarding decortication. Time with Patient: Greater than 30
[2018-10-07] MEDS: HYDROcodone/APAP 5-325MG 1 EACH TAB PO PRN ×2 (16:11→21:21)
[2018-10-07 17:04] LABS: Glucose,Whole Blood 104 mg/dL (75-99)
[2018-10-07 20:28] LABS: Glucose,Whole Blood 203 mg/dL (75-99)
[2018-10-07 20:39] VITALS: BP 128/67; PULSE 104; RESP 18; TEMP 97.6
--- NOTE | 2018-10-07 21:40 | PN ---
PROGRESS NOTE DATE OF SERVICE: 10/06/2018 PRESENTING COMPLAINT: Chest tube in place. INTERVAL HISTORY: This patient was seen by me yesterday evening. She has adenocarcinoma stage III of the lung with empyema on the right side. Pigtail catheter in place, draining fair amount, close to 75 to 100 per shift. She is also getting alteplase. Patient has been tolerating a diet. Has been walking. REVIEW OF SYSTEMS: Done for constitutional, cardiovascular, GI, pulmonary; relevant findings as above. CURRENT MEDICATIONS: Include IV ceftriaxone. PHYSICAL EXAMINATION: VITAL SIGNS: Temperature 98.7, pulse 107, respiration 17, blood pressure 134/75, pulse ox 99% on room air. GENERAL APPEARANCE: Sitting on bed, awake. EYES: Pupils equal. Conjunctivae pale. NECK: JVD not raised. Mass not palpable. RESPIRATORY: Effort normal. LUNGS: Decreased breath sounds, especially on the right side. Right-sided pigtail catheter present. PSYCHIATRY: Alert and oriented x3. Mood and affect normal. INVESTIGATIONS: Accu-Cheks are noted. ASSESSMENT: 1. Right-sided empyema with cultures positive for alpha hemolytic streptococcus with pigtail catheter that is still draining significant amounts. 2. Chronic obstructive pulmonary disease in an ex-smoker. 3. Diabetes mellitus, type 2, on oral hypoglycemic. 4. Gastroesophageal reflux disease. 5. Hyperlipidemia. 6. Adenocarcinoma of the lung, stage III; not a surgical candidate; pending chemotherapy when infection is cleared. 7. Acute metabolic encephalopathy upon presentation, now improved. 8. Mild protein-calorie malnutrition from decreased oral intake. 9. Reactive thrombocytosis. 10.Normocytic anemia of malignancy. 11.Depression not otherwise specified. PLAN: Continue current medication and treatment plan. I did speak to Dr. Rainey from Cardiothoracic Surgery. From his standpoint, the patient is not a surgical candidate for VATS. He feels the patient would not be able to tolerate the same. There is a concern that, given patient's probably weak immune system from the malignancy, if the patient's infection is not controlled, patient will not be able to get chemotherapy. Will go from here. MMODL / IJN: [id number] /
[2018-10-08] MEDS ORDERED: cefTRIAXone 2,000 MG in SODIUM CHLORIDE 0.9% 100 ML IVPB SCH (09:00)
--- NOTE | 2018-10-08 09:02 | DS ---
DISCHARGE SUMMARY DATE OF ADMISSION: September 26, 2018 DATE OF DISCHARGE: October 07, 2018. FINAL DIAGNOSES: 1. Right-sided empyema with cultures positive for alpha hemolytic Streptococcus with the pigtail catheter in place. 2. Chronic obstructive pulmonary disease in an ex-smoker. 3. Diabetes mellitus type 2 on oral hypoglycemics. 4. Gastroesophageal reflux disease. 5. Hyperlipidemia. 6. Adenocarcinoma of the lung, stage III, not a surgical candidate pending chemotherapy, when infection is controlled. 7. Acute metabolic encephalopathy upon presentation. Now resolved. 8. Mild protein-calorie malnutrition from decreased oral intake. 9. Reactive thrombocytosis. 10.Normocytic anemia, malignancy. 11.Depression, not otherwise specified. CONSULTATIONS: Dr. Meier from Pulmonary Critical Care/Dr. Dunbar, Dr. Rosales from Oncology Dr. Marte from Infectious Disease, Dr. Rainey\cardiothoracic surgery. HOSPITAL COURSE: This pleasant lady presented here with short of breath, tired, encephalopathic. After initial tap, the lung was found to have empyema on the right side and a pigtail catheter was placed. She has been draining quite a bit, including getting alteplase. The patient's encephalopathy that recovered. The patient had recently gone to Dr. Soria at [facility]. Not felt to be a surgical candidate for her lung cancer. The patient was reviewed by the cardiothoracic team here including Dr. Rainey, Dr. Santana and Dr. Jackson and did not feel the patient was a surgical candidate. Dr. Fish from Oncology standpoint felt until this infection is controlled and this is not really letting down, more aggressive approach should be taken. Dr. Soria was contacted by Gia from oncology team and he did accept the patient after reviewing the case for possible surgical intervention in terms of the empyema/decortication/VATS. I did talk to the patient and and they asked a lot of questions finally agreed for transfer understanding the pros and cons and even the fact that maybe nothing further could be done. The patient remains on IV ceftriaxone. The patient is able to walk around, tolerate some diet, having bowel movements. EXAMINATION: VITAL SIGNS: Temp 97.6, pulse 104, respiratory 18, blood pressure 128/67, pulse ox 93 percent on room air. LUNGS: Decreased breath sounds. Right-sided pigtail catheter. Psych AO x3. INVESTIGATIONS: Accu-Cheks are noted. Cultures from the bloody fluid including alpha hemolytic Streptococcus. DISPOSITION: [facility]. Accepting physician Dr. Soria. Discussion and discharge planning more than [address] Mitch Ricks. MMLEONIEL / SENDY: [id number] /
== END 2018-10-07 21:30 | disposition short-term general hospital (02) | DRG 177 ==
LOC: EC 10:23 → 3NMEDONC 12:35
PROVIDERS: ADMIT Hospitalist; ATTEND Hospitalist
PROC: 0W993ZX Drainage of Right Pleural Cavity, Percutaneous Approach, Diagnostic (ICD-10-PCS; principal; 2018-09-26)
PROC: 0W9930Z Drainage of Right Pleural Cavity with Drainage Device, Percutaneous Approach (ICD-10-PCS; 2018-09-27)
PROC: 02HV33Z Insertion of Infusion Device into Superior Vena Cava, Percutaneous Approach (ICD-10-PCS; 2018-09-30)
PROC: 0W9930Z Drainage of Right Pleural Cavity with Drainage Device, Percutaneous Approach (ICD-10-PCS; 2018-10-03)
DX: J86.9 Pyothorax without fistula (principal); G93.41 Metabolic encephalopathy; J96.01 Acute respiratory failure with hypoxia; J18.9 Pneumonia, unspecified organism; N39.0 Urinary tract infection, site not specified; E44.1 Mild protein-calorie malnutrition; C34.31 Malignant neoplasm of lower lobe, right bronchus or lung; J98.11 Atelectasis; J44.0 Chronic obstructive pulmonary disease with (acute) lower respiratory infection; B95.4 Other streptococcus as the cause of diseases classified elsewhere; B96.20 Unspecified Escherichia coli [E. coli] as the cause of diseases classified elsewhere; D63.0 Anemia in neoplastic disease; D47.3 Essential (hemorrhagic) thrombocythemia; E11.9 Type 2 diabetes mellitus without complications; F41.9 Anxiety disorder, unspecified; F32.9 Major depressive disorder, single episode, unspecified; K21.9 Gastro-esophageal reflux disease without esophagitis; G47.00 Insomnia, unspecified; R59.0 Localized enlarged lymph nodes; E78.5 Hyperlipidemia, unspecified; Z79.84 Long term (current) use of oral hypoglycemic drugs; Z68.23 Body mass index [BMI] 23.0-23.9, adult; Z79.51 Long term (current) use of inhaled steroids; Z79.899 Other long term (current) drug therapy; Z71.3 Dietary counseling and surveillance; Z90.49 Acquired absence of other specified parts of digestive tract; Z90.710 Acquired absence of both cervix and uterus; Z87.891 Personal history of nicotine dependence; Z87.81 Personal history of (healed) traumatic fracture; Z87.440 Personal history of urinary (tract) infections; Z91.81 History of falling; Z82.49 Family history of ischemic heart disease and other diseases of the circulatory system; Z80.1 Family history of malignant neoplasm of trachea, bronchus and lung; Z82.5 Family history of asthma and other chronic lower respiratory diseases
CPT/HCPCS: 32551; 36415; 36573; 51701; 71045; 71250; 71260; 76942; 80048; 80053; 80202; 81001; 82945; 83036; 83615; 84157; 85025; 85610; 85730; 87070; 87075; 87077; 87086; 87102; 87116; 87186; 87205; 87206; 87252; 87496; 87498; 87502; 87529; 87634; 87798; 88108; 88305; 88341; 88342; 89050; 93005; 94760; 96365; 99285

== ENCOUNTER 2018-10-29 15:39 | Inpatient (IN) | payer MEDICARE ==
[2018-10-29] MEDS ORDERED: IPRATROPIUM-ALBUTEROL 3 ML NEB INHALATION STA (16:25)
--- NOTE | 2018-10-29 16:38 | ED ---
General Adult HPI - General Chief complaint: Shortness of Breath Stated complaint: SOB Time Seen by Provider: 10/29/18 15:55 Source: patient, family, RN notes reviewed Mode of arrival: wheelchair Limitations: no limitations - History of Present Illness Initial comments: Patient is a pleasant 67-year-old female presenting to the emergency department with difficulty in breathing. Majority of history comes from . Symptoms have progressed mostly today. Patient has a diagnosis of lung cancer just 6 weeks ago. Patient then had a fusion that was drained. Patient did have tubes placed. Patient did go to [facility] for procedure discharged with a chest tube doses removed several days ago. Patient complains of increased dyspnea today and some cough. Patient does feel fatigued. Patient has yet to start chemotherapy. - Related Data Home Medications Medication Instructions Recorded Confirmed Atorvastatin [Lipitor] 10 mg PO DAILY 08/24/18 10/29/18 Omeprazole 20 mg PO DAILY 08/24/18 10/29/18 Tiotropium 18 Mcg/Puff [Spiriva] 1 cap INHALATION RT-DAILY 08/24/18 10/29/18 metFORMIN HCL [Glucophage] 1,000 mg PO BID 08/24/18 10/29/18 ALPRAZolam [Xanax] 0.5 mg PO TID 10/29/18 10/29/18 Albuterol Inhaler [Ventolin Hfa 2 puff INHALATION RT-QID PRN 10/29/18 10/29/18 Inhaler] Budesonide/Formoterol Fumarate 2 puff INHALATION RT-BID 10/29/18 10/29/18 [Symbicort 160-4.5 Mcg Inhaler] HYDROcodone/APAP 5-325MG [[place] 1 tab PO Q4H PRN 10/29/18 10/29/18 5-325] Sertraline HCl [Zoloft] 25 mg PO DAILY 10/29/18 10/29/18 Allergies Allergy/AdvReac Type Severity Reaction Status Date / Time No Known Allergies Allergy Verified 10/29/18 17:05 Review of Systems ROS Statement: Those systems with pertinent positive or pertinent negative responses have been documented in the HPI. ROS Other: All systems not noted in ROS Statement are negative. Constitutional: Denies: fever Eyes: Denies: eye pain ENT: Denies: ear pain Respiratory: Reports: cough, dyspnea Cardiovascular: Denies: chest pain Endocrine: Reports: fatigue Gastrointestinal: Denies: abdominal pain Genitourinary: Denies: dysuria Musculoskeletal: Denies: back pain Skin: Denies: rash Neurological: Denies: headache Past Medical History Past Medical History: Cancer, COPD, Diabetes Mellitus, GERD/Reflux, Hyperlipidemia, Pneumonia Additional Past Medical History / Comment(s): Adenocarcinoma of the lung, stage IIIc, COPD, [id number] diabetes mellitus, previous history of fall with subsequent left orbital, facial and wrist fracture in addition to a pelvic fracture. She also has hyperlipidemia, acid reflux and COPD History of Any Multi-Drug Resistant Organisms: None Reported Past Surgical History: Appendectomy, Hysterectomy, Orthopedic Surgery Additional Past Surgical History / Comment(s): 08/25/18 bronchoscopy with bx, BAL/brushings, colonoscopies, L wrist fracture with 3 pins and 1 pin has been removed. Past Anesthesia/Blood Transfusion Reactions: No Reported Reaction Additional Past Anesthesia/Blood Transfusion Reaction / Comment(s): no hx blood transfusion Past Psychological History: Anxiety Smoking Status: Former smoker Past Alcohol Use History: Occasional Past Drug Use History: None Reported - Past Family History Mother Family Medical History: Myocardial Infarction ([place]) Father Family Medical History: Asthma, Cancer, COPD Additional Family Medical History / Comment(s): Father had lung cancer. General Exam Limitations: no limitations General appearance: alert Head exam: Present: atraumatic, normocephalic Eye exam: Present: normal appearance, PERRL ENT exam: Present: normal oropharynx Neck exam: Present: normal inspection Respiratory exam: Present: decreased breath sounds (Right lower lung) Cardiovascular Exam: Present: tachycardia GI/Abdominal exam: Present: soft. Absent: tenderness Extremities exam: Present: normal inspection. Absent: pedal edema, calf tenderness Back exam: Present: normal inspection Neurological exam: Present: alert Psychiatric exam: Present: normal affect, normal mood Skin exam: Present: normal color Course Vital Signs 10/29/18 10/29/18 10/29/18 15:46 17:01 17:10 Temperature 98.4 F Pulse Rate 119 H 114 H Respiratory 18 20 18 Rate Blood Pressure 133/80 135/82 O2 Sat by Pulse 77 L 95 Oximetry 10/29/18 10/29/18 17:21 17:33 Temperature Pulse Rate 114 H 112 H Respiratory Rate Blood Pressure O2 Sat by Pulse Oximetry EKG Findings - EKG Comments: EKG Findings:: Sinus tachycardia 120. MT 140. QRS 76. QT 322. QTC 455. Normal axis. Normal QRS. No acute ST change. Medical Decision Making - Medical Decision Making Patient reevaluated and improved with oxygen. Patient and family updated on results and plan. Case was discussed in detail with Dr. Loyola, covering for Dr. Neumann, who admits for Dr. Ricks. She will admit. Consults will be placed for Dr. Ranjeet Gee in and Dr. Fish. - Lab Data Result diagrams: 10/29/18 16:54 10/29/18 16:54 Lab Results 10/29/18 10/29/18 10/29/18 Range/Units 16:54 16:54 16:54 WBC 13.2 H (3.8-10.6) k/uL RBC 2.43 L (3.80-5.40) m/uL Hgb 7.1 L D (11.4-16.0) gm/dL Hct 21.8 L (34.0-46.0) % MCV 89.5 (80.0-100.0) fL MCH 29.2 (25.0-35.0) pg MCHC 32.6 (31.0-37.0) g/dL RDW 15.8 H (11.5-15.5) % Plt Count 392 (150-450) k/uL Neutrophils % 78 % Lymphocytes % 11 % Monocytes % 6 % Eosinophils % 3 % Basophils % 0 % Neutrophils # 10.3 H (1.3-7.7) k/uL Lymphocytes # 1.4 (1.0-4.8) k/uL Monocytes # 0.8 (0-1.0) k/uL Eosinophils # 0.4 (0-0.7) k/uL Basophils # 0.1 (0-0.2) k/uL Hypochromasia Slight PT (9.0-12.0) sec INR (<1.2) APTT (22.0-30.0) sec Sodium 140 (137-145) mmol/L Potassium 4.6 (3.5-5.1) mmol/L Chloride 105 (98-107) mmol/L Carbon Dioxide 26 (22-30) mmol/L Anion Gap 9 mmol/L BUN 12 (7-17) mg/dL Creatinine 0.62 (0.52-1.04) mg/dL Est GFR (CKD-EPI)AfAm >90 (>60 ml/min/1.73 sqM) Est GFR (CKD-EPI)NonAf >90 (>60 ml/min/1.73 sqM) Glucose 115 H (74-99) mg/dL Plasma Lactic Acid Gagan (0.7-2.0) mmol/L Calcium 9.5 (8.4-10.2) mg/dL Total Bilirubin 0.4 (0.2-1.3) mg/dL AST 15 (14-36) U/L ALT 18 (9-52) U/L Alkaline Phosphatase 80 (38-126) U/L Total Creatine Kinase 31 (30-135) U/L CK-MB (CK-2) 1.6 (0.0-2.4) ng/mL CK-MB (CK-2) Rel Index 5.2 Troponin I 0.017 (0.000-0.034) ng/mL NT-Pro-B Natriuret Pep pg/mL Total Protein 6.6 (6.3-8.2) g/dL Albumin 3.4 L (3.5-5.0) g/dL 10/29/18 10/29/18 10/29/18 Range/Units 16:54 16:54 16:54 WBC (3.8-10.6) k/uL RBC (3.80-5.40) m/uL Hgb (11.4-16.0) gm/dL Hct (34.0-46.0) % MCV (80.0-100.0) fL MCH (25.0-35.0) pg MCHC (31.0-37.0) g/dL RDW (11.5-15.5) % Plt Count (150-450) k/uL Neutrophils % % Lymphocytes % % Monocytes % % Eosinophils % % Basophils % % Neutrophils # (1.3-7.7) k/uL Lymphocytes # (1.0-4.8) k/uL Monocytes # (0-1.0) k/uL Eosinophils # (0-0.7) k/uL Basophils # (0-0.2) k/uL Hypochromasia PT 10.1 (9.0-12.0) sec INR 0.9 (<1.2) APTT 22.7 (22.0-30.0) sec Sodium (137-145) mmol/L Potassium (3.5-5.1) mmol/L Chloride (98-107) mmol/L Carbon Dioxide (22-30) mmol/L Anion Gap mmol/L BUN (7-17) mg/dL Creatinine (0.52-1.04) mg/dL Est GFR (CKD-EPI)AfAm (>60 ml/min/1.73 sqM) Est GFR (CKD-EPI)NonAf (>60 ml/min/1.73 sqM) Glucose (74-99) mg/dL Plasma Lactic Acid Gagan 1.8 (0.7-2.0) mmol/L Calcium (8.4-10.2) mg/dL Total Bilirubin (0.2-1.3) mg/dL AST (14-36) U/L ALT (9-52) U/L Alkaline Phosphatase (38-126) U/L Total Creatine Kinase (30-135) U/L CK-MB (CK-2) (0.0-2.4) ng/mL CK-MB (CK-2) Rel Index Troponin I (0.000-0.034) ng/mL NT-Pro-B Natriuret Pep 1140 pg/mL Total Protein (6.3-8.2) g/dL Albumin (3.5-5.0) g/dL - Radiology Data Radiology results: image reviewed (Chest x-ray shows right-sided consolidation and effusion. In addition there is some concern for pulmonary edema.) Disposition Clinical Impression: Pleural effusion Disposition: ADMITTED IP TO THIS HOSP Is patient prescribed a controlled substance at d/c from ED?: No Referrals: Mitch Ricks MD [Primary Care Provider] - 1-2 days Decision Time: 18:23
--- NOTE | 2018-10-29 16:48 | XR ---
EXAMINATION TYPE: XR chest 1V portable DATE OF EXAM: 10/29/2018 COMPARISON: 10/07/2018 HISTORY: COPD chest pain TECHNIQUE: Single frontal view of the chest is obtained. FINDINGS: There is large right pleural effusion. There is pulmonary edema. Heart size is probably no rmal. There is airspace consolidation in the right lung. There are chest leads. IMPRESSION: There is been removal of the right-sided chest tube compared to last exam. There is cons olidation and pleural fluid in the right lung that is the same or slightly increased compared to last exam. There is new pulmonary edema compared to last exam that could be RDS or heart failure.
[2018-10-29 17:09] LABS: Basophils # (A) 0.1 k/uL (0-0.2); Basophils % (A) 0 %; Eosinophils # (A) 0.4 k/uL (0-0.7); Eosinophils % (A) 3 %; HCT 21.8 % (34.0-46.0); Hypochromasia Slight; Lymphocytes # (A) 1.4 k/uL (1.0-4.8); Lymphocytes % (A) 11 %; MCH 29.2 pg (25.0-35.0); MCHC 32.6 g/dL (31.0-37.0); MCV 89.5 fL (80.0-100.0); Mean Platelet Volume 6.8; Monocytes # (A) 0.8 k/uL (0-1.0); Monocytes % (A) 6 %; Neutrophils # (A) 10.3 k/uL (1.3-7.7); Neutrophils % (A) 78 %; Platelet Count 392 k/uL (150-450); RBC 2.43 m/uL (3.80-5.40); RDW 15.8 % (11.5-15.5); WBC 13.2 k/uL (3.8-10.6)
[2018-10-29 17:15] LABS: HGB 7.1 gm/dL (11.4-16.0)
[2018-10-29 17:17] LABS: INR 0.9 (<1.2); Partial Thromboplastin Time 22.7 sec (22.0-30.0); Prothrombin Time 10.1 sec (9.0-12.0)
[2018-10-29 17:19] LABS: ALT 18 U/L (9-52); AST 15 U/L (14-36); Albumin 3.4 g/dL (3.5-5.0); Alkaline Phosphatase 80 U/L (38-126); Anion Gap 9 mmol/L; Blood Urea Nitrogen 12 mg/dL (7-17); Calcium 9.5 mg/dL (8.4-10.2); Carbon Dioxide 26 mmol/L (22-30); Chloride 105 mmol/L (98-107); Glucose 115 mg/dL (74-99); Potassium 4.6 mmol/L (3.5-5.1); Sodium 140 mmol/L (137-145); Total Bilirubin 0.4 mg/dL (0.2-1.3); Total Protein 6.6 g/dL (6.3-8.2)
[2018-10-29 17:41] LABS: Creatine Kinase MB 1.6 ng/mL (0.0-2.4); Troponin I 0.017 ng/mL (0.000-0.034)
[2018-10-29] MEDS ORDERED: PIPERACILLIN-TAZOBACTAM 3.375 GM in SODIUM CHLORIDE 0.9% 100 ML IVPB STA (18:26)
[2018-10-29] MEDS ORDERED: IPRATROPIUM-ALBUTEROL 3 ML NEB INHALATION PRN (18:26)
[2018-10-29] MEDS ORDERED: PNEUMONIA PROTOCOL UTILIZED 1 EACH MISC PO PRN (18:26)
[2018-10-29] MEDS ORDERED: ALPRAZolam 0.5 MG TAB PO STA (18:59)
--- NOTE | 2018-10-29 20:12 | P.HPIM ---
History of Present Illness H&P Date: 10/29/18 Patient is a 67-year-old female with a PMH of stage IIIc lung adeno CA ( diagnosed August 2018, hasn't started treatment yet), type 2 diabetes mellitus , COPD, hyperlipidemia, and GERD who presented to the ED for worsening shortness of breath. The patient was recently admitted to the hospital for worsening shortness of breath and was found to have a right-sided pleural effusion, complicated with empyema, requiring chest tube drainage and was transferred to [facility] on 10/07/2018 where she underwent pigtail catheter insertion on the right side and was discharged home on 10/19/2018 with a pleural VAC. She had the catheter removed on 10/24/2018. She subsequently gradually developed worsening shortness of breath with nonproductive cough and lethargy. History was supplemented by at the bedside. Patient denied fever, chills, chest pain, abdominal pain, diarrhea, dysuria, or vomiting. Denied hematochezia or melena or any other bleeding. The patient continues to ambulate with minimal assistance and relayed that her oncologist is planning on putting a chemo port and starting chemotherapy soon. Patient underwent a comprehensive workup in the emergency room. Upon presentation, she was hypoxic down to 77% SpO2 on room air, with WBC count elevated at 13.2, hemoglobin 7.1, troponin 0.017, BNP elevated at 1140, chest x- ray showing right-sided pleural effusion worsened, with consolidation and pulmonary edema, and EKG showing sinus tachycardia at 120 bpm. Review of Systems Pertinent positives and negatives as discussed in HPI, a complete review of systems was performed and all other systems are negative. Past Medical History Past Medical History: Cancer, COPD, Diabetes Mellitus, GERD/Reflux, Hyperlipidemia, Pneumonia Additional Past Medical History / Comment(s): Adenocarcinoma of the lung, stage IIIc, COPD, tdy-[id number] diabetes mellitus, previous history of fall with subsequent left orbital, facial and wrist fracture in addition to a pelvic fracture. She also has hyperlipidemia, acid reflux and COPD History of Any Multi-Drug Resistant Organisms: None Reported Past Surgical History: Appendectomy, Hysterectomy, Orthopedic Surgery Additional Past Surgical History / Comment(s): 08/25/18 bronchoscopy with bx, BAL/brushings, colonoscopies, L wrist fracture with 3 pins and 1 pin has been removed. Past Anesthesia/Blood Transfusion Reactions: No Reported Reaction Additional Past Anesthesia/Blood Transfusion Reaction / Comment(s): no hx blood transfusion Past Psychological History: Anxiety Smoking Status: Former smoker Past Alcohol Use History: Occasional Past Drug Use History: None Reported - Past Family History Mother Family Medical History: Myocardial Infarction (SD) Father Family Medical History: Asthma, Cancer, COPD Additional Family Medical History / Comment(s): Father had lung cancer. Medications and Allergies Home Medications Medication Instructions Recorded Confirmed Type Atorvastatin [Lipitor] 10 mg PO DAILY 08/24/18 10/29/18 History Omeprazole 20 mg PO DAILY 08/24/18 10/29/18 History Tiotropium 18 Mcg/Puff [Spiriva] 1 cap INHALATION RT-DAILY 08/24/18 10/29/18 History metFORMIN HCL [Glucophage] 1,000 mg PO BID 08/24/18 10/29/18 History ALPRAZolam [Xanax] 0.5 mg PO TID 10/29/18 10/29/18 History Albuterol Inhaler [Ventolin Hfa 2 puff INHALATION RT-QID PRN 10/29/18 10/29/18 History Inhaler] Budesonide/Formoterol Fumarate 2 puff INHALATION RT-BID 10/29/18 10/29/18 History [Symbicort 160-4.5 Mcg Inhaler] HYDROcodone/APAP 5-325MG [[place] 1 tab PO Q4H PRN 10/29/18 10/29/18 History 5-325] Sertraline HCl [Zoloft] 25 mg PO DAILY 10/29/18 10/29/18 History Allergies Allergy/AdvReac Type Severity Reaction Status Date / Time No Known Allergies Allergy Verified 10/29/18 17:05 Physical Exam Vitals: Vital Signs Temp Pulse Resp BP Pulse Ox 10/29/18 19:11 98.0 F 110 H 20 151/76 95 10/29/18 18:30 110 H 22 144/73 94 L 10/29/18 18:00 108 H 20 151/73 94 L 10/29/18 17:33 112 H 10/29/18 17:30 116 H 22 135/82 95 10/29/18 17:21 114 H 10/29/18 17:10 18 10/29/18 17:01 114 H 20 135/82 95 10/29/18 17:00 96 10/29/18 15:46 98.4 F 119 H 18 133/80 77 L Intake and Output 10/29/18 10/29/18 10/29/18 06:59 14:59 22:59 Other: Weight 57.153 kg General: [non toxic], [no distress], [appears at stated age], [normal weight] Derm: [no unusual rashes/lesions] [no unusual ecchymoses], [warm], [dry] Head: [atraumatic], [normocephalic], [symmetric] Eyes: [EOMI], [no lid lag], [anicteric sclera], [pupils equal round reactive to light] ENT: [Nose and ears atraumatic], [no thrush], [no pharyngeal erythema] Neck: [No thyromegaly], [no cervical lymphadenopathy], [trachea midline], [ supple] Mouth: [no lip lesion], [mucus membranes moist] Cardiovascular: [S1S2 reg], [no murmur], [positive posterior tibial pulse bilateral], [1+ lower extremity edema bilaterally], [capillary refill less than 2 seconds] Lungs: Decreased breath sounds right entire lung field, bibasilar rales and scattered rhonchi, [no accessory muscle use] Abdominal: [soft], [ nontender to palpation], [no guarding], [no appreciable organomegaly], [normal bowel sounds] Ext: [no gross muscle atrophy], [muscle strength 4 out of 5 in all 4 extremities grossly], [no contractures], Neuro: [ CN II-XI grossly intact], [light touch intact all 4 extremities], [ finger to nose within normal limits], Psych: [Alert], [oriented], [appropriate affect] Results CBC & Chem 7: 10/29/18 16:54 10/29/18 16:54 Labs: Abnormal Lab Results - Last 24 Hours (Table) 10/29/18 10/29/18 Range/Units 16:54 16:54 WBC 13.2 H (3.8-10.6) k/uL RBC 2.43 L (3.80-5.40) m/uL Hgb 7.1 L D (11.4-16.0) gm/dL Hct 21.8 L (34.0-46.0) % RDW 15.8 H (11.5-15.5) % Neutrophils # 10.3 H (1.3-7.7) k/uL Glucose 115 H (74-99) mg/dL Albumin 3.4 L (3.5-5.0) g/dL Assessment and Plan Plan: Shortness of breath, in setting of recurrent malignant pleural effusion with sepsis due to pneumonia -IV Zosyn -Patient will require pleural tap, pulmonary consulted (Dr. Dunbar) -Supplemental oxygen -Oncology consult (Dr Fish) -Bronchodilators -Echocardiogram, in setting of elevated BNP and lower extremity edema Anemia, likely of chronic disease -Monitor CBC -Obtain FOBT -We'll transfuse if hemoglobin falls below 7 Diabetes mellitus -Lispro sliding scale -Blood glucose monitoring Hyperlipidemia -Resume home meds DVT//GI prophylaxis -IPCDs -Protonix The patient is admitted with an anticipated greater than 2 midnight stay for evaluation of SOB CODE STATUS:Full Code Discussed with: Patient Anticipated discharge date: 10/31/[address]: Home A total of 60 minutes was spent on the care of this complex patient more than 50 % of the time was spent in counseling and care coordination.
[2018-10-29 20:13] LABS: Glucose,Whole Blood 107 mg/dL (75-99)
[2018-10-29] MEDS: SYMBICORT 160-4.5 MCG INHALER INHALATION SCH (20:28)
[2018-10-29] MEDS: IPRATROPIUM-ALBUTEROL 3 ML NEB INHALATION SCH (20:28)
[2018-10-29 20:41] LABS: Glucose,Whole Blood 138 mg/dL (75-99)
[2018-10-29] MEDS: ALPRAZolam 0.5 MG TAB PO SCH (23:55)
[2018-10-29] MEDS: PIPERACILLIN-TAZOBACTAM 3.375 GM in SODIUM CHLORIDE 0.9% 100 ML IVPB SCH (23:56)
[2018-10-30 06:01] LABS: Glucose,Whole Blood 124 mg/dL (75-99)
[2018-10-30] MEDS: INSULIN ASPART (NovoLOG) 100 UNIT/ML VIAL SQ SCH ×3 (06:01→17:16)
[2018-10-30 06:39] LABS: HCT 29.4 % (34.0-46.0); Hypochromasia Slight; MCH 29.7 pg (25.0-35.0); MCHC 32.6 g/dL (31.0-37.0); Mean Platelet Volume 6.4; Platelet Count 316 k/uL (150-450); RBC 3.23 m/uL (3.80-5.40); RDW 15.8 % (11.5-15.5); WBC 9.5 k/uL (3.8-10.6)
[2018-10-30 06:53] LABS: HGB 9.6 gm/dL (11.4-16.0)
[2018-10-30 07:01] LABS: ALT 24 U/L (9-52); Alkaline Phosphatase 64 U/L (38-126); Anion Gap 8 mmol/L; Blood Urea Nitrogen 13 mg/dL (7-17); Calcium 8.9 mg/dL (8.4-10.2); Carbon Dioxide 28 mmol/L (22-30); Chloride 104 mmol/L (98-107); Sodium 140 mmol/L (137-145)
[2018-10-30 07:02] LABS: AST 13 U/L (14-36); Glucose 118 mg/dL (74-99); Total Bilirubin 0.6 mg/dL (0.2-1.3)
[2018-10-30 07:06] LABS: Potassium 4.6 mmol/L (3.5-5.1)
[2018-10-30] MEDS: IPRATROPIUM-ALBUTEROL 3 ML NEB INHALATION SCH ×4 (07:43→19:22)
[2018-10-30] MEDS: SYMBICORT 160-4.5 MCG INHALER INHALATION SCH ×2 (07:43→19:25)
--- NOTE | 2018-10-30 08:11 | XR ---
EXAMINATION TYPE: XR chest 2V DATE OF EXAM: 10/30/2018 COMPARISON: 10/29/2018 HISTORY: 67 year-old female follow-up pneumonia TECHNIQUE: PA and lateral views FINDINGS: Right heart margin obscured by adjacent pleural parenchymal opacity. Hyperinflation. Relative upper l heydi lucency. Interstitial densities throughout the left lingula with some perihilar patchy opacities. Moderate effusion on the right with extensive underlying opacity. Suggests some of some air loculati ons right midlung, better seen currently. Possible azygos fissure on the right. IMPRESSION: 1. Extensive opacity persists in the right mid and lower lung, possible moderate effusion with underl elisabeth atelectasis and/or consolidation. Some air loculations are suggested involving the right pleural fluid. 2. Background of COPD. There are continued patchy interstitial and left perihilar densities which als o persists. Findings may reflect superimposed [id number] CHF. Clinically correlate.
[2018-10-30] MEDS: SERTRALINE 25 MG TAB PO SCH (08:30)
[2018-10-30] MEDS: ALPRAZolam 0.5 MG TAB PO SCH ×2 (08:30→15:55)
[2018-10-30] MEDS: PIPERACILLIN-TAZOBACTAM 3.375 GM in SODIUM CHLORIDE 0.9% 100 ML IVPB SCH ×2 (08:30→17:21)
[2018-10-30] MEDS: ATORVASTATIN 10 MG TAB PO SCH (08:30)
[2018-10-30] MEDS ORDERED: RX INFO: IV CONTRAST WAS GIVEN 1 EACH MISC MISCELLANE PRN (09:59)
--- NOTE | 2018-10-30 10:48 | P.PN ---
Subjective Progress Note Date: 10/30/18 Principal diagnosis: Dyspnea Patient is a 67-year-old female with a past medical history of stage IIIc lung adenocarcinoma (diagnosed August [address] Fish hasn' t started treatment yet), type 2 diabetes mellitus, COPD, dyslipidemia, and recent empyema presented to the ER with complaints of worsening shortness of breath. The patient has been undergoing treatment recently from 10/07 through 10/19 a right-sided pleural effusion complicated with empyema requiring chest tube drainage was transferred [facility] undergoing decortication with pigtail catheter insertion. Her pigtail catheter was removed on 10/24/18 and she developed worsening shortness of breath. On arrival to the emergency department she underwent an extensive evaluation. Her initial vital signs showed an O2 sat of 77%. Her white blood cell count was elevated at 13.2 and chest x-ray showed right-sided pleural effusion worsened with consolidation and pulmonary edema. EKG showed sinus tachycardia and troponin is negative. She was started on Zosyn and DuoNeb's. She was admitted for further monitoring and care. By the morning of 10/30 her shortness of breath was much improved. Patient seen and examined at bedside with family present. She states her breathing is much improved from yesterday. She denies any chest pain. She denies any nausea or vomiting. She is overall feeling weak and as though she has gotten weaker. Family is very concerned about delaying chemotherapy. She was supposed to have a port placed on , they are not sure which surgeon deformity and our area. They're concerned about all the fact she was not on any antibiotics after leaving [facility]. All questions answered best of my ability. Case discussed with Dr. Gentile plan is for CT chest today. Objective - Vital Signs Vital signs: Vital Signs Temp 97.8 F 10/30/18 08:30 Pulse 109 H 10/30/18 08:30 Resp 20 10/30/18 08:30 BP 132/73 10/30/18 08:30 Pulse Ox 96 10/30/18 08:30 Intake & Output 10/29/18 10/30/18 10/30/18 18:59 06:59 18:59 Intake Total 180 Balance 180 Weight 57.153 kg 59.1 kg Intake: Oral 180 Other: Voiding Method Toilet # Voids 2 - Exam General: ill appearing, no distress, appears older than stated age, + temporal wasting Derm: multiple ecchymosis, warm, dry Head: atraumatic, normocephalic, symmetric Eyes: EOMI, no lid lag, anicteric sclera Mouth: no lip lesion, mucus membranes moist Cardiovascular: S1S2 tachy, no murmur, positive posterior tibial pulse bilateral , Lungs:Decreased bs b/l almost absent right base, No accessory muscle use Abdominal: soft, nontender to palpation, no guarding, no appreciable organomegaly Ext: no gross muscle atrophy, no edema, no contractures Neuro: CN II-XI grossly intact, no focal neuro deficits Psych: Alert, oriented, appropriate affect - Labs CBC & Chem 7: 10/30/18 05:56 10/30/18 05:56 Labs: Abnormal Lab Results - Last 24 Hours (Table) 10/29/18 10/29/18 10/29/18 Range/Units 16:54 16:54 20:12 WBC 13.2 H (3.8-10.6) k/uL RBC 2.43 L (3.80-5.40) m/uL Hgb 7.1 L D (11.4-16.0) gm/dL Hct 21.8 L (34.0-46.0) % RDW 15.8 H (11.5-15.5) % Neutrophils # 10.3 H (1.3-7.7) k/uL Glucose 115 H (74-99) mg/dL POC Glucose (mg/dL) 107 H (75-99) mg/dL AST (14-36) U/L Total Protein (6.3-8.2) g/dL Albumin 3.4 L (3.5-5.0) g/dL 10/29/18 10/30/18 10/30/18 Range/Units 20:40 05:56 05:56 WBC (3.8-10.6) k/uL RBC 3.23 L (3.80-5.40) m/uL Hgb 9.6 L D (11.4-16.0) gm/dL Hct 29.4 L (34.0-46.0) % RDW 15.8 H (11.5-15.5) % Neutrophils # (1.3-7.7) k/uL Glucose 118 H (74-99) mg/dL POC Glucose (mg/dL) 138 H (75-99) mg/dL AST 13 L (14-36) U/L Total Protein 6.0 L (6.3-8.2) g/dL Albumin 3.0 L (3.5-5.0) g/dL 10/30/18 Range/Units 06:00 WBC (3.8-10.6) k/uL RBC (3.80-5.40) m/uL Hgb (11.4-16.0) gm/dL Hct (34.0-46.0) % RDW (11.5-15.5) % Neutrophils # (1.3-7.7) k/uL Glucose (74-99) mg/dL POC Glucose (mg/dL) 124 H (75-99) mg/dL AST (14-36) U/L Total Protein (6.3-8.2) g/dL Albumin (3.5-5.0) g/dL Assessment and Plan Assessment: Right sided pleural effusion with hx of malignant effusion Possible right sided pneumonia with sepsis - continue on zosyn - d/w pulm will proceed with CT scan chest - bronchodilators - check echo - tele - cultures pending [place] carcinoma of the lung stage 3c - heme/onc recs - scheduled for port this week Acute hypoxic respiratory failure - treatment as above - wean O2 as able COPD without exacerbation - symbicort, prn albuterol Anemia, likely of chronic disease - HgB stable from last admission DM 2 - off metformin - SSI - A1C 7.3 last month HLD - lipitor DVT prophylaxis: SCDs, start lovenox if no drainage planned Discussed with: Patient, nursing, , son, [id number] Anticipated discharge: unknown Anticipated discharge place: unknown A total of 35 minutes was spent on the care of this complex patient more than 50 % of the time was spent in counseling and care coordination.
[2018-10-30 11:31] LABS: Glucose,Whole Blood 101 mg/dL (75-99)
--- NOTE | 2018-10-30 13:46 | P.CNPUL ---
History of Present Illness Consult date: 10/30/18 Reason for consult: dyspnea, pleural effusion Chief complaint: shortness of breath History of present illness: this is a 67-year-old female with history of advanced adenocarcinoma of the lungs, familiar to my service from previous admissions, I actually diagnosed the patient on 08/25/2018, and the diagnosis was made by bronchoscopy and transbronchial biopsy of the right lower lobe.patient was not felt to be a surgical candidate, and she was referred to oncology. However the oncologist recommended a second opinion from thoracic surgery at [facility], and they felt that the patient is not surgical , and she had advanced age of adenocarcinoma. Patient was sent back to see the oncologist. In the meantime she went on to develop postobstructive pneumonia and empyema requiring drainage and pigtail catheter placement by interventional radiology. The drainage was suboptimal hence thoracic surgery was consulted, and declined to perform decortication on this patient. Family requested second opinion at the time, and she was sent to [facility]. She was seen by Dr. Michel who performed decortication on the right side, and the patient was eventually discharged with a chest tube and pleural VAC in place. In the meantime she was kept on IV antibiotics for empyema and the right lower lobe pneumonia.she was discharged from [facility] on 10/19/2018, and her chest tube was removed on 10/24/2018. Since then the patient has been developing increased shortness of breath, nonproductive cough, and more lethargy according to the . Patient was brought into the ER, and she was noted to have significant right- sided pleural effusion based on the chest x-ray, and questionable infiltrates in the left perihilar area.extensive opacity was noted in the right midlung and right lower lobe area, it is not clear whether the findings are actually related to her effusion atelectasis or consolidation. Questionable loculation based on the chest x-ray. After reviewing the chest x-ray, I discussed with the was very tired the respiratory therapist the findings, and I showed of the chest x-ray. I recommended CT of the chest before any plans for thoracentesis. If there is actually fluid and it is loculated, she may require a pigtail catheter again. However if the fluid is freely flowing of course a right-sided thoracentesis could be easily performed. CT of the chest was ordered. In the meantime the patient is on empiricantibiotics as per the admitting physician. Patient presently is feeling better, she is on oxygen, saturating much better compared to how she was saturating before admission.she has generalized weakness and fatigue, denies any fever, no chills, no hemoptysis, no chest pain. She feels generally weak. He describes some weight loss over the last few months since her diagnosis of adenocarcinoma of the right lung. Patient denies any nausea vomiting abdominal pain, no melena, no hematemesis, no dysuria and no frequency no urgency. Denies any joints aches and pains. Denies any symptoms of depression. Denies any headache, blurred vision or dizziness. Past Medical History Past Medical History: Cancer, COPD, Diabetes Mellitus, GERD/Reflux, Hyperlipidemia, Pneumonia Additional Past Medical History / Comment(s): Adenocarcinoma of the lung, stage IIIc, COPD, gfu-[id number] diabetes mellitus, previous history of fall with subsequent left orbital, facial and wrist fracture in addition to a pelvic fracture. She also has hyperlipidemia, acid reflux and COPD History of Any Multi-Drug Resistant Organisms: None Reported Past Surgical History: Appendectomy, Hysterectomy, Orthopedic Surgery Additional Past Surgical History / Comment(s): 08/25/18 bronchoscopy with bx, BAL/brushings, colonoscopies, L wrist fracture with 3 pins and 1 pin has been removed. Past Anesthesia/Blood Transfusion Reactions: No Reported Reaction Additional Past Anesthesia/Blood Transfusion Reaction / Comment(s): no hx blood transfusion Past Psychological History: Anxiety Additional Psychological History / Comment(s): and lives with the and the family home. Has multiple caring family members. Performed smoker. 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 No experience. No animals in the home Smoking Status: Former smoker Past Alcohol Use History: Occasional Additional Past Alcohol Use History / Comment(s): Pt started smoking in 1969 and quit in 2003. Past Drug Use History: None Reported - Past Family History Mother Family Medical History: Myocardial Infarction (ME) Father Family Medical History: Asthma, Cancer, COPD Additional Family Medical History / Comment(s): Father had lung cancer. Medications and Allergies Home Medications Medication Instructions Recorded Confirmed Type Atorvastatin [Lipitor] 10 mg PO DAILY 08/24/18 10/29/18 History Omeprazole 20 mg PO DAILY 08/24/18 10/29/18 History Tiotropium 18 Mcg/Puff [Spiriva] 1 cap INHALATION RT-DAILY 08/24/18 10/29/18 History metFORMIN HCL [Glucophage] 1,000 mg PO BID 08/24/18 10/29/18 History ALPRAZolam [Xanax] 0.5 mg PO TID 10/29/18 10/29/18 History Albuterol Inhaler [Ventolin Hfa 2 puff INHALATION RT-QID PRN 10/29/18 10/29/18 History Inhaler] Budesonide/Formoterol Fumarate 2 puff INHALATION RT-BID 10/29/18 10/29/18 History [Symbicort 160-4.5 Mcg Inhaler] HYDROcodone/APAP 5-325MG [[place] 1 tab PO Q4H PRN 10/29/18 10/29/18 History 5-325] Sertraline HCl [Zoloft] 25 mg PO DAILY 10/29/18 10/29/18 History Allergies Allergy/AdvReac Type Severity Reaction Status Date / Time No Known Allergies Allergy Verified 10/29/18 17:05 Physical Exam Vitals: Vital Signs Temp Pulse Pulse Resp BP BP Pulse Ox 10/30/18 11:08 106 H 10/30/18 10:56 104 H 10/30/18 08:30 97.8 F 109 H 20 132/73 96 10/30/18 07:55 110 H 10/30/18 07:44 108 H 10/30/18 05:29 98.1 F 103 H 20 159/74 94 L 10/29/18 23:56 104 H 21 130/67 95 10/29/18 21:07 112 H 10/29/18 20:59 109 H 10/29/18 20:35 19 10/29/18 20:17 98.0 F 109 H 19 159/78 95 10/29/18 19:11 98.0 F 110 H 20 151/76 95 10/29/18 18:30 110 H 22 144/73 94 L 10/29/18 18:00 108 H 20 151/73 94 L 10/29/18 17:33 112 H 10/29/18 17:30 116 H 22 135/82 95 10/29/18 17:21 114 H 10/29/18 17:10 18 10/29/18 17:01 114 H 20 135/82 95 10/29/18 17:00 96 10/29/18 15:46 98.4 F 119 H 18 133/80 77 L Intake and Output 10/29/18 10/30/18 10/30/18 22:59 06:59 14:59 Intake Total 420 Balance 420 Intake: Oral 420 Other: Voiding Method Toilet # Voids 2 Weight 57.153 kg 59.1 kg Results - Laboratory Findings CBC and BMP: 10/30/18 05:56 10/30/18 05:56 PT/INR, D-dimer PT 10.1 sec (9.0-12.0) 10/29/18 16:54 INR 0.9 (<1.2) 10/29/18 16:54 Abnormal lab findings: Abnormal Labs 10/29/18 10/29/18 10/29/18 16:54 16:54 20:12 WBC 13.2 H RBC 2.43 L Hgb 7.1 L D Hct 21.8 L RDW 15.8 H Neutrophils # 10.3 H Glucose 115 H POC Glucose (mg/dL) 107 H AST Total Protein Albumin 3.4 L 10/29/18 10/30/18 10/30/18 20:40 05:56 05:56 WBC RBC 3.23 L Hgb 9.6 L D Hct 29.4 L RDW 15.8 H Neutrophils # Glucose 118 H POC Glucose (mg/dL) 138 H AST 13 L Total Protein 6.0 L Albumin 3.0 L 10/30/18 10/30/18 06:00 11:17 WBC RBC Hgb Hct RDW Neutrophils # Glucose POC Glucose (mg/dL) 124 H 101 H AST Total Protein Albumin
--- NOTE | 2018-10-30 13:55 | P.PN ---
Progress Note - Text Progress Note Date: 10/30/18 This is the continuation of my consultation on this patient : Physical examination: Revealed a 67-year-old female in no distress. Presently on 4 L nasal cannula, O2 saturation is 96%. Head: Atraumatic, normocephalic. HEENT: PERRLA, EOMI, neck is supple, no neck masses, no JVD, no stridor. Dry mucous membranes noted. Throat is clear. Chest: Diminished breath sounds and dullness at the right base, left side is relatively clear, recent surgical incisions from recent surgery seems to be intact. Clean and dry. Cardiac: Normal S1 and S2, no S3 gallop. No murmur. Abdomen: Soft nontender no megaly no rebound no guarding. Extremities: No clubbing, no edema, no cyanosis. Skin: No rashes. Psychiatric: Normal mood affect and mental status examination. Neurologic: Alert and oriented 3, no gross focal neurologic deficit, patient seems to be generally weak. Impression: 1 right sided pleural effusion, most likely complicated pleural effusion related to recent pneumonia and empyema. Could very well be loculated, however that will be determined on the CT of the chest and possibly ultrasound of the chest. 2 recent history of empyema requiring pigtail catheter placement for quite some time, IV antibiotics for over a month, and decortication done recently at [facility]. 3 advanced adenocarcinoma of the lungs, patient had recent decortication as and pleural biopsy, and the biopsies were negative. But clearly based on her previous workup, patient had abnormal PET scan suggestive of distant metastasis. Please refer to the report of the PET scan done in the last few weeks. 4 acute hypoxic respiratory failure, multifactorial mostly secondary to right- sided pleural effusion and underlying COPD. And Possible left perihilar infiltrate as noted on the chest x-ray. This would be hospital-acquired from most recent hospitalization at [facility], if truly proven to be pneumonic in nature 5 possible left perihilar infiltrate as noted on the chest x-ray, this will be further assessed on the CT of the chest which I have ordered. In the meantime the patient is on antibiotics. 6 multiple comorbidities including chronic anemia, type 2 diabetes, hypercholesterolemia. Recommendation: Continue present treatment plan including antibiotics, bronchodilators, oxygen, I sat down and discussed her condition with the and with her, and reviewed the chest x-ray findings with both of them. Explained to the that it would be best to order a CT of the chest and make decision regarding the pleural effusion accordingly. Prognosis is definitely guarded, we'll continue to follow.
--- NOTE | 2018-10-30 15:08 | CT ---
EXAMINATION TYPE: CT chest w con DATE OF EXAM: 10/30/2018 COMPARISON: 10/02/2018 HISTORY: Lung mass, empyema. CT DLP: 227.5 mGycm Automated exposure control for dose reduction was used. CONTRAST: CT scan of the chest is performed with IV Contrast, patient injected with 100 mL of Isovue 300. FINDINGS: There is right pleural effusion and multiple air bubbles in the right pleural space. There is pleural thickening at the right posterior lung base and along the right lateral chest wall. There is extensi ve airspace pneumonic consolidation in the right lower lobe. There is bilateral patchy upper lobe air space and interstitial infiltrates. Thoracic aorta is atheromatous. There are some mediastinal lymph nodes that measure up to 12 mm. There is no evidence of thoracic aortic aneurysm. There is significan t decreased blood flow in the right lower lobe pulmonary arteries which are small. There is a 2 cm cyst in the anterior right lobe of the liver. The bony thorax is intact. IMPRESSION: There is right-sided hydropneumothorax with air bubbles in the pleural space and pleural thickening. This is consistent with chronic empyema. Extensive airspace consolidation right lower lobe. There is been removal of the right chest tube compared to old exam. Pleural fluid on the right side overall is the same or slightly decreased compared to old exam. Pulmonary consolidation in the right lower lobe unchanged. Right lower lobe tumor mass is not excluded.. Right upper lobe patchy infiltrate unchanged. There is new patchy left upper lobe pneumonia compared to old exam.
[2018-10-30 16:24] LABS: Glucose,Whole Blood 173 mg/dL (75-99)
[2018-10-30 20:55] LABS: Glucose,Whole Blood 189 mg/dL (75-99)
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
[2018-10-31] MEDS: ALPRAZolam 0.5 MG TAB PO SCH ×4 (00:06→21:04)
[2018-10-31] MEDS: PIPERACILLIN-TAZOBACTAM 3.375 GM in SODIUM CHLORIDE 0.9% 100 ML IVPB SCH ×4 (00:06→23:26)
[2018-10-31 05:55] LABS: Glucose,Whole Blood 138 mg/dL (75-99)
[2018-10-31] MEDS: IPRATROPIUM-ALBUTEROL 3 ML NEB INHALATION SCH ×4 (07:49→20:39)
[2018-10-31] MEDS: SYMBICORT 160-4.5 MCG INHALER INHALATION SCH ×2 (07:49→20:39)
[2018-10-31 08:07] LABS: HCT 31.5 % (34.0-46.0); HGB 9.9 gm/dL (11.4-16.0); Hypochromasia Marked; MCH 29.4 pg (25.0-35.0); MCHC 31.4 g/dL (31.0-37.0); MCV 93.4 fL (80.0-100.0); Mean Platelet Volume 6.4; Platelet Count 278 k/uL (150-450); RBC 3.37 m/uL (3.80-5.40); RDW 15.7 % (11.5-15.5); WBC 8.9 k/uL (3.8-10.6)
[2018-10-31 08:20] LABS: Anion Gap 8 mmol/L; Blood Urea Nitrogen 8 mg/dL (7-17); Calcium 9.6 mg/dL (8.4-10.2); Carbon Dioxide 29 mmol/L (22-30); Chloride 103 mmol/L (98-107); Glucose 142 mg/dL (74-99); Potassium 4.6 mmol/L (3.5-5.1); Sodium 140 mmol/L (137-145)
[2018-10-31] MEDS: INSULIN ASPART (NovoLOG) 100 UNIT/ML VIAL SQ SCH ×3 (08:30→17:41)
[2018-10-31] MEDS: ATORVASTATIN 10 MG TAB PO SCH (09:15)
[2018-10-31] MEDS: SERTRALINE 25 MG TAB PO SCH (09:15)
--- NOTE | 2018-10-31 11:04 | ECHOF ---
Referral Reason:Fluid overload MEASUREMENTS -------- HEIGHT: 160.0 cm WEIGHT: 57.6 kg BP: 137/86 RVIDd: 1.9 cm (< 3.3) IVSd: 1.0 cm (0.6 - 1.1) LVIDd: 3.1 cm (3.9 - 5.3) LVPWd: 1.3 cm (0.6 - 1.1) IVSs: 1.4 cm LVIDs: 1.3 cm LVPWs: 1.5 cm LAESV Index (A-L): 14.14 ml/m Ao Diam: 2.8 cm (2.0 - 3.7) AV Cusp: 1.7 cm (1.5 - 2.6) LA Diam: 1.7 cm (2.7 - 3.8) MV EXCURSION: 14.100 mm (> 18.000) MV EF SLOPE: 43 mm/s (70 - 150) EPSS: 0.3 cm MV E Ion: 0.91 m/s MV DecT: 134 ms MV A Ion: 1.41 m/s MV E/A Ratio: 0.65 RAP: 5.00 mmHg RVSP: 12.32 mmHg FINDINGS -------- Resting tachycardia (HR>100bpm). This was a technically good study. The left ventricular size is normal. There is mild concentric left ventricular hypertrophy. Overa ll left ventricular systolic function is normal with, an EF between 55 - 60 %. The right ventricle is normal in size and function. The left atrium is normal in size. The right atrium is normal in size. The aortic valve is trileaflet, and appears structurally normal. No aortic stenosis or regurgitation. There is trace mitral regurgitation. Trace tricuspid regurgitation present. The right ventricular systolic pressure, as measured by Dopp ler, is 12.32mmHg. Pulmonic valve appears structurally normal. The aortic root size is normal. Normal inferior vena cava with normal inspiratory collapse consistent with estimated right atrial pre ssure of 5 mmHg. There is a trivial pericardial effusion present. CONCLUSIONS -------- 1. Resting tachycardia (HR>100bpm). 2. This was a technically good study. 3. The left ventricular size is normal. 4. There is mild concentric left ventricular hypertrophy. 5. Overall left ventricular systolic function is normal with, an EF between 55 - 60 %. 6. The right ventricle is normal in size and function. 7. The left atrium is normal in size. 8. The right atrium is normal in size. 9. The aortic valve is trileaflet, and appears structurally normal. No aortic stenosis or regurgitati on. 10. There is trace mitral regurgitation. 11. Trace tricuspid regurgitation present. 12. The right ventricular systolic pressure, as measured by Doppler, is 12.32mmHg. 13. Pulmonic valve appears structurally normal. 14. The aortic root size is normal. 15. Normal inferior vena cava with normal inspiratory collapse consistent with estimated right atrial pressure of 5 mmHg. 16. There is a trivial pericardial effusion present. IMMIGRATION ATTORNEY: Taylor Abrams RDCS
[2018-10-31 11:38] LABS: Glucose,Whole Blood 164 mg/dL (75-99)
[2018-10-31] MEDS: HYDROcodone/APAP 5-325MG 1 EACH TAB PO PRN (13:19)
[2018-10-31 13:24] VITALS: BMI 22.6
--- NOTE | 2018-10-31 14:36 | P.PN ---
Subjective Progress Note Date: 10/31/18 Principal diagnosis: right-sided pleural effusion, most likely complicated pleural effusion related to recent pneumonia and empyema this is a 67-year-old female with history of advanced adenocarcinoma of the lungs, familiar to my service from previous admissions, I actually diagnosed the patient on 08/25/2018, and the diagnosis was made by bronchoscopy and transbronchial biopsy of the right lower lobe.patient was not felt to be a surgical candidate, and she was referred to oncology. However the oncologist recommended a second opinion from thoracic surgery at [facility], and they felt that the patient is not surgical , and she had advanced age of adenocarcinoma. Patient was sent back to see the oncologist. In the meantime she went on to develop postobstructive pneumonia and empyema requiring drainage and pigtail catheter placement by interventional radiology. The drainage was suboptimal hence thoracic surgery was consulted, and declined to perform decortication on this patient. Family requested second opinion at the time, and she was sent to [facility]. She was seen by Dr. Michel who performed decortication on the right side, and the patient was eventually discharged with a chest tube and pleural VAC in place. In the meantime she was kept on IV antibiotics for empyema and the right lower lobe pneumonia.she was discharged from [facility] on 10/19/2018, and her chest tube was removed on 10/24/2018. Since then the patient has been developing increased shortness of breath, nonproductive cough, and more lethargy according to the . Patient was brought into the ER, and she was noted to have significant right- sided pleural effusion based on the chest x-ray, and questionable infiltrates in the left perihilar area.extensive opacity was noted in the right midlung and right lower lobe area, it is not clear whether the findings are actually related to her effusion atelectasis or consolidation. Questionable loculation based on the chest x-ray. After reviewing the chest x-ray, I discussed with the was very tired the respiratory therapist the findings, and I showed of the chest x-ray. I recommended CT of the chest before any plans for thoracentesis. If there is actually fluid and it is loculated, she may require a pigtail catheter again. However if the fluid is freely flowing of course a right-sided thoracentesis could be easily performed. CT of the chest was ordered. In the meantime the patient is on empiricantibiotics as per the admitting physician. Patient presently is feeling better, she is on oxygen, saturating much better compared to how she was saturating before admission.she has generalized weakness and fatigue, denies any fever, no chills, no hemoptysis, no chest pain. She feels generally weak. He describes some weight loss over the last few months since her diagnosis of adenocarcinoma of the right lung. Patient denies any nausea vomiting abdominal pain, no melena, no hematemesis, no dysuria and no frequency no urgency. Denies any joints aches and pains. Denies any symptoms of depression. Denies any headache, blurred vision or dizziness. On 10/31/2018 patient seen in follow-up on selective care unit, currently untreated as per nasal cannula her pulse ox is 96%, afebrile, CT chest was reviewed, and showed right-sided hydropneumothorax with air bubbles in the pleural space and pleural thickening consistent with chronic empyema. There was extensive airspace consolidation in the right lower lobe. There is trivial removal of the right chest tube. The amount of fluid on the right side appears to be stable or slightly decreased compared to previous CT chest. Consolidation in the right lower lobe is unchanged.denies any worsening shortness of breath, lung sounds are diminished. antibiotic coverage includes Zosyn, patient is on nebulized bronchodilators. Objective - Vital Signs Vital signs: Vital Signs Temp 98.2 F 10/31/18 12:00 Pulse 104 H 10/31/18 12:02 Resp 20 10/31/18 12:00 BP 134/70 10/31/18 12:00 Pulse Ox 96 10/31/18 12:00 Intake & Output 10/30/18 10/31/18 10/31/18 18:59 06:59 18:59 Intake Total 760 120 200 Output Total 200 300 Balance 760 -80 -100 Weight 57.9 kg 57.9 kg Intake: Intake, IV Titration 100 Amount Piperacillin-Tazobactam 3 100 .375 gm In Sodium Chloride 0.9% 100 ml @ 25 mls/hr IVPB Q8HR [facility] Rx# :[id number] Oral 660 120 200 Output: Urine 200 300 Other: Voiding Method Toilet # Voids 1 1 - Exam GENERAL EXAM: Alert, active, comfortable in no apparent distress.on 3 L per nasal cannula. Appears weak and tired HEAD: Normocephalic/atraumatic. EYES: Normal reaction of pupils, equal size. Conjunctiva pink, sclera white. NOSE: Clear with pink turbinates. THROAT: No erythema or exudates. NECK: No masses, no JVD, no thyroid enlargement, no adenopathy. CHEST: No chest wall deformity. Symmetrical expansion. LUNGS: Equal air entry with CVS: Regular rate and rhythm, normal S1 and S2, no gallops, no murmurs, no rubs ABDOMEN: Soft, nontender. No hepatosplenomegaly, normal bowel sounds, no guarding or rigidity. EXTREMITIES: No clubbing, no edema, no cyanosis, 2+ pulses and upper and lower extremities. MUSCULOSKELETAL: Muscle strength and tone normal. SPINE: No scoliosis or deformity SKIN: No rashes CENTRAL NERVOUS SYSTEM: Alert and oriented -3. No focal deficits, tone is normal in all 4 extremities. PSYCHIATRIC: Alert and oriented -3. Appropriate affect. Intact judgment and insight. - Labs CBC & Chem 7: 10/31/18 07:32 10/31/18 07:32 Labs: Abnormal Lab Results - Last 24 Hours (Table) 10/30/18 10/30/18 10/31/18 Range/Units 16:19 20:48 05:50 RBC (3.80-5.40) m/uL Hgb (11.4-16.0) gm/dL Hct (34.0-46.0) % RDW (11.5-15.5) % Glucose (74-99) mg/dL POC Glucose (mg/dL) 173 H 189 H 138 H (75-99) mg/dL 10/31/18 10/31/18 10/31/18 Range/Units 07:32 07:32 11:22 RBC 3.37 L (3.80-5.40) m/uL Hgb 9.9 L (11.4-16.0) gm/dL Hct 31.5 L (34.0-46.0) % RDW 15.7 H (11.5-15.5) % Glucose 142 H (74-99) mg/dL POC Glucose (mg/dL) 164 H (75-99) mg/dL Microbiology - Last 24 Hours (Table) 10/29/18 16:54 Blood Culture - Preliminary Blood No Growth after 24 hours Assessment and Plan Plan: Assessment: 1 right sided pleural effusion, most likely complicated pleural effusion related to recent pneumonia and empyema. CT chest showed a right-sided hydropneumothorax with the Aromasin the pleural space and pleural thickening consistent with chronic empyema, sensitive airspace consolidation in the right lower lobe. Pleural fluid on the right side is about the same or slightly decreased compared to the old CT on 10/02/2018 2 recent history of empyema requiring pigtail catheter placement for quite some time, IV antibiotics for over a month, and decortication done recently at [facility]. 3 advanced adenocarcinoma of the lungs, patient had recent decortication as and pleural biopsy, and the biopsies were negative. But clearly based on her previous workup, patient had abnormal PET scan suggestive of distant metastasis. Please refer to the report of the PET scan done in the last few weeks. 4 acute hypoxic respiratory failure, multifactorial mostly secondary to right- sided pleural effusion and underlying COPD. And Possible left perihilar infiltrate as noted on the chest x-ray. This would be hospital-acquired from most recent hospitalization at [facility], if truly proven to be pneumonic in nature 5 possible left perihilar infiltrate as noted on the chest x-ray, this will be further assessed on the CT of the chest which I have ordered. In the meantime the patient is on antibiotics. 6 multiple comorbidities including chronic anemia, type 2 diabetes, hypercholesterolemia. Plan: Continue current antibiotic coverage, will treat the patient for right-sided pneumonia, CT of the chest has been reviewed with Dr. Evans, and amount of pleural fluid is the same or decreased compared to previous CT, not enough to drain via thoracentesis or chest tube placement. We'll continue with supportive medical treatment, nebulized bronchodilators. I performed a history & physical examination of the patient and discussed their management with my nurse practitioner, Geeta Aburto. I reviewed the nurse practitioner's note and agree with the documented findings and plan of care. Lung sounds are positive for diminished breath sounds. The findings and the impression was discussed with the patient. I attest to the documentation by the nurse practitioner. Time with Patient: Less than 30
--- NOTE | 2018-10-31 16:22 | P.PN ---
Subjective Progress Note Date: 10/31/18 Principal diagnosis: Dyspnea Patient is a 67-year-old female with a past medical history of stage IIIc lung adenocarcinoma (diagnosed August [address] Fish hasn' t started treatment yet), type 2 diabetes mellitus, COPD, dyslipidemia, and recent empyema presented to the ER with complaints of worsening shortness of breath. The patient has been undergoing treatment recently from 10/07 through 10/19 a right-sided pleural effusion complicated with empyema requiring chest tube drainage was transferred [facility] undergoing decortication with pigtail catheter insertion. Her pigtail catheter was removed on 10/24/18 and she developed worsening shortness of breath. On arrival to the emergency department she underwent an extensive evaluation. Her initial vital signs showed an O2 sat of 77%. Her white blood cell count was elevated at 13.2 and chest x-ray showed right-sided pleural effusion worsened with consolidation and pulmonary edema. EKG showed sinus tachycardia and troponin is negative. She was started on Zosyn and DuoNeb's. She was admitted for further monitoring and care. By the morning of 10/30 her shortness of breath was much improved. Computed tomography scan of the chest revealed a pneumonia at the right base as well as some in the left with anticipated postsurgical changes. Patient seen and examined at bedside with family present.. Breathing is doing well, feeling better than on admission, would not want to go back to [facility], if absolutely necessary. No chest pain. No nausea. Anxious to talk about when she can start chemo with Dr. Fish's group. Objective - Vital Signs Vital signs: Vital Signs Temp 98.3 F 10/31/18 15:59 Pulse 110 H 10/31/18 16:09 Resp 16 10/31/18 15:59 BP 136/70 10/31/18 15:59 Pulse Ox 94 L 10/31/18 15:59 Intake & Output 10/30/18 10/31/18 10/31/18 18:59 06:59 18:59 Intake Total 760 120 200 Output Total 200 300 Balance 760 -80 -100 Weight 57.9 kg 57.9 kg Intake: Intake, IV Titration 100 Amount Piperacillin-Tazobactam 3 100 .375 gm In Sodium Chloride 0.9% 100 ml @ 25 mls/hr IVPB Q8HR ON LICENSE OF [facility] Rx# :[id number] Oral 660 120 200 Output: Urine 200 300 Other: Voiding Method Toilet # Voids 1 1 - Exam General: ill appearing, no distress, appears older than stated age, + temporal wasting Derm: multiple ecchymosis, warm, dry Head: atraumatic, normocephalic, symmetric Eyes: EOMI, no lid lag, anicteric sclera Mouth: no lip lesion, mucus membranes moist Cardiovascular: S1S2 tachy, no murmur, positive posterior tibial pulse bilateral , Lungs: Absent breath sounds right base, rhonchi left, No accessory muscle use Abdominal: soft, nontender to palpation, no guarding, no appreciable organomegaly Ext: no gross muscle atrophy, no edema, no contractures Neuro: CN II-XI grossly intact, no focal neuro deficits Psych: Alert, oriented, appropriate affect - Labs CBC & Chem 7: 10/31/18 07:32 10/31/18 07:32 Labs: Abnormal Lab Results - Last 24 Hours (Table) 10/30/18 10/30/18 10/31/18 Range/Units 16:19 20:48 05:50 RBC (3.80-5.40) m/uL Hgb (11.4-16.0) gm/dL Hct (34.0-46.0) % RDW (11.5-15.5) % Glucose (74-99) mg/dL POC Glucose (mg/dL) 173 H 189 H 138 H (75-99) mg/dL 10/31/18 10/31/18 10/31/18 Range/Units 07:32 07:32 11:22 RBC 3.37 L (3.80-5.40) m/uL Hgb 9.9 L (11.4-16.0) gm/dL Hct 31.5 L (34.0-46.0) % RDW 15.7 H (11.5-15.5) % Glucose 142 H (74-99) mg/dL POC Glucose (mg/dL) 164 H (75-99) mg/dL Microbiology - Last 24 Hours (Table) 10/29/18 16:54 Blood Culture - Preliminary Blood No Growth after 24 hours Assessment and Plan Assessment: Right sided pleural effusion with hx of malignant effusion s/p vats with decortication Pneumonia with sepsis - continue on zosyn - Pulmonary recommendations - bronchodilators - echo with preserved EF - tele - Blood cultures negative to date Debility - treatment of infection - pt/ot - fall precautions Acute hypoxic respiratory failure - treatment as above - wean O2 as able Adenocarcinoma of the lung stage 3c - heme/onc recs appreciated - scheduled for port this week COPD without exacerbation - symbicort, prn albuterol Anemia, likely of chronic disease - HgB stable from last admission DM 2 - off metformin - SSI - A1C 7.3 last month HLD - lipitor TME, improved DVT prophylaxis: SCDs, start lovenox if no drainage planned Discussed with: Patient, nursing, , son, [id number] Anticipated discharge: unknown Anticipated discharge place: unknown A total of 35 minutes was spent on the care of this complex patient more than 50 % of the time was spent in counseling and care coordination.
[2018-10-31] MEDS: ENOXAPARIN 40 MG/0.4 ML SYRINGE SQ SCH (16:39)
[2018-10-31 17:31] LABS: Glucose,Whole Blood 202 mg/dL (75-99)
--- NOTE | 2018-10-31 19:13 | P.PN ---
Subjective Progress Note Date: 10/31/18 Principal diagnosis: fever, dyspnea In f/u pt states respiratory status a little better, fever pattern is improved, family notes mental status is back to baseline. Objective - Vital Signs Vital signs: Vital Signs Temp 98.3 F 10/31/18 15:59 Pulse 110 H 10/31/18 16:21 Resp 16 10/31/18 16:00 BP 136/70 10/31/18 15:59 Pulse Ox 94 L 10/31/18 15:59 Intake & Output 10/31/18 10/31/18 11/01/18 06:59 18:59 06:59 Intake Total 120 400 Output Total 200 300 Balance -80 100 Weight 57.9 kg 57.9 kg Intake: IV 200 Piperacillin-Tazobactam 3 200 .375 gm In Sodium Chloride 0.9% 100 ml @ 25 mls/hr IVPB Q8HR [facility] Rx# :[id number] Oral 120 200 Output: Urine 200 300 Other: Voiding Method Toilet # Voids 1 3 - Constitutional General appearance: Present: average body habitus, cooperative, no acute distress - EENT Eyes: Present: anicteric sclerae, EOMI ENT: Present: hearing grossly normal - Respiratory Respiratory: right: diminished (near absent in RLL and RML), left: CTA, bilateral: rhonchi (few scattered ) - Cardiovascular Heart sounds: normal: S1, S2 Abnormal Heart Sounds: Absent: systolic murmur, diastolic murmur, rub, S3 Gallop , S4 Gallop, click, other - Peripheral edema leg Peripheral Edema: bilateral: None - Gastrointestinal General gastrointestinal: Present: normal bowel sounds, soft - Musculoskeletal Musculoskeletal: Present: generalized weakness, strength equal bilaterally - Psychiatric Psychiatric: Present: A&O x's 3, appropriate affect, intact judgment & insight - Labs CBC & Chem 7: 10/31/18 07:32 10/31/18 07:32 Labs: Abnormal Lab Results - Last 24 Hours (Table) 10/30/18 10/31/18 10/31/18 Range/Units 20:48 05:50 07:32 RBC 3.37 L (3.80-5.40) m/uL Hgb 9.9 L (11.4-16.0) gm/dL Hct 31.5 L (34.0-46.0) % RDW 15.7 H (11.5-15.5) % Glucose (74-99) mg/dL POC Glucose (mg/dL) 189 H 138 H (75-99) mg/dL 10/31/18 10/31/18 10/31/18 Range/Units 07:32 11:22 17:28 RBC (3.80-5.40) m/uL Hgb (11.4-16.0) gm/dL Hct (34.0-46.0) % RDW (11.5-15.5) % Glucose 142 H (74-99) mg/dL POC Glucose (mg/dL) 164 H 202 H (75-99) mg/dL Microbiology - Last 24 Hours (Table) 10/29/18 16:54 Blood Culture - Preliminary Blood No Growth after 48 hours - Imaging and Cardiology Chest x-ray: report reviewed CT scan - chest: report reviewed ECHO report reviewed Assessment and Plan (1) Adenocarcinoma of lung, stage 3 Narrative/Plan: Recent diagnosis, awaiting initiation of treatment. As soon as pt stable to begin Current Visit: Yes Status: Acute Priority: High Code(s): C34.90 - MALIGNANT NEOPLASM OF UNSP PART OF UNSP BRONCHUS OR LUNG SNOMED Code(s): 867328300 (2) Empyema lung Narrative/Plan: Associated with SANTO and SOB. S/P decortication at [facility], current imaging are not showing a significant change from previous images, maybe small improvement. No acute interventions planned. Pt would benefit from O2 which will be checked prior to discharge. Current Visit: Yes Status: Acute Priority: High Code(s): J86.9 - PYOTHORAX WITHOUT FISTULA SNOMED Code(s): 109132065 (3) Altered mental status Narrative/Plan: Improved today, likely r/t hypoxia. Current Visit: Yes Status: Acute Priority: High Code(s): R41.82 - ALTERED MENTAL STATUS, UNSPECIFIED SNOMED Code(s): 328305948
[2018-10-31 21:25] LABS: Glucose,Whole Blood 191 mg/dL (75-99)
[2018-11-01] MEDS: HYDROcodone/APAP 5-325MG 1 EACH TAB PO PRN (03:41)
[2018-11-01 06:45] LABS: Glucose,Whole Blood 131 mg/dL (75-99)
[2018-11-01] MEDS: INSULIN ASPART (NovoLOG) 100 UNIT/ML VIAL SQ SCH ×3 (06:52→17:00)
[2018-11-01] MEDS: ATORVASTATIN 10 MG TAB PO SCH (08:34)
[2018-11-01] MEDS: SERTRALINE 25 MG TAB PO SCH (08:34)
[2018-11-01] MEDS: ALPRAZolam 0.5 MG TAB PO SCH ×3 (08:34→20:35)
[2018-11-01] MEDS: ENOXAPARIN 40 MG/0.4 ML SYRINGE SQ SCH (08:34)
[2018-11-01] MEDS: PIPERACILLIN-TAZOBACTAM 3.375 GM in SODIUM CHLORIDE 0.9% 100 ML IVPB SCH ×3 (08:42→23:15)
[2018-11-01] MEDS: SYMBICORT 160-4.5 MCG INHALER INHALATION SCH ×2 (08:58→21:52)
[2018-11-01] MEDS: IPRATROPIUM-ALBUTEROL 3 ML NEB INHALATION SCH ×4 (08:58→21:52)
[2018-11-01 11:19] LABS: Glucose,Whole Blood 171 mg/dL (75-99)
--- NOTE | 2018-11-01 13:54 | P.PN ---
Subjective Progress Note Date: 11/01/18 Principal diagnosis: fever, dyspnea In f/u pt states feeling better today. Objective - Vital Signs Vital signs: Vital Signs Temp 98.6 F 11/01/18 11:49 Pulse 105 H 11/01/18 11:49 Resp 17 11/01/18 11:49 BP 132/70 11/01/18 11:49 Pulse Ox 95 11/01/18 11:49 Intake & Output 10/31/18 11/01/18 11/01/18 18:59 06:59 18:59 Intake Total 400 240 340 Output Total 300 Balance 100 240 340 Weight 57.9 kg Intake: IV 200 100 Piperacillin-Tazobactam 3 200 100 .375 gm In Sodium Chloride 0.9% 100 ml @ 25 mls/hr IVPB Q8HR [facility] Rx# :[id number] Oral 200 240 240 Output: Urine 300 Other: Voiding Method Toilet Toilet Toilet # Voids 3 3 1 - Constitutional General appearance: Present: average body habitus, cooperative, no acute distress - EENT Eyes: Present: anicteric sclerae, EOMI - Respiratory Details: RLL near absent, RML and RUL diminished breath sounds but air entry noted, no adventitious breath sounds Left lung diminished but CTA Chest expansion is symmetrical - Cardiovascular Rhythm: regular Heart sounds: normal: S1, S2 Abnormal Heart Sounds: Absent: systolic murmur, diastolic murmur, rub, S3 Gallop , S4 Gallop, click, other - Peripheral edema leg Peripheral Edema: bilateral: None - Gastrointestinal General gastrointestinal: Present: normal bowel sounds, soft - Neurologic Neurologic: Present: CNII-XII intact - Musculoskeletal Musculoskeletal: Present: generalized weakness, strength equal bilaterally - Psychiatric Psychiatric: Present: A&O x's 3, appropriate affect, intact judgment & insight - Labs CBC & Chem 7: 10/31/18 07:32 10/31/18 07:32 Labs: Abnormal Lab Results - Last 24 Hours (Table) 10/31/18 10/31/18 11/01/18 Range/Units 17:28 21:16 06:30 POC Glucose (mg/dL) 202 H 191 H 131 H (75-99) mg/dL 11/01/18 Range/Units 11:17 POC Glucose (mg/dL) 171 H (75-99) mg/dL Microbiology - Last 24 Hours (Table) 10/29/18 16:54 Blood Culture - Preliminary Blood No Growth after 48 hours Assessment and Plan (1) Adenocarcinoma of lung, stage 3 Narrative/Plan: Recent diagnosis. Treatment to begin outpatient. Pt was sched to Dr. Fajardo for port placement. Did consult him so he can determine when best to place port Current Visit: Yes Status: Acute Priority: High Code(s): C34.90 - MALIGNANT NEOPLASM OF UNSP PART OF UNSP BRONCHUS OR LUNG SNOMED Code(s): 590016560 (2) Empyema lung Narrative/Plan: Associated with SANTO and SOB, resp status improved today. S/P decortication at [facility]. Likely pt would benefit from O2 continuous delivery which will be checked prior to discharge. Current Visit: Yes Status: Acute Priority: High Code(s): J86.9 - PYOTHORAX WITHOUT FISTULA SNOMED Code(s): 058213091 (3) Altered mental status Narrative/Plan: Family notes mental status back to baseline, no further imaging at this time Current Visit: Yes Status: Resolved Priority: High Code(s): R41.82 - ALTERED MENTAL STATUS, UNSPECIFIED SNOMED Code(s): 773339620 Plan: F/U scheduled and documented in chart
--- NOTE | 2018-11-01 14:03 | P.PN ---
Subjective Progress Note Date: 11/01/18 Principal diagnosis: Right-sided pleural effusion, most likely, complicated pleural effusion secondary to recent pneumonia and empyema. this is a 67-year-old female with history of advanced adenocarcinoma of the lungs, familiar to my service from previous admissions, I actually diagnosed the patient on 08/25/2018, and the diagnosis was made by bronchoscopy and transbronchial biopsy of the right lower lobe.patient was not felt to be a surgical candidate, and she was referred to oncology. However the oncologist recommended a second opinion from thoracic surgery at [facility], and they felt that the patient is not surgical , and she had advanced age of adenocarcinoma. Patient was sent back to see the oncologist. In the meantime she went on to develop postobstructive pneumonia and empyema requiring drainage and pigtail catheter placement by interventional radiology. The drainage was suboptimal hence thoracic surgery was consulted, and declined to perform decortication on this patient. Family requested second opinion at the time, and she was sent to [facility]. She was seen by Dr. Michel who performed decortication on the right side, and the patient was eventually discharged with a chest tube and pleural VAC in place. In the meantime she was kept on IV antibiotics for empyema and the right lower lobe pneumonia.she was discharged from [facility] on 10/19/2018, and her chest tube was removed on 10/24/2018. Since then the patient has been developing increased shortness of breath, nonproductive cough, and more lethargy according to the . Patient was brought into the ER, and she was noted to have significant right- sided pleural effusion based on the chest x-ray, and questionable infiltrates in the left perihilar area.extensive opacity was noted in the right midlung and right lower lobe area, it is not clear whether the findings are actually related to her effusion atelectasis or consolidation. Questionable loculation based on the chest x-ray. After reviewing the chest x-ray, I discussed with the was very tired the respiratory therapist the findings, and I showed of the chest x-ray. I recommended CT of the chest before any plans for thoracentesis. If there is actually fluid and it is loculated, she may require a pigtail catheter again. However if the fluid is freely flowing of course a right-sided thoracentesis could be easily performed. CT of the chest was ordered. In the meantime the patient is on empiricantibiotics as per the admitting physician. Patient presently is feeling better, she is on oxygen, saturating much better compared to how she was saturating before admission.she has generalized weakness and fatigue, denies any fever, no chills, no hemoptysis, no chest pain. She feels generally weak. He describes some weight loss over the last few months since her diagnosis of adenocarcinoma of the right lung. Patient denies any nausea vomiting abdominal pain, no melena, no hematemesis, no dysuria and no frequency no urgency. Denies any joints aches and pains. Denies any symptoms of depression. Denies any headache, blurred vision or dizziness. On 10/31/2018 patient seen in follow-up on selective care unit, currently untreated as per nasal cannula her pulse ox is 96%, afebrile, CT chest was reviewed, and showed right-sided hydropneumothorax with air bubbles in the pleural space and pleural thickening consistent with chronic empyema. There was extensive airspace consolidation in the right lower lobe. There is trivial removal of the right chest tube. The amount of fluid on the right side appears to be stable or slightly decreased compared to previous CT chest. Consolidation in the right lower lobe is unchanged.denies any worsening shortness of breath, lung sounds are diminished. antibiotic coverage includes Zosyn, patient is on nebulized bronchodilators. Patient is seen today for 11/01/2017 in follow-up on the selective care unit. She is currently sitting up in a chair at the bedside. She is awake and alert in no acute distress. She did desaturate into the mid 80s on room air while ambulating in the room. Currently maintaining good O2 saturations in the mid 90s on 3 L/m per nasal cannula. Slightly tachycardic. Afebrile. Blood pressure stable. Blood culture reveals no growth. She remains on bronchodilators, Symbicort, antibiotics in the form of Zosyn. Objective - Vital Signs Vital signs: Vital Signs Temp 98.6 F 11/01/18 11:49 Pulse 105 H 11/01/18 11:49 Resp 17 11/01/18 11:49 BP 132/70 11/01/18 11:49 Pulse Ox 95 11/01/18 11:49 Intake & Output 10/31/18 11/01/18 11/01/18 18:59 06:59 18:59 Intake Total 400 240 340 Output Total 300 Balance 100 240 340 Weight 57.9 kg Intake: IV 200 100 Piperacillin-Tazobactam 3 200 100 .375 gm In Sodium Chloride 0.9% 100 ml @ 25 mls/hr IVPB Q8HR [facility] Rx# :[id number] Oral 200 240 240 Output: Urine 300 Other: Voiding Method Toilet Toilet Toilet # Voids 3 3 1 - Exam GENERAL EXAM: Alert, no acute distress, fairly comfortable in no apparent distress.on 3 L per nasal cannula. HEAD: Normocephalic/atraumatic. EYES: Normal reaction of pupils, equal size. Conjunctiva pink, sclera white. NOSE: Clear with pink turbinates. THROAT: No erythema or exudates. NECK: No masses, no JVD, no thyroid enlargement, no adenopathy. CHEST: No chest wall deformity. Symmetrical expansion. LUNGS: Equal air entry with crackles in the right posterior base. CVS: Regular rate and rhythm, normal S1 and S2, no gallops, no murmurs, no rubs ABDOMEN: Soft, nontender. No hepatosplenomegaly, normal bowel sounds, no guarding or rigidity. EXTREMITIES: No clubbing, no edema, no cyanosis, 2+ pulses and upper and lower extremities. MUSCULOSKELETAL: Muscle strength and tone normal. SPINE: No scoliosis or deformity SKIN: No rashes CENTRAL NERVOUS SYSTEM: Alert and oriented -3. No focal deficits, tone is normal in all 4 extremities. PSYCHIATRIC: Alert and oriented -3. Appropriate affect. Intact judgment and insight. - Labs CBC & Chem 7: 10/31/18 07:32 10/31/18 07:32 Labs: Abnormal Lab Results - Last 24 Hours (Table) 10/31/18 10/31/18 11/01/18 Range/Units 17:28 21:16 06:30 POC Glucose (mg/dL) 202 H 191 H 131 H (75-99) mg/dL 11/01/18 Range/Units 11:17 POC Glucose (mg/dL) 171 H (75-99) mg/dL Microbiology - Last 24 Hours (Table) 10/29/18 16:54 Blood Culture - Preliminary Blood No Growth after 48 hours Assessment and Plan Assessment: Assessment: 1 right sided pleural effusion, most likely complicated pleural effusion related to recent pneumonia and empyema. CT chest showed a right-sided hydropneumothorax with the Aromasin the pleural space and pleural thickening consistent with chronic empyema, sensitive airspace consolidation in the right lower lobe. Pleural fluid on the right side is about the same or slightly decreased compared to the old CT on 10/02/2018 2 recent history of empyema requiring pigtail catheter placement for quite some time, IV antibiotics for over a month, and decortication done recently at [facility]. 3 advanced adenocarcinoma of the lungs, patient had recent decortication as and pleural biopsy, and the biopsies were negative. But clearly based on her previous workup, patient had abnormal PET scan suggestive of distant metastasis. Please refer to the report of the PET scan done in the last few weeks. 4 acute hypoxic respiratory failure, multifactorial mostly secondary to right- sided pleural effusion and underlying COPD. And Possible left perihilar infiltrate as noted on the chest x-ray. This would be hospital-acquired from most recent hospitalization at [facility], if truly proven to be pneumonic in nature 5 possible left perihilar infiltrate as noted on the chest x-ray, this will be further assessed on the CT of the chest which I have ordered. In the meantime the patient is on antibiotics. 6 multiple comorbidities including chronic anemia, type 2 diabetes, hypercholesterolemia. Plan: The patient was seen and evaluated by Dr. Evans. She currently remains stable from the pulmonary standpoint. No plans for intervention at this time. Continue with current medications. Increase her activity as tolerated. May qualify for home oxygen. We'll continue to follow. I, the cosigning physician, performed a history & physical examination of the patient. Lungs sounds with crackles in the right posterior base. Maintaining good O2 saturations in the 90s on 3 L/m per nasal cannula. I discussed the assessment and plan of care with my nurse practitioner, Andreina Mendoza. I attest to the above note as dictated by her.
[2018-11-01 16:47] LABS: Glucose,Whole Blood 100 mg/dL (75-99)
--- NOTE | 2018-11-01 17:30 | P.PN ---
Subjective Progress Note Date: 11/01/18 (Delayed charting patient seen at 10 AM) Principal diagnosis: Dyspnea Patient is a 67-year-old female with a past medical history of stage IIIc lung adenocarcinoma (diagnosed August [address] Fish hasn' t started treatment yet), type 2 diabetes mellitus, COPD, dyslipidemia, and recent empyema presented to the ER with complaints of worsening shortness of breath. The patient has been undergoing treatment recently from 10/07 through 10/19 a right-sided pleural effusion complicated with empyema requiring chest tube drainage was transferred [facility] undergoing decortication with pigtail catheter insertion. Her pigtail catheter was removed on 10/24/18 and she developed worsening shortness of breath. On arrival to the emergency department she underwent an extensive evaluation. Her initial vital signs showed an O2 sat of 77%. Her white blood cell count was elevated at 13.2 and chest x-ray showed right-sided pleural effusion worsened with consolidation and pulmonary edema. EKG showed sinus tachycardia and troponin is negative. She was started on Zosyn and DuoNeb's. She was admitted for further monitoring and care. By the morning of 10/30 her shortness of breath was much improved. Computed tomography scan of the chest revealed a pneumonia at the right base as well as some in the left with anticipated postsurgical changes. Has been progressing well on IV ABX. Patient seen and examined at bedside with family present. Breathing is better, having someone increased energy levels, no nausea, no vomiting, no diarrhea. Discussed with plans for IV versus oral antibiotics on discharge. Responded well to Zosyn and could potentially be discharged on Augmentin. Objective - Vital Signs Vital signs: Vital Signs Temp 98 F 11/01/18 16:00 Pulse 108 H 11/01/18 16:54 Resp 20 11/01/18 16:00 BP 138/78 11/01/18 16:00 Pulse Ox 95 11/01/18 16:00 Intake & Output 10/31/18 11/01/18 11/01/18 18:59 06:59 18:59 Intake Total 400 240 580 Output Total 300 Balance 100 240 580 Weight 57.9 kg Intake: IV 200 100 Piperacillin-Tazobactam 3 200 100 .375 gm In Sodium Chloride 0.9% 100 ml @ 25 mls/hr IVPB Q8HR [facility] Rx# :[id number] Oral 200 240 480 Output: Urine 300 Other: Voiding Method Toilet Toilet Toilet # Voids 3 3 2 - Exam General: Chronically ill appearing, no distress, appears older than stated age, + temporal wasting Derm: multiple ecchymosis, warm, dry Head: atraumatic, normocephalic, symmetric Eyes: EOMI, no lid lag, anicteric sclera Mouth: no lip lesion, mucus membranes moist Cardiovascular: S1S2 tachy, no murmur, positive posterior tibial pulse bilateral , Lungs: Absent breath sounds right base, rhonchi left, No accessory muscle use Abdominal: soft, nontender to palpation, no guarding, no appreciable organomegaly Ext: no gross muscle atrophy, no edema, no contractures Neuro: CN II-XI grossly intact, no focal neuro deficits Psych: Alert, oriented, appropriate affect, appears fatigued - Labs CBC & Chem 7: 10/31/18 07:32 10/31/18 07:32 Labs: Abnormal Lab Results - Last 24 Hours (Table) 10/31/18 10/31/18 11/01/18 Range/Units 17:28 21:16 06:30 POC Glucose (mg/dL) 202 H 191 H 131 H (75-99) mg/dL 11/01/18 11/01/18 Range/Units 11:17 16:44 POC Glucose (mg/dL) 171 H 100 H (75-99) mg/dL Microbiology - Last 24 Hours (Table) 10/29/18 16:54 Blood Culture - Preliminary Blood No Growth after 48 hours Assessment and Plan Assessment: Right sided pleural effusion with hx of malignant effusion s/p vats with decortication Pneumonia with sepsis - continue on zosyn D # 4 - Pulmonary recommendations - bronchodilators - echo with preserved EF - tele - Blood cultures negative to date Debility - treatment of infection - pt/ot - fall precautions Acute hypoxic respiratory failure - treatment as above - wean O2 as able: Anticipate home on O2 Adenocarcinoma of the lung stage 3c - heme/onc recs appreciated - scheduled for port this week. Will see Dr. Fajardo for port placement COPD without exacerbation - symbicort, prn albuterol Anemia, likely of chronic disease - HgB stable from last admission DM 2 - off metformin - SSI - A1C 7.3 last month HLD - lipitor TME, improved DVT prophylaxis: Lovenox Discussed with: Patient, nursing, Anticipated discharge: in AM Anticipated discharge place: Home A total of 35 minutes was spent on the care of this complex patient more than 50 % of the time was spent in counseling and care coordination.
--- NOTE | 2018-11-01 17:36 | P.GSCN ---
History of Present Illness Consult date: 11/01/18 History of present illness: This is a 67-year-old female who has a complex medical history including adenocarcinoma of the lung stage III. She also recently has had empyema status post decortication and pneumonia. She is being treated with antibiotics at this time. She was scheduled to see me in the office for Mediport placement secondary to need for chemotherapy for lung cancer. Past Medical History Past Medical History: Cancer, COPD, Diabetes Mellitus, GERD/Reflux, Hyperlipidemia, Pneumonia Additional Past Medical History / Comment(s): Adenocarcinoma of the lung, stage IIIc, COPD, [id number] diabetes mellitus, previous history of fall with subsequent left orbital, facial and wrist fracture in addition to a pelvic fracture. She also has hyperlipidemia, acid reflux and COPD History of Any Multi-Drug Resistant Organisms: None Reported Past Surgical History: Appendectomy, Hysterectomy, Orthopedic Surgery Additional Past Surgical History / Comment(s): 08/25/18 bronchoscopy with bx, BAL/brushings, colonoscopies, L wrist fracture with 3 pins and 1 pin has been removed. Past Anesthesia/Blood Transfusion Reactions: No Reported Reaction Additional Past Anesthesia/Blood Transfusion Reaction / Comm: no hx blood transfusion Past Psychological History: Anxiety Additional Psychological History / Comment(s): and lives with the and the family home. Has multiple caring family members. Performed smoker. 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 No experience. No animals in the home Smoking Status: Former smoker Past Alcohol Use History: Occasional Additional Past Alcohol Use History / Comment(s): Pt started smoking in 1969 and quit in 2003. Past Drug Use History: None Reported - Past Family History Mother Family Medical History: Myocardial Infarction (VT) Father Family Medical History: Asthma, Cancer, COPD Additional Family Medical History / Comment(s): Father had lung cancer. Medications and Allergies Home Medications Medication Instructions Recorded Confirmed Type Atorvastatin [Lipitor] 10 mg PO DAILY 08/24/18 10/29/18 History Omeprazole 20 mg PO DAILY 08/24/18 10/29/18 History Tiotropium 18 Mcg/Puff [Spiriva] 1 cap INHALATION RT-DAILY 08/24/18 10/29/18 History metFORMIN HCL [Glucophage] 1,000 mg PO BID 08/24/18 10/29/18 History ALPRAZolam [Xanax] 0.5 mg PO TID 10/29/18 10/29/18 History Albuterol Inhaler [Ventolin Hfa 2 puff INHALATION RT-QID PRN 10/29/18 10/29/18 History Inhaler] Budesonide/Formoterol Fumarate 2 puff INHALATION RT-BID 10/29/18 10/29/18 History [Symbicort 160-4.5 Mcg Inhaler] HYDROcodone/APAP 5-325MG [[place] 1 tab PO Q4H PRN 10/29/18 10/29/18 History 5-325] Sertraline HCl [Zoloft] 25 mg PO DAILY 10/29/18 10/29/18 History Allergies Allergy/AdvReac Type Severity Reaction Status Date / Time No Known Allergies Allergy Verified 10/29/18 17:05 Surgical - Exam Osteopathic Statement: *. No significant issues noted on an osteopathic structural exam other than those noted in the History and Physical/Consult. Vital Signs Temp Pulse Resp BP Pulse Ox 98.4 F 119 H 18 133/80 77 L 10/29/18 15:46 10/29/18 15:46 10/29/18 15:46 10/29/18 15:46 10/29/18 15:46 - General no distress - Eyes PERRL - Neck trachea midline - Respiratory normal expansion, normal respiratory effort - Cardiovascular Rhythm: regular - Abdomen Abdomen: soft, non tender - Neurologic normal coordination, normal sensation - Psychiatric oriented to time, oriented to person, oriented to place Results - Labs 10/31/18 07:32 10/31/18 07:32 Abnormal Lab Results - Last 24 Hours (Table) 10/31/18 11/01/18 11/01/18 Range/Units 21:16 06:30 11:17 POC Glucose (mg/dL) 191 H 131 H 171 H (75-99) mg/dL 11/01/18 Range/Units 16:44 POC Glucose (mg/dL) 100 H (75-99) mg/dL Microbiology - Last 24 Hours (Table) 10/29/18 16:54 Blood Culture - Preliminary Blood No Growth after 48 hours Assessment and Plan Assessment: Stage III lung cancer, empyema status post decortication, pneumonia Plan: Given this patient's acute illness and being on antibiotics I had a discussion with her and her about Mediport placement. We will do a Mediport placement until patient is completed her outpatient antibiotic therapy and her empyema and pneumonia are cleared. I discussed with the patient and her the risks benefits and alternatives to Mediport placement and they understood and agreed and consented. I informed them that they can call my office and set up an appointment as an outpatient once medically cleared and off antibiotics the Mediport can be done as an outpatient. They're agreeable to this.
[2018-11-01 20:40] LABS: Glucose,Whole Blood 253 mg/dL (75-99)
[2018-11-02 06:04] LABS: Glucose,Whole Blood 150 mg/dL (75-99)
[2018-11-02 06:22] LABS: HCT 27.3 % (34.0-46.0); HGB 8.7 gm/dL (11.4-16.0); Hypochromasia Slight; MCH 29.4 pg (25.0-35.0); MCV 91.9 fL (80.0-100.0); Mean Platelet Volume 7.2; Platelet Count 278 k/uL (150-450); RBC 2.97 m/uL (3.80-5.40); RDW 15.9 % (11.5-15.5); WBC 8.2 k/uL (3.8-10.6)
[2018-11-02] MEDS: INSULIN ASPART (NovoLOG) 100 UNIT/ML VIAL SQ SCH ×3 (06:23→17:49)
[2018-11-02 06:55] LABS: Anion Gap 7 mmol/L; Blood Urea Nitrogen 9 mg/dL (7-17); Calcium 9.2 mg/dL (8.4-10.2); Carbon Dioxide 30 mmol/L (22-30); Chloride 102 mmol/L (98-107); Glucose 151 mg/dL (74-99); Potassium 3.7 mmol/L (3.5-5.1); Sodium 139 mmol/L (137-145)
[2018-11-02] MEDS: IPRATROPIUM-ALBUTEROL 3 ML NEB INHALATION SCH ×4 (07:43→19:12)
[2018-11-02] MEDS: SYMBICORT 160-4.5 MCG INHALER INHALATION SCH ×2 (07:44→19:12)
[2018-11-02] MEDS: PIPERACILLIN-TAZOBACTAM 3.375 GM in SODIUM CHLORIDE 0.9% 100 ML IVPB SCH ×3 (08:51→23:20)
[2018-11-02] MEDS: ENOXAPARIN 40 MG/0.4 ML SYRINGE SQ SCH (09:21)
[2018-11-02] MEDS: ALPRAZolam 0.5 MG TAB PO SCH ×2 (09:21→17:50)
[2018-11-02] MEDS: ATORVASTATIN 10 MG TAB PO SCH (09:21)
[2018-11-02] MEDS: SERTRALINE 25 MG TAB PO SCH (09:21)
[2018-11-02 11:34] LABS: Glucose,Whole Blood 141 mg/dL (75-99)
[2018-11-02] MEDS ORDERED: LORazepam 2 MG/ML INJ IV ONE (13:30)
--- NOTE | 2018-11-02 16:53 | P.PN ---
Subjective Progress Note Date: 11/02/18 this is a 67-year-old female with history of advanced adenocarcinoma of the lungs, familiar to my service from previous admissions, I actually diagnosed the patient on 08/25/2018, and the diagnosis was made by bronchoscopy and transbronchial biopsy of the right lower lobe.patient was not felt to be a surgical candidate, and she was referred to oncology. However the oncologist recommended a second opinion from thoracic surgery at [facility], and they felt that the patient is not surgical , and she had advanced age of adenocarcinoma. Patient was sent back to see the oncologist. In the meantime she went on to develop postobstructive pneumonia and empyema requiring drainage and pigtail catheter placement by interventional radiology. The drainage was suboptimal hence thoracic surgery was consulted, and declined to perform decortication on this patient. Family requested second opinion at the time, and she was sent to [facility]. She was seen by Dr. Michel who performed decortication on the right side, and the patient was eventually discharged. On today's evaluation of 11/02/2018 I'm seeing this patient for a follow-up. I' m seeing her on a medical floor and her is at the bedside. She does not have any significant respiratory distress. She is on 3 production by nasal cannula. No fever chills or night sweats. She is post thoracotomy and decortication that was done at [facility]. All of the tubes have been removed for now. The patient came into the hospital again for increased shortness of breath and bilateral pneumonia. A repeat CAT scan was done and there was some residual disease involving the right pleural space. Affect there was extensive airspace consolidation in the right lower lobe. The pleural fluid on the right was decreased in size compared to the previous evaluation. The pulmonary constellation of the right lower lobe was unchanged. There was also a large right lung tumor that was causing mass effect on the bronchus intermedius. Right upper lobe patchy infiltrate was unchanged. A new patchy infiltrate was seen in the left upper lobe. Based on this, the patient was started on IV antibiotics and the patient is currently on IV Zosyn. She is doing better. Her white cell count is at 8.2. She is not a candidate for a port insertion yet as the patient is not clear from infectious disease standpoint. It was noted that the right lower extremity was slightly weaker compared to the left. For that reason an MRI of the brain was also ordered. Objective - Vital Signs Vital signs: Vital Signs Temp 97.9 F 11/02/18 08:55 Pulse 112 H 11/02/18 12:10 Resp 18 11/02/18 12:10 BP 135/63 11/02/18 12:10 Pulse Ox 96 11/02/18 12:10 Intake & Output 11/01/18 11/02/18 11/02/18 18:59 06:59 18:59 Intake Total 820 220 590 Balance 820 220 590 Weight 57.7 kg Intake: IV 100 Piperacillin-Tazobactam 3 100 .375 gm In Sodium Chloride 0.9% 100 ml @ 25 mls/hr IVPB Q8HR [facility] Rx# :[id number] Intake, IV Titration 100 100 Amount Piperacillin-Tazobactam 3 100 100 .375 gm In Sodium Chloride 0.9% 100 ml @ 25 mls/hr IVPB Q8HR [facility] Rx# :[id number] Oral 720 120 490 Other: Voiding Method Toilet Toilet # Voids 1 3 - Exam GENERAL EXAM: Alert, no acute distress, fairly comfortable in no apparent distress.on 3 L per nasal cannula. HEAD: Normocephalic/atraumatic. EYES: Normal reaction of pupils, equal size. Conjunctiva pink, sclera white. NOSE: Clear with pink turbinates. THROAT: No erythema or exudates. NECK: No masses, no JVD, no thyroid enlargement, no adenopathy. CHEST: No chest wall deformity. Symmetrical expansion. LUNGS: Equal air entry with crackles in the right posterior base. CVS: Regular rate and rhythm, normal S1 and S2, no gallops, no murmurs, no rubs ABDOMEN: Soft, nontender. No hepatosplenomegaly, normal bowel sounds, no guarding or rigidity. EXTREMITIES: No clubbing, no edema, no cyanosis, 2+ pulses and upper and lower extremities. MUSCULOSKELETAL: Muscle strength and tone normal. SPINE: No scoliosis or deformity SKIN: No rashes CENTRAL NERVOUS SYSTEM: Alert and oriented -3. No focal deficits, tone is normal in all 4 extremities. PSYCHIATRIC: Alert and oriented -3. Appropriate affect. Intact judgment and insight. - Labs CBC & Chem 7: 11/02/18 05:44 11/02/18 05:44 Labs: Abnormal Lab Results - Last 24 Hours (Table) 11/01/18 11/01/18 11/02/18 Range/Units 16:44 20:39 05:44 RBC 2.97 L (3.80-5.40) m/uL Hgb 8.7 L (11.4-16.0) gm/dL Hct 27.3 L (34.0-46.0) % RDW 15.9 H (11.5-15.5) % Glucose (74-99) mg/dL POC Glucose (mg/dL) 100 H 253 H (75-99) mg/dL 11/02/18 11/02/18 11/02/18 Range/Units 05:44 06:02 11:32 RBC (3.80-5.40) m/uL Hgb (11.4-16.0) gm/dL Hct (34.0-46.0) % RDW (11.5-15.5) % Glucose 151 H (74-99) mg/dL POC Glucose (mg/dL) 150 H 141 H (75-99) mg/dL Microbiology - Last 24 Hours (Table) 10/29/18 16:54 Blood Culture - Preliminary Blood No Growth after 72 hours Assessment and Plan Plan: 1 right sided pleural effusion, most likely complicated pleural effusion related to recent pneumonia and empyema. CT chest showed a right-sided hydropneumothorax the pleural space and pleural thickening consistent with chronic empyema, airspace consolidation in the right lower lobe. Pleural fluid on the right side is about the same or slightly decreased compared to the old CT on 10/02/2018. Note that the patient is status post thoracotomy and decortication. I suspect there is some residual infection with a right pleural space. The patient is currently on IV Zosyn at that there is still consolidation of the right lower lobe in the left upper lobe. The patient is currently on IV antibiotics. 2 right lung empyema requiring pigtail catheter placement for quite some time, IV antibiotics for over a month, and decortication done recently at [facility]. 3 advanced adenocarcinoma of the lungs, patient had recent decortication as and pleural biopsy, and the biopsies were negative. But clearly based on her previous workup, patient had abnormal PET scan suggestive of distant metastasis. Please refer to the report of the PET scan done in the last few weeks. 4 acute hypoxic respiratory failure, multifactorial mostly secondary to right- sided pleural effusion and underlying COPD. And Possible left perihilar infiltrate as noted on the chest x-ray. This would be hospital-acquired from most recent hospitalization at [facility], if truly proven to be pneumonic in nature 5 possible left perihilar infiltrate as noted on the chest x-ray, this will be further assessed on the CT of the chest which I have ordered. In the meantime the patient is on antibiotics. 6 multiple comorbidities including chronic anemia, type 2 diabetes, hypercholesterolemia. Plan Continued IV antibiotics. We'll consult infectious disease regarding the course and the duration of antibiotics at the time of discharge. I think the patient will need a prolonged course of antibiotics post that she has ongoing abnormalities and residual inflammatory changes within the source place in the right lower lobe. She is not a candidate for port insertion yet knowing that she is still ongoing infection in her lungs. The patient will have an MRI of the brain to make sure there is no metastases. She is on DuoNeb nebulized treatments [id number]. No signs of any fluid overload. Continue antibiotic management. Prognosis poor baseline above-mentioned comorbidities. Case was discussed with the and the bedside.
[2018-11-02 17:00] LABS: Glucose,Whole Blood 158 mg/dL (75-99)
[2018-11-02] MEDS ORDERED: ALPRAZolam 0.5 MG TAB PO PRN (18:09)
--- NOTE | 2018-11-02 18:15 | P.PN ---
Subjective Progress Note Date: 11/02/18 (delayed charting patient seen multiple times through out the day. ) Principal diagnosis: Dyspnea Patient is a 67-year-old female with a past medical history of stage IIIc lung adenocarcinoma (diagnosed August [address] Fish hasn' t started treatment yet), type 2 diabetes mellitus, COPD, dyslipidemia, and recent empyema presented to the ER with complaints of worsening shortness of breath. The patient has been undergoing treatment recently from 10/07 through 10/19 a right-sided pleural effusion complicated with empyema requiring chest tube drainage was transferred [facility] undergoing decortication with pigtail catheter insertion. Her pigtail catheter was removed on 10/24/18 and she developed worsening shortness of breath. On arrival to the emergency department she underwent an extensive evaluation. Her initial vital signs showed an O2 sat of 77%. Her white blood cell count was elevated at 13.2 and chest x-ray showed right-sided pleural effusion worsened with consolidation and pulmonary edema. EKG showed sinus tachycardia and troponin is negative. She was started on Zosyn and DuoNeb's. She was admitted for further monitoring and care. By the morning of 10/30 her shortness of breath was much improved. Computed tomography scan of the chest revealed a pneumonia at the right base as well as some in the left with anticipated postsurgical changes and likley chronic emphyema. Has been progressing well on IV ABX. approx 930am: Patient seen and examined at bedside with present. Doing well. Wants to go home. States breathing is much better than when she came in. Still feeling very winded with minimal exertion. Denies any chest pain, nausea, vomiting, or diarrhea. Discussed with her and plan to be seen by infectious disease and his oral antibiotics and likely home today but if IV antibiotics are needed will need PICC line and may be delayed. Approximately 4 PM: Called by nursing that physical therapy is worried about her dragging her right leg when up and ambulating. Nurse had done and neuro assessment did not noted any right-sided weakness. He went to reevaluate patient. She denies any new onset weakness. She states that when she is walking she feels overall weak and like she has to shuffle just due to her severe fatigue. D/W Pt MRI due to right sided weakness and slight mental status changes. Approx 530 pm: Updated patient on need for IV ABX per ID with placement of PICC and auth needed from insurance and will need home health. not present. Objective - Vital Signs Vital signs: Vital Signs Temp 97.9 F 11/02/18 08:55 Pulse 112 H 11/02/18 12:10 Resp 18 11/02/18 12:10 BP 135/63 11/02/18 12:10 Pulse Ox 96 11/02/18 12:10 Intake & Output 11/01/18 11/02/18 11/02/18 18:59 06:59 18:59 Intake Total 820 220 710 Balance 820 220 710 Weight 57.7 kg Intake: IV 100 Piperacillin-Tazobactam 3 100 .375 gm In Sodium Chloride 0.9% 100 ml @ 25 mls/hr IVPB Q8HR [facility] Rx# :[id number] Intake, IV Titration 100 100 Amount Piperacillin-Tazobactam 3 100 100 .375 gm In Sodium Chloride 0.9% 100 ml @ 25 mls/hr IVPB Q8HR [facility] Rx# :[id number] Oral 720 120 610 Other: Voiding Method Toilet Toilet # Voids 1 3 - Exam General: Chronically ill appearing, no distress, appears older than stated age, + temporal wasting Derm: multiple ecchymosis, warm, dry Head: atraumatic, normocephalic, symmetric Eyes: EOMI, no lid lag, anicteric sclera Mouth: no lip lesion, mucus membranes moist Cardiovascular: S1S2 tachy, no murmur, positive posterior tibial pulse bilateral , Lungs: Absent breath sounds right base, rhonchi left, No accessory muscle use Abdominal: soft, nontender to palpation, no guarding, no appreciable organomegaly Ext: no gross muscle atrophy, no edema, no contractures Neuro: CN II-XI grossly intact, no focal neuro deficits Psych: Alert, oriented, flat affect, appears fatigued Neuro: EOMI, light touch intact b/l face, UE, LE. Face symmetric. No tongue deviation. Uvula elevation symmetric. PERRL. Muscle strength 3/5 b/l UE and symmetric. Muscle strength 3-4/5 b/l LE and symmertic. SLight downward drift on eg raise on right but maintained off bed for 1 min, less of a down temple drift on left. no pronator drift. babiniskis down going b/l. - Labs CBC & Chem 7: 11/02/18 05:44 11/02/18 05:44 Labs: Abnormal Lab Results - Last 24 Hours (Table) 11/01/18 11/02/18 11/02/18 Range/Units 20:39 05:44 05:44 RBC 2.97 L (3.80-5.40) m/uL Hgb 8.7 L (11.4-16.0) gm/dL Hct 27.3 L (34.0-46.0) % RDW 15.9 H (11.5-15.5) % Glucose 151 H (74-99) mg/dL POC Glucose (mg/dL) 253 H (75-99) mg/dL 11/02/18 11/02/18 11/02/18 Range/Units 06:02 11:32 16:58 RBC (3.80-5.40) m/uL Hgb (11.4-16.0) gm/dL Hct (34.0-46.0) % RDW (11.5-15.5) % Glucose (74-99) mg/dL POC Glucose (mg/dL) 150 H 141 H 158 H (75-99) mg/dL Microbiology - Last 24 Hours (Table) 10/29/18 16:54 Blood Culture - Preliminary Blood No Growth after 72 hours Assessment and Plan Assessment: Right sided pleural effusion with hx of malignant effusion s/p vats with decortication Pneumonia with sepsis Chronic Empyema, last CX alpha hemolytic strep - continue on zosyn, ID recs: IV abx with rocephin and PICC line - Pulmonary and ID recommendations - bronchodilators - echo with preserved EF - tele - Blood cultures negative to date Altered mentation with weakness - check MRI brain to eval for metastasis Debility - treatment of infection - pt/ot - fall precautions Acute hypoxic respiratory failure - treatment as above - wean O2 as able: Anticipate home on O2 Adenocarcinoma of the lung stage 3c - heme/onc recs appreciated - Per [place] no port until off abx. COPD without exacerbation - symbicort, prn albuterol Anemia, likely of chronic disease - HgB stable from last admission DM 2 - off metformin - SSI - A1C 7.3 last month HLD - lipitor TME, improved DVT prophylaxis: Lovenox Discussed with: Patient, nursing, Anticipated discharge: in AM Anticipated discharge place: Home A total of 70 minutes was spent on the care of this complex patient more than 50 % of the time was spent in counseling and care coordination.
--- NOTE | 2018-11-02 18:36 | MR ---
EXAMINATION TYPE: MR brain wo con DATE OF EXAM: 11/02/2018 COMPARISON: 09/07/2018 HISTORY: Rt leg weakness, lung ca CONTRAST: None TECHNIQUE: Multiplanar, multiecho imaging on a 3.0 Shannan magnet is performed through the brain. Stud y is performed within 24 hours of arrival to the hospital. The craniovertebral junction is normal. The pituitary is normal. Diffusion-weighted imaging is performed. No abnormal hyperintensity is present to suggest an acute i ntracranial infarct or acute ischemic change. There are multiple periventricular white matter changes. Deep white matter changes are also present. Expected to affect is evident on the lateral ventricles. Findings are suggestive for microvascular is chemic change. Ventricles and sulci are prominent for the patient age. Extra-axial spaces are somewhat prominent. Mucosal thickening right maxillary sinus. Remaining paranasal sinuses are clear. Mastoid air cells ar e clear. IMPRESSIONS: 1. Patchy to confluent periventricular white matter changes, most likely on the basis of chronic whit e matter ischemic change. Findings appear similar to 09/07/2018 exam. 2. Some atrophy is present. 3. No acute suspicious changes to suggest metastatic disease 4. Mucosal thickening through the right maxillary sinus.
[2018-11-02 20:02] LABS: Glucose,Whole Blood 167 mg/dL (75-99)
--- NOTE | 2018-11-02 21:09 | P.PN ---
Subjective Progress Note Date: 11/02/18 Principal diagnosis: Weakness, Debility Pneumonia Doing better than when seen on weekend. Planning for discharge, not at bedside this evening during follow-up Objective - Vital Signs Vital signs: Vital Signs Temp 98.2 F 11/02/18 20:57 Pulse 109 H 11/02/18 20:57 Resp 16 11/02/18 20:57 BP 144/84 11/02/18 20:57 Pulse Ox 97 11/02/18 20:57 Intake & Output 11/02/18 11/02/18 11/03/18 06:59 18:59 06:59 Intake Total 220 1410 Balance 220 1410 Weight 57.7 kg Intake: IV 100 Piperacillin-Tazobactam 3 100 .375 gm In Sodium Chloride 0.9% 100 ml @ 25 mls/hr IVPB Q8HR [facility] Rx# :[id number] Intake, IV Titration 100 100 Amount Piperacillin-Tazobactam 3 100 100 .375 gm In Sodium Chloride 0.9% 100 ml @ 25 mls/hr IVPB Q8HR [facility] Rx# :[id number] Oral 120 1210 Other: Voiding Method Toilet # Voids 3 2 - Exam Gen: Awakens, No acute distress Neck: Supple, Trachea is midline Head: NC,NT No Palpable Lymphadenopathy Lungs: With increased effort and diminished right Heart: Tachy Abdomen soft, NDNT Ext: no rash or edema Neuro: Flat affect and weak in all extremities. - Labs CBC & Chem 7: 11/02/18 05:44 11/02/18 05:44 Labs: Abnormal Lab Results - Last 24 Hours (Table) 11/02/18 11/02/18 11/02/18 Range/Units 05:44 05:44 06:02 RBC 2.97 L (3.80-5.40) m/uL Hgb 8.7 L (11.4-16.0) gm/dL Hct 27.3 L (34.0-46.0) % RDW 15.9 H (11.5-15.5) % Glucose 151 H (74-99) mg/dL POC Glucose (mg/dL) 150 H (75-99) mg/dL 11/02/18 11/02/18 11/02/18 Range/Units 11:32 16:58 20:00 RBC (3.80-5.40) m/uL Hgb (11.4-16.0) gm/dL Hct (34.0-46.0) % RDW (11.5-15.5) % Glucose (74-99) mg/dL POC Glucose (mg/dL) 141 H 158 H 167 H (75-99) mg/dL Microbiology - Last 24 Hours (Table) 10/29/18 16:54 Blood Culture - Preliminary Blood No Growth after 96 hours Assessment and Plan Plan: Assessment and Recommendations: 1. Recent Diagnosis Adenocarcinoma of the Lung: BRAF POsitive - Recently had Referral for potential surgical Candidacy, she is not a candidate for surgery - She was seen by Dr. Fish this past week 10/27/18 and was weak, given IV hydration in office and plan was to begin Carbo,almta, keytruda on a dose reduction and move up as tolerated. - She has not yet started chemotherapy. 2. Recurrent effusion: Infectious with underlying empyema on aspirated fluid - Cytology Negative - She received half-way outpatient antibiotics - With no improvements family requested second opinion at [facility] with Dr. Michel, established Cardiothoracic surgeon, and they were transferred to his care. She underwent decortication of the right lung, apparently was improving and continued on antibiotics at home and after removal of chest tube on 10/24/18. Since chest tube removal states she has become weaker, more short of breath and lethargic. - CT scan of chest 10/30/18 - revealed Right Hemipneumothorac with air bubbling , possible RUL pneumonia, and mild decrease in prior effusion. - Pulmonary is following 3. Mental Status Changes - Improving - Similiar to previous admission with infection, MRI Brain 09/07 neg for metastatic disease - It is resonable to reassess for metastatic disease since no treatment has been initiated since diagnosis. - MRI Neg 11/02/18 4. Recent Ecoli UTI: - Urinalysis in progress - Infectious Disease Following 5. Debility and Weakness - PT/OT to consult - Increase acitivity while in bed and sitting in chair Plan: - Await resolution of IV antibiotics as outpatient before mediport placement and chemotherapy initiation - WIll be seen in the office within a week of completion to re-assess and schedule the initiation of first systemic treatment of lung cancer - MRI of the brain completed and failed to show evidence of metastatic disease Physician Attest: I have performed the complete history and physicial, developed the complete impression and plan and agree with above dictation, dictated a scribe.
--- NOTE | 2018-11-02 21:24 | P.CONS ---
History of Present Illness - Reason for Consult Consult date: 11/02/18 - Chief Complaint Shortness of breath and fever - History of Present Illness 67-year-old woman who has a very significant recent history associated with her progressive shortness of breath. She recently has had changes of her status with increasing shortness of breath and underwent evaluations both at [facility] and [facility]. Endoscopy biopsies and PET scan confirmed her stage IIIB lung carcinoma. During her last hospitalization [facility] there is evidence of empyema she underwent interventions including pigtail catheter placement for continuous drainage of the empyema. Despite this as well as ongoing antibiotic therapy she did not have marked rapid improvement and consequently was evaluated by cardiac thoracic surgery at [facility]. Because of her lack of improvement she was taken to the operating room and a VATS procedure was performed which allows significant improvement of her empyema. At the time of her discharge her chest tubes were removed and no further antibiotic therapy was given. Approximately a week later she's feeling poorly with increasing shortness of breath fever generalized malaise and constantly was brought to hospital for further intervention. She fortunately is starting to feel better since coming in receiving intervention such as oxygen therapy. Review of Systems HEENT:Denies headache or acute visual change. Denies sinus or mouth discomforts. Denies neck stiffness or pain. Denies significant oral cavity pain. Denies difficulty on swallowing. Lungs: Shortness of breath with some cough little sputum production or hemoptysis discomfort from her VATS procedure is improved Cardiovascular: Discomfort related to her surgical intervention but no other chest pain. No syncope dyspnea on exertion and worsened although was improved last week. Gastrointestinal:Denies nausea, vomiting, diarrhea, constipation, hematemesis, melena, hematochezia. No no significant change of bowel habit noticed. Musculoskeletal: denies significant myalgias or arthralgias. No new joint swelling. Denies new back pain. Skin: Denies new rash or lesions. No new ulcers or wounds are related.. Neuro: Denies headache or visual change. Denies any new onset weakness or difficulty with ambulation. Denies falls or seizures. Psychiatric: Dealing modestly well with her diagnosis of stage IIIB lung carcinoma Endocrine: Significant fatigue weight loss Past Medical History Past Medical History: Cancer, COPD, Diabetes Mellitus, GERD/Reflux, Hyperlipidemia, Pneumonia Additional Past Medical History / Comment(s): Adenocarcinoma of the lung, stage IIIc, COPD, [id number] diabetes mellitus, previous history of fall with subsequent left orbital, facial and wrist fracture in addition to a pelvic fracture. She also has hyperlipidemia, acid reflux and COPD History of Any Multi-Drug Resistant Organisms: None Reported Past Surgical History: Appendectomy, Hysterectomy, Orthopedic Surgery Additional Past Surgical History / Comment(s): 08/25/18 bronchoscopy with bx, BAL/brushings, colonoscopies, L wrist fracture with 3 pins and 1 pin has been removed. Past Anesthesia/Blood Transfusion Reactions: No Reported Reaction Additional Past Anesthesia/Blood Transfusion Reaction / Comm: no hx blood transfusion Past Psychological History: Anxiety Additional Psychological History / Comment(s): and lives with the and the family home. Has multiple caring family members. Performed smoker. 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 No experience. No animals in the home Smoking Status: Former smoker Past Alcohol Use History: Occasional Additional Past Alcohol Use History / Comment(s): Pt started smoking in 1969 and quit in 2003. Past Drug Use History: None Reported - Past Family History Mother Family Medical History: Myocardial Infarction ([place]) Father Family Medical History: Asthma, Cancer, COPD Additional Family Medical History / Comment(s): Father had lung cancer. Medications and Allergies Home Medications and Allergies Comment(s): Current Medications Hydrocodone Bitart/Acetaminophen ([place] 5-325) 1 each PO Q4H PRN PRN Reason: Shortness Of Breath Last Admin: 11/01/18 03:41 Dose: 1 each Albuterol/Ipratropium (Duoneb 0.5 Mg-3 Mg/3 Ml Soln) 3 ml INHALATION RT-QID [facility] Last Admin: 11/02/18 19:12 Dose: 3 ml Albuterol/Ipratropium (Duoneb 0.5 Mg-3 Mg/3 Ml Soln) 3 ml INHALATION RT-Q4H PRN PRN Reason: shortness of breath Alprazolam (Xanax) 0.5 mg PO TID PRN PRN Reason: Anxiety Atorvastatin Calcium (Lipitor) 10 mg PO DAILY [facility] Last Admin: 11/02/18 09:21 Dose: 10 mg Budesonide/Formoterol Fumarate (Symbicort 160-4.5 Mcg Inhaler) 2 puff INHALATION RT-BID [facility] Last Admin: 11/02/18 19:12 Dose: 2 puff Enoxaparin Sodium (Lovenox) 40 mg SQ DAILY [facility] Last Admin: 11/02/18 09:21 Dose: 40 mg Piperacillin Sod/Tazobactam (Sod 3.375 gm/ Sodium Chloride) 100 mls @ 25 mls/ hr IVPB Q8HR [facility] Stop: 11/09/18 00:01 Last Admin: 11/02/18 17:49 Dose: 25 mls/hr Insulin Aspart (Novolog) 0 unit SQ AC-TID [facility]; Protocol Last Admin: 11/02/18 17:49 Dose: 1 unit Miscellaneous Information (Pneumonia Protocol Utilized) 1 each PO ONCE PRN PRN Reason: Per Protocol Sertraline HCl (Zoloft) 25 mg PO DAILY [facility] Last Admin: 11/02/18 09:21 Dose: 25 mg Sodium Chloride (Saline Flush) 10 ml IV BID [facility] Last Admin: 11/02/18 09:21 Dose: 10 ml Home Medications Medication Instructions Recorded Confirmed Type Atorvastatin [Lipitor] 10 mg PO DAILY 08/24/18 10/29/18 History Omeprazole 20 mg PO DAILY 08/24/18 10/29/18 History Tiotropium 18 Mcg/Puff [Spiriva] 1 cap INHALATION RT-DAILY 08/24/18 10/29/18 History metFORMIN HCL [Glucophage] 1,000 mg PO BID 08/24/18 10/29/18 History ALPRAZolam [Xanax] 0.5 mg PO TID 10/29/18 10/29/18 History Albuterol Inhaler [Ventolin Hfa 2 puff INHALATION RT-QID PRN 10/29/18 10/29/18 History Inhaler] Budesonide/Formoterol Fumarate 2 puff INHALATION RT-BID 10/29/18 10/29/18 History [Symbicort 160-4.5 Mcg Inhaler] HYDROcodone/APAP 5-325MG [[place] 1 tab PO Q4H PRN 10/29/18 10/29/18 History 5-325] Sertraline HCl [Zoloft] 25 mg PO DAILY 10/29/18 10/29/18 History Allergies Allergy/AdvReac Type Severity Reaction Status Date / Time No Known Allergies Allergy Verified 10/29/18 17:05 Physical Exam Vitals: Vital Signs Temp Pulse Pulse Resp BP Pulse Ox 11/02/18 21:00 109 H 11/02/18 20:57 98.2 F 109 H 16 144/84 97 11/02/18 19:26 112 H 11/02/18 19:12 116 H 11/02/18 16:30 98.0 F 103 H 18 148/75 97 11/02/18 12:10 112 H 18 135/63 96 11/02/18 11:23 102 H 11/02/18 11:14 106 H 11/02/18 08:55 97.9 F 98 20 134/74 98 11/02/18 08:02 100 11/02/18 07:46 104 H 99 11/02/18 04:00 98.8 F 100 20 130/84 95 11/01/18 23:40 98.6 F 104 H 20 136/78 97 11/01/18 22:02 108 H 11/01/18 21:53 105 H Intake and Output 11/02/18 11/02/18 11/02/18 06:59 14:59 22:59 Intake Total 220 710 700 Balance 220 710 700 Intake: IV 100 Piperacillin-Tazobactam 3 100 .375 gm In Sodium Chloride 0.9% 100 ml @ 25 mls/hr IVPB Q8HR [facility] Rx# :[id number] Intake, IV Titration 100 100 Amount Piperacillin-Tazobactam 3 100 100 .375 gm In Sodium Chloride 0.9% 100 ml @ 25 mls/hr IVPB Q8HR [facility] Rx# :[id number] Oral 120 610 600 Other: Voiding Method Toilet # Voids 3 2 Weight 57.7 kg 67-year-old female, more comfortable today than yesterday HEENT: Anicteric conjunctiva are pink and moist nasal mucosa grossly intact without significant lesions, there is no thrush. Neck: The neck is supple without significant lymphadenopathy or thyromegaly. Lungs: There is symmetrical air entry. Surgical sites from the right chest wall are healing well. There is no erythema. Are still some bronchial Breath sounds to the right base. Some expiratory wheezes are heard. Heart: Regular rate and rhythm with an audible S1-S2, no S3 no S4. There is no significant murmur click or rub, PMI was nondisplaced. Abdomen: Positive bowel sounds soft and nontender without palpable masses or organomegaly. There was no guarding or rebound. Extremities: The upper extremities have excellent pulses they are symmetric, no significant petechiae or telangiectasia. No splinter hemorrhages were noted. The lower extremities are free from significant edema. The peripheral pulses were 2+ and symmetric. Neuro: Patient is awake and alert and interactive Results CBC & Chem 7: 11/02/18 05:44 11/02/18 05:44 Labs: Abnormal Lab Results - Last 24 Hours (Table) 11/02/18 11/02/18 11/02/18 Range/Units 05:44 05:44 06:02 RBC 2.97 L (3.80-5.40) m/uL Hgb 8.7 L (11.4-16.0) gm/dL Hct 27.3 L (34.0-46.0) % RDW 15.9 H (11.5-15.5) % Glucose 151 H (74-99) mg/dL POC Glucose (mg/dL) 150 H (75-99) mg/dL 11/02/18 11/02/18 11/02/18 Range/Units 11:32 16:58 20:00 RBC (3.80-5.40) m/uL Hgb (11.4-16.0) gm/dL Hct (34.0-46.0) % RDW (11.5-15.5) % Glucose (74-99) mg/dL POC Glucose (mg/dL) 141 H 158 H 167 H (75-99) mg/dL Microbiology - Last 24 Hours (Table) 10/29/18 16:54 Blood Culture - Preliminary Blood No Growth after 96 hours Laboratory Results WBC 8.2 k/uL (3.8-10.6) 11/02/18 05:44 RBC 2.97 m/uL (3.80-5.40) L 11/02/18 05:44 Hgb 8.7 gm/dL (11.4-16.0) L 11/02/18 05:44 Hct 27.3 % (34.0-46.0) L 11/02/18 05:44 MCV 91.9 fL (80.0-100.0) 11/02/18 05:44 MCH 29.4 pg (25.0-35.0) 11/02/18 05:44 MCHC 32.0 g/dL (31.0-37.0) 11/02/18 05:44 RDW 15.9 % (11.5-15.5) H 11/02/18 05:44 Plt Count 278 k/uL (150-450) 11/02/18 05:44 Neutrophils % 78 % 10/29/18 16:54 Lymphocytes % 11 % 10/29/18 16:54 Monocytes % 6 % 10/29/18 16:54 Eosinophils % 3 % 10/29/18 16:54 Basophils % 0 % 10/29/18 16:54 Neutrophils # 10.3 k/uL (1.3-7.7) H 10/29/18 16:54 Lymphocytes # 1.4 k/uL (1.0-4.8) 10/29/18 16:54 Monocytes # 0.8 k/uL (0-1.0) 10/29/18 16:54 Eosinophils # 0.4 k/uL (0-0.7) 10/29/18 16:54 Basophils # 0.1 k/uL (0-0.2) 10/29/18 16:54 Hypochromasia Slight 11/02/18 05:44 PT 10.1 sec (9.0-12.0) 10/29/18 16:54 INR 0.9 (<1.2) 10/29/18 16:54 APTT 22.7 sec (22.0-30.0) 10/29/18 16:54 Sodium 139 mmol/L (137-145) 11/02/18 05:44 Potassium 3.7 mmol/L (3.5-5.1) 11/02/18 05:44 Chloride 102 mmol/L (98-107) 11/02/18 05:44 Carbon Dioxide 30 mmol/L (22-30) 11/02/18 05:44 Anion Gap 7 mmol/L 11/02/18 05:44 BUN 9 mg/dL (7-17) 11/02/18 05:44 Creatinine 0.70 mg/dL (0.52-1.04) 11/02/18 05:44 Est GFR (CKD-EPI)AfAm >90 (>60 ml/min/1.73 sqM) 11/02/18 05:44 Est GFR (CKD-EPI)NonAf 89 (>60 ml/min/1.73 sqM) 11/02/18 05:44 Glucose 151 mg/dL (74-99) H 11/02/18 05:44 POC Glucose (mg/dL) 167 mg/dL (75-99) H 11/02/18 20:00 POC Glu Certified Phlebotomy Technician Sushila Bird 11/02/18 20:00 Plasma Lactic Acid Gagan 1.8 mmol/L (0.7-2.0) 10/29/18 16:54 Calcium 9.2 mg/dL (8.4-10.2) 11/02/18 05:44 Total Bilirubin 0.6 mg/dL (0.2-1.3) 10/30/18 05:56 AST 13 U/L (14-36) L 10/30/18 05:56 ALT 24 U/L (9-52) 10/30/18 05:56 Alkaline Phosphatase 64 U/L (38-126) 10/30/18 05:56 Total Creatine Kinase 31 U/L (30-135) 10/29/18 16:54 CK-MB (CK-2) 1.6 ng/mL (0.0-2.4) 10/29/18 16:54 CK-MB (CK-2) Rel Index 5.2 10/29/18 16:54 Troponin I 0.017 ng/mL (0.000-0.034) 10/29/18 16:54 NT-Pro-B Natriuret Pep 1140 pg/mL 10/29/18 16:54 Total Protein 6.0 g/dL (6.3-8.2) L 10/30/18 05:56 Albumin 3.0 g/dL (3.5-5.0) L 10/30/18 05:56 Stool Occult Blood Negative (Negative) 11/01/18 16:45 Microbiology 10/29/18 16:54 Blood Blood Culture - Preliminary No Growth after 96 hours Assessment and Plan (1) Adenocarcinoma of lung, stage 3 Current Visit: Yes Status: Acute Priority: High Code(s): C34.90 - MALIGNANT NEOPLASM OF UNSP PART OF UNSP BRONCHUS OR LUNG SNOMED Code(s): 059733049 (2) Empyema lung Narrative/Plan: 67-year-old woman who is a history of stage IIIB lung carcinoma presents to hospital with more shortness of breath some difficulties with her mentation. MRI has been requested to further evaluate. The patient was more short of breath at admission and imaging studies are consistent with some ongoing fluid within the right chest. The case is discussed with the buccaro in the hospitalist. There appears to be evidence of ongoing infection at that site and based on prior cultures will continue current antibiotic therapy while cultures are in process. We'll have a PICC line placed and likely will complete a further course of outpatient intravenous antibiotic therapy likely with Rocephin based on the prior streptococcal infection. Continue ongoing supportive care family would like discharged home when feasible. Current Visit: Yes Status: Acute Priority: High Code(s): J86.9 - PYOTHORAX WITHOUT FISTULA SNOMED Code(s): 486325573 (3) Shortness of breath Current Visit: Yes Status: Acute Code(s): R06.02 - SHORTNESS OF BREATH SNOMED Code(s): 872870657
[2018-11-03 06:03] LABS: Glucose,Whole Blood 139 mg/dL (75-99)
[2018-11-03 06:44] LABS: HCT 28.4 % (34.0-46.0); Hypochromasia Slight; MCH 29.2 pg (25.0-35.0); MCHC 31.6 g/dL (31.0-37.0); MCV 92.4 fL (80.0-100.0); Mean Platelet Volume 7.1; Platelet Count 328 k/uL (150-450); RBC 3.08 m/uL (3.80-5.40); RDW 15.7 % (11.5-15.5); WBC 7.8 k/uL (3.8-10.6)
[2018-11-03] MEDS: INSULIN ASPART (NovoLOG) 100 UNIT/ML VIAL SQ SCH (06:52)
[2018-11-03 07:03] LABS: Anion Gap 6 mmol/L; Blood Urea Nitrogen 9 mg/dL (7-17); Calcium 9.1 mg/dL (8.4-10.2); Carbon Dioxide 30 mmol/L (22-30); Chloride 105 mmol/L (98-107); Glucose 134 mg/dL (74-99); Sodium 141 mmol/L (137-145)
[2018-11-03] MEDS: IPRATROPIUM-ALBUTEROL 3 ML NEB INHALATION SCH ×2 (08:33→11:51)
[2018-11-03] MEDS: SYMBICORT 160-4.5 MCG INHALER INHALATION SCH (08:33)
[2018-11-03] MEDS: PIPERACILLIN-TAZOBACTAM 3.375 GM in SODIUM CHLORIDE 0.9% 100 ML IVPB SCH (08:45)
[2018-11-03] MEDS: ATORVASTATIN 10 MG TAB PO SCH (08:52)
[2018-11-03] MEDS: SERTRALINE 25 MG TAB PO SCH (08:53)
[2018-11-03] MEDS: HYDROcodone/APAP 5-325MG 1 EACH TAB PO PRN (08:53)
[2018-11-03 09:17] VITALS: PULSE 104
[2018-11-03] MEDS ORDERED: LIDOCAINE 1% INJ 10MG/ML (20 ML MDV) ONE (09:41)
[2018-11-03] MEDS ORDERED: LIDOCAINE 1% INJ 10MG/ML (20 ML MDV) SQ ONE (10:12)
[2018-11-03] MEDS: ENOXAPARIN 40 MG/0.4 ML SYRINGE SQ SCH (11:28)
[2018-11-03 11:44] LABS: Glucose,Whole Blood 108 mg/dL (75-99)
--- NOTE | 2018-11-03 12:26 | P.DS ---
Providers Date of admission: 10/29/18 18:26 Expected date of discharge: 11/03/18 Attending physician: Dayana Loyola DO Consults: 10/29/18 18:28 Consult Physician Urgent Consulting Provider: Dieog Fish Consult Reason/Comments: Dyspnea, confusion, anemia, lung CA Do you want consulting provider notified?: Yes Consult Physician Urgent Consulting Provider: Syeda Dunbar Consult Reason/Comments: Dyspnea, pleural effusion Do you want consulting provider notified?: Yes 11/01/18 09:43 Consult Physician Routine Consulting Provider: Jesse Fajardo Consult Reason/Comments: port placement for chemotherapy Do you want consulting provider notified?: Yes 11/01/18 17:30 Consult Physician Routine Consulting Provider: Mitch Marte Consult Reason/Comments: chronic emphyema Do you want consulting provider notified?: Yes Primary care physician: Mitch Childress [facility] Course: Patient with stage III lung cancer has been initially admitted to [facility] with empyema and pleural effusions underwent VATS and also chest tube placement improved and was discharged and then the patient continued to be short of breath so he was she was admitted to the hospital again in here was found to have possible pneumonia and started on IV antibiotics scheduled the condition of the patient improved patient did have any episodes of confusion underwent an MRI of the brain no evidence of metastatic disease Patient has been evaluated by infectious disease who agreed that the patient needs to be on IV Rocephin patient wants to go home and the states that he is he's able to take care of her at home so arrangement has been done to have the patient discharged on IV Rocephin During the hospital stay the patient remained stable Constitutional: No acute distress, conversant, pleasant Eyes: Anicteric sclerae, ENMT: no erythema, exudates Neck: Supple, FROM, no masses, or JVD No carotid bruits No thyromegaly Lungs: decreased breath sounds bilaterally Cardiovascular: Heart regular in rate and rhythm, Abdominal: Soft Nontender, Skin: Normal temperature, tone, Extremities: No digital cyanosis s Psychiatric:Alert and oriented to person, place and time Appropriate affect Intact judgement Neuro: generalized weakness Right sided pleural effusion with hx of malignant effusion s/p vats with decortication Pneumonia with sepsis Chronic Empyema, 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 COPD without exacerbation - symbicort, prn albuterol overall stable Anemia, likely of chronic disease - HgB stable from last admission DM 2 - off metformin - SSI - A1C 7.3 last month HLD - lipitor patient to follow-up with infectious disease oncology and primary care physician and also pulmonology Patient Condition at Discharge: Fair Plan - Discharge Summary Discharge Rx Participant: No New Discharge Prescriptions: New cefTRIAXone [Rocephin] 2,000 mg IVPB Q24HR #28 vial No Action metFORMIN HCL [Glucophage] 1,000 mg PO BID Atorvastatin [Lipitor] 10 mg PO DAILY Omeprazole 20 mg PO DAILY Tiotropium 18 Mcg/Puff [Spiriva] 1 cap INHALATION RT-DAILY Sertraline HCl [Zoloft] 25 mg PO DAILY Albuterol Inhaler [Ventolin Hfa Inhaler] 2 puff INHALATION RT-QID PRN PRN Reason: Shortness Of Breath ALPRAZolam [Xanax] 0.5 mg PO TID HYDROcodone/APAP 5-325MG [[place] 5-325] 1 tab PO Q4H PRN PRN Reason: Shortness Of Breath Budesonide/Formoterol Fumarate [Symbicort 160-4.5 Mcg Inhaler] 2 puff INHALATION RT-BID Discharge Medication List Atorvastatin [Lipitor] 10 mg PO DAILY 08/24/18 [History] Omeprazole 20 mg PO DAILY 08/24/18 [History] Tiotropium 18 Mcg/Puff [Spiriva] 1 cap INHALATION RT-DAILY 08/24/18 [History] metFORMIN HCL [Glucophage] 1,000 mg PO BID 08/24/18 [History] ALPRAZolam [Xanax] 0.5 mg PO TID 10/29/18 [History] Albuterol Inhaler [Ventolin Hfa Inhaler] 2 puff INHALATION RT-QID PRN 10/29/18 [ History] Budesonide/Formoterol Fumarate [Symbicort 160-4.5 Mcg Inhaler] 2 puff INHALATION RT-BID 10/29/18 [History] HYDROcodone/APAP 5-325MG [[place] 5-325] 1 tab PO Q4H PRN 10/29/18 [History] Sertraline HCl [Zoloft] 25 mg PO DAILY 10/29/18 [History] cefTRIAXone [Rocephin] 2,000 mg IVPB Q24HR #28 vial 11/03/18 [Rx] Follow up Appointment(s)/Referral(s): Mitch Marte MD [STAFF PHYSICIAN] - 11/16/18 9:45 am Mitch Ricks MD [Primary Care Provider] - 11/07/18 11:15 am (Wednesday) [facility], [NON-STAFF] - 11/04/18 [facility], [REFERRING] - 11/04/18 Diego Fish MD [STAFF PHYSICIAN] - 2 Weeks (Office is getting treatment scheduled, will call with further details.) Ambulatory/Diagnostic Orders: Basic Metabolic Panel [LAB.AMB] Location: None Selected Complete Blood Count w/diff [LAB.AMB] Location: None Selected Patient Instructions/Handouts: Pleural Effusion (DC), Peripherally Inserted Central Catheters and Midline Catheters (DC) Activity/Diet/Wound Care/Special Instructions: CBC, BMP weekly x 4 weeks - results to Dr. Marte Discharge Disposition: HOME SELF-CARE
[2018-11-03 13:24] LABS: Hemoglobin A1C 5.7 % (4.0-6.0)
--- NOTE | 2018-11-03 13:25 | IR ---
PICC LINE PLACEMENT: HISTORY: Infection requiring long-term antibiotic therapy PROCEDURE: Ultrasound and fluoroscopic guidance of PICC line placement. COMPLICATIONS: None ANESTHESIA: 1. 1% Lidocaine locally. FINDINGS/TECHNIQUE: The procedure was explained to the patient. The risks, complications, benefits and alternatives were discussed and any questions were answered. Informed consent was obtained. The patient was placed supine on the fluoroscopic table and prepped and draped in the usual sterile fash ion. Utilizing a 21 gauge needle and sonographic and fluoroscopic guidance, access in the left basi lic vein was achieved and there is placement of a 0.018 guidewire. The vein is patent. A 4-F sheath was placed over the guidewire. The guidewire and dilator were removed and a 4-F. PICC line was plac ed through the sheath with the tip at the level of the SVC. The sheath was removed, the catheter was flushed and sutured into position. The patient was stable throughout the procedure and remained sta ble upon discharge from the Department of Radiology. The vein puncture was patent under ultrasound. A warren scale image was obtained to document patency of the vein punctured. All elements of the maximal barrier technique were utilized. FLUOROSCOPY TIME: 0.1 minute and one image submitted IMPRESSION: Successful PICC line placement under ultrasound and fluoroscopic guidance.
[2018-11-03 15:05] VITALS: BP 123/70; RESP 16; TEMP 98
--- NOTE | 2018-11-03 17:10 | P.PN ---
Subjective Progress Note Date: 11/03/18 Principal diagnosis: Right-sided pleural effusion, most likely, complicated pleural effusion secondary to recent pneumonia and empyema. this is a 67-year-old female with history of advanced adenocarcinoma of the lungs, familiar to my service from previous admissions, I actually diagnosed the patient on 08/25/2018, and the diagnosis was made by bronchoscopy and transbronchial biopsy of the right lower lobe.patient was not felt to be a surgical candidate, and she was referred to oncology. However the oncologist recommended a second opinion from thoracic surgery at [facility], and they felt that the patient is not surgical , and she had advanced age of adenocarcinoma. Patient was sent back to see the oncologist. In the meantime she went on to develop postobstructive pneumonia and empyema requiring drainage and pigtail catheter placement by interventional radiology. The drainage was suboptimal hence thoracic surgery was consulted, and declined to perform decortication on this patient. Family requested second opinion at the time, and she was sent to [facility]. She was seen by Dr. Michel who performed decortication on the right side, and the patient was eventually discharged with a chest tube and pleural VAC in place. In the meantime she was kept on IV antibiotics for empyema and the right lower lobe pneumonia.she was discharged from [facility] on 10/19/2018, and her chest tube was removed on 10/24/2018. Since then the patient has been developing increased shortness of breath, nonproductive cough, and more lethargy according to the . Patient was brought into the ER, and she was noted to have significant right- sided pleural effusion based on the chest x-ray, and questionable infiltrates in the left perihilar area.extensive opacity was noted in the right midlung and right lower lobe area, it is not clear whether the findings are actually related to her effusion atelectasis or consolidation. Questionable loculation based on the chest x-ray. After reviewing the chest x-ray, I discussed with the was very tired the respiratory therapist the findings, and I showed of the chest x-ray. I recommended CT of the chest before any plans for thoracentesis. If there is actually fluid and it is loculated, she may require a pigtail catheter again. However if the fluid is freely flowing of course a right-sided thoracentesis could be easily performed. CT of the chest was ordered. In the meantime the patient is on empiricantibiotics as per the admitting physician. Patient presently is feeling better, she is on oxygen, saturating much better compared to how she was saturating before admission.she has generalized weakness and fatigue, denies any fever, no chills, no hemoptysis, no chest pain. She feels generally weak. He describes some weight loss over the last few months since her diagnosis of adenocarcinoma of the right lung. Patient denies any nausea vomiting abdominal pain, no melena, no hematemesis, no dysuria and no frequency no urgency. Denies any joints aches and pains. Denies any symptoms of depression. Denies any headache, blurred vision or dizziness. On 10/31/2018 patient seen in follow-up on selective care unit, currently untreated as per nasal cannula her pulse ox is 96%, afebrile, CT chest was reviewed, and showed right-sided hydropneumothorax with air bubbles in the pleural space and pleural thickening consistent with chronic empyema. There was extensive airspace consolidation in the right lower lobe. There is trivial removal of the right chest tube. The amount of fluid on the right side appears to be stable or slightly decreased compared to previous CT chest. Consolidation in the right lower lobe is unchanged.denies any worsening shortness of breath, lung sounds are diminished. antibiotic coverage includes Zosyn, patient is on nebulized bronchodilators. Patient is seen today for 11/01/2017 in follow-up on the selective care unit. She is currently sitting up in a chair at the bedside. She is awake and alert in no acute distress. She did desaturate into the mid 80s on room air while ambulating in the room. Currently maintaining good O2 saturations in the mid 90s on 3 L/m per nasal cannula. Slightly tachycardic. Afebrile. Blood pressure stable. Blood culture reveals no growth. She remains on bronchodilators, Symbicort, antibiotics in the form of Zosyn. The patient is seen today 11/03/2018 in follow-up on the selective care unit. She is currently sitting up in a chair at the bedside. No worsening shortness of breath, cough or congestion. Maintaining good O2 saturations in the high 90s on 3 L/m per nasal cannula. She has no pulmonary complaints currently. She is anxious to go home. Objective - Vital Signs Vital signs: Vital Signs Temp 98.0 F 11/03/18 11:00 Pulse 100 11/03/18 08:48 Resp 16 11/03/18 11:00 BP 123/70 11/03/18 11:00 Pulse Ox 99 11/03/18 11:00 Intake & Output 11/02/18 11/03/18 11/03/18 18:59 06:59 18:59 Intake Total 1410 100 360 Balance 1410 100 360 Weight 57.2 kg Intake: IV 100 Piperacillin-Tazobactam 3 100 .375 gm In Sodium Chloride 0.9% 100 ml @ 25 mls/hr IVPB Q8HR REILLY Rx# :[id number] Intake, IV Titration 100 100 Amount Piperacillin-Tazobactam 3 100 100 .375 gm In Sodium Chloride 0.9% 100 ml @ 25 mls/hr IVPB Q8HR REILLY Rx# :[id number] Oral 1210 360 Other: Voiding Method Toilet Toilet # Voids 2 1 1 # Bowel Movements 1 1 - Exam GENERAL EXAM: Alert, no acute distress, fairly comfortable in no apparent distress. On 3 L per nasal cannula. HEAD: Normocephalic/atraumatic. EYES: Normal reaction of pupils, equal size. Conjunctiva pink, sclera white. NOSE: Clear with pink turbinates. THROAT: No erythema or exudates. NECK: No masses, no JVD, no thyroid enlargement, no adenopathy. CHEST: No chest wall deformity. Symmetrical expansion. LUNGS: Equal air entry with crackles in the right posterior base. CVS: Regular rate and rhythm, normal S1 and S2, no gallops, no murmurs, no rubs ABDOMEN: Soft, nontender. No hepatosplenomegaly, normal bowel sounds, no guarding or rigidity. EXTREMITIES: No clubbing, no edema, no cyanosis, 2+ pulses and upper and lower extremities. MUSCULOSKELETAL: Muscle strength and tone normal. SPINE: No scoliosis or deformity SKIN: No rashes CENTRAL NERVOUS SYSTEM: Alert and oriented -3. No focal deficits, tone is normal in all 4 extremities. PSYCHIATRIC: Alert and oriented -3. Appropriate affect. Intact judgment and insight. - Labs CBC & Chem 7: 11/03/18 06:28 11/03/18 06:28 Labs: Abnormal Lab Results - Last 24 Hours (Table) 11/02/18 11/03/18 11/03/18 Range/Units 20:00 06:02 06:28 RBC 3.08 L (3.80-5.40) m/uL Hgb 9.0 L (11.4-16.0) gm/dL Hct 28.4 L (34.0-46.0) % RDW 15.7 H (11.5-15.5) % Glucose (74-99) mg/dL POC Glucose (mg/dL) 167 H 139 H (75-99) mg/dL 11/03/18 11/03/18 Range/Units 06:28 11:41 RBC (3.80-5.40) m/uL Hgb (11.4-16.0) gm/dL Hct (34.0-46.0) % RDW (11.5-15.5) % Glucose 134 H (74-99) mg/dL POC Glucose (mg/dL) 108 H (75-99) mg/dL Microbiology - Last 24 Hours (Table) 10/29/18 16:54 Blood Culture - Preliminary Blood No Growth after 96 hours Assessment and Plan Assessment: Assessment: 1 right sided pleural effusion, most likely complicated pleural effusion related to recent pneumonia and empyema. CT chest showed a right-sided hydropneumothorax with the Aromasin the pleural space and pleural thickening consistent with chronic empyema, sensitive airspace consolidation in the right lower lobe. Pleural fluid on the right side is about the same or slightly decreased compared to the old CT on 10/02/2018 2 recent history of empyema requiring pigtail catheter placement for quite some time, IV antibiotics for over a month, and decortication done recently at [facility]. 3 advanced adenocarcinoma of the lungs, patient had recent decortication as and pleural biopsy, and the biopsies were negative. But clearly based on her previous workup, patient had abnormal PET scan suggestive of distant metastasis. Please refer to the report of the PET scan done in the last few weeks. 4 acute hypoxic respiratory failure, multifactorial mostly secondary to right- sided pleural effusion and underlying COPD. And Possible left perihilar infiltrate as noted on the chest x-ray. This would be hospital-acquired from most recent hospitalization at [facility], if truly proven to be pneumonic in nature 5 possible left perihilar infiltrate as noted on the chest x-ray, this will be further assessed on the CT of the chest which I have ordered. In the meantime the patient is on antibiotics. 6 multiple comorbidities including chronic anemia, type 2 diabetes, hypercholesterolemia. Plan: The patient was seen and evaluated by Dr. Dunbar. She is currently stable from the pulmonary standpoint. The plan is to discharge to home today. Continue with bronchodilators. Home oxygen. She should follow-up in our office with Dr. Meier in 1 week's time. She and her are both encouraged to call sooner with any recurrence of symptoms or other questions or concerns. I, the cosigning physician, performed a history & physical examination of the patient. Lungs sounds with crackles in the right posterior base. Maintaining good O2 saturations in the 90s on 3 L/m per nasal cannula. I discussed the assessment and plan of care with my nurse practitioner, Andreina Mendoza. I attest to the above note as dictated by her.
== END 2018-11-03 14:57 | disposition home health service (06) | DRG 871 ==
LOC: EC 15:39 → 3SCARD 18:26
PROVIDERS: ADMIT Internal Medicine; ATTEND Internal Medicine
PROC: 02HV33Z Insertion of Infusion Device into Superior Vena Cava, Percutaneous Approach (ICD-10-PCS; principal; 2018-11-03 10:00)
DX: A41.9 Sepsis, unspecified organism (principal); J18.9 Pneumonia, unspecified organism; J86.9 Pyothorax without fistula; J96.01 Acute respiratory failure with hypoxia; C34.91 Malignant neoplasm of unspecified part of right bronchus or lung; J44.0 Chronic obstructive pulmonary disease with (acute) lower respiratory infection; J91.0 Malignant pleural effusion; J81.1 Chronic pulmonary edema; D63.8 Anemia in other chronic diseases classified elsewhere; E11.9 Type 2 diabetes mellitus without complications; E78.00 Pure hypercholesterolemia, unspecified; E78.5 Hyperlipidemia, unspecified; F41.9 Anxiety disorder, unspecified; Z87.891 Personal history of nicotine dependence; Z99.81 Dependence on supplemental oxygen; K21.9 Gastro-esophageal reflux disease without esophagitis; Z79.2 Long term (current) use of antibiotics; Z79.51 Long term (current) use of inhaled steroids; Z79.84 Long term (current) use of oral hypoglycemic drugs; Z79.899 Other long term (current) drug therapy; Z80.1 Family history of malignant neoplasm of trachea, bronchus and lung; Z82.49 Family history of ischemic heart disease and other diseases of the circulatory system; Z82.5 Family history of asthma and other chronic lower respiratory diseases; Z87.01 Personal history of pneumonia (recurrent); Z90.710 Acquired absence of both cervix and uterus; R63.4 Abnormal weight loss; Z68.22 Body mass index [BMI] 22.0-22.9, adult; R53.83 Other fatigue; Z91.81 History of falling
CPT/HCPCS: 36415; 36573; 70551; 71045; 71046; 71260; 80048; 80053; 82272; 82550; 82553; 83036; 83605; 83880; 84484; 85025; 85027; 85610; 85730; 87040; 93005; 93306; 94640; 94760; 96365; 99285

== ENCOUNTER → 2019-02-25 | Outpatient (CLI) | payer MEDICARE ==
--- NOTE | 2019-02-27 07:44 | PE ---
EXAMINATION TYPE: PET CT fusion skull to thigh DATE OF EXAM: 02/25/2019 COMPARISON: Chest CT October 30, 2018 and older CTs. PET/CT September 03, 2018 HISTORY: Right-sided lung cancer progress study completed chemotherapy February 16, 2019. TECHNIQUE: Following the intravenous administration of 11.15 mCi of F-18 FDG, whole body images are performed from the skull base to the midthigh. Images are reviewed on the computer in the coronal, a xial, and sagittal planes. Reconstructed rotating images are created on independent workstation and reviewed on the computer. A noncontrast CT is performed in conjunction with the PET scan. SCAN: Subsequent Scan FINDINGS: SKULL BASE AND NECK: No new areas of suspicious hypermetabolic uptake. CHEST, MEDIASTINUM, AND HILAR REGION: Mild to moderate underlying emphysematous change is redemonstra josé. There is small to tiny right pleural effusion improved from prior PET/CT fairly stable from re cent CT that remains present. There is interval improvement in medial right lower lobe mass now measu ring 3.5 x 2.9 cm current study image 98 with max SUV of 4.33. There is interval improvement in right hilar adenopathy with soft tissue surrounding hilar bronchi ax ial image 97 without hypermetabolic uptake on current study. No suspicious hypermetabolic uptake at the level of slightly prominent subcarinal lymph node measurin g 1.5 x 0.7 cm axial image 93. No new suspicious nodules or adenopathy clearly seen. ABDOMEN AND PELVIS: No adrenal masses. No new areas of suspicious hypermetabolic uptake. OSSEOUS STRUCTURES: No areas of new suspicious hypermetabolic uptake. OTHER CT: Coronary artery calcification is redemonstrated which is noted marker for underlying deluca ry artery disease. Some increasing right-sided volume loss is noted. Azygos lobe/fissure incidentally redemonstrated. There is persistent 1.5 cm simple-appearing thin-walled cyst in liver axial image 114. Dependent dens ity in gallbladder consistent with small stones and/or sludge is redemonstrated. Moderate calcified p laque of the aorta extends into branch vessels. There are diverticula throughout the left and sigmoid colon. There is multilevel facet arthropathy in the lower lumbar spine. Uterus is surgically absent or markedly atrophic. IMPRESSION: Positive partial treatment response as detailed above.
== END | disposition home or self-care (01) ==
LOC: RADPETMAIN 11:04
PROVIDERS: ATTEND Internal Medicine Hematology & Oncology
DX: C34.31 Malignant neoplasm of lower lobe, right bronchus or lung (principal); Z92.21 Personal history of antineoplastic chemotherapy
CPT/HCPCS: 78815; A9552

== ENCOUNTER → 2019-07-17 | Outpatient (CLI) | payer MEDICARE ==
--- NOTE | 2019-07-17 15:40 | US ---
EXAMINATION TYPE: US kidneys/renal and bladder DATE OF EXAM: 07/17/2019 COMPARISON: NONE CLINICAL HISTORY: R94.4 abnormal renal functions. EXAM MEASUREMENTS: Right Kidney: 9.1 x 4.2 x 4.4 cm Left Kidney: 9.4 x 4.7 x 4.4 cm Right Kidney: No hydronephrosis or masses seen Left Kidney: No hydronephrosis or masses seen Bladder: wnl Bilateral Jets seen: No There is no evidence for hydronephrosis at this point in time. No nephrolithiasis is seen. No ernesto s are identified. The urinary bladder is anechoic. Bilateral ureteral jets are seen. IMPRESSION: No hydronephrosis nor nephrolithiasis. Unremarkable renal ultrasound.
== END | disposition home or self-care (01) ==
LOC: RADUSWWP 10:40
PROVIDERS: ATTEND Internal Medicine Hematology & Oncology
DX: R94.4 Abnormal results of kidney function studies (principal)
CPT/HCPCS: 76770

== ENCOUNTER → 2019-07-22 | Outpatient (CLI) | payer MEDICARE ==
--- NOTE | 2019-07-24 15:20 | PE ---
EXAMINATION TYPE: PET CT fusion skull to thigh DATE OF EXAM: 07/22/2019 COMPARISON: PET/CT dated 02/25/[address] dated 10/30/2018 as well as PET/CT dated 09/03/[address] of 08/11/2018 HISTORY: History of right lower lobe lung carcinoma in 2018. TECHNIQUE: Following the intravenous administration of 12.57 mCi of F-18 FDG, whole body images are performed from the skull base to the midthigh. Images are reviewed on the computer in the coronal, a xial, and sagittal planes. Reconstructed rotating images are created on independent workstation and reviewed on the computer. A localization and attenuation correction CT is performed in conjunction with the PET scan. SCAN: Subsequent treatment strategy FINDINGS: Abdominal background: 3.86 Mediastinal background: 2.05 SKULL BASE AND NECK: No suspicious hypermetabolic uptake. CHEST, MEDIASTINUM, AND HILAR REGION: The right lower lobe pulmonary mass previously measured 3.5 x 2 .9 cm appears smaller with consolidation in the right infrahilar region improving more aerated than o n the prior. The most solid portion of this mass measures 3.0 x 2.2 cm on image 87. Of note this is below the level of the previously seen mass in could be secondary to obliquity although measurement c ould include downstream postobstructive atelectasis. Peribronchial cuffing is seen. Maximum SUV on th e current exam of 2.35 at this location. There is a slightly improved small right pleural effusion ad jacent to this. New nodular densities in the anterior right upper lobe are along a major bronchus and measure up to 1 .7 x 2.0 cm on image 73 in the most coalescent portion. This area has a maximum SUV of 2.14. This cou ld be infectious, inflammatory, or neoplastic at this time. Bronchoscopy could be considered. Right perihilar and infrahilar adenopathy is not separable from the adjacent mediastinal border or br onchitis but demonstrates a maximum SUV of 3.92. ABDOMEN AND PELVIS: Prominent SUV levels throughout the colon, up to 8.15 maximum SUV in the sigmoid colon. OSSEOUS STRUCTURES: No suspicious hypermetabolic uptake. OTHER CT: Background bullous emphysematous change, linear multifocal areas of scarring, and multifoca l right-sided pleural thickening are seen without hypermetabolic activity. Incidentally noted azygous fissure and lobe. Triangular 2 mm solid left upper lobe lateral pulmonary nodule on image 69 is belo w the threshold of PET CT. Rightward mediastinal shift secondary to volume loss. Paranasal sinuses are overall well aerated with only scant mucosal thickening in the left maxillary sinus. Advanced degenerative change of the cervical spine and mild of the thoracic spine are seen. Mo derate degenerative change of the lumbar spine is noted. Old fracture deformities of the left superio r and inferior pubic rami. Numerous colonic diverticula are present with sigmoid wall thickening. Urinary bladder is incompletel y distended. No pericolonic fat stranding. Advanced atherosclerosis of the abdominal aorta and its br anches. Small hiatal hernia seen. Hepatic cyst measures 1.7 cm. Slight right hemidiaphragm elevation secondary to atelectasis in the right lower lobe. IMPRESSION: 1. Improving right lower lobe pulmonary mass and persistent right infrahilar pathologic adenopathy. 2. New multinodular consolidation of the anterior right upper lobe. This is equivocal on PET/CT and c ould be infectious/inflammatory or neoplastic. Bronchoscopy is recommended. 3. Diffuse wall thickening of the sigmoid colon and slight FDG avidity could be on the basis of chron ic diverticulosis. Correlate with any recent colonoscopy.
== END | disposition home or self-care (01) ==
LOC: RADPETMAIN 12:54
PROVIDERS: ATTEND Internal Medicine Hematology & Oncology
DX: K63.89 Other specified diseases of intestine (principal); R59.9 Enlarged lymph nodes, unspecified; C34.31 Malignant neoplasm of lower lobe, right bronchus or lung
CPT/HCPCS: 78815; A9552

== ENCOUNTER → 2019-08-15 | Outpatient (CLI) | payer MEDICARE ==
--- NOTE | 2019-08-15 13:50 | CT ---
EXAMINATION TYPE: CT brain wo con DATE OF EXAM: 08/15/2019 HISTORY: Altered mental status CT DLP: 1072.3 mGycm. Automated Exposure Control for Dose Reduction was Utilized. TECHNIQUE: CT scan of the head is performed without contrast. COMPARISON: MRI brain November 02, 2018. FINDINGS: There is no acute intracranial hemorrhage or midline shift identified. There is diffuse v entricular and sulcal prominence redemonstrated. There is increased prominence of ventricles out of proportion to degree of sulcal effacement redemonstrated. No significant change in ventricular size f rom prior MRI. Low attenuation in the deep and periventricular white matter remains present. The glob es are intact and the visualized sinuses are clear currently. IMPRESSION: No acute intracranial hemorrhage or midline shift. There is mild to moderate diffuse ag e-related cerebral atrophy and moderate to severe chronic small vessel ischemic change redemonstrated . Underlying normal pressure hydrocephalus is not excluded. No significant change in ventricular siz e from prior study is however noted.
== END | disposition home or self-care (01) ==
LOC: RADCTMAIN 13:13
PROVIDERS: ATTEND Internal Medicine Hematology & Oncology
DX: G31.1 Senile degeneration of brain, not elsewhere classified (principal); I67.82 Cerebral ischemia; C34.31 Malignant neoplasm of lower lobe, right bronchus or lung
CPT/HCPCS: 70450

== ENCOUNTER 2019-08-16 11:09 | Inpatient (IN) | payer MEDICARE ==
[2019-08-16] MEDS ORDERED: SODIUM CHLORIDE 0.9% 1,000 ML IV ONE ×2 (11:39→15:31)
--- NOTE | 2019-08-16 11:43 | ED ---
General Adult HPI - General Chief complaint: Seizure Stated complaint: Seizure Time Seen by Provider: 08/16/19 11:10 Source: patient, RN notes reviewed, old records reviewed Mode of arrival: ambulatory Limitations: no limitations - History of Present Illness Initial comments: This is a 68-year-old female with past medical history significant for lung ca ncer. Patient was being treated with chemotherapy and immunologic drugs but chemotherapy was stopped a few weeks ago because of the effects on the liver. Over the last month the patient and having some altered mental status forgetting how to do simple tasks such as use the TV remote. Since the patient has had diarrhea and continues to have diarrhea according to the often when she goes to stand up she stands up and shakes and becomes very weak and he has to catch her and then after a few seconds the patient becomes alert and is able to walk to the bathroom but not as good as she did prior to Wednesday. Patient states this again occurred twice today. Patient had a CAT scan yesterday ordered by her oncologist. Patient currently states she has no complaints however she is only alert and oriented 2 according to is been ongoing for a month. - Related Data Home Medications Medication Instructions Recorded Confirmed Atorvastatin [Lipitor] 10 mg PO DAILY 08/24/18 08/16/19 Sertraline HCl [Zoloft] 25 mg PO DAILY 10/29/18 08/16/19 Famotidine [Pepcid] 40 mg PO DAILY 08/16/19 08/16/19 Folic Acid 1 mg PO DAILY 08/16/19 08/16/19 Insulin Glargine,Hum.rec.anlog See Protocol SQ HS 08/16/19 08/16/19 [Lantus Solostar] Levofloxacin [Levaquin] 500 mg PO DAILY 08/16/19 08/16/19 Sodium Bicarbonate Tab 1,300 mg PO BID 08/16/19 08/16/19 predniSONE 20 mg PO QID 08/16/19 08/16/19 Allergies Allergy/AdvReac Type Severity Reaction Status Date / Time No Known Allergies Allergy Verified 08/16/19 13:06 Review of Systems ROS Statement: Those systems with pertinent positive or pertinent negative responses have been documented in the HPI. ROS Other: All systems not noted in ROS Statement are negative. Past Medical History Past Medical History: Cancer, COPD, Diabetes Mellitus, GERD/Reflux, Hyperlipidemia, Pneumonia Additional Past Medical History / Comment(s): Adenocarcinoma of the lung, stage IIIc, COPD, [id number] diabetes mellitus, previous history of fall with subsequent left orbital, facial and wrist fracture in addition to a pelvic fracture. She also has hyperlipidemia, acid reflux and COPD History of Any Multi-Drug Resistant Organisms: None Reported Past Surgical History: Appendectomy, Hysterectomy, Orthopedic Surgery Additional Past Surgical History / Comment(s): 08/25/18 bronchoscopy with bx, BAL/brushings, colonoscopies, L wrist fracture with 3 pins and 1 pin has been removed. Past Anesthesia/Blood Transfusion Reactions: No Reported Reaction Additional Past Anesthesia/Blood Transfusion Reaction / Comment(s): no hx blood transfusion Past Psychological History: Anxiety Smoking Status: Former smoker Past Alcohol Use History: Occasional Past Drug Use History: None Reported - Past Family History Mother Family Medical History: Myocardial Infarction ([place]) Father Family Medical History: Asthma, Cancer, COPD Additional Family Medical History / Comment(s): Father had lung cancer. General Exam - General Exam Comments Initial Comments: GENERAL: Patient is well-developed and well-nourished. Patient is nontoxic and well- hydrated and is in no acute distress. ENT: Neck is soft and supple. No significant lymphadenopathy is noted. Oropharynx is clear. Moist mucous membranes. Neck has full range of motion without eliciting any pain. EYES: The sclera were anicteric and conjunctiva were pink and moist. Extraocular movements were intact and pupils were equal round and reactive to light. Eyelids were unremarkable. PULMONARY: Unlabored respirations. Good breath sounds bilaterally. No audible rales rho nchi or wheezing was noted. CARDIOVASCULAR: There is a regular rate and rhythm without any murmurs gallops or rubs. ABDOMEN: Soft and nontender with normal bowel sounds. No palpable organomegaly was noted. There is no palpable pulsatile mass. SKIN: Skin is clear with no lesions or rashes and otherwise unremarkable. NEUROLOGIC: Patient is alert and oriented 2. Cranial nerves II through XII are grossly intact. Motor and sensory are also intact. Normal speech, volume and content. Symmetrical smile. MUSCULOSKELETAL: Normal extremities with adequate strength and full range of motion. No lower extremity swelling or edema. No calf tenderness. LYMPHATICS: No significant lymphadenopathy is noted PSYCHIATRIC: Normal psychiatric evaluation. Limitations: no limitations Course Vital Signs 08/16/19 08/16/1919 11:11 13:12 13:45 Temperature 98.2 F Pulse Rate 108 H 89 Pulse Rate [ 95 Sitting Private Duty Aide] Pulse Rate [ 98 Standing Private Duty Aide ] Pulse Rate [ 92 Supine Private Duty Aide] Respiratory 18 18 Rate Blood Pressure 146/83 155/75 Blood Pressure 164/86 [Right Arm Sitting] Blood Pressure 166/84 [Right Arm Standing] Blood Pressure 167/91 [Right Arm Supine] O2 Sat by Pulse 96 97 Oximetry Medical Decision Making - Medical Decision Making EKG shows sinus tachycardia at 103 bpm [place] interval 228 QRSs 86 QT interval 326 QTC is 427. Patient's EKG shows no ST segment elevation or depression or T wave abnormalities are noted. - Lab Data Result diagrams: 08/16/19 13:35 08/16/19 14:20 Lab Results 08/16/19 08/16/19 08/16/19 Range/Units 12:20 12:20 12:20 WBC 26.4 H (3.8-10.6) k/uL RBC 2.24 L (3.80-5.40) m/uL Hgb 7.2 L D (11.4-16.0) gm/dL Hct 22.0 L (34.0-46.0) % MCV 98.0 (80.0-100.0) fL MCH 32.0 (25.0-35.0) pg MCHC 32.7 (31.0-37.0) g/dL RDW 13.4 (11.5-15.5) % Plt Count 360 (150-450) k/uL Neutrophils % 94 % Lymphocytes % 2 % Monocytes % 3 % Eosinophils % 1 % Basophils % 0 % Neutrophils # 24.7 H (1.3-7.7) k/uL Lymphocytes # 0.6 L (1.0-4.8) k/uL Monocytes # 0.9 (0-1.0) k/uL Eosinophils # 0.1 (0-0.7) k/uL Basophils # 0.0 (0-0.2) k/uL Sodium 136 L (137-145) mmol/L Potassium 4.2 (3.5-5.1) mmol/L Chloride 108 H (98-107) mmol/L Carbon Dioxide 19 L (22-30) mmol/L Anion Gap 9 mmol/L BUN 62 H (7-17) mg/dL Creatinine 2.22 H (0.52-1.04) mg/dL Est GFR (CKD-EPI)AfAm 25 (>60 ml/min/1.73 sqM) Est GFR (CKD-EPI)NonAf 22 (>60 ml/min/1.73 sqM) Glucose 230 H (74-99) mg/dL Plasma Lactic Acid Gagan 1.5 (0.7-2.0) mmol/L Calcium 9.1 (8.4-10.2) mg/dL Total Bilirubin 0.5 (0.2-1.3) mg/dL AST 15 (14-36) U/L ALT 21 (9-52) U/L Alkaline Phosphatase 87 (38-126) U/L Total Protein 6.2 L (6.3-8.2) g/dL Albumin 3.6 (3.5-5.0) g/dL Urine Color Urine Appearance (Clear) Urine pH (5.0-8.0) Ur Specific [place] (1.001-1.035) Urine Protein (Negative) Urine Glucose (UA) (Negative) Urine Ketones (Negative) Urine Blood (Negative) Urine Nitrite (Negative) Urine Bilirubin (Negative) Urine Urobilinogen (<2.0) mg/dL Ur Leukocyte Esterase (Negative) Urine RBC (0-5) /hpf Urine WBC (0-5) /hpf Urine WBC Clumps (None) /hpf Ur Squamous Epith Cells (0-4) /hpf Urine Bacteria (None) /hpf Urine Mucus (None) /hpf Stool Occult Blood (Negative) 08/16/19 08/16/19 08/16/19 Range/Units 13:35 13:35 14:20 WBC 18.7 H (3.8-10.6) k/uL RBC 3.36 L (3.80-5.40) m/uL Hgb 10.8 L D (11.4-16.0) gm/dL Hct 33.0 L (34.0-46.0) % MCV 98.0 (80.0-100.0) fL MCH 32.2 (25.0-35.0) pg MCHC 32.8 (31.0-37.0) g/dL RDW 13.1 (11.5-15.5) % Plt Count 229 (150-450) k/uL Neutrophils % 94 % Lymphocytes % 2 % Monocytes % 3 % Eosinophils % 0 % Basophils % 0 % Neutrophils # 17.6 H (1.3-7.7) k/uL Lymphocytes # 0.4 L (1.0-4.8) k/uL Monocytes # 0.5 (0-1.0) k/uL Eosinophils # 0.1 (0-0.7) k/uL Basophils # 0.0 (0-0.2) k/uL Sodium (137-145) mmol/L Potassium (3.5-5.1) mmol/L Chloride (98-107) mmol/L Carbon Dioxide (22-30) mmol/L Anion Gap mmol/L BUN (7-17) mg/dL Creatinine (0.52-1.04) mg/dL Est GFR (CKD-EPI)AfAm (>60 ml/min/1.73 sqM) Est GFR (CKD-EPI)NonAf (>60 ml/min/1.73 sqM) Glucose (74-99) mg/dL Plasma Lactic Acid Gagan (0.7-2.0) mmol/L Calcium (8.4-10.2) mg/dL Total Bilirubin (0.2-1.3) mg/dL AST (14-36) U/L ALT (9-52) U/L Alkaline Phosphatase (38-126) U/L Total Protein (6.3-8.2) g/dL Albumin (3.5-5.0) g/dL Urine Color Yellow Urine Appearance Turbid H (Clear) Urine pH 6.5 (5.0-8.0) Ur Specific [place] 1.011 (1.001-1.035) Urine Protein 1+ H (Negative) Urine Glucose (UA) 3+ H (Negative) Urine Ketones Negative (Negative) Urine Blood Moderate H (Negative) Urine Nitrite Negative (Negative) Urine Bilirubin Negative (Negative) Urine Urobilinogen <2.0 (<2.0) mg/dL Ur Leukocyte Esterase Large H (Negative) Urine RBC 6 H (0-5) /hpf Urine WBC 127 H (0-5) /hpf Urine WBC Clumps Many H (None) /hpf Ur Squamous Epith Cells 1 (0-4) /hpf Urine Bacteria Many H (None) /hpf Urine Mucus Rare H (None) /hpf Stool Occult Blood Positive H (Negative) 08/16/19 Range/Units 14:20 WBC (3.8-10.6) k/uL RBC (3.80-5.40) m/uL Hgb (11.4-16.0) gm/dL Hct (34.0-46.0) % MCV (80.0-100.0) fL MCH (25.0-35.0) pg MCHC (31.0-37.0) g/dL RDW (11.5-15.5) % Plt Count (150-450) k/uL Neutrophils % % Lymphocytes % % Monocytes % % Eosinophils % % Basophils % % Neutrophils # (1.3-7.7) k/uL Lymphocytes # (1.0-4.8) k/uL Monocytes # (0-1.0) k/uL Eosinophils # (0-0.7) k/uL Basophils # (0-0.2) k/uL Sodium 139 (137-145) mmol/L Potassium 4.1 (3.5-5.1) mmol/L Chloride 112 H (98-107) mmol/L Carbon Dioxide 19 L (22-30) mmol/L Anion Gap 8 mmol/L BUN 58 H (7-17) mg/dL Creatinine 2.11 H (0.52-1.04) mg/dL Est GFR (CKD-EPI)AfAm 27 (>60 ml/min/1.73 sqM) Est GFR (CKD-EPI)NonAf 23 (>60 ml/min/1.73 sqM) Glucose 175 H (74-99) mg/dL Plasma Lactic Acid Gagan (0.7-2.0) mmol/L Calcium 8.9 (8.4-10.2) mg/dL Total Bilirubin 0.4 (0.2-1.3) mg/dL AST 16 (14-36) U/L ALT 19 (9-52) U/L Alkaline Phosphatase 73 (38-126) U/L Total Protein 5.7 L (6.3-8.2) g/dL Albumin 3.3 L (3.5-5.0) g/dL Urine Color Urine Appearance (Clear) Urine pH (5.0-8.0) Ur Specific [place] (1.001-1.035) Urine Protein (Negative) Urine Glucose (UA) (Negative) Urine Ketones (Negative) Urine Blood (Negative) Urine Nitrite (Negative) Urine Bilirubin (Negative) Urine Urobilinogen (<2.0) mg/dL Ur Leukocyte Esterase (Negative) Urine RBC (0-5) /hpf Urine WBC (0-5) /hpf Urine WBC Clumps (None) /hpf Ur Squamous Epith Cells (0-4) /hpf Urine Bacteria (None) /hpf Urine Mucus (None) /hpf Stool Occult Blood (Negative) Disposition Clinical Impression: Weakness, GI bleed, Urinary tract infection Disposition: ADMITTED IP TO THIS HOSP Referrals: Mitch Ricks MD [Primary Care Provider] - 1-2 days Time of Disposition: 15:30
[2019-08-16 12:51] LABS: Basophils % (A) 0 %; Eosinophils # (A) 0.1 k/uL (0-0.7); Eosinophils % (A) 1 %; Lymphocytes # (A) 0.6 k/uL (1.0-4.8); Lymphocytes % (A) 2 %; MCHC 32.7 g/dL (31.0-37.0); Mean Platelet Volume 7.3; Monocytes # (A) 0.9 k/uL (0-1.0); Monocytes % (A) 3 %; Neutrophils # (A) 24.7 k/uL (1.3-7.7); Neutrophils % (A) 94 %; Platelet Count 360 k/uL (150-450); RBC 2.24 m/uL (3.80-5.40); RDW 13.4 % (11.5-15.5); WBC 26.4 k/uL (3.8-10.6)
[2019-08-16 12:53] LABS: HGB 7.2 gm/dL (11.4-16.0)
[2019-08-16 12:55] LABS: Albumin 3.6 g/dL (3.5-5.0); Calcium 9.1 mg/dL (8.4-10.2); Potassium 4.2 mmol/L (3.5-5.1); Total Bilirubin 0.5 mg/dL (0.2-1.3); Total Protein 6.2 g/dL (6.3-8.2)
[2019-08-16 13:54] LABS: Basophils % (A) 0 %; Eosinophils # (A) 0.1 k/uL (0-0.7); Eosinophils % (A) 0 %; Lymphocytes # (A) 0.4 k/uL (1.0-4.8); Lymphocytes % (A) 2 %; MCH 32.2 pg (25.0-35.0); MCHC 32.8 g/dL (31.0-37.0); Mean Platelet Volume 6.3; Monocytes # (A) 0.5 k/uL (0-1.0); Monocytes % (A) 3 %; Neutrophils # (A) 17.6 k/uL (1.3-7.7); Neutrophils % (A) 94 %; Platelet Count 229 k/uL (150-450); RBC 3.36 m/uL (3.80-5.40); RDW 13.1 % (11.5-15.5); WBC 18.7 k/uL (3.8-10.6)
[2019-08-16 13:56] LABS: HGB 10.8 gm/dL (11.4-16.0)
[2019-08-16 14:49] LABS: Appearance,Urine Turbid (Clear); Bacteria,Urine Many /hpf; Bilirubin,Urine Negative (Negative); Blood,Urine Moderate (Negative); Color,Urine Yellow; Glucose,Urine (UA) 3+ (Negative); Ketones,Urine Negative (Negative); Leukocyte Esterase,Urine Large (Negative); Mucus,Urine Rare /hpf; Nitrite,Urine Negative (Negative); PH, Urine 6.5 (5.0-8.0); Protein,Urine 1+ (Negative); RBC,Urine 6 /hpf (0-5); Specific Gravity,Urine 1.011 (1.001-1.035); Squamous Epithelial Cell,Urine 1 /hpf (0-4); Urobilinogen,Urine <2.0 mg/dL (<2.0)
[2019-08-16 14:53] LABS: Albumin 3.3 g/dL (3.5-5.0); Calcium 8.9 mg/dL (8.4-10.2); Potassium 4.1 mmol/L (3.5-5.1); Total Bilirubin 0.4 mg/dL (0.2-1.3); Total Protein 5.7 g/dL (6.3-8.2)
[2019-08-16] MEDS ORDERED: cefTRIAXone IN SWFI 1,000 MG/10 ML SYRINGE IVP STA (15:28)
[2019-08-16] MEDS ORDERED: LEVOFLOXACIN 750MG-D5W PMX 750 MG in DEXTROSE/WATER 1 150ML.BAG IVPB STA (15:36)
[2019-08-16 17:11] LABS: Glucose,Whole Blood 147 mg/dL (75-99)
[2019-08-16] MEDS: INSULIN ASPART (NovoLOG) 100 UNIT/ML VIAL SQ SCH ×2 (18:05→21:58)
[2019-08-16 21:27] LABS: Glucose,Whole Blood 151 mg/dL (75-99)
[2019-08-16] MEDS: SODIUM BICARBONATE TAB 650 MG TAB PO SCH (21:57)
[2019-08-17 06:48] LABS: Glucose,Whole Blood 72 mg/dL (75-99)
[2019-08-17] MEDS: INSULIN ASPART (NovoLOG) 100 UNIT/ML VIAL SQ SCH ×4 (06:49→20:14)
[2019-08-17] MEDS: SODIUM BICARBONATE TAB 650 MG TAB PO SCH ×2 (07:25→20:14)
[2019-08-17] MEDS: ATORVASTATIN 10 MG TAB PO SCH (07:25)
[2019-08-17] MEDS: FOLIC ACID 1 MG TAB PO SCH (07:25)
[2019-08-17] MEDS: SERTRALINE 25 MG TAB PO SCH (07:25)
[2019-08-17 08:14] LABS: Glucose,Whole Blood 70 mg/dL (75-99)
[2019-08-17] MEDS ORDERED: FAMOTIDINE 20 MG TAB PO SCH (09:00)
[2019-08-17 09:39] LABS: Basophils % (A) 0 %; Eosinophils # (A) 0.2 k/uL (0-0.7); Eosinophils % (A) 2 %; HCT 37.4 % (34.0-46.0); HGB 11.8 gm/dL (11.4-16.0); Hypochromasia Slight; Lymphocytes % (A) 9 %; MCH 31.7 pg (25.0-35.0); MCHC 31.5 g/dL (31.0-37.0); MCV 100.6 fL (80.0-100.0); Mean Platelet Volume 6.2; Monocytes # (A) 0.7 k/uL (0-1.0); Monocytes % (A) 6 %; Neutrophils # (A) 9.6 k/uL (1.3-7.7); Neutrophils % (A) 83 %; Platelet Count 217 k/uL (150-450); RBC 3.72 m/uL (3.80-5.40); RDW 12.9 % (11.5-15.5); WBC 11.6 k/uL (3.8-10.6)
[2019-08-17 11:07] LABS: Glucose,Whole Blood 93 mg/dL (75-99)
[2019-08-17] MEDS: predniSONE 20 MG TAB PO SCH ×3 (15:17→20:14)
[2019-08-17 17:04] LABS: Glucose,Whole Blood 231 mg/dL (75-99)
--- NOTE | 2019-08-17 17:43 | P.CONS ---
History of Present Illness - Reason for Consult Consult date: 08/17/19 weakness Requesting physician: Jordi Jhaveri - Chief Complaint progressive weakness, confusion - History of Present Illness Mrs. Davalos is a very pleasant 68-year-old female patient of Dr. Fish who presented initially late 2017 with c/o of a persistent cough 4 month, no other symptoms, she was treated for upper respiratory infection without improvement. CXR was done followed by a CT of the chest, she had a 7.8 x 7.1 x 5.3 cm right lower lobe density as well as paratracheal and subcarinal lymph nodes. Bronchoscopy and biopsy on August 25, 2018, path revealing poorly differentiated adenocarcinoma. In October 2018 she had a right chest tube placed for malignant pleural effusion. . She was started on triple agent treatment-carboplatin, Alimta, immunotherapy with keytruda in December 4 cycles, PET scan showed improvement in all disease sites after 4 cycles. February carboplatin was completed and patient continued on Alimta in keytruda 2 cycles, in April patient went to keytruda alone, last treatment July 11, completing 5 cycles. Patient's PET scan at that time showed improvement of disease but, treatment needed to be held due to progressive renal failure, she has been worked up and on prednisone. She was seen by Dr. Fish in the office 2 days ago, concern for dehydration so she was hydrated but, unfortunately her symptoms did not improve. Patient's states that she has become progressively weaker over the last couple of weeks, she's been having 3-4 episodes of diarrhea per day, hardly eating anything, he thinks that she was having something like seizures because when she would stand up her eyes would role in the back of her head and then she would come around, he's noticed her also having difficulty having normal conversation. CT without contrast did not reveal any abnormality. Review of Systems 14 point ROS obtained from and is negative except as stated in HPI Past Medical History Past Medical History: Cancer, Diabetes Mellitus, GERD/Reflux, Hyperlipidemia Additional Past Medical History / Comment(s): R lung adenocarcinoma stage IIIc/completed 5 chemotherapy cycles and was on Keytruda but it has been being held d/t possible kidney inflammation, R sided empyema/pleural effusion with VAT S/decortication, FALLS, IDDM type II, fell 2 years ago and had L orbit/facial and wrist and pelvic fracture. History of Any Multi-Drug Resistant Organisms: None Reported Past Surgical History: Appendectomy, Hysterectomy, Orthopedic Surgery Additional Past Surgical History / Comment(s): 08/25/18 bronchoscopy with bx, BAL/brushings, VATS/decortication, colonoscopies, L wrist fracture with 3 pins and 1 pin has been removed, picc line since removed and has L sided port. Past Anesthesia/Blood Transfusion Reactions: No Reported Reaction Additional Past Anesthesia/Blood Transfusion Reaction / Comm: no hx blood transfusion Smoking Status: Former smoker - Past Family History Mother Family Medical History: Myocardial Infarction ([place]) Additional Family Medical History / Comment(s): Mother of a [place] at the age of 59yrs. Father Family Medical History: Asthma, Cancer, COPD Additional Family Medical History / Comment(s): Father had lung cancer. Medications and Allergies Home Medications Medication Instructions Recorded Confirmed Type Atorvastatin [Lipitor] 10 mg PO DAILY 08/24/18 08/16/19 History Sertraline HCl [Zoloft] 25 mg PO DAILY 10/29/18 08/16/19 History Famotidine [Pepcid] 40 mg PO DAILY 08/16/19 08/16/19 History Folic Acid 1 mg PO DAILY 08/16/19 08/16/19 History Insulin Glargine,Hum.rec.anlog See Protocol SQ HS 08/16/19 08/16/19 History [Lantus Solostar] Levofloxacin [Levaquin] 500 mg PO DAILY 08/16/19 08/16/19 History Sodium Bicarbonate Tab 1,300 mg PO BID 08/16/19 08/16/19 History predniSONE 20 mg PO QID 08/16/19 08/16/19 History Allergies Allergy/AdvReac Type Severity Reaction Status Date / Time No Known Allergies Allergy Verified 08/16/19 13:06 Physical Exam Vitals: Vital Signs Temp Pulse Pulse Pulse Pulse Pulse Resp 08/17/19 05:00 98 F 94 16 08/17/19 00:00 18 08/16/19 17:40 97.6 F 97 18 08/16/19 17:10 95 98 92 18 08/16/19 15:30 84 18 08/16/19 13:45 89 18 08/16/19 13:12 95 98 92 08/16/19 11:11 98.2 F 108 H 18 BP BP BP BP Pulse Ox 08/17/19 05:00 174/77 95 08/17/19 00:00 08/16/19 17:40 163/91 96 08/16/19 17:10 08/16/19 15:30 147/72 95 08/16/19 13:45 155/75 97 08/16/19 13:12 164/86 166/84 167/91 08/16/19 11:11 146/83 96 Intake and Output 08/16/19 08/17/19 08/17/19 22:59 06:59 14:59 Intake Total 420 120 Balance 420 120 Intake: Intake, IV Titration 300 Amount Sodium Chloride 0.9% 1, 300 000 ml @ 75 mls/hr IV . [id number] ONE Rx#:[id number] Oral 120 120 Other: Voiding Method Bedside Commode # Voids 2 2 1 # Bowel Movements 3 3 Weight 61.689 kg - Constitutional General appearance: average body habitus, cooperative, no acute distress - EENT Eyes: anicteric sclerae, EOMI ENT: hearing grossly normal, normal oropharynx - Neck Neck: no lymphadenopathy - Respiratory Respiratory: bilateral: CTA - Cardiovascular Heart sounds: normal: S1, S2 leg Peripheral Edema: bilateral: None - Gastrointestinal General gastrointestinal: no absent bowel sounds, no decreased bowel sounds, no distended, no hepatomegaly, no hyperactive bowel sounds, normal bowel sounds, no organomegaly, no rigid, no scaphoid, soft, no splenomegaly, no tenderness, no umbilical hernia, no ventral hernia - Neurologic lt side finger to nose touch off slightly - Musculoskeletal Musculoskeletal: generalized weakness - Psychiatric Pt knew her husbands birthday and her address but did not know the month Results CBC & Chem 7: 08/17/19 09:10 08/16/19 14:20 Labs: Abnormal Lab Results - Last 24 Hours (Table) 08/16/19 08/16/19 08/16/19 Range/Units 12:20 12:20 13:35 WBC 26.4 H (3.8-10.6) k/uL RBC 2.24 L (3.80-5.40) m/uL Hgb 7.2 L D (11.4-16.0) gm/dL Hct 22.0 L (34.0-46.0) % MCV (80.0-100.0) fL Neutrophils # 24.7 H (1.3-7.7) k/uL Lymphocytes # 0.6 L (1.0-4.8) k/uL Sodium 136 L (137-145) mmol/L Chloride 108 H (98-107) mmol/L Carbon Dioxide 19 L (22-30) mmol/L BUN 62 H (7-17) mg/dL Creatinine 2.22 H (0.52-1.04) mg/dL Glucose 230 H (74-99) mg/dL POC Glucose (mg/dL) (75-99) mg/dL Total Protein 6.2 L (6.3-8.2) g/dL Albumin (3.5-5.0) g/dL Urine Appearance (Clear) Urine Protein (Negative) Urine Glucose (UA) (Negative) Urine Blood (Negative) Ur Leukocyte Esterase (Negative) Urine RBC (0-5) /hpf Urine WBC (0-5) /hpf Urine WBC Clumps (None) /hpf Urine Bacteria (None) /hpf Urine Mucus (None) /hpf Stool Occult Blood Positive H (Negative) 08/16/19 08/16/19 08/16/19 Range/Units 13:35 14:20 14:20 WBC 18.7 H (3.8-10.6) k/uL RBC 3.36 L (3.80-5.40) m/uL Hgb 10.8 L D (11.4-16.0) gm/dL Hct 33.0 L (34.0-46.0) % MCV (80.0-100.0) fL Neutrophils # 17.6 H (1.3-7.7) k/uL Lymphocytes # 0.4 L (1.0-4.8) k/uL Sodium (137-145) mmol/L Chloride 112 H (98-107) mmol/L Carbon Dioxide 19 L (22-30) mmol/L BUN 58 H (7-17) mg/dL Creatinine 2.11 H (0.52-1.04) mg/dL Glucose 175 H (74-99) mg/dL POC Glucose (mg/dL) (75-99) mg/dL Total Protein 5.7 L (6.3-8.2) g/dL Albumin 3.3 L (3.5-5.0) g/dL Urine Appearance Turbid H (Clear) Urine Protein 1+ H (Negative) Urine Glucose (UA) 3+ H (Negative) Urine Blood Moderate H (Negative) Ur Leukocyte Esterase Large H (Negative) Urine RBC 6 H (0-5) /hpf Urine WBC 127 H (0-5) /hpf Urine WBC Clumps Many H (None) /hpf Urine Bacteria Many H (None) /hpf Urine Mucus Rare H (None) /hpf Stool Occult Blood (Negative) 08/16/19 08/16/19 08/17/19 Range/Units 17:09 21:25 06:46 WBC (3.8-10.6) k/uL RBC (3.80-5.40) m/uL Hgb (11.4-16.0) gm/dL Hct (34.0-46.0) % MCV (80.0-100.0) fL Neutrophils # (1.3-7.7) k/uL Lymphocytes # (1.0-4.8) k/uL Sodium (137-145) mmol/L Chloride (98-107) mmol/L Carbon Dioxide (22-30) mmol/L BUN (7-17) mg/dL Creatinine (0.52-1.04) mg/dL Glucose (74-99) mg/dL POC Glucose (mg/dL) 147 H 151 H 72 L (75-99) mg/dL Total Protein (6.3-8.2) g/dL Albumin (3.5-5.0) g/dL Urine Appearance (Clear) Urine Protein (Negative) Urine Glucose (UA) (Negative) Urine Blood (Negative) Ur Leukocyte Esterase (Negative) Urine RBC (0-5) /hpf Urine WBC (0-5) /hpf Urine WBC Clumps (None) /hpf Urine Bacteria (None) /hpf Urine Mucus (None) /hpf Stool Occult Blood (Negative) 08/17/19 08/17/19 Range/Units 08:13 09:10 WBC 11.6 H (3.8-10.6) k/uL RBC 3.72 L (3.80-5.40) m/uL Hgb (11.4-16.0) gm/dL Hct (34.0-46.0) % MCV 100.6 H (80.0-100.0) fL Neutrophils # 9.6 H (1.3-7.7) k/uL Lymphocytes # (1.0-4.8) k/uL Sodium (137-145) mmol/L Chloride (98-107) mmol/L Carbon Dioxide (22-30) mmol/L BUN (7-17) mg/dL Creatinine (0.52-1.04) mg/dL Glucose (74-99) mg/dL POC Glucose (mg/dL) 70 L (75-99) mg/dL Total Protein (6.3-8.2) g/dL Albumin (3.5-5.0) g/dL Urine Appearance (Clear) Urine Protein (Negative) Urine Glucose (UA) (Negative) Urine Blood (Negative) Ur Leukocyte Esterase (Negative) Urine RBC (0-5) /hpf Urine WBC (0-5) /hpf Urine WBC Clumps (None) /hpf Urine Bacteria (None) /hpf Urine Mucus (None) /hpf Stool Occult Blood (Negative) Microbiology - Last 24 Hours (Table) 08/16/19 14:20 Urine Culture - Preliminary Urine,Voided CT Scan - head: report reviewed Assessment and Plan (1) Altered mental status Narrative/Plan: Mild neurological deficit noted, problems with acute recall. CT of the head without contrast was nondiagnostic for parenchymal metastasis. Recommendation is for MRI of the brain once patient's renal function is improved. Neurology consulted Continue with hydration and supportive care. Current Visit: Yes Status: Acute Priority: High Code(s): R41.82 - ALTERED MENTAL STATUS, UNSPECIFIED SNOMED Code(s): 879141321 (2) Weakness Narrative/Plan: Physical therapy consulted Dietitian consulted Current Visit: Yes Status: Acute Priority: High Code(s): R53.1 - WEAKNESS SNOMED Code(s): 45584521 (3) Adenocarcinoma of lung, stage 3 Narrative/Plan: Pt is on prednisone for immune therapy SE, cont at current dose No treatment is planned at this time Recent PET scan in July was equivocal. Patient will continue on follow-up as scheduled with Dr. Fish Current Visit: No Status: Chronic Priority: Medium Code(s): C34.90 - MALIGNANT NEOPLASM OF UNSP PART OF UNSP BRONCHUS OR LUNG SNOMED Code(s): 380328756 (4) Renal failure (ARF), acute on chronic Narrative/Plan: Creatinine has improved since admission with hydration. 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 Has had Nephrology work up. Continue monitoring labs. Continue gentle hydration. Current Visit: Yes Status: Acute Priority: High Code(s): N17.9 - ACUTE KIDNEY FAILURE, UNSPECIFIED; N18.9 - CHRONIC KIDNEY DISEASE, UNSPECIFIED SNOMED Code(s): 936992781 Plan: Doctor attests: I performed a history and physical examination of this patient, developed impression and plan of care, discussed with dictator. I agree with dictators note, documented as a scribe.
[2019-08-17 19:37] LABS: Glucose,Whole Blood 332 mg/dL (75-99)
--- NOTE | 2019-08-17 20:58 | P.HPIM ---
History of Present Illness H&P Date: 08/17/19 Chief Complaint: Weak tired History of presenting complaint: This is a pleasant 68-year-old patient of Dr. Mitch Ricks. Patient is being followed by Dr. Hensley. Patient has a diagnosis of poorly differentiated adenocarcinoma of the lung. Also in October of this year had a right-sided chest tube for malignant pleural effusion. Patient was initially given chemotherapy then treated with immunotherapy. Patient had a PET scan not too long ago that showed improvement of disease but because of worsening renal failure treatment had to be held. Patient is put on steroids. Patient provided most of the history the ER. Still that. Patient has been becoming p rogressively weaker over the last few days. Appetite is gone down. Having some loose stools and eventually. Patient will often does get dizzy and also's office question about seizures he should become less responsive at times. No fever or chills. Patient is not able to give me much of a history of self." Also questions. No family the bedside. Review of systems: GEN.: Tired, decreased appetite EYES: None HEENT: None NECK: None RESPIRATORY: None CARDIOVASCULAR: None GASTROINTESTINAL: Diarrhea with lower abdominal pain GENITOURINARY: None MUSCULOSKELETAL: [Some pain in the joints LYMPHATICS: None HEMATOLOGICAL: None PSYCHIATRY: Forgetful NEUROLOGICAL: Episodes of patient stating out decreased responsiveness Past medical history to include: Poorly differentiated adenocarcinoma. Lungs, diabetes, GERD, hyperlipidemia, right-sided pleural effusion with a VATS/decortication Social history: Lives with her has a home care nurse. Has home oxygen but did not uses for last 6 months. 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 Patient smoked for 34 years stopped in 2003. Alcohol occasionally. Physical examination: VITAL SIGNS: 98.2, 108, 18, 146/83, 96% room air GENERAL: BMI 23.3, labored tired appearing. EYES: [Pupils equal. Conjunctiva pale l. HEENT: External appearance of nose and ears normal, oral cavity grossly normal. NECK: JVD not raised; masses not palpable. HEART: First and second heart sounds are normal; no edema. LUNGS: Respiratory rate normal; clear to auscultation. ABDOMEN: Soft, nontender, liver spleen not palpable, no masses palpable. PSYCH: Patient also name: Cannot really tell where she is not sure about a yearl. NEUROLOGICAL: Cranial nerves grossly intact; no facial asymmetry, power and sensation grossly intact. LYMPHATICS: No lymph nodes palpable in the axilla and neck Investigations: White count 26.4, hemoglobin 7.2, crit lives 360 potassium 4.2 bun 62 creatinine 2.2 to, UA positive EKG tracing personally reviewed by me shows-sinus tachycardia Assessment: -This is a patient started chemotherapy and getting immunotherapy. Presents with episodes of forgetfulness and decreased responsiveness. Need to rule out seizure activity. We'll also do an MRI of the brain to rule out any metastatic disease --Poorly differentiated adenocarcinoma of the lung status post chemotherapy and immunotherapy -Diabetes mellitus type 2 -GERD -Hyperlipidemia -Anxiety not otherwise specified -Acute renal failure, could be prerenal drug-induced component cannot be ruled out. -Metabolic acidosis due to renal failure -Normocytic anemia due to underlying malignancy -Acute UTI from cystitis -Acute on chronic medical debility multifactorial Plan: -Patient did receive Levaquin earlier. Switch to IV ceftriaxone. Give IV fluids. EEG and MRI of the brain has been ordered. Currently no family the bedside. Fall precautions. Nephrology consultation with him. Add sodium bicarbonate. Repeat labs in the morning. Prognosis guarded. Past Medical History Past Medical History: Cancer, Diabetes Mellitus, GERD/Reflux, Hyperlipidemia Additional Past Medical History / Comment(s): R lung adenocarcinoma stage IIIc/completed 5 chemotherapy cycles and was on Keytruda but it has been being held d/t possible kidney inflammation, R sided empyema/pleural effusion with VATS/decortication, FALLS, IDDM type II, fell 2 years ago and had L orbit/facial and wrist and pelvic fracture. History of Any Multi-Drug Resistant Organisms: None Reported Past Surgical History: Appendectomy, Hysterectomy, Orthopedic Surgery Additional Past Surgical History / Comment(s): 08/25/18 bronchoscopy with bx, BAL/brushings, VATS/decortication, colonoscopies, L wrist fracture with 3 pins and 1 pin has been removed, picc line since removed and has L sided port. Past Anesthesia/Blood Transfusion Reactions: No Reported Reaction Additional Past Anesthesia/Blood Transfusion Reaction / Comment(s): no hx blood transfusion Smoking Status: Former smoker - Past Family History Mother Family Medical History: Myocardial Infarction ([place]) Additional Family Medical History / Comment(s): Mother of a [place] at the age of 59yrs. Father Family Medical History: Asthma, Cancer, COPD Additional Family Medical History / Comment(s): Father had lung cancer. Medications and Allergies Home Medications Medication Instructions Recorded Confirmed Type Atorvastatin [Lipitor] 10 mg PO DAILY 08/24/18 08/16/19 History Sertraline HCl [Zoloft] 25 mg PO DAILY 10/29/18 08/16/19 History Famotidine [Pepcid] 40 mg PO DAILY 08/16/19 08/16/19 History Folic Acid 1 mg PO DAILY 08/16/19 08/16/19 History Insulin Glargine,Hum.rec.anlog See Protocol SQ HS 08/16/19 08/16/19 History [Lantus Solostar] Levofloxacin [Levaquin] 500 mg PO DAILY 08/16/19 08/16/19 History Sodium Bicarbonate Tab 1,300 mg PO BID 08/16/19 08/16/19 History predniSONE 20 mg PO QID 08/16/19 08/16/19 History Allergies Allergy/AdvReac Type Severity Reaction Status Date / Time No Known Allergies Allergy Verified 08/16/19 13:06 Physical Exam Vitals: Vital Signs Temp Pulse Pulse Pulse Pulse Pulse Resp 08/17/19 05:00 98 F 94 16 08/17/19 00:00 18 08/16/19 17:40 97.6 F 97 18 08/16/19 17:10 95 98 92 18 08/16/19 15:30 84 18 08/16/19 13:45 89 18 08/16/19 13:12 95 98 92 08/16/19 11:11 98.2 F 108 H 18 BP BP BP BP Pulse Ox 08/17/19 05:00 174/77 95 08/17/19 00:00 08/16/19 17:40 163/91 96 08/16/19 17:10 08/16/19 15:30 147/72 95 08/16/19 13:45 155/75 97 08/16/19 13:12 164/86 166/84 167/91 08/16/19 11:11 146/83 96 Intake and Output 08/16/19 08/17/19 08/17/19 22:59 06:59 14:59 Intake Total 420 120 Balance 420 120 Intake: Intake, IV Titration 300 Amount Sodium Chloride 0.9% 1, 300 000 ml @ 75 mls/hr IV . [id number] ONE Rx#:[id number] Oral 120 120 Other: Voiding Method Bedside Commode # Voids 2 2 1 # Bowel Movements 3 3 Weight 61.689 kg Results CBC & Chem 7: 08/17/19 09:10 08/16/19 14:20 Labs: Abnormal Lab Results - Last 24 Hours (Table) 08/16/19 08/16/19 08/16/19 Range/Units 12:20 12:20 13:35 WBC 26.4 H (3.8-10.6) k/uL RBC 2.24 L (3.80-5.40) m/uL Hgb 7.2 L D (11.4-16.0) gm/dL Hct 22.0 L (34.0-46.0) % MCV (80.0-100.0) fL Neutrophils # 24.7 H (1.3-7.7) k/uL Lymphocytes # 0.6 L (1.0-4.8) k/uL Sodium 136 L (137-145) mmol/L Chloride 108 H (98-107) mmol/L Carbon Dioxide 19 L (22-30) mmol/L BUN 62 H (7-17) mg/dL Creatinine 2.22 H (0.52-1.04) mg/dL Glucose 230 H (74-99) mg/dL POC Glucose (mg/dL) (75-99) mg/dL Total Protein 6.2 L (6.3-8.2) g/dL Albumin (3.5-5.0) g/dL Urine Appearance (Clear) Urine Protein (Negative) Urine Glucose (UA) (Negative) Urine Blood (Negative) Ur Leukocyte Esterase (Negative) Urine RBC (0-5) /hpf Urine WBC (0-5) /hpf Urine WBC Clumps (None) /hpf Urine Bacteria (None) /hpf Urine Mucus (None) /hpf Stool Occult Blood Positive H (Negative) 08/16/19 08/16/19 08/16/19 Range/Units 13:35 14:20 14:20 WBC 18.7 H (3.8-10.6) k/uL RBC 3.36 L (3.80-5.40) m/uL Hgb 10.8 L D (11.4-16.0) gm/dL Hct 33.0 L (34.0-46.0) % MCV (80.0-100.0) fL Neutrophils # 17.6 H (1.3-7.7) k/uL Lymphocytes # 0.4 L (1.0-4.8) k/uL Sodium (137-145) mmol/L Chloride 112 H (98-107) mmol/L Carbon Dioxide 19 L (22-30) mmol/L BUN 58 H (7-17) mg/dL Creatinine 2.11 H (0.52-1.04) mg/dL Glucose 175 H (74-99) mg/dL POC Glucose (mg/dL) (75-99) mg/dL Total Protein 5.7 L (6.3-8.2) g/dL Albumin 3.3 L (3.5-5.0) g/dL Urine Appearance Turbid H (Clear) Urine Protein 1+ H (Negative) Urine Glucose (UA) 3+ H (Negative) Urine Blood Moderate H (Negative) Ur Leukocyte Esterase Large H (Negative) Urine RBC 6 H (0-5) /hpf Urine WBC 127 H (0-5) /hpf Urine WBC Clumps Many H (None) /hpf Urine Bacteria Many H (None) /hpf Urine Mucus Rare H (None) /hpf Stool Occult Blood (Negative) 08/16/19 08/16/19 08/17/19 Range/Units 17:09 21:25 06:46 WBC (3.8-10.6) k/uL RBC (3.80-5.40) m/uL Hgb (11.4-16.0) gm/dL Hct (34.0-46.0) % MCV (80.0-100.0) fL Neutrophils # (1.3-7.7) k/uL Lymphocytes # (1.0-4.8) k/uL Sodium (137-145) mmol/L Chloride (98-107) mmol/L Carbon Dioxide (22-30) mmol/L BUN (7-17) mg/dL Creatinine (0.52-1.04) mg/dL Glucose (74-99) mg/dL POC Glucose (mg/dL) 147 H 151 H 72 L (75-99) mg/dL Total Protein (6.3-8.2) g/dL Albumin (3.5-5.0) g/dL Urine Appearance (Clear) Urine Protein (Negative) Urine Glucose (UA) (Negative) Urine Blood (Negative) Ur Leukocyte Esterase (Negative) Urine RBC (0-5) /hpf Urine WBC (0-5) /hpf Urine WBC Clumps (None) /hpf Urine Bacteria (None) /hpf Urine Mucus (None) /hpf Stool Occult Blood (Negative) 08/17/19 08/17/19 Range/Units 08:13 09:10 WBC 11.6 H (3.8-10.6) k/uL RBC 3.72 L (3.80-5.40) m/uL Hgb (11.4-16.0) gm/dL Hct (34.0-46.0) % MCV 100.6 H (80.0-100.0) fL Neutrophils # 9.6 H (1.3-7.7) k/uL Lymphocytes # (1.0-4.8) k/uL Sodium (137-145) mmol/L Chloride (98-107) mmol/L Carbon Dioxide (22-30) mmol/L BUN (7-17) mg/dL Creatinine (0.52-1.04) mg/dL Glucose (74-99) mg/dL POC Glucose (mg/dL) 70 L (75-99) mg/dL Total Protein (6.3-8.2) g/dL Albumin (3.5-5.0) g/dL Urine Appearance (Clear) Urine Protein (Negative) Urine Glucose (UA) (Negative) Urine Blood (Negative) Ur Leukocyte Esterase (Negative) Urine RBC (0-5) /hpf Urine WBC (0-5) /hpf Urine WBC Clumps (None) /hpf Urine Bacteria (None) /hpf Urine Mucus (None) /hpf Stool Occult Blood (Negative) Microbiology - Last 24 Hours (Table) 08/16/19 14:20 Urine Culture - Preliminary Urine,Voided Thrombosis Risk Factor Assmnt - Choose All That Apply Any of the Below Risk Factors Present?: Yes Other Risk Factors: Yes Each Risk Factor Represents 2 Points: Age 61-74 years, Malignancy Other congenital or acquired thrombophilia - If yes, enter type in comment: No Thrombosis Risk Factor Assessment Total Risk Factor Score: 4 Thrombosis Risk Factor Assessment Level: Moderate Risk
--- NOTE | 2019-08-17 21:09 | P.CNNES ---
History of Present Illness Consult date: 08/17/19 Reason for Consult: Possible Seizure Chief complaint: Possible Seizure and memory impairment History of Present Illness: HISTORY OF PRESENT ILLNESS: Thank you for allowing me to evaluate Ms. Rona Davalos. Ms. Davalos is a 68-year-old man with past medical history of lung cancer (diagnosed in 2018, currently on chemo and immunologic therapy), COPD, diabetes, GERD, hyperlipidemia, presented to [facility] for concern for possible seizure activity. 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 After Thanksgiving on , basically everyone at the [employer] got sick and had much diarrhea from a bad dish. Patient got especially more sick as patient is immunecompromised, and pt has been having multiple bouts of diarrhea although it was improved. states that patient had been walking with a wide-based gait for months, but recently, he needed to make sure he's with the patient when she stands because he has noticed patient having "absence seizur es," where she just stares off for a few seconds and does snap out of it. Patient had about 2-3 episodes daily for about 3 days, and since yesterday morning until this afternoon, patient has not had any additional episodes. takes care of the patient, and goes to all appoints. He states that patient's oncologist has been planning to get MRI brain w/ and w/o contrast, but has been postponed due to patient's renal function. will follow up with oncologist to get MRI when patient's renal function improves. Patient is currently on chemotherapy and immunologic drugs, but chemotherapy was stopped a few weeks ago due to liver damage. Over the last month, patient had some memory impairments. PAST MEDICAL HISTORY: Adenocarcinoma of the lung stage III, COPD, diabetes, GERD, hyperlipidemia PAST SURGICAL HISTORY: Hysterectomy, appendectomy, bronchoscopy, left wrist fracture HOME MEDICATIONS: Atorvastatin, sertraline, famotidine, folic acid, Lantus, levofloxacin, prednisone, sodium bicarbonate ALLERGIES: NKDA SOCIAL HISTORY: Former smoker. Occasional alcohol use FAMILY HISTORY: Mother with [place]. Father with asthma, COPD and lung cancer REVIEW OF SYSTEMS: The 14 systems are reviewed and no additional points are identified compared to the review of systems documented history and physical PHYSICAL EXAMINATION: VITAL SIGNS: T 98 HR 94 RR 16 BP 174/77 O2 sat 95% on RA GEN.: NAD, pleasant and cooperative HEENT: NCAT, sclera without icterus NECK: Supple SKIN AND EXTREMITIES: Warm to touch, no edema NEURO: MENTAL STATUS: Patient alert and oriented to self, place, time. Able to name the current president (although needed to prompt patient and asked, "what's on my hat." Speech fluent, able to name and repeat, following all commands readily. No right and left disorientation, neglect. CRANIAL NERVES II THROUGH XII: II: Pupils are equal and reactive to light symmet rically. No afferent pupillary defect. Visual lopez are intact. III, IV, : No ptosis. Extraocular movements full. No nystagmus. V: Facial sensation intact from V1-3. VII. No clear facial asymmetry. VIII: Hearing intact to finger rub bilaterally. IX, X: Symmetric palate elevation. XI: Shoulder shrug intact. XII: Tongue midline without fasciculation or atrophy. MOTOR: Normal bulk/tone. No pronator drift or tremor. Strength is 5/5 throughout all 4 extremities. SENSORY: Intact to light touch in all 4 extremities. REFLEXES: 2+ throughout. Toes are downgoing. COORDINATION: Finger to nose intact. No dysmetria. GAIT: Wide-based gait, patient cannot take any steps without assistance. DIAGNOSTIC TESTING: LABORATORY: WBC 18.7 hemoglobin 10.8 platelet 229 sodium 139 potassium 4.1 chloride 112 bicarb 19 BUN 58 creatinine 2.11 glucose 175 AST 16 ALT 19 alk phos 73 urinalysis large esterase 3+ glucose 1+ protein many bacteria stool occult positive IMAGING: CT head without contrast 09/11/2019: No acute intracranial hemorrhage or midline shift. There is mild to moderate diffuse age-related cerebral atrophy and moderate to severe chronic small vessel ischemic change we demonstrated. MRI brain without contrast 11/02/2018: Patchy to confluent periventricular white matter changes, most likely on the basis of chronic white matter ischemic change. Some atrophy is present. No acute suspicious changes to suggest metastatic disease. Mucosal thickening through the right maxillary sinus ASSESSMENT: 68-year-old man with past medical history of lung cancer (diagnosed in 2018, currently on chemo and immunologic therapy), COPD, diabetes, GERD, hyperlipidemia, presented to [facility] for concern for possible seizure activity. Her episodes can very much be absence seizures. Patient also with wide-based gait. Patient also with risk factors for stroke. I would like to get MRI brain w/ and w/o contrast, but patient with elevated creatinine and patient has had renal failure that recently started improving. Patient's oncologist has been wanting to get MRI brain w/ and w/o contrast as patient has had wide-based gait for a couple of months, but has been postponed due to patient's renal function. Spoke to about whether or not he would like for the patient to be started on meds as he was concerned about absence seizure. As patient is on multiple strong meds, he would like to let her come out this illness of stomach flu as patient has not had additional [id number] episodes for more than 24 hours. RECOMMENDATIONS: 1. Routine EEG 2. Can consider getting MRI brain w/o contrast first as we cannot get one with contrast. 3. No seizure medications at this time. If patient continues to have these episodes, will record the episode with his cellphone. 4. Patient will follow up with her oncologist and PCP and will obtain MRI brain w/ and w/o contrast as soon as possible. will discuss with oncologist about if and when the patient would need to see a neurologist as outpatient. 5. If Routine EEG with no seizures or epileptiform activity, Neurology will sign off. Please contact with additional questions or concerns. Past Medical History Past Medical History: Cancer, Diabetes Mellitus, GERD/Reflux, Hyperlipidemia Additional Past Medical History / Comment(s): R lung adenocarcinoma stage IIIc/completed 5 chemotherapy cycles and was on Keytruda but it has been being held d/t possible kidney inflammation, R sided empyema/pleural effusion with VATS/decortication, FALLS, IDDM type II, fell 2 years ago and had L orbit/facial and wrist and pelvic fracture. History of Any Multi-Drug Resistant Organisms: None Reported Past Surgical History: Appendectomy, Hysterectomy, Orthopedic Surgery Additional Past Surgical History / Comment(s): 08/25/18 bronchoscopy with bx, BAL/brushings, VATS/decortication, colonoscopies, L wrist fracture with 3 pins and 1 pin has been removed, picc line since removed and has L sided port. Past Anesthesia/Blood Transfusion Reactions: No Reported Reaction Additional Past Anesthesia/Blood Transfusion Reaction / Comment(s): no hx blood transfusion Smoking Status: Former smoker - Past Family History Mother Family Medical History: Myocardial Infarction ([place]) Additional Family Medical History / Comment(s): Mother of a [place] at the age of 59yrs. Father Family Medical History: Asthma, Cancer, COPD Additional Family Medical History / Comment(s): Father had lung cancer. Medications and Allergies Home Medications Medication Instructions Recorded Confirmed Type Atorvastatin [Lipitor] 10 mg PO DAILY 08/24/18 08/16/19 History Sertraline HCl [Zoloft] 25 mg PO DAILY 10/29/18 08/16/19 History Famotidine [Pepcid] 40 mg PO DAILY 08/16/19 08/16/19 History Folic Acid 1 mg PO DAILY 08/16/19 08/16/19 History Insulin Glargine,Hum.rec.anlog See Protocol SQ HS 08/16/19 08/16/19 History [Lantus Solostar] Levofloxacin [Levaquin] 500 mg PO DAILY 08/16/19 08/16/19 History Sodium Bicarbonate Tab 1,300 mg PO BID 08/16/19 08/16/19 History predniSONE 20 mg PO QID 08/16/19 08/16/19 History Allergies Allergy/AdvReac Type Severity Reaction Status Date / Time No Known Allergies Allergy Verified 08/16/19 13:06 Physical Examination - Vital Signs Vital Signs: Vital Signs Temp Pulse Pulse Pulse Pulse Pulse Resp 08/17/19 05:00 98 F 94 16 08/17/19 00:00 18 08/16/19 17:40 97.6 F 97 18 08/16/19 17:10 95 98 92 18 08/16/19 15:30 84 18 08/16/19 13:45 89 18 08/16/19 13:12 95 98 92 08/16/19 11:11 98.2 F 108 H 18 BP BP BP BP Pulse Ox 08/17/19 05:00 174/77 95 08/17/19 00:00 08/16/19 17:40 163/91 96 08/16/19 17:10 08/16/19 15:30 147/72 95 08/16/19 13:45 155/75 97 08/16/19 13:12 164/86 166/84 167/91 08/16/19 11:11 146/83 96 Intake and Output 08/16/19 08/17/19 08/17/19 22:59 06:59 14:59 Intake Total 420 120 Balance 420 120 Intake: Intake, IV Titration 300 Amount Sodium Chloride 0.9% 1, 300 000 ml @ 75 mls/hr IV . [id number] ONE Rx#:[id number] Oral 120 120 Other: Voiding Method Bedside Commode # Voids 2 2 1 # Bowel Movements 3 3 Weight 61.689 kg Results - Laboratory Findings CBC and BMP: 08/17/19 09:10 08/16/19 14:20 Abnormal Lab Findings: Abnormal Labs 08/16/19 08/16/19 08/16/19 12:20 12:20 13:35 WBC 26.4 H RBC 2.24 L Hgb 7.2 L D Hct 22.0 L MCV Neutrophils # 24.7 H Lymphocytes # 0.6 L Sodium 136 L Chloride 108 H Carbon Dioxide 19 L BUN 62 H Creatinine 2.22 H Glucose 230 H POC Glucose (mg/dL) Total Protein 6.2 L Albumin Urine Appearance Urine Protein Urine Glucose (UA) Urine Blood Ur Leukocyte Esterase Urine RBC Urine WBC Urine WBC Clumps Urine Bacteria Urine Mucus Stool Occult Blood Positive H 08/16/19 08/16/19 08/16/19 13:35 14:20 14:20 WBC 18.7 H RBC 3.36 L Hgb 10.8 L D Hct 33.0 L MCV Neutrophils # 17.6 H Lymphocytes # 0.4 L Sodium Chloride 112 H Carbon Dioxide 19 L BUN 58 H Creatinine 2.11 H Glucose 175 H POC Glucose (mg/dL) Total Protein 5.7 L Albumin 3.3 L Urine Appearance Turbid H Urine Protein 1+ H Urine Glucose (UA) 3+ H Urine Blood Moderate H Ur Leukocyte Esterase Large H Urine RBC 6 H Urine WBC 127 H Urine WBC Clumps Many H Urine Bacteria Many H Urine Mucus Rare H Stool Occult Blood 08/16/19 08/16/19 08/17/19 17:09 21:25 06:46 WBC RBC Hgb Hct MCV Neutrophils # Lymphocytes # Sodium Chloride Carbon Dioxide BUN Creatinine Glucose POC Glucose (mg/dL) 147 H 151 H 72 L Total Protein Albumin Urine Appearance Urine Protein Urine Glucose (UA) Urine Blood Ur Leukocyte Esterase Urine RBC Urine WBC Urine WBC Clumps Urine Bacteria Urine Mucus Stool Occult Blood 08/17/19 08/17/19 08:13 09:10 WBC 11.6 H RBC 3.72 L Hgb Hct MCV 100.6 H Neutrophils # 9.6 H Lymphocytes # Sodium Chloride Carbon Dioxide BUN Creatinine Glucose POC Glucose (mg/dL) 70 L Total Protein Albumin Urine Appearance Urine Protein Urine Glucose (UA) Urine Blood Ur Leukocyte Esterase Urine RBC Urine WBC Urine WBC Clumps Urine Bacteria Urine Mucus Stool Occult Blood
[2019-08-17] MEDS: ENOXAPARIN 40 MG/0.4 ML SYRINGE SQ SCH (21:12)
[2019-08-17] MEDS: SODIUM CHLORIDE 0.9% 1,000 ML IV SCH (21:13)
--- NOTE | 2019-08-17 23:30 | EEG ---
ELECTROENCEPHALOGRAM REPORT PROCEDURE DATED: 08/17/2019. ELECTROENCEPHALOGRAM (EEG) REPORT: TECHNIQUE: A routine 18 channel EEG was performed with the using the 10/20 electrode placement system. HISTORY: Over the last month, the patient has been having altered mental status. Patient has had diarrhea since . Patient also states that when she stands up, she shakes all over and becomes weak. CURRENT MEDICATIONS: Zoloft, Levaquin, insulin, folic acid, Pepcid, Lipitor. STUDY DURATION: 22 minutes. FINDINGS: Please note that quality of this recording was limited by the presence of muscle artifact. BACKGROUND: The background activity consisted of unsustained 7 to 8 hertz rhythmic waveforms with some intermixed theta range slowing. ACTIVATION: Hyperventilation: Not performed. Photic stimulation: Mild symmetric driving seen. Sleep: Drowsy. ABNORMALITIES: 1. Occasional frontally predominant delta range slowing was seen. 2. Diffuse intermittent diffuse 4-6 Hz theta range slowing was seen. IMPRESSION: Limited study, abnormal EEG. The frontally predominant delta range slowing mentioned above is not epileptiform in nature. The diffuse theta range slowing mentioned above is not epileptiform in nature. In combination with the slow background, these findings indicate a mild to moderate diffuse cerebral dysfunction as may be seen in a toxometabolic encephalopathy. No seizures were recorded. No epileptiform activity was present. MMODL / IJN: [id number] /
--- NOTE | 2019-08-18 00:44 | CONS ---
CONSULTATION DATE OF SERVICE: August 17, 2019. REQUESTING PHYSICIAN: Dr. Mitch Ricks. REASON FOR CONSULTATION: Diarrhea and Hemoccult-positive stool. HISTORY OF PRESENT ILLNESS: The patient is a 68-year-old pleasant white female who was diagnosed with lung cancer, adenocarcinoma of the lung, stage IIIC, who is status post chemotherapy and presently undergoing immunotherapy which was recently on hold because of elevated BUN and creatinine. She had Thanksgiving dinner and a day later, she started having severe diarrhea. She had about 5 to 6 loose to watery bowel movements daily and came into the emergency room. She denies any associated abdominal pain. No fever, chills, night sweats. She had a CT of brain done 2 days ago that was unremarkable. In the meantime, since being in the hospital, the diarrhea has almost resolved. She is presently on a clear liquid diet, tolerating well. Denies any abdominal pain. No rectal bleeding or melena. PAST MEDICAL HISTORY: 1. Significant for stage III adenocarcinoma of the lung diagnosed a year ago, status post chemotherapy and presently undergoing minute therapy. 2. History of hypertension, hyperlipidemia, gastroesophageal reflux disease, hypothyroidism, diabetes mellitus. PAST SURGICAL HISTORY: Hysterectomy, appendectomy, bronchoscopy in August of 2018, left wrist fracture, colonoscopy. MEDICATIONS: At home include prednisone, sodium bicarb, Levaquin, insulin, folic acid, Pepcid, Zoloft, Lipitor. ALLERGIES: None. SOCIAL HISTORY: Remote history of smoking. No alcohol use. FAMILY HISTORY: Mother had a myocardial infarction. Father had coronary artery disease. REVIEW OF SYSTEMS: CARDIOPULMONARY: No chest pain, shortness of breath. no dysuria or hematuria. MUSCULOSKELETAL unremarkable. SKIN unremarkable. ENDOCRINE unremarkable. PSYCHIATRIC unremarkable. NEUROLOGY unremarkable. ENT/vision unremarkable. CONSTITUTIONAL: No recent weight loss. No fever, chills, night sweats. PHYSICAL EXAMINATION: Blood pressure 176/90, pulse rate 98, temperature 98. HEENT examination unremarkable. Conjunctivae pink. Sclerae anicteric. Oral cavity no lesions. NECK: No JVD or lymph node enlargement. The chest was clear to auscultation. HEART: Regular rate and rhythm. ABDOMEN: Soft. Bowel sounds are positive. No organomegaly. EXTREMITIES: No pedal edema. Skin no rashes. NEUROLOGIC: Alert and oriented x3. No focal deficits. LABS: At the time of admission to the hospital: WBC 18.7, hemoglobin 10.8, platelets normal. Basic metabolic panel showed a BUN of 58 and creatinine was 2.11. Today, WBC 11.6, hemoglobin 11.8, platelets normal. Basic metabolic panel was not done. Stool Hemoccult was positive. Urinalysis showed positive blood and large leukocyte esterase. IMPRESSION: 1. Acute onset of lower abdominal pain followed by diarrhea of 2 days duration following Thanksgiving dinner, probably related to viral gastroenteritis, or infectious etiology. In any event, symptoms are significantly improved and the diarrhea has resolved. She was noted to have a Hemoccult-positive stool, but no evidence of gross gastrointestinal bleed. Hemoglobin remains stable at 12.5 g/dL. 2. History of stage IIIC lung cancer status post chemotherapy, presently undergoing immunotherapy which is on hold because of elevated BUN and creatinine. 3. Elevated BUN and creatinine, which are being monitored closely. 4. Hemoccult-positive stool, but no clinical evidence of active bleeding. RECOMMENDATIONS: 1. Since the symptoms have improved, her diet will be advanced as tolerated. 2. Repeat labs in the morning. 3. If she is stable, she can be discharged home tomorrow with outpatient followup as needed. Thank you for this consultation. MMLEONIEL / IJN: [id number] /
[2019-08-18] MEDS: SODIUM CHLORIDE 0.9% 1,000 ML IV SCH ×2 (06:06→13:53)
[2019-08-18 07:07] LABS: Glucose,Whole Blood 214 mg/dL (75-99)
[2019-08-18] MEDS: SERTRALINE 25 MG TAB PO SCH (08:10)
[2019-08-18] MEDS: ATORVASTATIN 10 MG TAB PO SCH (08:10)
[2019-08-18] MEDS: SODIUM BICARBONATE TAB 650 MG TAB PO SCH ×2 (08:10→22:10)
[2019-08-18] MEDS: FOLIC ACID 1 MG TAB PO SCH (08:10)
[2019-08-18] MEDS: predniSONE 20 MG TAB PO SCH ×4 (08:10→22:10)
[2019-08-18] MEDS: ENOXAPARIN 40 MG/0.4 ML SYRINGE SQ SCH (08:10)
[2019-08-18] MEDS: FAMOTIDINE 20 MG TAB PO SCH (08:11)
[2019-08-18] MEDS: INSULIN ASPART (NovoLOG) 100 UNIT/ML VIAL SQ SCH ×4 (08:11→22:10)
[2019-08-18 08:55] LABS: Calcium 8.7 mg/dL (8.4-10.2); Potassium 4.5 mmol/L (3.5-5.1)
[2019-08-18] MEDS ORDERED: LEVOFLOXACIN 750MG-D5W PMX 750 MG in DEXTROSE/WATER 1 150ML.BAG IVPB SCH (09:00)
[2019-08-18 11:24] LABS: Glucose,Whole Blood 417 mg/dL (75-99)
[2019-08-18 11:47] VITALS: BMI 23.3
[2019-08-18 12:06] LABS: Albumin 3.2 g/dL (3.5-5.0); Magnesium 1.6 mg/dL (1.6-2.3); Total Bilirubin 0.4 mg/dL (0.2-1.3); Total Protein 5.6 g/dL (6.3-8.2)
[2019-08-18] MEDS: DEXTROSE 5% IN WATER 1,000 ML with SODIUM BICARB (1 MEQ/ML) 150 ML IV SCH (16:19)
[2019-08-18] MEDS ORDERED: ALBUMIN HUMAN 25% 50 ML in EMPTY BAG 1 BAG IVPB SCH (16:30)
[2019-08-18 17:17] LABS: Glucose,Whole Blood 312 mg/dL (75-99)
--- NOTE | 2019-08-18 17:42 | PN ---
PROGRESS NOTE DATE OF DICTATION: 08/18/2019 Patient is a 68-year-old pleasant white female admitted to the hospital with acute onset of nausea, vomiting and diarrhea for the last 2 days' duration. Since being in the hospital, she has been doing extremely well. The symptoms have completely resolved. She was initially started on clear liquid diet and today is on a regular diet, tolerating well. She did have a petit mal seizure this afternoon and hence her discharge has been on hold. She denies any GI symptoms. PHYSICAL EXAMINATION: She appears comfortable. No apparent distress. VITAL SIGNS: Stable. Blood pressure is 215/111, pulse rate 121, and afebrile. HEENT examination unremarkable. Conjunctivae pink. Sclerae anicteric. Oral cavity no lesions. NECK: No JVD or lymph node enlargement. CHEST: Clear to auscultation. HEART: Regular rate and rhythm. ABDOMEN: Soft. Bowel sounds are positive. No organomegaly. EXTREMITIES: No pedal edema. SKIN: No rashes. NEUROLOGIC: Alert and oriented x3. No focal deficits. LABS: Labs from today showed basic metabolic panel with a BUN of 45, creatinine 2.23. Rest of the labs are within normal limits. IMPRESSION: 1. Acute onset of nausea, vomiting and diarrhea, possibly related to viral gastroenteritis. Symptoms have resolved. On a regular diet, tolerating well. 2. History of seizure disorder, being watched closely. 3. History of adenocarcinoma of the lung, stage IIIC, diagnosed a few months ago, undergoing chemotherapy. RECOMMENDATIONS: 1. Advance diet as tolerated. 2. Monitor her closely. 3. Await rest of the stool cultures. We will sign off at this time. Please call us if needed if she has any GI symptoms. Thank you for this consultation. MMODL / IJN: [id number] /
--- NOTE | 2019-08-18 17:47 | P.PN ---
Subjective Progress Note Date: 08/18/19 Principal diagnosis: AMS, UTI, NSCLC In follow-up today patient definitely looks better, she is sitting up eating some ice cream, states she ate very well last night as well as today. No vomiting, no abd pain, he states that she ambulated with physical therapy but, when he stood her up to go to the bathroom she had another "silent seizure". Patient looks to her when asked questions, she denies any pain, difficulty breathing, belly pain or need to go to the bathroom. Objective - Vital Signs Vital signs: Vital Signs Temp 97.7 F 08/18/19 11:55 Pulse 121 H 08/18/19 15:55 Resp 16 08/18/19 14:41 BP 215/111 08/18/19 15:55 Pulse Ox 96 08/18/19 15:55 Intake & Output 08/17/19 08/18/19 08/18/19 18:59 06:59 18:59 Intake Total 1905 Balance 1905 Weight 61.689 kg Intake: Intake, IV Titration 1425 Amount Sodium Chloride 0.9% 1, 1375 000 ml @ 125 mls/hr IV . Q8H REILLY Rx#:[id number] cefTRIAXone 1 gm In 50 Sodium Chloride 0.9% 50 ml @ 100 mls/hr IVPB Q24HR REILLY Rx#:[id number] Oral 480 Other: Voiding Method Bedside Commode Bedside Commode Bedside Commode # Voids 2 2 4 - Constitutional General appearance: Present: average body habitus, cooperative, no acute distress - EENT Eyes: Present: anicteric sclerae, EOMI ENT: Present: hearing grossly normal - Respiratory Respiratory: bilateral: CTA - Cardiovascular Rhythm: regular Heart sounds: normal: S1, S2 - Peripheral edema leg Peripheral Edema: bilateral: None - Gastrointestinal General gastrointestinal: Present: normal bowel sounds, soft - Musculoskeletal Musculoskeletal: Present: generalized weakness - Labs CBC & Chem 7: 08/17/19 09:10 08/18/19 07:52 Labs: Abnormal Lab Results - Last 24 Hours (Table) 08/17/19 08/17/19 08/18/19 Range/Units 17:02 19:36 07:04 Chloride (98-107) mmol/L Carbon Dioxide (22-30) mmol/L BUN (7-17) mg/dL Creatinine (0.52-1.04) mg/dL Glucose (74-99) mg/dL POC Glucose (mg/dL) 231 H 332 H 214 H (75-99) mg/dL Total Protein (6.3-8.2) g/dL Albumin (3.5-5.0) g/dL 08/18/19 08/18/19 Range/Units 07:52 11:20 Chloride 113 H (98-107) mmol/L Carbon Dioxide 15 L (22-30) mmol/L BUN 45 H (7-17) mg/dL Creatinine 2.23 H (0.52-1.04) mg/dL Glucose 302 H (74-99) mg/dL POC Glucose (mg/dL) 417 H (75-99) mg/dL Total Protein 5.6 L (6.3-8.2) g/dL Albumin 3.2 L (3.5-5.0) g/dL Microbiology - Last 24 Hours (Table) 08/16/19 14:20 Urine Culture - Preliminary Urine,Voided Gram Neg Bacilli Gram Neg Bacilli#2 08/16/19 16:00 Blood Culture - Preliminary Blood No Growth after 24 hours Assessment and Plan (1) Altered mental status Narrative/Plan: Mild neurological deficit noted, problems with acute recall. CT of the head without contrast was nondiagnostic for parenchymal metastasis. Recommendation is for MRI of the brain once patient's renal function is improved. Neurology consult reviewed Continue with hydration and supportive care. Current Visit: Yes Status: Acute Priority: High Code(s): R41.82 - ALTERED MENTAL STATUS, UNSPECIFIED SNOMED Code(s): 163147209 (2) Weakness Narrative/Plan: Physical therapy consulted Dietitian consulted Current Visit: Yes Status: Acute Priority: High Code(s): R53.1 - WEAKNESS SNOMED Code(s): 40176803 (3) Adenocarcinoma of lung, stage 3 Narrative/Plan: Pt is on prednisone for immune therapy SE, cont at current dose No treatment is planned at this time Recent PET scan in July was equivocal. Patient will continue on follow-up as scheduled with Dr. Fish Current Visit: No Status: Chronic Priority: Medium Code(s): C34.90 - MALIGNANT NEOPLASM OF UNSP PART OF UNSP BRONCHUS OR LUNG SNOMED Code(s): 977199992 (4) Renal failure (ARF), acute on chronic Narrative/Plan: Creatinine has improved since admission with hydration. 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 Has had Nephrology work up. Continue monitoring labs. Continue gentle hydration. Current Visit: Yes Status: Acute Priority: High Code(s): N17.9 - ACUTE KIDNEY FAILURE, UNSPECIFIED; N18.9 - CHRONIC KIDNEY DISEASE, UNSPECIFIED SNOMED Code(s): 842136258
[2019-08-18 19:45] LABS: Glucose,Whole Blood 395 mg/dL (75-99)
--- NOTE | 2019-08-18 20:48 | CONS ---
CONSULTATION REASON FOR CONSULT: Renal failure. HISTORY OF PRESENT ILLNESS: The patient is a 68-year-old female who has a history of poorly differentiated adenocarcinoma of the lung, status post chemotherapy and immunotherapy with history of acute kidney injury post the chemotherapy. Started on steroids as outpatient with improvement in creatinine noted as outpatient. Serum creatinine did go down from around 5 mg/dL and 5.2 on 07/26/2019, to 2.4 on 08/15/2019. Previous creatinine was as low as 1.3 and 0.6 on 11/03/2018. The steroids were started just about 1-2 weeks ago. The patient was admitted to the hospital with complaints of nausea, vomiting and diarrhea for a couple of days prior to admission. According to her , patient may have eaten something outside for Thanksgiving and he feels she got sick after that. Currently patient is maintained on IV fluids. No significant urinary symptoms. No fever prior to admission. PAST MEDICAL HISTORY: History of poorly differentiated adenocarcinoma of the lungs, status post chemotherapy and immunotherapy, being followed by Dr. Fish, history of type 2 diabetes, gastroesophageal reflux disease, hyperlipidemia, history of right-sided empyema, pleural effusion status post VATS/decortication, history of pelvic fracture. PAST SURGICAL HISTORY: Appendectomy, hysterectomy, bronchoscopy, colonoscopies, right wrist fracture with pin placement and removal, PICC line placement and removal. SOCIAL HISTORY: Patient is a former smoker. No history of drug abuse or alcohol abuse. MEDICATIONS: Medications prior to admission include Lipitor, Zoloft, Pepcid, insulin, Levaquin, sodium bicarb, prednisone. ALLERGIES: None. REVIEW OF SYSTEMS: As per HPI. Other systems negative. PHYSICAL EXAMINATION: Patient is currently comfortable, awake. She is not in any acute distress. Blood pressure was 166/86, heart rate 109 per minute. She is afebrile. Examination of the heart S1, S2. Examination of the lungs, bilateral breath sounds are heard. Decreased breath sounds at bases. Abdomen is soft, nontender. Examination of lower extremities shows no significant edema. CHILD CARE DIRECTOR exam grossly intact. LAB: Show sodium 140, potassium 4.5, chloride 113, CO2 is 15, BUN 45, creatinine 2.23. ASSESSMENT: 1. Acute kidney injury as outpatient with concern for acute tubular necrosis versus AIN with improvement in renal function with initiation of steroids as outpatient. Serum creatinine decreased from around 5.2-2.3 and 2.4 mg/dL. The patient remains on prednisone which I will continue. 2. Non-gap metabolic acidosis secondary to diarrhea and renal failure, add IV bicarb. Patient is maintained on oral sodium bicarb at home. Part of the acidosis can also be from tubular interstitial disease. 3. Nausea, vomiting and diarrhea secondary to gastroenteritis, currently improved. 4. Adenocarcinoma of the lung status post chemo right lung, status post chemotherapy and immunotherapy. 5. Possible petit mal seizures, being followed by Neurology. PLAN: Change IV fluids to IV bicarb. May continue with oral bicarb as well. Encourage increased oral intake. Continue with p.o. steroids. Check urine culture as patient has significant pyuria. This may also be related to the interstitial nephritis if her urine culture is negative. Maintain patient on empiric antibiotics as well. Thank you for this consultation. NICK / SENDY: [id number] /
[2019-08-18 21:06] LABS: Glucose,Whole Blood 355 mg/dL (75-99)
[2019-08-19] MEDS: DEXTROSE 5% IN WATER 1,000 ML with SODIUM BICARB (1 MEQ/ML) 150 ML IV SCH (03:45)
[2019-08-19 07:15] LABS: Glucose,Whole Blood 296 mg/dL (75-99)
[2019-08-19 07:44] LABS: Basophils % (A) 0 %; Eosinophils # (A) 0.1 k/uL (0-0.7); Eosinophils % (A) 0 %; HCT 33.3 % (34.0-46.0); HGB 10.7 gm/dL (11.4-16.0); Lymphocytes # (A) 0.5 k/uL (1.0-4.8); Lymphocytes % (A) 3 %; MCH 31.4 pg (25.0-35.0); MCHC 32.1 g/dL (31.0-37.0); MCV 97.9 fL (80.0-100.0); Mean Platelet Volume 6.9; Monocytes # (A) 0.4 k/uL (0-1.0); Monocytes % (A) 3 %; Neutrophils # (A) 13.9 k/uL (1.3-7.7); Neutrophils % (A) 93 %; Platelet Count 213 k/uL (150-450); RDW 13.2 % (11.5-15.5)
[2019-08-19 08:02] LABS: Magnesium 1.6 mg/dL (1.6-2.3)
[2019-08-19] MEDS: ATORVASTATIN 10 MG TAB PO SCH (08:09)
[2019-08-19] MEDS: FOLIC ACID 1 MG TAB PO SCH (08:09)
[2019-08-19] MEDS: FAMOTIDINE 20 MG TAB PO SCH (08:09)
[2019-08-19] MEDS: predniSONE 20 MG TAB PO SCH ×4 (08:09→22:55)
[2019-08-19] MEDS: INSULIN ASPART (NovoLOG) 100 UNIT/ML VIAL SQ SCH ×4 (08:10→20:38)
[2019-08-19] MEDS: ENOXAPARIN 30 MG/0.3 ML SYRINGE SQ SCH (08:10)
[2019-08-19] MEDS: SERTRALINE 25 MG TAB PO SCH (08:11)
[2019-08-19] MEDS: SODIUM BICARBONATE TAB 650 MG TAB PO SCH (08:11)
[2019-08-19 11:31] LABS: Glucose,Whole Blood 465 mg/dL (75-99)
--- NOTE | 2019-08-19 12:43 | P.PN ---
Subjective Progress Note Date: 08/19/19 Seen and examined for the follow-up of acute kidney injury. Admits making good amount of urine. No nausea vomiting diarrhea. Renal function stable. Family at bedside. Had Keytruda for adenocarcinoma of the lung and the last dose was a month ago. Currently on prednisone for suspicion of AIN. Objective - Vital Signs Vital signs: Vital Signs Temp 97.8 F 08/19/19 11:21 Pulse 99 08/19/19 11:21 Resp 18 08/19/19 11:21 BP 150/67 08/19/19 11:21 Pulse Ox 97 08/19/19 11:21 Intake & Output 08/18/19 08/19/19 08/19/19 18:59 06:59 18:59 Intake Total 1905 800 240 Output Total 375 Balance 1905 425 240 Weight 61.689 kg Intake: Intake, IV Titration 1425 800 Amount Dextrose 5% in Water 1, 800 000 ml @ 100 mls/hr IV . [id number] REILLY with Sodium Bicarb (1 Meq/ml) 150 ml Rx#:[id number] Sodium Chloride 0.9% 1, 1375 000 ml @ 125 mls/hr IV . Q8H REILLY Rx#:[id number] cefTRIAXone 1 gm In 50 Sodium Chloride 0.9% 50 ml @ 100 mls/hr IVPB Q24HR REILLY Rx#:[id number] Oral 480 240 Output: Urine 375 Other: Voiding Method Bedside Commode Bedside Commode Bedside Commode # Voids 4 1 4 - Exam No acute distress S1-S2 heard Lungs clear Abdomen soft No edema. - Labs CBC & Chem 7: 08/19/19 07:24 08/19/19 07:24 Labs: Abnormal Lab Results - Last 24 Hours (Table) 08/18/19 08/18/19 08/18/19 Range/Units 17:12 19:44 21:05 WBC (3.8-10.6) k/uL RBC (3.80-5.40) m/uL Hgb (11.4-16.0) gm/dL Hct (34.0-46.0) % Neutrophils # (1.3-7.7) k/uL Lymphocytes # (1.0-4.8) k/uL BUN (7-17) mg/dL Creatinine (0.52-1.04) mg/dL Glucose (74-99) mg/dL POC Glucose (mg/dL) 312 H 395 H 355 H (75-99) mg/dL 08/19/19 08/19/19 08/19/19 Range/Units 07:14 07:24 07:24 WBC 15.0 H (3.8-10.6) k/uL RBC 3.40 L (3.80-5.40) m/uL Hgb 10.7 L (11.4-16.0) gm/dL Hct 33.3 L (34.0-46.0) % Neutrophils # 13.9 H (1.3-7.7) k/uL Lymphocytes # 0.5 L (1.0-4.8) k/uL BUN 40 H (7-17) mg/dL Creatinine 2.09 H (0.52-1.04) mg/dL Glucose 278 H (74-99) mg/dL POC Glucose (mg/dL) 296 H (75-99) mg/dL 08/19/19 Range/Units 11:30 WBC (3.8-10.6) k/uL RBC (3.80-5.40) m/uL Hgb (11.4-16.0) gm/dL Hct (34.0-46.0) % Neutrophils # (1.3-7.7) k/uL Lymphocytes # (1.0-4.8) k/uL BUN (7-17) mg/dL Creatinine (0.52-1.04) mg/dL Glucose (74-99) mg/dL POC Glucose (mg/dL) 465 H (75-99) mg/dL Microbiology - Last 24 Hours (Table) 08/16/19 16:00 Blood Culture - Preliminary Blood No Growth after 48 hours 08/16/19 14:20 Urine Culture - Final Urine,Voided Escherichia coli Proteus mirabilis Assessment and Plan Assessment: #1 nonoliguric acute kidney injury secondary to ATN/AIN from keytruda renal function stable. Baseline creatinine 0.6-1.3 in October 2018. #2 metabolic acidosis resolved currently alkalotic. #3 nausea vomiting resolved. #4 uncontrolled diabetes suspect prednisone #5 hypertension currently uncontrolled. Goal less than 140/90. #6 complicated UTI. #7 proteinuria on UA. Quantify Plan: #1 discontinue by mouth bicarb and bicarb drip. Change to normal saline at 75 ML's an hour. #2 add Procardia 60 mg by mouth daily for better blood pressure control. #3 creatinine remaining stable. Repeat labs in the morning. #4 on ceftriaxone for complicated UTI. #5 bladder scan to rule out urinary retention #6 quantify proteinuria
--- NOTE | 2019-08-19 13:11 | P.CRDCN ---
History of Present Illness Consult date: 08/19/19 Requesting physician: Duarte Neumann Reason for Consult (text): near syncope Chief complaint: "absent seizures" History of present illness: This is a pleasantly confused 68-year-old patient with history of poorly differentiated adenocarcinoma of lung as well as diabetes. Has a 5 or 6 day history of diarrhea and was recently given IV hydration and Dr. Stinson's office. Presented to the emergency department due to what the terms to be absent seizures. Apparently only occurring when she gets up to go to the bathroom and is walking where she becomes unresponsive stairs up and becomes very weak. EEG did not show any seizure activity. We have been asked to see the patient in consultation due to near syncope. She's had no chest discomfort and breathing is stable. She's had no edema, orthopnea or PND. She continues to have loose stools and is being tested for C. difficile. She is a poor historian and HPI was obtained by the . Of note the patient was also noted to be in acute on chronic renal failure upon admission. She's been put on steroids. Creatinine has improved to 2. She continues to have episodes similar to what brought her in and she has since been placed on the monitor. Vital signs showed elevated blood pressure which according to the she does not have a history of hypertension but blood pressure has been elevated since cancer treatment has started. Upon examination, patient is sitting up in a chair eating her lunch and has no current complaints. Past Medical History Past Medical History: Cancer, Diabetes Mellitus, GERD/Reflux, Hyperlipidemia Additional Past Medical History / Comment(s): R lung adenocarcinoma stage IIIc/completed 5 chemotherapy cycles and was on Keytruda but it has been being held d/t possible kidney inflammation, R sided empyema/pleural effusion with VATS/decortication, FALLS, IDDM type II, fell 2 years ago and had L orbit/facial and wrist and pelvic fracture. History of Any Multi-Drug Resistant Organisms: None Reported Past Surgical History: Appendectomy, Hysterectomy, Orthopedic Surgery Additional Past Surgical History / Comment(s): 08/25/18 bronchoscopy with bx, BAL/brushings, VATS/decortication, colonoscopies, L wrist fracture with 3 pins and 1 pin has been removed, picc line since removed and has L sided port. Past Anesthesia/Blood Transfusion Reactions: No Reported Reaction Additional Past Anesthesia/Blood Transfusion Reaction / Comment(s): no hx blood transfusion Smoking Status: Former smoker - Past Family History Mother Family Medical History: Myocardial Infarction (AL) Additional Family Medical History / Comment(s): Mother of a AL at the age of 59yrs. Father Family Medical History: Asthma, Cancer, COPD Additional Family Medical History / Comment(s): Father had lung cancer. Medications and Allergies Home Medications Medication Instructions Recorded Confirmed Type Atorvastatin [Lipitor] 10 mg PO DAILY 08/24/18 08/16/19 History Sertraline HCl [Zoloft] 25 mg PO DAILY 10/29/18 08/16/19 History Famotidine [Pepcid] 40 mg PO DAILY 08/16/19 08/16/19 History Folic Acid 1 mg PO DAILY 08/16/19 08/16/19 History Insulin Glargine,Hum.rec.anlog See Protocol SQ HS 08/16/19 08/16/19 History [Lantus Solostar] Levofloxacin [Levaquin] 500 mg PO DAILY 08/16/19 08/16/19 History Sodium Bicarbonate Tab 1,300 mg PO BID 08/16/19 08/16/19 History predniSONE 20 mg PO QID 08/16/19 08/16/19 History Allergies Allergy/AdvReac Type Severity Reaction Status Date / Time No Known Allergies Allergy Verified 08/16/19 13:06 Physical Exam Vitals: Vital Signs Temp Pulse Pulse Pulse Pulse Resp BP 08/19/19 11:21 97.8 F 99 18 08/19/19 11:16 108 H 114 H 104 H 175/76 08/19/19 08:25 97 95 98 92 16 08/19/19 05:00 184/88 08/19/19 04:41 98.4 F 97 16 08/18/19 22:41 08/18/19 21:50 08/18/19 21:26 08/18/19 21:00 98.2 F 97 18 149/76 08/18/19 15:55 121 H 08/18/19 14:41 109 H 95 98 92 16 BP BP BP Pulse Ox 08/19/19 11:21 150/67 97 08/19/19 11:16 152/78 157/75 08/19/19 08:25 08/19/19 05:00 174/90 188/90 08/19/19 04:41 184/96 94 L 08/18/19 22:41 170/77 08/18/19 21:50 172/79 08/18/19 21:26 205/95 08/18/19 21:00 150/71 232/130 97 08/18/19 15:55 215/111 96 08/18/19 14:41 Intake and Output 08/18/19 08/19/19 08/19/19 22:59 06:59 14:59 Intake Total 800 240 Output Total 375 Balance 425 240 Intake: Intake, IV Titration 800 Amount Dextrose 5% in Water 1, 800 000 ml @ 100 mls/hr IV . [id number] REILLY with Sodium Bicarb (1 Meq/ml) 150 ml Rx#:[id number] Oral 240 Output: Urine 375 Other: Voiding Method Bedside Commode Bedside Commode # Voids 1 1 4 PHYSICAL EXAMINATION: HEENT: Head is atraumatic, normocephalic. Pupils equal, round. Neck is supple. There is no elevated jugular venous pressure. HEART EXAMINATION: Heart sounds regular, S1 and S2 normal. No murmur or gallop heard. CHEST EXAMINATION: Lungs reveal diminished air entry throughout. No chest wall tenderness is noted on palpation or with deep breathing. ABDOMEN: Soft, nontender. Bowel sounds are heard. No organomegaly noted. EXTREMITIES: 2+ peripheral pulses with no evidence of peripheral edema and no calf tenderness noted. NEUROLOGIC patient is awake, alert and oriented x1-2. . Results 08/19/19 07:24 08/19/19 07:24 CBC 08/19/19 Range/Units 07:24 WBC 15.0 H (3.8-10.6) k/uL RBC 3.40 L (3.80-5.40) m/uL Hgb 10.7 L (11.4-16.0) gm/dL Hct 33.3 L (34.0-46.0) % Plt Count 213 (150-450) k/uL Comprehensive Metabolic Panel 08/19/19 Range/Units 07:24 Sodium 142 (137-145) mmol/L Potassium 4.0 (3.5-5.1) mmol/L Chloride 107 (98-107) mmol/L Carbon Dioxide 28 (22-30) mmol/L BUN 40 H (7-17) mg/dL Creatinine 2.09 H (0.52-1.04) mg/dL Glucose 278 H (74-99) mg/dL Calcium 9.0 (8.4-10.2) mg/dL Current Medications Generic Name Dose Route Start Last Admin Trade Name Jefferyq PRN Reason Stop Dose Admin Atorvastatin Calcium 10 mg 08/17/19 09:00 08/19/19 08:09 Lipitor PO 10 mg DAILY REILLY Administration Enoxaparin Sodium 30 mg 08/19/19 09:00 08/19/19 08:10 Lovenox SQ 30 mg DAILY REILLY Administration Famotidine 20 mg 08/18/19 09:00 08/19/19 08:09 Pepcid PO 20 mg DAILY REILLY Administration Folic Acid 1 mg 08/17/19 09:00 08/19/19 08:09 Folic Acid PO 1 mg DAILY REILLY Administration Ceftriaxone Sodium 1 gm/ 50 mls @ 100 mls/hr 08/18/19 09:00 08/19/19 08:10 Sodium Chloride IVPB 100 mls/hr Q24HR REILLY Administration Sodium Chloride 1,000 mls @ 75 mls/hr 08/19/19 12:45 Saline 0.9% IV .[id number] REILLY Insulin Aspart 0 unit 08/16/19 17:30 08/19/19 12:40 Novolog SQ 8 unit ACHS REILLY Administration Protocol Nifedipine 60 mg 08/19/19 12:45 Procardia Xl PO DAILY REILLY Prednisone 20 mg 08/17/19 13:00 08/19/19 12:39 PO 20 mg QID REILLY Administration Sertraline HCl 25 mg 08/17/19 09:00 08/19/19 08:11 Zoloft PO 25 mg DAILY REILLY Administration Intake and Output 08/18/19 08/19/19 08/19/19 22:59 06:59 14:59 Intake Total 800 240 Output Total 375 Balance 425 240 Intake: Intake, IV Titration 800 Amount Dextrose 5% in Water 1, 800 000 ml @ 100 mls/hr IV . [id number] REILLY with Sodium Bicarb (1 Meq/ml) 150 ml Rx#:[id number] Oral 240 Output: Urine 375 Other: Voiding Method Bedside Commode Bedside Commode # Voids 1 1 4 08/19/19 07:24 08/19/19 07:24 Assessment and Plan Assessment: #1 near syncope #2 poorly differentiated adenocarcinoma of the lung status post chemotherapy and immunotherapy #3 acute on chronic renal failure #4 diabetes type 2 #5 altered mental status #6 ongoing diarrhea #7 UTI Plan: From cardiology's perspective, episodes of near syncope could be related to positional drop in blood pressure. Continue to monitor orthostatic blood pressures allowing adequate time between each position change. Ideally check blood pressure at time of symptoms. Continue to monitor on telemetry. We'll obtain a 2-D echo with Doppler. We will continue to follow the patient provided further recommendations accordingly. 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 Patient was seen and examined.
[2019-08-19] MEDS: SODIUM CHLORIDE 0.9% 1,000 ML IV SCH (13:51)
[2019-08-19 17:20] LABS: Glucose,Whole Blood 296 mg/dL (75-99)
[2019-08-19 20:18] LABS: Glucose,Whole Blood 311 mg/dL (75-99)
--- NOTE | 2019-08-19 23:32 | P.PN ---
Subjective Progress Note Date: 08/18/19 Principal diagnosis: Acute urinary tract infection Metabolic encephalopathy Acute on chronic kidney disease This is a pleasant 68-year-old patient of Dr. Mitch Ricks. Patient is being followed by Dr. Hensley. Patient has a diagnosis of poorly differentiated adenocarcinoma of the lung. Also in October of this year had a right-sided chest tube for malignant pleural effusion. Patient was initially given chemotherapy then treated with immunotherapy. Patient had a PET scan not too long ago that showed improvement of disease but because of worsening renal failure treatment had to be held. Patient is put on steroids. Patient provided most of the history the ER. Still that. Patient has been becoming progressively weaker over the last few days. Appetite is gone down. Having some loose stools and eventually. Patient will often does get dizzy and also's office question about seizures he should become less responsive at times. No fever or chills. Patient is not able to give me much of a history of self." Also questions. No family the bedside. 08/18/2019 Patient is currently lying in the bed. Awake alert but seems lethargic and tired. Patient did have episodes of absence seizures as per her at bedside. Patient was seen by neurology. EEG showed no epileptiform waves noted. Patient is also complaining of dizziness. Cardiology was consulted as well. Otherwise patient denied IV hydration and nephrology was consulted due to acute on chronic kidney disease. Patient has been afebrile. Urine culture showed no growth so far. Follow-up CBC and BMP tomorrow Current medications reviewed. Objective - Vital Signs Vital signs: Vital Signs Temp 97.7 F 08/18/19 11:55 Pulse 121 H 08/18/19 15:55 Resp 16 08/18/19 14:41 BP 215/111 08/18/19 15:55 Pulse Ox 96 08/18/19 15:55 Intake & Output 08/17/19 08/18/19 08/18/19 18:59 06:59 18:59 Intake Total 1904 Balance 190 Weight 61.689 kg Intake: Intake, IV Titration 1425 Amount Sodium Chloride 0.9% 1, 1375 000 ml @ 125 mls/hr IV . Q8H REILLY Rx#:[id number] cefTRIAXone 1 gm In 50 Sodium Chloride 0.9% 50 ml @ 100 mls/hr IVPB Q24HR REILLY Rx#:[id number] Oral 480 Other: Voiding Method Bedside Commode Bedside Commode Bedside Commode # Voids 2 2 4 - Exam GENERAL: BMI 23.3, labored tired appearing. EYES: [Pupils equal. Conjunctiva pale l. HEENT: External appearance of nose and ears normal, oral cavity grossly normal. NECK: JVD not raised; masses not palpable. HEART: First and second heart sounds are normal; no edema. LUNGS: Respiratory rate normal; clear to auscultation. ABDOMEN: Soft, nontender, liver spleen not palpable, no masses palpable. PSYCH: Patient also name: Cannot really tell where she is not sure about a yearl. NEUROLOGICAL: Cranial nerves grossly intact; no facial asymmetry, power and sensation grossly intact. LYMPHATICS: No lymph nodes palpable in the axilla and neck Investigations: White count 26.4, hemoglobin 7.2, potassium 4.2 bun 62 creatinine 2.2 to, UA positive EKG tracing personally reviewed by me shows-sinus tachycardia - Labs CBC & Chem 7: 08/19/19 07:24 08/19/19 07:24 Labs: Abnormal Lab Results - Last 24 Hours (Table) 08/17/19 08/17/19 08/18/19 Range/Units 17:02 19:36 07:04 Chloride (98-107) mmol/L Carbon Dioxide (22-30) mmol/L BUN (7-17) mg/dL Creatinine (0.52-1.04) mg/dL Glucose (74-99) mg/dL POC Glucose (mg/dL) 231 H 332 H 214 H (75-99) mg/dL Total Protein (6.3-8.2) g/dL Albumin (3.5-5.0) g/dL 08/18/19 08/18/19 Range/Units 07:52 11:20 Chloride 113 H (98-107) mmol/L Carbon Dioxide 15 L (22-30) mmol/L BUN 45 H (7-17) mg/dL Creatinine 2.23 H (0.52-1.04) mg/dL Glucose 302 H (74-99) mg/dL POC Glucose (mg/dL) 417 H (75-99) mg/dL Total Protein 5.6 L (6.3-8.2) g/dL Albumin 3.2 L (3.5-5.0) g/dL Microbiology - Last 24 Hours (Table) 08/16/19 14:20 Urine Culture - Preliminary Urine,Voided Gram Neg Bacilli Gram Neg Bacilli#2 08/16/19 16:00 Blood Culture - Preliminary Blood No Growth after 24 hours Assessment and Plan Assessment: -Staring episodes. This is a patient started chemotherapy and getting immunotherapy. Presents with episodes of forgetfulness and decreased responsiveness. Need to rule out seizure activity. MRI of the brain could not be done due to renal function. Patient was seen by neurology. EEG showed likely encephalopathy. No epileptic waves noted. --Poorly differentiated adenocarcinoma of the lung status post chemotherapy and immunotherapy -Hyperglycemia with uncontrolled Diabetes mellitus type 2 -GERD -Hyperlipidemia -Anxiety not otherwise specified -Acute renal failure, could be prerenal drug-induced component cannot be ruled out. -Metabolic acidosis due to renal failure -Normocytic anemia due to underlying malignancy -Acute UTI from cystitis -Acute on chronic medical debility multifactorial Plan: -Patient did receive Levaquin earlier. Switch to IV ceftriaxone. Continue with IV fluids. EEG and MRI of the brain has been ordered. Patient was seen by neurology.. Fall precautions. Nephrology is following. Added sodium bicarbonate. Repeat labs in the morning. Prognosis guarded. Time with Patient: Greater than 30
--- NOTE | 2019-08-19 23:39 | P.PN ---
Subjective Progress Note Date: 08/19/19 Principal diagnosis: Acute urinary tract infection Metabolic encephalopathy Acute on chronic kidney disease This is a pleasant 68-year-old patient of Dr. Mitch Ricks. Patient is being followed by Dr. Hensley. Patient has a diagnosis of poorly differentiated adenocarcinoma of the lung. Also in October of this year had a right-sided chest tube for malignant pleural effusion. Patient was initially given chemotherapy then treated with immunotherapy. Patient had a PET scan not too long ago that showed improvement of disease but because of worsening renal failure treatment had to be held. Patient is put on steroids. Patient provided most of the history the ER. Still that. Patient has been becoming progressively weaker over the last few days. Appetite is gone down. Having some loose stools and eventually. Patient will often does get dizzy and also's office question about seizures he should become less responsive at times. No fever or chills. Patient is not able to give me much of a history of self." Also questions. No family the bedside. 08/18/2019 Patient is currently lying in the bed. Awake alert but seems lethargic and tired. Patient did have episodes of absence seizures as per her at bedside. Patient was seen by neurology. EEG showed no epileptiform waves noted. Patient is also complaining of dizziness. Cardiology was consulted as well. Otherwise patient denied IV hydration and nephrology was consulted due to acute on chronic kidney disease. Patient has been afebrile. Urine culture showed no growth so far. Follow-up CBC and BMP tomorrow 08/19/2019 Patient is more awake and oriented today. Able to sit in the chair and tolerating oral diet. No episodes of nausea and vomiting. Mentation is improving. No further episodes of seizures noted. Creatinine level is 2.09. Bicarb has been discontinued and continued on IV hydration. Added Procardia for better blood sugar control and also started on Levemir 15 units at bedtime due to hyperglycemia to be secondary to steroids. Nephrology and oncology is following. Patient has been afebrile. Urine culture showed E. coli and Proteus. Currently on antibioticsceftriaxone. Denied chest pain or shortness of breath. Patient does have good urine output. Current medications reviewed. Objective - Vital Signs Vital signs: Vital Signs Temp 97.9 F 08/19/19 20:52 Pulse 102 H 12/07/19 20:52 Resp 18 08/19/19 20:52 BP 159/76 08/19/19 20:52 Pulse Ox 94 L 08/19/19 20:52 Intake & Output 08/19/19 08/19/19 08/20/19 06:59 18:59 06:59 Intake Total 800 240 225 Output Total 375 1221 Balance 425 -981 225 Intake: Intake, IV Titration 800 225 Amount Dextrose 5% in Water 1, 800 000 ml @ 100 mls/hr IV . [id number] REILLY with Sodium Bicarb (1 Meq/ml) 150 ml Rx#:[id number] Sodium Chloride 0.9% 1, 225 000 ml @ 75 mls/hr IV . [id number] REILLY Rx#:[id number] Oral 240 Output: Urine 375 1100 Post Void Residual 121 Other: Voiding Method Bedside Commode Bedside Commode # Voids 1 4 2 # Bowel Movements 1 - Exam GENERAL: BMI 23.3, patient is more awake and oriented 3 mild confusion still present.. EYES: [Pupils equal. Conjunctiva pale l. HEENT: External appearance of nose and ears normal, oral cavity grossly normal. NECK: JVD not raised; masses not palpable. HEART: First and second heart sounds are normal; no edema. LUNGS: Respiratory rate normal; clear to auscultation. ABDOMEN: Soft, nontender, liver spleen not palpable, no masses palpable. PSYCH: Cooperative. Denied any suicidal ideation.. NEUROLOGICAL: Cranial nerves grossly intact; no facial asymmetry, power and sensation grossly intact. LYMPHATICS: No lymph nodes palpable in the axilla and neck Investigations on admission: White count 26.4, hemoglobin 7.2, potassium 4.2 bun 62 creatinine 2.2 to, UA positive EKG tracing personally reviewed by me shows-sinus tachycardia - Labs CBC & Chem 7: 08/19/19 07:24 08/19/19 07:24 Labs: Abnormal Lab Results - Last 24 Hours (Table) 08/19/19 08/19/19 08/19/19 Range/Units 07:14 07:24 07:24 WBC 15.0 H (3.8-10.6) k/uL RBC 3.40 L (3.80-5.40) m/uL Hgb 10.7 L (11.4-16.0) gm/dL Hct 33.3 L (34.0-46.0) % Neutrophils # 13.9 H (1.3-7.7) k/uL Lymphocytes # 0.5 L (1.0-4.8) k/uL BUN 40 H (7-17) mg/dL Creatinine 2.09 H (0.52-1.04) mg/dL Glucose 278 H (74-99) mg/dL POC Glucose (mg/dL) 296 H (75-99) mg/dL Ur Random Microalbumin (0.0-1.9) mg/dL U Random Total Protein (<12) mg/dL Microalb/Creat Ratio (0-30) mg/g Creat 08/19/19 08/19/19 08/19/19 Range/Units 11:30 14:10 14:10 WBC (3.8-10.6) k/uL RBC (3.80-5.40) m/uL Hgb (11.4-16.0) gm/dL Hct (34.0-46.0) % Neutrophils # (1.3-7.7) k/uL Lymphocytes # (1.0-4.8) k/uL BUN (7-17) mg/dL Creatinine (0.52-1.04) mg/dL Glucose (74-99) mg/dL POC Glucose (mg/dL) 465 H (75-99) mg/dL Ur Random Microalbumin 2.0 H (0.0-1.9) mg/dL U Random Total Protein 27 H (<12) mg/dL Microalb/Creat Ratio 70 H (0-30) mg/g Creat 08/19/19 08/19/19 Range/Units 17:19 20:16 WBC (3.8-10.6) k/uL RBC (3.80-5.40) m/uL Hgb (11.4-16.0) gm/dL Hct (34.0-46.0) % Neutrophils # (1.3-7.7) k/uL Lymphocytes # (1.0-4.8) k/uL BUN (7-17) mg/dL Creatinine (0.52-1.04) mg/dL Glucose (74-99) mg/dL POC Glucose (mg/dL) 296 H 311 H (75-99) mg/dL Ur Random Microalbumin (0.0-1.9) mg/dL U Random Total Protein (<12) mg/dL Microalb/Creat Ratio (0-30) mg/g Creat Microbiology - Last 24 Hours (Table) 08/16/19 16:00 Blood Culture - Preliminary Blood No Growth after 72 hours Assessment and Plan Assessment: -Staring episodes. This is a patient started chemotherapy and getting immunotherapy. Presents with episodes of forgetfulness and decreased responsiveness. Need to rule out seizure activity. MRI of the brain could not be done due to renal function. Patient was seen by neurology. EEG showed likely encephalopathy. No epileptic waves noted. --Poorly differentiated adenocarcinoma of the lung status post chemotherapy and immunotherapy -Hyperglycemia with uncontrolled Diabetes mellitus type 2 -GERD -Hyperlipidemia -Anxiety not otherwise specified -Acute renal failure, could be prerenal drug-induced component cannot be ruled out. Bladder scan to rule out retention. -Metabolic acidosis due to renal failure. Improved now -Normocytic anemia due to underlying malignancy -Acute UTI from cystitis -Acute on chronic medical debility multifactorial Plan: -Patient did receive Levaquin earlier. Switched to IV ceftriaxone. Urine culture showed E. coli and Proteus. Continue with IV fluids. EEG and MRI of the brain has been ordered. Patient was seen by neurology.. Fall precautions. Nephrology is following. Repeat labs in the morning. Prognosis guarded. Time with Patient: Greater than 30
[2019-08-19 23:49] LABS: Glucose,Whole Blood 178 mg/dL (75-99)
[2019-08-19] MEDS: INSULIN DETEMIR (LEVEMIR) 100 UNIT/ML SYR SQ SCH (23:52)
[2019-08-20 02:59] LABS: Glucose,Whole Blood 224 mg/dL (75-99)
[2019-08-20] MEDS: SODIUM CHLORIDE 0.9% 1,000 ML IV SCH ×2 (03:00→17:19)
[2019-08-20 07:12] LABS: Glucose,Whole Blood 178 mg/dL (75-99)
[2019-08-20 07:47] LABS: Basophils % (A) 0 %; Eosinophils % (A) 0 %; HCT 31.2 % (34.0-46.0); Lymphocytes # (A) 0.5 k/uL (1.0-4.8); Lymphocytes % (A) 4 %; MCH 31.2 pg (25.0-35.0); MCV 97.7 fL (80.0-100.0); Mean Platelet Volume 7.4; Monocytes # (A) 0.5 k/uL (0-1.0); Monocytes % (A) 4 %; Neutrophils # (A) 11.7 k/uL (1.3-7.7); Neutrophils % (A) 92 %; Platelet Count 189 k/uL (150-450); RBC 3.19 m/uL (3.80-5.40); RDW 13.2 % (11.5-15.5); WBC 12.8 k/uL (3.8-10.6)
[2019-08-20 08:00] LABS: Potassium 3.7 mmol/L (3.5-5.1)
[2019-08-20] MEDS: FAMOTIDINE 20 MG TAB PO SCH (08:48)
[2019-08-20] MEDS: FOLIC ACID 1 MG TAB PO SCH (08:48)
[2019-08-20] MEDS: SERTRALINE 25 MG TAB PO SCH (08:48)
[2019-08-20] MEDS: predniSONE 20 MG TAB PO SCH ×4 (08:48→21:40)
[2019-08-20] MEDS: ENOXAPARIN 30 MG/0.3 ML SYRINGE SQ SCH (08:48)
[2019-08-20] MEDS: ATORVASTATIN 10 MG TAB PO SCH (08:48)
[2019-08-20] MEDS: INSULIN ASPART (NovoLOG) 100 UNIT/ML VIAL SQ SCH ×4 (08:55→21:41)
--- NOTE | 2019-08-20 09:49 | P.PN ---
Subjective Progress Note Date: 08/20/19 Seen and examined for the follow-up of acute kidney injury. Admits making good amount of urine. No nausea vomiting diarrhea. Renal function stable. Family at bedside. Had Keytruda for adenocarcinoma of the lung and the last dose was a month ago. Currently on prednisone for suspicion of AIN. Objective - Vital Signs Vital signs: Vital Signs Temp 98.2 F 08/20/19 04:47 Pulse 97 08/20/19 04:47 Resp 16 08/20/19 04:47 BP 137/77 08/20/19 04:47 Pulse Ox 95 08/20/19 04:47 Intake & Output 08/19/19 08/20/19 08/20/19 18:59 06:59 18:59 Intake Total 240 225 Output Total 1221 Balance -981 225 Intake: Intake, IV Titration 225 Amount Sodium Chloride 0.9% 1, 225 000 ml @ 75 mls/hr IV . [id number] REILLY Rx#:[id number] Oral 240 Output: Urine 1100 Post Void Residual 121 Other: Voiding Method Bedside Commode Bedside Commode # Voids 4 4 # Bowel Movements 1 - Exam No acute distress S1-S2 heard Lungs clear Abdomen soft No edema. - Labs CBC & Chem 7: 08/20/19 06:46 08/20/19 06:46 Labs: Abnormal Lab Results - Last 24 Hours (Table) 08/19/19 08/19/19 08/19/19 Range/Units 11:30 14:10 14:10 WBC (3.8-10.6) k/uL RBC (3.80-5.40) m/uL Hgb (11.4-16.0) gm/dL Hct (34.0-46.0) % Neutrophils # (1.3-7.7) k/uL Lymphocytes # (1.0-4.8) k/uL Chloride (98-107) mmol/L BUN (7-17) mg/dL Creatinine (0.52-1.04) mg/dL Glucose (74-99) mg/dL POC Glucose (mg/dL) 465 H (75-99) mg/dL CK-MB (CK-2) (0.0-2.4) ng/mL Ur Random Microalbumin 2.0 H (0.0-1.9) mg/dL U Random Total Protein 27 H (<12) mg/dL Microalb/Creat Ratio 70 H (0-30) mg/g Creat 08/19/19 08/19/19 08/19/19 Range/Units 17:19 20:16 23:47 WBC (3.8-10.6) k/uL RBC (3.80-5.40) m/uL Hgb (11.4-16.0) gm/dL Hct (34.0-46.0) % Neutrophils # (1.3-7.7) k/uL Lymphocytes # (1.0-4.8) k/uL Chloride (98-107) mmol/L BUN (7-17) mg/dL Creatinine (0.52-1.04) mg/dL Glucose (74-99) mg/dL POC Glucose (mg/dL) 296 H 311 H 178 H (75-99) mg/dL CK-MB (CK-2) (0.0-2.4) ng/mL Ur Random Microalbumin (0.0-1.9) mg/dL U Random Total Protein (<12) mg/dL Microalb/Creat Ratio (0-30) mg/g Creat 08/20/19 08/20/19 08/20/19 Range/Units 02:57 06:46 06:46 WBC 12.8 H (3.8-10.6) k/uL RBC 3.19 L (3.80-5.40) m/uL Hgb 10.0 L (11.4-16.0) gm/dL Hct 31.2 L (34.0-46.0) % Neutrophils # 11.7 H (1.3-7.7) k/uL Lymphocytes # 0.5 L (1.0-4.8) k/uL Chloride 109 H (98-107) mmol/L BUN 40 H (7-17) mg/dL Creatinine 2.02 H (0.52-1.04) mg/dL Glucose 170 H (74-99) mg/dL POC Glucose (mg/dL) 224 H (75-99) mg/dL CK-MB (CK-2) (0.0-2.4) ng/mL Ur Random Microalbumin (0.0-1.9) mg/dL U Random Total Protein (<12) mg/dL Microalb/Creat Ratio (0-30) mg/g Creat 08/20/19 08/20/19 Range/Units 06:46 07:11 WBC (3.8-10.6) k/uL RBC (3.80-5.40) m/uL Hgb (11.4-16.0) gm/dL Hct (34.0-46.0) % Neutrophils # (1.3-7.7) k/uL Lymphocytes # (1.0-4.8) k/uL Chloride (98-107) mmol/L BUN (7-17) mg/dL Creatinine (0.52-1.04) mg/dL Glucose (74-99) mg/dL POC Glucose (mg/dL) 178 H (75-99) mg/dL CK-MB (CK-2) 4.4 H (0.0-2.4) ng/mL Ur Random Microalbumin (0.0-1.9) mg/dL U Random Total Protein (<12) mg/dL Microalb/Creat Ratio (0-30) mg/g Creat Microbiology - Last 24 Hours (Table) 08/16/19 16:00 Blood Culture - Preliminary Blood No Growth after 72 hours Assessment and Plan Assessment: #1 nonoliguric acute kidney injury secondary to ATN/AIN from keytruda renal function stable. Baseline creatinine 0.6-1.3 in October 2018. #2 metabolic acidosis resolved currently alkalotic. #3 nausea vomiting resolved. #4 uncontrolled diabetes suspect prednisone #5 hypertension currently uncontrolled. Goal less than 140/90. #6 complicated UTI. #7 proteinuria on UA. Quantify Plan: #1 renal function stable. Continue with saline at 75 ML's an hour. #2 Procardia 60 mg by mouth daily for better blood pressure control. #3 on ceftriaxone for complicated UTI. #4 bladder scan to rule out urinary retention #5 stable from nephrology point of view for discharge to be followed up at outpatient in 1-2 weeks.
[2019-08-20 11:27] LABS: Glucose,Whole Blood 341 mg/dL (75-99)
[2019-08-20 17:10] LABS: Glucose,Whole Blood 377 mg/dL (75-99)
[2019-08-20 20:44] LABS: Glucose,Whole Blood 259 mg/dL (75-99)
[2019-08-20 21:20] VITALS: PULSE 102; RESP 16
[2019-08-20] MEDS: INSULIN DETEMIR (LEVEMIR) 100 UNIT/ML SYR SQ SCH (21:41)
--- NOTE | 2019-08-21 01:09 | P.PN ---
Subjective Progress Note Date: 08/20/19 Principal diagnosis: Acute urinary tract infection Metabolic encephalopathy Acute on chronic kidney disease This is a pleasant 68-year-old patient of Dr. Mitch Ricks. Patient is being followed by Dr. Hensley. Patient has a diagnosis of poorly differentiated adenocarcinoma of the lung. Also in October of this year had a right-sided chest tube for malignant pleural effusion. Patient was initially given chemotherapy then treated with immunotherapy. Patient had a PET scan not too long ago that showed improvement of disease but because of worsening renal failure treatment had to be held. Patient is put on steroids. Patient provided most of the history the ER. Still that. Patient has been becoming progressively weaker over the last few days. Appetite is gone down. Having some loose stools and eventually. Patient will often does get dizzy and also's office question about seizures he should become less responsive at times. No fever or chills. Patient is not able to give me much of a history of self." Also questions. No family the bedside. 08/18/2019 Patient is currently lying in the bed. Awake alert but seems lethargic and tired. Patient did have episodes of absence seizures as per her at bedside. Patient was seen by neurology. EEG showed no epileptiform waves noted. Patient is also complaining of dizziness. Cardiology was consulted as well. Otherwise patient denied IV hydration and nephrology was consulted due to acute on chronic kidney disease. Patient has been afebrile. Urine culture showed no growth so far. Follow-up CBC and BMP tomorrow 08/19/2019 Patient is more awake and oriented today. Able to sit in the chair and tolerating oral diet. No episodes of nausea and vomiting. Mentation is improving. No further episodes of seizures noted. Creatinine level is 2.09. Bicarb has been discontinued and continued on IV hydration. Added Procardia for better blood sugar control and also started on Levemir 15 units at bedtime due to hyperglycemia to be secondary to steroids. Nephrology and oncology is following. Patient has been afebrile. Urine culture showed E. coli and Proteus. Currently on antibioticsceftriaxone. Denied chest pain or shortness of breath. Patient does have good urine output. 08/20/2019 Patient is more awake and oriented today. Denied any staring episodes. No seizure activity was noted. Creatinine is still elevated but slightly improved to 2.02. Patient is still hyperglycemic and preprandial NovoLog along with liver metastases was ordered. Currently being continued on antibiotics in the form of ceftriaxone for E. coli and Proteus urinary tract infection. Denied any fever or chills. No chest pain or shortness of breath. Anticipate discharge in the next 24 hours with better her blood sugar control and renal function stabilizes. All other review of systems negative except the above. Current medications reviewed. Objective - Vital Signs Vital signs: Vital Signs Temp 98.4 F 08/20/19 21:00 Pulse 102 H 08/20/19 21:00 Resp 16 08/20/19 21:00 BP 126/69 08/20/19 21:00 Pulse Ox 93 L 08/20/19 21:00 Intake & Output 08/20/19 08/20/19 08/21/19 06:59 18:59 06:59 Intake Total 225 480 Output Total 409 Balance 225 71 Intake: Intake, IV Titration 225 Amount Sodium Chloride 0.9% 1, 225 000 ml @ 75 mls/hr IV . [id number] [facility] Rx#:[id number] Oral 480 Output: Urine 250 Post Void Residual 159 Other: Voiding Method Bedside Commode Bedside Commode # Voids 4 3 - Exam GENERAL: BMI 23.3, patient is more awake and oriented 3 mild confusion still present.. EYES: [Pupils equal. Conjunctiva pale l. HEENT: External appearance of nose and ears normal, oral cavity grossly normal. NECK: JVD not raised; masses not palpable. HEART: First and second heart sounds are normal; no edema. LUNGS: Respiratory rate normal; clear to auscultation. ABDOMEN: Soft, nontender, liver spleen not palpable, no masses palpable. PSYCH: Cooperative. Denied any suicidal ideation.. NEUROLOGICAL: Cranial nerves grossly intact; no facial asymmetry, power and sensation grossly intact. LYMPHATICS: No lymph nodes palpable in the axilla and neck Investigations on admission: White count 26.4, hemoglobin 7.2, potassium 4.2 bun 62 creatinine 2.2 to, UA positive EKG tracing personally reviewed by me shows-sinus tachycardia - Labs CBC & Chem 7: 08/20/19 06:46 08/20/19 06:46 Labs: Abnormal Lab Results - Last 24 Hours (Table) 08/19/19 08/19/19 08/20/19 Range/Units 14:10 23:47 02:57 WBC (3.8-10.6) k/uL RBC (3.80-5.40) m/uL Hgb (11.4-16.0) gm/dL Hct (34.0-46.0) % Neutrophils # (1.3-7.7) k/uL Lymphocytes # (1.0-4.8) k/uL Chloride (98-107) mmol/L BUN (7-17) mg/dL Creatinine (0.52-1.04) mg/dL Glucose (74-99) mg/dL POC Glucose (mg/dL) 178 H 224 H (75-99) mg/dL CK-MB (CK-2) (0.0-2.4) ng/mL Ur Random Microalbumin 2.0 H (0.0-1.9) mg/dL Microalb/Creat Ratio 70 H (0-30) mg/g Creat 08/20/19 08/20/19 08/20/19 Range/Units 06:46 06:46 06:46 WBC 12.8 H (3.8-10.6) k/uL RBC 3.19 L (3.80-5.40) m/uL Hgb 10.0 L (11.4-16.0) gm/dL Hct 31.2 L (34.0-46.0) % Neutrophils # 11.7 H (1.3-7.7) k/uL Lymphocytes # 0.5 L (1.0-4.8) k/uL Chloride 109 H (98-107) mmol/L BUN 40 H (7-17) mg/dL Creatinine 2.02 H (0.52-1.04) mg/dL Glucose 170 H (74-99) mg/dL POC Glucose (mg/dL) (75-99) mg/dL CK-MB (CK-2) 4.4 H (0.0-2.4) ng/mL Ur Random Microalbumin (0.0-1.9) mg/dL Microalb/Creat Ratio (0-30) mg/g Creat 08/20/19 08/20/19 08/20/19 Range/Units 07:11 11:21 17:09 WBC (3.8-10.6) k/uL RBC (3.80-5.40) m/uL Hgb (11.4-16.0) gm/dL Hct (34.0-46.0) % Neutrophils # (1.3-7.7) k/uL Lymphocytes # (1.0-4.8) k/uL Chloride (98-107) mmol/L BUN (7-17) mg/dL Creatinine (0.52-1.04) mg/dL Glucose (74-99) mg/dL POC Glucose (mg/dL) 178 H 341 H 377 H (75-99) mg/dL CK-MB (CK-2) (0.0-2.4) ng/mL Ur Random Microalbumin (0.0-1.9) mg/dL Microalb/Creat Ratio (0-30) mg/g Creat 08/20/19 Range/Units 20:43 WBC (3.8-10.6) k/uL RBC (3.80-5.40) m/uL Hgb (11.4-16.0) gm/dL Hct (34.0-46.0) % Neutrophils # (1.3-7.7) k/uL Lymphocytes # (1.0-4.8) k/uL Chloride (98-107) mmol/L BUN (7-17) mg/dL Creatinine (0.52-1.04) mg/dL Glucose (74-99) mg/dL POC Glucose (mg/dL) 259 H (75-99) mg/dL CK-MB (CK-2) (0.0-2.4) ng/mL Ur Random Microalbumin (0.0-1.9) mg/dL Microalb/Creat Ratio (0-30) mg/g Creat Microbiology - Last 24 Hours (Table) 08/16/19 16:00 Blood Culture - Preliminary Blood No Growth after 96 hours Assessment and Plan Assessment: -Staring episodes. patient started chemotherapy and getting immunotherapy. Presents with episodes of forgetfulness and decreased responsiveness. ruled out seizure activity. MRI of the brain could not be done due to renal function. Patient was seen by neurology. EEG showed likely encephalopathy. No epileptic waves noted. --Poorly differentiated adenocarcinoma of the lung status post chemotherapy and immunotherapy -Hyperglycemia with uncontrolled Diabetes mellitus type 2 -GERD -Hyperlipidemia -Anxiety not otherwise specified -Acute renal failure, could be prerenal drug-induced component cannot be ruled out. Bladder scan to rule out retention. -Metabolic acidosis due to renal failure. Improved now -Normocytic anemia due to underlying malignancy -Acute UTI from cystitis -Acute on chronic medical debility multifactorial Plan: -Patient did receive Levaquin earlier. Switched to IV ceftriaxone. Urine culture showed E. coli and Proteus. Continue with IV fluids. EEG and MRI of the brain has been ordered. Patient was seen by neurology.. Fall precautions. Nephrology is following. Repeat labs in the morning. Prognosis guarded. Time with Patient: Greater than 30
[2019-08-21] MEDS: SODIUM CHLORIDE 0.9% 1,000 ML IV SCH (05:22)
[2019-08-21 05:48] VITALS: BP 117/71; TEMP 98.1
[2019-08-21 07:07] LABS: Glucose,Whole Blood 153 mg/dL (75-99)
[2019-08-21 08:17] LABS: Basophils % (A) 0 %; Eosinophils % (A) 0 %; HCT 33.6 % (34.0-46.0); HGB 11.3 gm/dL (11.4-16.0); Lymphocytes # (A) 0.6 k/uL (1.0-4.8); Lymphocytes % (A) 5 %; MCH 32.9 pg (25.0-35.0); MCHC 33.7 g/dL (31.0-37.0); MCV 97.9 fL (80.0-100.0); Mean Platelet Volume 6.5; Monocytes # (A) 0.6 k/uL (0-1.0); Monocytes % (A) 4 %; Neutrophils # (A) 11.9 k/uL (1.3-7.7); Neutrophils % (A) 90 %; Platelet Count 208 k/uL (150-450); RBC 3.44 m/uL (3.80-5.40); RDW 13.3 % (11.5-15.5); WBC 13.3 k/uL (3.8-10.6)
[2019-08-21] MEDS: INSULIN ASPART (NovoLOG) 100 UNIT/ML VIAL SQ SCH ×4 (08:18→12:39)
[2019-08-21] MEDS: predniSONE 20 MG TAB PO SCH ×2 (08:19→12:42)
[2019-08-21] MEDS: SERTRALINE 25 MG TAB PO SCH (08:19)
[2019-08-21] MEDS: ENOXAPARIN 30 MG/0.3 ML SYRINGE SQ SCH (08:19)
[2019-08-21] MEDS: ATORVASTATIN 10 MG TAB PO SCH (08:19)
[2019-08-21] MEDS: FOLIC ACID 1 MG TAB PO SCH (08:20)
[2019-08-21] MEDS: FAMOTIDINE 20 MG TAB PO SCH (08:20)
[2019-08-21 08:31] LABS: Calcium 9.2 mg/dL (8.4-10.2); Potassium 3.9 mmol/L (3.5-5.1)
--- NOTE | 2019-08-21 10:56 | ECHOF ---
Referral Reason:near syncope MEASUREMENTS -------- HEIGHT: 162.6 cm WEIGHT: 61.7 kg BP: RVIDd: 1.8 cm (< 3.3) IVSd: 1.9 cm (0.6 - 1.1) LVIDd: 2.4 cm (3.9 - 5.3) LVPWd: 1.6 cm (0.6 - 1.1) IVSs: 1.8 cm LVIDs: 1.3 cm LVPWs: 1.9 cm Ao Diam: 2.7 cm (2.0 - 3.7) AV Cusp: 1.5 cm (1.5 - 2.6) LA Diam: 2.0 cm (2.7 - 3.8) MV E Ion: 1.41 m/s MV DecT: 97 ms MV A Ion: 0.77 m/s MV E/A Ratio: 1.82 RAP: 5.00 mmHg RVSP: 19.78 mmHg FINDINGS -------- Resting tachycardia (HR>100bpm). This was a technically adequate study. The left ventricular size is normal. There is severe concentric left ventricular hypertrophy. Ove rall left ventricular systolic function is normal with, an EF between 65 - 70 %. The right ventricle is normal in size. The left atrial size is normal. The right atrial size is normal. The aortic valve is trileaflet and appears structurally normal. The mitral valve is normal. Mild mitral regurgitation is present. The tricuspid valve appears structurally normal. Mild tricuspid regurgitation present. Right vent ricular systolic pressure is normal at < 35 mmHg. There is no pulmonic regurgitation present. The aortic root size is normal. Normal inferior vena cava with normal inspiratory collapse consistent with estimated right atrial pre ssure of 5 mmHg. There is a small, generalized pericardial effusion present. CONCLUSIONS -------- 1. Resting tachycardia (HR>100bpm). 2. This was a technically adequate study. 3. The left ventricular size is normal. 4. There is severe concentric left ventricular hypertrophy. 5. Overall left ventricular systolic function is normal with, an EF between 65 - 70 %. 6. The right ventricle is normal in size. 7. The left atrial size is normal. 8. The right atrial size is normal. 9. The aortic valve is trileaflet and appears structurally normal. 10. The mitral valve is normal. 11. Mild mitral regurgitation is present. 12. The tricuspid valve appears structurally normal. 13. Mild tricuspid regurgitation present. 14. Right ventricular systolic pressure is normal at < 35 mmHg. 15. There is no pulmonic regurgitation present. 16. The aortic root size is normal. 17. Normal inferior vena cava with normal inspiratory collapse consistent with estimated right atrial pressure of 5 mmHg. 18. There is a small, generalized pericardial effusion present. [employer] ARCHITECT: Taylor Abrams RDCS
--- NOTE | 2019-08-21 12:06 | P.PN ---
Subjective Progress Note Date: 08/21/19 Principal diagnosis: AMS, UTI, NSCLC In follow-up today patient continues to improve, in the chair, ate breakfast, drinking coffee, her states no "silent seizures" for the last 2 days. Patient's appetite is good, she is still a little bit unsteady on her feet but, she is getting around. She denies fevers, difficulty breathing, nausea or diarrhea Objective - Vital Signs Vital signs: Vital Signs Temp 98.1 F 08/21/19 05:00 Pulse 102 H 08/21/19 05:00 Resp 16 08/21/19 05:00 BP 117/71 08/21/19 05:00 Pulse Ox 96 08/21/19 05:00 Intake & Output 08/20/19 08/21/19 08/21/19 18:59 06:59 18:59 Intake Total 480 225 Output Total 409 240 Balance 71 -15 Intake: Intake, IV Titration 225 Amount Sodium Chloride 0.9% 1, 225 000 ml @ 75 mls/hr IV . [id number] [facility] Rx#:[id number] Oral 480 Output: Urine 250 240 Post Void Residual 159 Other: Voiding Method Bedside Commode Bedside Commode # Voids 3 4 - Constitutional General appearance: Present: average body habitus, cooperative, no acute distress - EENT Eyes: Present: anicteric sclerae ENT: Present: hearing grossly normal - Respiratory Details: Respirations are even and unlabored - Cardiovascular Details: Skin is warm and dry to the touch - Musculoskeletal Musculoskeletal: Present: generalized weakness, strength equal bilaterally - Psychiatric Psychiatric: Present: A&O x's 3, appropriate affect - Labs CBC & Chem 7: 08/21/19 07:30 08/21/19 07:30 Labs: Abnormal Lab Results - Last 24 Hours (Table) 08/20/19 08/20/19 08/21/19 Range/Units 17:09 20:43 07:06 WBC (3.8-10.6) k/uL RBC (3.80-5.40) m/uL Hgb (11.4-16.0) gm/dL Hct (34.0-46.0) % Neutrophils # (1.3-7.7) k/uL Lymphocytes # (1.0-4.8) k/uL Chloride (98-107) mmol/L BUN (7-17) mg/dL Creatinine (0.52-1.04) mg/dL Glucose (74-99) mg/dL POC Glucose (mg/dL) 377 H 259 H 153 H (75-99) mg/dL 08/21/19 08/21/19 Range/Units 07:30 07:30 WBC 13.3 H (3.8-10.6) k/uL RBC 3.44 L (3.80-5.40) m/uL Hgb 11.3 L (11.4-16.0) gm/dL Hct 33.6 L (34.0-46.0) % Neutrophils # 11.9 H (1.3-7.7) k/uL Lymphocytes # 0.6 L (1.0-4.8) k/uL Chloride 111 H (98-107) mmol/L BUN 39 H (7-17) mg/dL Creatinine 1.87 H (0.52-1.04) mg/dL Glucose 134 H (74-99) mg/dL POC Glucose (mg/dL) (75-99) mg/dL Microbiology - Last 24 Hours (Table) 08/16/19 16:00 Blood Culture - Preliminary Blood No Growth after 96 hours - Imaging and Cardiology echo report reviewed Assessment and Plan (1) Altered mental status Narrative/Plan: Mild neurological deficit noted, problems with acute recall. CT of the head without contrast was nondiagnostic for parenchymal metastasis. Recommendation is for MRI of the brain once patient's renal function is improved. This can be planned outpatient. Neurology consult reviewed Pt able to eat and drink in adequate amounts on her own Current Visit: Yes Status: Acute Priority: High Code(s): R41.82 - ALTERED MENTAL STATUS, UNSPECIFIED SNOMED Code(s): 055010085 (2) Weakness Narrative/Plan: Physical therapy consulted Dietitian consulted Pt is getting around better today Current Visit: Yes Status: Acute Priority: High Code(s): R53.1 - WEAKNESS SNOMED Code(s): 35703617 (3) Adenocarcinoma of lung, stage 3 Narrative/Plan: Pt is on prednisone for immune therapy SE, cont at current dosebfor 2 more days then decrease dose to 20mg TID-this was communicated to and put in discharge instructions No treatment is planned at this time Recent PET scan in July was equivocal. Patient will continue on follow-up as scheduled with Dr. Fish. F/U appt in chart Current Visit: No Status: Chronic Priority: Medium Code(s): C34.90 - MALIGNANT NEOPLASM OF UNSP PART OF UNSP BRONCHUS OR LUNG SNOMED Code(s): 305156478 (4) Renal failure (ARF), acute on chronic Narrative/Plan: Creatinine improved, 1.87 today. 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 Has had Nephrology work up. Continue monitoring labs. She is able to hydrate herself now Current Visit: Yes Status: Acute Priority: High Code(s): N17.9 - ACUTE KIDNEY FAILURE, UNSPECIFIED; N18.9 - CHRONIC KIDNEY DISEASE, UNSPECIFIED SNOMED Code(s): 876807087
[2019-08-21 12:24] LABS: Glucose,Whole Blood 341 mg/dL (75-99)
--- NOTE | 2019-08-21 15:13 | P.DS ---
Providers Date of admission: 08/16/19 15:31 Expected date of discharge: 08/21/19 Attending physician: Duarte Neumann Consults: 08/16/19 15:31 Consult Physician Urgent Consulting Provider: Destiney Jackson Consult Reason/Comments: Weakness Do you want consulting provider notified?: Yes Consult Physician Urgent Consulting Provider: Ni Moseley Consult Reason/Comments: GI bleed Do you want consulting provider notified?: Yes 08/16/19 17:24 Consult Physician Routine Consulting Provider: Karoline Morales Consult Reason/Comments: possible seizures Do you want consulting provider notified?: Already Contacted 08/17/19 20:58 Consult Physician Routine Consulting Provider: Janes Ch Consult Reason/Comments: Renal failure Do you want consulting provider notified?: Yes 08/18/19 12:48 Consult Physician Routine Consulting Provider: Sharif Moseley Consult Reason/Comments: near syncopal event Do you want consulting provider notified?: Yes Primary care physician: Mitch Ricks [facility] Course: Final diagnosis -Staring episodes. patient started chemotherapy and getting immunotherapy. Presents with episodes of forgetfulness and decreased responsiveness. ruled out seizure activity. MRI of the brain could not be done due to renal function. Patient was seen by neurology. EEG showed likely encephalopathy. No epileptic waves noted. -Poorly differentiated adenocarcinoma of the lung status post chemotherapy and immunotherapy -Hyperglycemia with uncontrolled Diabetes mellitus type 2 -GERD -Hyperlipidemia -Anxiety -Acute renal failure, could be prerenal drug-induced component cannot be ruled out. -Metabolic acidosis due to renal failure -Normocytic anemia due to underlying malignancy -Acute UTI from cystitis -Acute on chronic medical debility multifactorial Discharge disposition Patient is being discharged in a stable condition with guarded prognosis to home and will follow-up with primary care provider upon discharge. Patient will also be following up with oncology, neurology, and nephrology in the outpatient setting. Patient will continue on a prednisone taper along with Ceftin 500 mg twice daily for the next 5 days. Total time taken is 35 minutes. History of present illness This is a pleasant 68-year-old patient of Dr. Mitch Ricks. Patient is being followed by Dr. Hensley. Patient has a diagnosis of poorly differentiated adenocarcinoma of the lung. Also in October of this year had a right-sided chest tube for malignant pleural effusion. Patient was initially given chemotherapy then treated with immunotherapy. Patient had a PET scan not too long ago that showed improvement of disease but because of worsening renal failure treatment had to be held. Patient is put on steroids. Patient provided most of the history the ER. Still that. Patient has been becoming progressively weaker over the last few days. Appetite is gone down. Having some loose stools and eventually. Patient will often does get dizzy and also's office question about seizures he should become less responsive at times. No fever or chills. Patient is not able to give me much of a history of self." Also questions. No family the bedside. 08/18/2019 Patient is currently lying in the bed. Awake alert but seems lethargic and tired. Patient did have episodes of absence seizures as per her at bedside. Patient was seen by neurology. EEG showed no epileptiform waves noted. Patient is also complaining of dizziness. Cardiology was consulted as well. Otherwise patient denied IV hydration and nephrology was consulted due to acute on chronic kidney disease. Patient has been afebrile. Urine culture showed no growth so far. Follow-up CBC and BMP tomorrow 08/19/2019 Patient is more awake and oriented today. Able to sit in the chair and tolerating oral diet. No episodes of nausea and vomiting. Mentation is improving. No further episodes of seizures noted. Creatinine level is 2.09. Bicarb has been discontinued and continued on IV hydration. Added Procardia for better blood sugar control and also started on Levemir 15 units at bedtime due to hyperglycemia to be secondary to steroids. Nephrology and oncology is following. Patient has been afebrile. Urine culture showed E. coli and Proteus. Currently on antibioticsceftriaxone. Denied chest pain or shortness of breath. Patient does have good urine output. 08/20/2019 Patient is more awake and oriented today. Denied any staring episodes. No seizure activity was noted. Creatinine is still elevated but slightly improved to 2.02. Patient is still hyperglycemic and preprandial NovoLog along with liver metastases was ordered. Currently being continued on antibiotics in the form of ceftriaxone for E. coli and Proteus urinary tract infection. Denied any fever or chills. No chest pain or shortness of breath. Anticipate discharge in the next 24 hours with better her blood sugar control and renal function stabilizes. 08/21/2019 Patient is sitting up in the chair in no acute distress with at the bedside. Patient is much more alert today and would really like to go home today. Per there is been no reports of any seizure-like activity and no episodes of passing out when ambulating. Patient's blood sugars continue to be slightly elevated and adjustments have been made to the insulin. Discussed with the about keeping a diary of blood sugars and how much insulin is being used and following up with primary care provider upon discharge. Patient's creatinine has improved and is currently 1.87. Patient will need repeat labs in 2-3 days. Patient will be following up with nephrology in the outpatient setting upon discharge. Patient denies any chest pain, shortness of breath, or palpitations. Patient is afebrile. Patient denies any nausea or vomiting and is tolerating diet. Discussed with the patient and at length about modifying diet and continuing with a diabetic diet as her blood sugars remained elevated. Patient is also continuing on steroids which will likely elevate her blood sugars as well. On exam vital signs are stable. Temp is 98.1F, pulse is 102, respirations are 16, blood pressure is 1117/71, oxygen saturation is 96% on room air. Cardio S1, S2 are muffled. Respiratory system shows diminished breath sounds at the bases otherwise clear to auscultation. Abdomen is soft and nontender. Nervous system shows no focal deficits. Please refer to medication reconciliation sheet for a list of medications. Patient Condition at Discharge: Stable Plan - Discharge Summary Discharge Rx Participant: No New Discharge Prescriptions: New Cefuroxime Axetil [Ceftin] 500 mg PO BID 5 Days #10 tab INSULIN ASPART (NovoLOG) [NovoLOG (formulary)] 5 unit SQ AC-TID vial INSULIN ASPART (NovoLOG) [NovoLOG (formulary)] 0 unit SQ ACHS vial Famotidine [Pepcid] 20 mg PO DAILY 30 Days #30 tab NIFEdipine XL [Procardia XL] 60 mg PO DAILY 30 Days #30 tab.er.24 Continue Atorvastatin [Lipitor] 10 mg PO DAILY Sertraline HCl [Zoloft] 25 mg PO DAILY predniSONE 20 mg PO QID Folic Acid 1 mg PO DAILY Changed Insulin Glargine,Hum.rec.anlog [Lantus Solostar] 15 units SQ HS #0 Discontinued Levofloxacin [Levaquin] 500 mg PO DAILY Sodium Bicarbonate Tab 1,300 mg PO BID Famotidine [Pepcid] 40 mg PO DAILY Discharge Medication List Atorvastatin [Lipitor] 10 mg PO DAILY 08/24/18 [History] Sertraline HCl [Zoloft] 25 mg PO DAILY 10/29/18 [History] Folic Acid 1 mg PO DAILY 08/16/19 [History] predniSONE 20 mg PO QID 08/16/19 [History] Cefuroxime Axetil [Ceftin] 500 mg PO BID 5 Days #10 tab 08/21/19 [Rx] Famotidine [Pepcid] 20 mg PO DAILY 30 Days #30 tab 08/21/19 [Rx] INSULIN ASPART (NovoLOG) [NovoLOG (formulary)] 0 unit SQ ACHS vial 08/21/19 [Rx] INSULIN ASPART (NovoLOG) [NovoLOG (formulary)] 5 unit SQ AC-TID vial 08/21/19 [Rx] Insulin Glargine,Hum.rec.anlog [Lantus Solostar] 15 units SQ HS #0 08/21/19 [Rx] NIFEdipine XL [Procardia XL] 60 mg PO DAILY 30 Days #30 tab.er.24 08/21/19 [Rx] Follow up Appointment(s)/Referral(s): Oksana Vazquez MD [STAFF PHYSICIAN] - 1 Week Mitch Ricks MD [Primary Care Provider] - 08/24/19 3:00 pm Diego Fish MD [STAFF PHYSICIAN] - 09/07/19 8:45 am Ambulatory/Diagnostic Orders: Basic Metabolic Panel [LAB.AMB] Time Frame: 2 Days, Location: None Selected Complete Blood Count w/diff [LAB.AMB] Time Frame: 3 Days, Location: None Selected Patient Instructions/Handouts: Cefuroxime (By mouth), Nifedipine (By mouth), Famotidine (By mouth), Gastrointestinal Bleeding (DC), Acute Kidney Injury (DC), Urinary Tract Infection in Women (DC), Weakness (DC) Activity/Diet/Wound Care/Special Instructions: REDUCE PREDNISONE TO 1 TAB THREE TIMES A DAY ON 08/24/19. STAY ON THIS DOSE UNTIL SEEN BY DR. FISH Follow-up with primary care provider upon discharge Follow-up with nephrology upon discharge Follow-up with oncology Repeat labs in 2-3 days Continue current diabetic diet Continue to monitor blood sugars before meals at bedtime and treat with sliding scale along with additional insulin as well as long-acting insulin Keep a diary or log of blood sugar readings and how much insulin is being given each time and bring with you to primary care provider appointment Get up slowly and sit for 2-3 minutes and then proceed with getting up and do this along with position changes as well Discharge Disposition: HOME SELF-CARE
== END 2019-08-21 13:15 | disposition home or self-care (01) | DRG 70 ==
LOC: EC 11:09 → 3NMEDONC 15:31
PROVIDERS: ADMIT Hospitalist; ATTEND Hospitalist
DX: G93.41 Metabolic encephalopathy (principal); N17.0 Acute kidney failure with tubular necrosis; N30.00 Acute cystitis without hematuria; C34.90 Malignant neoplasm of unspecified part of unspecified bronchus or lung; E87.4 Mixed disorder of acid-base balance; B96.20 Unspecified Escherichia coli [E. coli] as the cause of diseases classified elsewhere; B96.4 Proteus (mirabilis) (morganii) as the cause of diseases classified elsewhere; A08.4 Viral intestinal infection, unspecified; D63.0 Anemia in neoplastic disease; E03.9 Hypothyroidism, unspecified; E11.22 Type 2 diabetes mellitus with diabetic chronic kidney disease; E11.65 Type 2 diabetes mellitus with hyperglycemia; T38.0X5A Adverse effect of glucocorticoids and synthetic analogues, initial encounter; T45.1X5A Adverse effect of antineoplastic and immunosuppressive drugs, initial encounter; E78.5 Hyperlipidemia, unspecified; F41.9 Anxiety disorder, unspecified; I12.9 Hypertensive chronic kidney disease with stage 1 through stage 4 chronic kidney disease, or unspecified chronic kidney disease; J44.9 Chronic obstructive pulmonary disease, unspecified; K21.9 Gastro-esophageal reflux disease without esophagitis; K76.9 Liver disease, unspecified; N18.9 Chronic kidney disease, unspecified; Z79.4 Long term (current) use of insulin; Z79.899 Other long term (current) drug therapy; Z80.1 Family history of malignant neoplasm of trachea, bronchus and lung; Z82.49 Family history of ischemic heart disease and other diseases of the circulatory system; Z82.5 Family history of asthma and other chronic lower respiratory diseases; Z85.118 Personal history of other malignant neoplasm of bronchus and lung; Z87.891 Personal history of nicotine dependence; Z90.710 Acquired absence of both cervix and uterus; Z92.21 Personal history of antineoplastic chemotherapy; Z79.890 Hormone replacement therapy; Z79.52 Long term (current) use of systemic steroids; R55 Syncope and collapse; R26.9 Unspecified abnormalities of gait and mobility; Z91.81 History of falling; R26.89 Other abnormalities of gait and mobility; R53.81 Other malaise
CPT/HCPCS: 36415; 80048; 80053; 81001; 82043; 82272; 82553; 82570; 83605; 83735; 84156; 85025; 87040; 87077; 87086; 87186; 93005; 93306; 95816; 96361; 96365; 99285